=== PATIENT | male | born 1945 | race Two or more races ===

== ENCOUNTER 2017-05-10 13:54 | Outpatient (CLI) | payer MEDICARE, OTHER ==
[~2017-05-10 13:54] MED LIST: ALBUTEROL2.5 MG/3 M INH; AMLODIPINE BESY10 MG ORAL; ARICEPT23 MG ORAL; ASPIR 8181 MG ORAL; ATORVASTATIN CA10 MG ORAL; COGENTIN1 MG ORAL; CYMBALTA60 MG ORAL; DIPHENHYDRAMINE25 M1 ORAL; DOCUSIL100 M1 ORAL; FAMOTIDINE40 MG ORAL; FINASTERIDE5 MG ORAL; HALOPERIDOL1 MG ORAL; HUMALOG100 UNIT/1 SUBQ; JANUVIA50 MG ORAL; LANTUS SOL100 UNIT/1 SUBQ; LEVOTHYROXINE200 MCG IV; LEVOTHYROXINE25 MCG ORAL; LISINOPRIL10 MG ORAL; LISINOPRIL20 MG ORAL; LORAZEPAM1 MG ORAL; METFORMIN HCL500 M1 ORAL; METOPROLOL TART50 M1 ORAL; MIRTAZAPINE15 M3 ORAL; PLAVIX75 MG ORAL; RESTORIL15 MG ORAL; SYNTHROID25 MCG ORAL; SYNTHROID50 MCG ORAL; TAMSULOSIN HCL0.4 MG ORAL; VANCOMYCIN HCL125 MG IV
[2017-05-10 14:28] VITALS: BP 119/55
--- NOTE | 2017-05-10 16:09 | GI Initial Consult Note ---
[facility] Dave N.P[facility] 05/10/17 1609: History of Present Illness General Date patient seen: May 10, 2017 Time patient seen: 16:02 Referring physician: GUI Reason for Consultation: Abdominal Pain Present Illness HPI 71 year old male patient referred by Dr. Cote for c/o of RLQ pain. Stated that his pain has improved, but now back to 7/10. Denies any vomiting. In addition patient has c/o of itching and constipation. Possible jaundice. Patient had recent admission to [facility] in August 2016 for abdominal pain. U/S at the time were negative stated per patient. Last colonoscopy/EGD was performed in 2012 and per patient stated it was normal. Denies any unintentional weight loss or changes in dietary habits. Patient is a fall risk. Home Meds Reported Medications Metoprolol Tartrate* (METOPROLOL TARTRATE*) 50 Mg Tablet, 50 MG ORAL EVERY 12 HOURS, TAB 07/05/15 Lisinopril (LISINOPRIL*) 20 Mg Tablet, 20 MG ORAL DAILY, TAB 07/05/15 Levothyroxine Sodium* (LEVOTHYROXINE SODIUM) 200 Mcg Vial, 75 MCG IV DAILY, VIAL 07/05/15 Finasteride (FINASTERIDE) 5 Mg Tablet, 5 MG ORAL DAILY, #30 TAB 0 Refills 07/05/15 Donepezil Hcl (ARICEPT) 23 Mg Tablet, 10 MG ORAL DAILY, TAB Swallow whole with water; do NOT crush or chew 07/05/15 Aspirin* (ASPIR 81*) 81 Mg Tablet.dr, 81 MG ORAL DAILY, TAB 07/05/15 Amlodipine Besylate* (AMLODIPINE BESYLATE*) 10 Mg Tablet, 10 MG ORAL DAILY, TAB 07/05/15 Albuterol Sulfate* (ALBUTEROL SULFATE HHN*) 2.5 Mg/3 Ml Vial.neb, 3 ML INH Q4H Y for Shortness of Breath, EA 07/05/15 Diphenhydramine Hcl* (DIPHENHYDRAMINE HCL*) 25 Mg Capsule, 25 MG ORAL Q6H Y for Itching, #30 CAP 0 Refills 03/01/15 Docusate Sodium* (DOCUSIL*) 100 Mg Capsule, 100 MG ORAL TWICE A DAY, CAP 03/01/15 Famotidine (FAMOTIDINE) 40 Mg Tablet, 40 MG ORAL hs, #60 TAB 0 Refills 02/24/15 Levothyroxine Sodium (Synthroid) 50 Mcg Tab, 50 MCG ORAL DAILY, TAB Take in the morning on an empty stomach, at least 30 minutes before food. 02/24/15 Levothyroxine Sodium* (SYNTHROID*) 25 Mcg Tablet, 0.5 MG ORAL DAILY, TAB Take in the morning on an empty stomach, at least 30 minutes before food. 02/24/15 Duloxetine Hcl* (CYMBALTA*) 60 Mg Capsule.dr, 30 MG ORAL DAILY, CAP 10/02/14 Metformin Hcl* (METFORMIN HCL*) 500 Mg Tablet, 500 MG ORAL TWICE A DAY, TAB 10/02/14 Sitagliptin (Januvia) 50 Mg Tab, 50 MG ORAL am, TAB 10/02/14 Lisinopril* (LISINOPRIL*) 10 Mg Tablet, 10 MG ORAL DAILY, TAB 10/02/14 Clopidogrel Bisulfate* (PLAVIX*) 75 Mg Tablet, 75 MG ORAL DAILY, TAB 10/02/14 Atorvastatin Calcium* (LIPITOR*) 10 Mg Tablet, 10 MG ORAL BEDTIME, TAB 10/02/14 Mirtazapine* (MIRTAZAPINE*) 15 Mg Tablet, 15 MG ORAL BEDTIME Y for Insomnia, TAB 10/02/14 Temazepam* (RESTORIL*) 15 Mg Capsule, 15 MG ORAL BEDTIME Y for Insomnia, CAP 10/02/14 Lorazepam* (LORAZEPAM*) 1 Mg Tablet, 1 MG ORAL DAILY Y for For Anxiety, TAB 10/02/14 Tamsulosin Hcl (TAMSULOSIN HCL*) 0.4 Mg Cap.er.24h, 0.4 MG ORAL BEDTIME, CAP 10/02/14 Insulin Lispro (HUMALOG) 100 Unit/1 Ml Vial, 0 SUBQ, #1 UNITS 0 Refills 09/27/14 Insulin Glargine (LANTUS) 100 Unit/1 Ml Insuln.pen, 10 SUBQ am, #1 EA 0 Refills 09/27/14 Med list reviewed/reconciled: Yes Allergies: Coded Allergies: No Known Allergies (Unverified , 09/27/14) Patient History History Provided By: Patient, Medical Record [facility] Narrative PAST MEDICAL HISTORY: 1. Psychosis. 2. History of NIDDM. 3. History of diabetes. 4. History decubitus 5. History of GERD. 6. History of hypothyroidism. PAST SURGICAL HISTORY: Denies. Social History: Reports: smoking - quit 6 years Review of Systems All Other Systems: negative except mentioned in HPI Physical Exam Bp 119/55 61 HR 100 RA HT 5'8 WT 150 lbs Sp02 EP Interpretation: reviewed, normal General Appearance: well appearing, no apparent distress, alert Head: normocephalic EENT: PERRL/EOMI, normal ENT inspection Neck: supple Respiratory: normal breath sounds, no respiratory distress Cardiovascular: normal rate Gastrointestinal: normal inspection, non tender, soft, normal bowel sounds, non -distended Rectal: deferred Genitourinary: deferred Musculoskeletal: normal inspection, back normal Neurologic: normal inspection, alert, oriented x3, responsive Psychiatric: normal inspection, judgement/insight normal, memory normal Skin: normal inspection, normal color, no rash, warm/dry, palpation normal, well hydrated Lymphatic: normal inspection, no adenopathy GI: Plan Problems: (1) Abdominal pain (2) Constipation (3) Anemia (4) DM (diabetes mellitus) (5) Psychiatric disorder Plan Linzess 145mcg PO daily dc lactulose and MOM if linzess covered ordered abdominal U/S, send report if performed recently RTC x [address] Bolivar. Thank you for this patient referral. MELCHOR BOLIVAR 05/14/17 1413: History of Present Illness Present Illness Home Meds Reported Medications Metoprolol Tartrate* (METOPROLOL TARTRATE*) 50 Mg Tablet, 50 MG ORAL EVERY 12 HOURS, TAB 07/05/15 Lisinopril (LISINOPRIL*) 20 Mg Tablet, 20 MG ORAL DAILY, TAB 07/05/15 Levothyroxine Sodium* (LEVOTHYROXINE SODIUM) 200 Mcg Vial, 75 MCG IV DAILY, VIAL 07/05/15 Finasteride (FINASTERIDE) 5 Mg Tablet, 5 MG ORAL DAILY, #30 TAB 0 Refills 07/05/15 Donepezil Hcl (ARICEPT) 23 Mg Tablet, 10 MG ORAL DAILY, TAB Swallow whole with water; do NOT crush or chew 07/05/15 Aspirin* (ASPIR 81*) 81 Mg Tablet.dr 81 MG ORAL DAILY, TAB 07/05/15 Amlodipine Besylate* (AMLODIPINE BESYLATE*) 10 Mg Tablet, 10 MG ORAL DAILY, TAB 07/05/15 Albuterol Sulfate* (ALBUTEROL SULFATE HHN*) 2.5 Mg/3 Ml Vial.neb, 3 ML INH Q4H Y for Shortness of Breath, EA 07/05/15 Diphenhydramine Hcl* (DIPHENHYDRAMINE HCL*) 25 Mg Capsule, 25 MG ORAL Q6H Y for Itching, #30 CAP 0 Refills 03/01/15 Docusate Sodium* (DOCUSIL*) 100 Mg Capsule, 100 MG ORAL TWICE A DAY, CAP 03/01/15 Famotidine (FAMOTIDINE) 40 Mg Tablet, 40 MG ORAL hs, #60 TAB 0 Refills 02/24/15 Levothyroxine Sodium (Synthroid) 50 Mcg Tab, 50 MCG ORAL DAILY, TAB Take in the morning on an empty stomach, at least 30 minutes before food. 02/24/15 Levothyroxine Sodium* (SYNTHROID*) 25 Mcg Tablet, 0.5 MG ORAL DAILY, TAB Take in the morning on an empty stomach, at least 30 minutes before food. 02/24/15 Duloxetine Hcl* (CYMBALTA*) 60 Mg Capsule.dr, 30 MG ORAL DAILY, CAP 10/02/14 Metformin Hcl* (METFORMIN HCL*) 500 Mg Tablet, 500 MG ORAL TWICE A DAY, TAB 10/02/14 Sitagliptin (Januvia) 50 Mg Tab, 50 MG ORAL am, TAB 10/02/14 Lisinopril* (LISINOPRIL*) 10 Mg Tablet, 10 MG ORAL DAILY, TAB 10/02/14 Clopidogrel Bisulfate* (PLAVIX*) 75 Mg Tablet, 75 MG ORAL DAILY, TAB 10/02/14 Atorvastatin Calcium* (LIPITOR*) 10 Mg Tablet, 10 MG ORAL BEDTIME, TAB 10/02/14 Mirtazapine* (MIRTAZAPINE*) 15 Mg Tablet, 15 MG ORAL BEDTIME Y for Insomnia, TAB 10/02/14 Temazepam* (RESTORIL*) 15 Mg Capsule, 15 MG ORAL BEDTIME Y for Insomnia, CAP 10/02/14 Lorazepam* (LORAZEPAM*) 1 Mg Tablet, 1 MG ORAL DAILY Y for For Anxiety, TAB 10/02/14 Tamsulosin Hcl (TAMSULOSIN HCL*) 0.4 Mg Cap.er.24h, 0.4 MG ORAL BEDTIME, CAP 10/02/14 Insulin Lispro (HUMALOG) 100 Unit/1 Ml Vial, 0 SUBQ, #1 UNITS 0 Refills 09/27/14 Insulin Glargine (LANTUS) 100 Unit/1 Ml Insuln.pen, 10 SUBQ am, #1 EA 0 Refills 09/27/14 Allergies: Coded Allergies: No Known Allergies (Unverified , 09/27/14) GI: Plan Plan The patient was seen and examined at bedside and all new and available data was reviewed in the patients chart. I agree with the above findings, impression and plan. (Patient seen earlier today. Signature stamp does not reflect patient encounter time.). - MD [facility] Dave Saavedra May 10, 2017 16:09 MELCHOR BOLIVAR May 14, 2017 14:13
[2017-05-10 18:14] LABS: BASOPHILS % (AUTO) 0.3 % (0.0-2.0); EOSINOPHILS % (AUTO) 2.9 % (0.0-3.0); HEMOGLOBIN 10.3 G/DL (14.2-18.0); MEAN CORPUSCULAR VOLUME 90 FL (80-99); MONOCYTES % (AUTO) 5.3 % (1.0-10.0); NEUTROPHILS % (AUTO) 72.5 % (45.0-75.0); PLATELET COUNT 338 K/UL (150-450); RED BLOOD COUNT 3.67 M/UL (4.70-6.10); RED CELL DISTRIBUTION WIDTH 13.4 % (11.6-14.8); WHITE BLOOD COUNT 9.7 K/UL (4.8-10.8)
[2017-05-10 18:55] LABS: ALANINE AMINOTRANSFERASE 70 U/L (12-78); ALBUMIN 3.6 G/DL (3.4-5.0); ALBUMIN/GLOBULIN RATIO 0.9 (1.0-2.7); ALKALINE PHOSPHATASE 463 U/L (46-116); AMYLASE 89 U/L (25-115); ANION GAP 10 mmol/L (5-15); ASPARTATE AMINO TRANSFERASE 24 U/L (15-37); BILIRUBIN,TOTAL 0.4 MG/DL (0.2-1.0); BLOOD UREA NITROGEN 52 mg/dL (7-18); CALCIUM 9.7 MG/DL (8.5-10.1); CARBON DIOXIDE 23 MMOL/L (21-32); CHLORIDE 107 MMOL/L (98-107); CREATININE 2.2 MG/DL (0.55-1.30); POTASSIUM 5.8 MMOL/L (3.5-5.1); SODIUM 139 MMOL/L (136-145)
[2017-05-15] MEDS ORDERED: METOPROLOL SUCC50 MG ORAL (11:31)
[2017-05-15] MEDS ORDERED: VITAMIN B COMP1 EAC5 PO (11:31)
[2017-05-15] MEDS ORDERED: SYNTHROID25 MCG ORAL (11:31)
[2017-05-15] MEDS ORDERED: JANUVIA25 MG ORAL (11:31)
[2017-05-15] MEDS ORDERED: DULCOLAX10 MG RC (11:31)
[2017-05-15] MEDS ORDERED: LIPITOR20 MG ORAL (11:31)
== END 2017-05-10 14:29 | disposition home or self-care (01) ==
LOC: PAN 13:54
DX: K59.00 Constipation, unspecified (principal); R10.9 Unspecified abdominal pain; D64.9 Anemia, unspecified; E11.9 Type 2 diabetes mellitus without complications; F29 Unspecified psychosis not due to a substance or known physiological condition; K21.9 Gastro-esophageal reflux disease without esophagitis; E03.9 Hypothyroidism, unspecified; Z87.891 Personal history of nicotine dependence; Z79.82 Long term (current) use of aspirin
CPT/HCPCS: 36415; 80053; 82150; 83690; 85025; G0463; 99202

== ENCOUNTER 2017-06-05 10:21 | Outpatient (CLI) | payer MEDICARE, OTHER ==
[~2017-06-05 10:21] MED LIST changes: +DULCOLAX10 MG RC; +JANUVIA25 MG ORAL; +LIPITOR20 MG ORAL; +METOPROLOL SUCC50 MG ORAL; +VITAMIN B COMP1 EAC5 PO
[2017-06-05 12:27] LABS: % IRON SATURATION 9 % (15-50); IRON 25 ug/dL (50-175); TOTAL IRON BINDING CAPACITY 282 ug/dL (250-450)
[2017-06-05 12:28] LABS: ALANINE AMINOTRANSFERASE 42 U/L (12-78); ALBUMIN 3.3 G/DL (3.4-5.0); ALKALINE PHOSPHATASE 204 U/L (46-116); ASPARTATE AMINO TRANSFERASE 17 U/L (15-37); BILIRUBIN,DIRECT < 0.1 MG/DL (0.0-0.3); BILIRUBIN,TOTAL 0.3 MG/DL (0.2-1.0)
--- NOTE | 2017-06-11 15:14 | GI Progress Note ---
Assessment/Plan Problems: (1) Abdominal pain ICD Codes: R10.9 - Unspecified abdominal pain SNOMED: 95482648 (2) Anemia ICD Codes: D64.9 - Anemia SNOMED: 727377914 (3) Constipation ICD Codes: K59.00 - Constipation, unspecified SNOMED: 51681957 (4) DM (diabetes mellitus) ICD Codes: E11.9 - DM (diabetes mellitus) SNOMED: 25556034 Status: stable Status Narrative Seen with Dr. Price. Assessment/Plan Last colonoscoyp 2012 per patient cont linzess ordered labs >> AMA, JEFF, SMA, LFT's, Iron panel, CEA MRCP ordered RTC after imaging study patient may need endoscopy bx or ursodiol The patient was seen and examined at bedside and all new and available data was reviewed in the patients chart. I agree with the above findings, impression and plan. (Patient seen earlier today. Signature stamp does not reflect patient encounter time.). - Brendon Price MD Subjective Subjective abdominal pain >> RLQ/RUQ constipation resolved with linzess lower back pain, right should pain, right decreased appetite Mylanta helps pain Objective T 96.7 BP 120/57 P 62 100 RA Denies any unintentional weight loss or changes in dietary habits. WT 150 lbs General Appearance: WD/WN, no apparent distress, alert Cardiovascular: normal rate Respiratory/Chest: normal breath sounds, no respiratory distress Abdominal Exam: normal bowel sounds, non tender, soft Extremities: normal range of motion, non-tender Tamara Farah N.P. Jun 11, 2017 15:14 MELCHOR PRICE Jun 13, 2017 13:19
== END 2017-06-05 10:55 | disposition home or self-care (01) ==
LOC: PAN 10:21
DX: R10.9 Unspecified abdominal pain (principal)
CPT/HCPCS: 36415; 80076; 82378; 83540; 83550; 86039; 86235; 86256; G0463; 99212

== ENCOUNTER 2017-06-14 09:03 | Outpatient (CLI) | payer MEDICARE, OTHER ==
--- NOTE | 2017-06-14 12:28 | Diagnostic Imaging Report ---
Indication: 71-year-old male patient with abdominal pain Technique: Coronal and axial single shot fast spin-echo breath-hold, axial T2 FRFSE, 2-D thick slab MRCP, AXIAL 2-D FIESTA fat saturated, axial 3-D dual echo breath-hold, water weighted axial LAVA FLEX, revealed 3-D MRCP images were obtained of the abdomen. MIP reconstructions were generated of the bile ducts Comparison: None. Reference made to prior CT scan of 03/01/2015 Findings: There is some image degradation due to respiratory motion artifact Gallbladder contains small filling defects consistent with gallstones described on prior CT scan. At least 4 filling defects are seen within the downstream and mid common bile duct measuring up to 12 mm in diameter. The most upstream of these is presumably mobile, as its position varies between various sequences. There is only mild dilatation of the common bile duct, which measures up to 8 mm in diameter. There is mild central intrahepatic biliary ductal dilatation. No intrahepatic ductal filling defects are demonstrated. The gallbladder is not particularly distended, and there is no gallbladder wall thickening or pericholecystic fluid. The liver demonstrates a cyst in segment 7 which measures 14 mm diameter. The pancreas is grossly unremarkable and the pancreatic duct is nondilated. The spleen, adrenals are grossly unremarkable. There are bilateral renal cysts. There is a small right pleural effusion. Impression: Cholelithiasis, also previously reported Choledocholithiasis, with at least 4 stones in the common bile duct. Resultant mild dilatation of the extrahepatic and central intrahepatic bile ducts Small right pleural effusion Other findings as noted, including bilateral renal cysts, right lobe hepatic cyst Findings discussed by phone with Dr. Price at the time of interpretation
== END 2017-06-14 11:03 | disposition home or self-care (01) ==
LOC: MRI 09:03
DX: R10.9 Unspecified abdominal pain (principal); K80.20 Calculus of gallbladder without cholecystitis without obstruction; J90 Pleural effusion, not elsewhere classified; N20.0 Calculus of kidney; K76.89 Other specified diseases of liver; R94.5 Abnormal results of liver function studies
CPT/HCPCS: 74181

== ENCOUNTER 2017-06-25 09:21 | Day surgery (SDC) | payer MEDICARE, OTHER ==
[~2017-06-25] VITALS: Ht 172.7 cm; Wt 68.0 kg
[2017-06-25] VITALS (7 sets, daily range): BP systolic 105–121; BP diastolic 53–64
--- NOTE | 2017-06-25 10:27 | Pre-Procedure Note/Attestation ---
Pre-Procedure Note/Attestation Complete Prior to Procedure Planned Procedure: not applicable Procedure Narrative: ercp Indications for Procedure Pre-Operative Diagnosis: choledocholithiasis Attestation I attest that I discussed the nature of the procedure; its benefits; risks and complications; and alternatives (and the risks and benefits of such alternatives ), prior to the procedure, with the patient (or the patient's legal novelties sales representative). I attest that, if there was a reasonable possibility of needing a blood transfusion, the patient (or the patient's legal novelties sales representative) was given the [facility] standardized written summary, pursuant to the Renato Beatriz Blood Safety Act ([place] Health and Safety Code # 1645, as amended). I attest that I re-evaluated the patient just prior to the surgery and that there has been no change in the patient's H&P, except as documented below: MELCHOR BOLIVAR Jun 25, 2017 10:27
--- NOTE | 2017-06-25 10:29 | Short Stay Surgery H&P ---
History of Present Illness History of Present Illness Chief Complaint see recent office note HPI Ange Marquez is a 71 year old male who was admitted on for Abdominal Pain Patient History Allergies: Coded Allergies: No Known Allergies (Unverified , 09/27/14) PAST MEDICAL HISTORY: Past Surgeries: Social History: Medication History Scheduled Aspirin* (Aspir 81*), 81 MG ORAL DAILY, (Reported) Atorvastatin Calcium* (Lipitor*), 10 MG ORAL BEDTIME, (Reported) Bisacodyl (Dulcolax), 10 MG RC PRN, (Reported) Clopidogrel Bisulfate* (Plavix*), 75 MG ORAL DAILY, (Reported) Docusate Sodium* (Docusil*), 100 MG ORAL TWICE A DAY, (Reported) Finasteride (Finasteride), 5 MG ORAL DAILY, (Reported) Levothyroxine Sodium (Synthroid), 50 MCG ORAL DAILY, (Reported) Lisinopril (Lisinopril*), 20 MG ORAL DAILY, (Reported) Metformin Hcl* (Metformin Hcl*), 500 MG ORAL DAILY, (Reported) Sitagliptin* (Januvia*), 50 MG ORAL DAILY, (Reported) Tamsulosin Hcl (Tamsulosin Hcl*), 0.4 MG ORAL BEDTIME, (Reported) Miscellaneous Medications Vitamin B Complex (Vitamin B Complex), 1 EACH PO, (Reported) Physical Exam Vital Signs Last Vital Signs Date Time Temp Pulse Resp B/P (MAP) Pulse Ox O2 Delivery O2 Flow Rate FiO2 06/25/17 10:12 98.1 61 20 121/64 100 Room Air 98.1 Plan Attestation Are the patient's medical conditions optimized for surgery? MELCHOR BOLIVAR Jun 25, 2017 10:29
[2017-06-25] MEDS ORDERED: fentaNYL 100 mcg/2 mL IV ONE (11:00)
[2017-06-25] MEDS ORDERED: Midazolam 2mg/2ml Inj ONE (11:00)
[2017-06-25] MEDS ORDERED: Propofol 200mg/20ml IV ONE (11:00)
[2017-06-25] MEDS ORDERED: Glucagon 1mg Inj ONE (11:00)
[2017-06-25] MEDS ORDERED: LR 1000ml ONE (11:00)
[2017-06-25] MEDS ORDERED: Iothalamate Meglumine 60% 30ML INJ ONE (11:21)
--- NOTE | 2017-06-25 12:14 | Endoscopy Procedure Note ---
Endoscopy Procedure Note General Indication for Procedure: choledocholithiasis Procedures Performed: ERCP Operative Findings/Diagnosis: same Specimen: none Pt Tolerated Procedure Well: Yes Estimated Blood Loss: none Anesthesia Anesthesiologist: see chart Anesthesia: MAC Inserted Devices Implant(s) used?: No GI Core Measures 50 yrs or older w/o bx or poly: Not Applicable 10yrs. F/U not recommended: Not Applicable MELCHOR BOLIVAR Jun 25, 2017 12:14
--- NOTE | 2017-06-25 15:43 | Diagnostic Imaging Report ---
Indication: Abdominal pain, choledocholithiasis demonstrated on prior MRCP Technique: Intraoperative images during ERCP by Dr. Price Comparison: none Findings: Intraoperative images demonstrate multiple filling defects in the common bile duct, which is mildly dilated. Subsequent images document deployment of stone extraction balloon Impression: Intraoperative imaging, as described
--- NOTE | 2017-06-25 19:00 | Procedure Note ---
DATE OF PROCEDURE: 06/25/2017 SURGEON: Deric Price M.D. PROCEDURE: ERCP with sphincterotomy and balloon-account assistant stone extractions. ANESTHESIOLOGIST: . INSTRUMENT: Olympus endoscopic retrograde cholangiopancreatography scope. INDICATION: Choledocholithiasis. REASON FOR PROCEDURE: The procedure, risks, benefits, and possible consequences, including hemorrhage, aspiration, perforation and infection, and alternative treatments, were explained to the patient/legal guardian by Dr. Deric Price and the patient/legal guardian understood and accepted these risks. PROCEDURE: After informed consent was obtained and the patient was adequately sedated, the endoscopic retrograde cholangiopancreatography was advanced from mouth into the second portion of the duodenum. Ampulla was seen at about 11 o'clock position. It was a little challenging because the ampulla was looking down. Initially, we attempted to cannulate with sphincterotome, which was unsuccessful. Then, we used the 5 feet 5 inches catheter and we were able to cannulate the common bile duct successfully. Initial cholangiogram showed dilated common bile duct to about 8 to 9 mm with multiple stones in the distal common bile duct. Then, we switched to the sphincterotome over a guidewire and performed a sphincterotomy. A 95% sphincterotomy was performed. Then, a balloon was used to sweep the duct multiple times. The balloon was used that was 9 to 12 mm in size. Three large brown stools like about 7 mm and one small black-colored stool roughly about 4 mm was removed from the common bile duct. Post stone removal, balloon occlusion cholangiogram showed no further filling defect in the common bile duct. Cystic duct was not filled. We are not sure if the patient has history of cholecystectomy. The patient tolerated the procedure very well without any complication. The flow of contrast from common bile duct into the duodenum was excellent, so we did not put a stent at this time. SUMMARY OF FINDINGS: Choledocholithiasis. PROCEDURE: Status post endoscopic retrograde cholangiopancreatography sphincterotomy, balloon-account assistant for stone extraction. See above for details. RECOMMENDATIONS: The patient to be followed as an outpatient in one week unless the patient has severe pain. We are going to observe him for an hour to see if he has no sign and symptoms of pancreatitis. We will discharge him and have him follow as an outpatient. I want to thank, Dr. Abe Cote, for this kind referral. Deric Price M.D. DR: MISTI JOB#: [id number] CC: Abe Cote M.D.; Fax#: [phone] [facility]
--- NOTE | 2017-06-27 16:02 | Cardiology Report ---
APPROVED REPORT EKG Measurement Heart [id number] [place] [id number] Normal sinus rhythm Left axis deviation Left bundle branch block Abnormal ECG
== END 2017-06-25 14:00 | disposition home or self-care (01) ==
LOC: GAS 09:21
DX: K80.50 Calculus of bile duct without cholangitis or cholecystitis without obstruction (principal); Z79.82 Long term (current) use of aspirin; Z79.84 Long term (current) use of oral hypoglycemic drugs
CPT/HCPCS: 43262; 43264; 74328; 76000; 82962; 93005; J1610; J2250; J2704; J3010; J7120; Q9961; 94003; 94150

== ENCOUNTER 2017-07-12 12:52 | Outpatient (CLI) | payer MEDICARE, OTHER ==
[2017-07-12 13:09] VITALS: BP 98/49
--- NOTE | 2017-07-12 14:24 | GI Progress Note ---
Assessment/Plan Problems: (1) DM (diabetes mellitus) ICD Codes: E11.9 - DM (diabetes mellitus) SNOMED: 41599643 (2) Abdominal pain ICD Codes: R10.9 - Unspecified abdominal pain SNOMED: 60159727 (3) Anemia ICD Codes: D64.9 - Anemia SNOMED: 648265522 (4) Constipation ICD Codes: K59.00 - Constipation, unspecified SNOMED: 72604519 Status: stable Status Narrative Seen with Dr. Price. Assessment/Plan Rx flexeril RTC x 1 month Subjective Subjective abdominal pain >> RLQ radiates to R flank , 5-6/10 ERCP 06/25/18 hospitalized at [facility] on 07/02/17. Objective Last 24 Hour Vital Signs Date Time Temp Pulse Resp B/P (MAP) Pulse Ox O2 Delivery O2 Flow Rate FiO2 07/12/17 13:09 97.6 68 16 98/49 98 97.6 General Appearance: WD/WN, no apparent distress, alert Cardiovascular: normal rate Respiratory/Chest: normal breath sounds, no respiratory distress Abdominal Exam: normal bowel sounds, non tender, soft Extremities: non-tender Tamara Farah N.P. Jul 12, 2017 14:24
== END 2017-07-12 13:25 | disposition home or self-care (01) ==
LOC: PAN 12:52
DX: E11.9 Type 2 diabetes mellitus without complications (principal); R10.9 Unspecified abdominal pain; D64.9 Anemia, unspecified; K59.00 Constipation, unspecified
CPT/HCPCS: 99211

== ENCOUNTER 2019-04-01 11:25 | Inpatient (IN) | payer MEDICARE, OTHER ==
[~2019-04-01] VITALS: Ht 167.6 cm; Wt 66.4 kg
[2019-04-01 11:25] VITALS: BP 115/68
--- NOTE | 2019-04-01 11:26 | NUR ---
ED Nurse Note: Patient brought in by ambulance [facility] 260 from [facility] for hyperkalemia 5.9. A/O x 4, denies any pain. VSS. Sinus rhythm on physical medicine specialist.
[2019-04-01] MEDS ORDERED: Calcium Gluconate 1gm/10ml vial IVP ONE (11:45)
[2019-04-01] MEDS ORDERED: Sodium Polystyrene Sulfonate 15gm Powder ORAL ONE (11:45)
[2019-04-01] MEDS ORDERED: Sodium Bicarbonate 50ml Carp IV ONE (11:45)
[2019-04-01 11:52] LABS: BASOPHILS % (AUTO) 0.6 % (0.0-2.0); EOSINOPHILS % (AUTO) 2.6 % (0.0-3.0); MEAN CORPUSCULAR VOLUME 90 FL (80-99); MONOCYTES % (AUTO) 7.3 % (1.0-10.0); NEUTROPHILS % (AUTO) 62.5 % (45.0-75.0); PLATELET COUNT 198 K/UL (150-450); RED BLOOD COUNT 3.77 M/UL (4.70-6.10); RED CELL DISTRIBUTION WIDTH 13.7 % (11.6-14.8); WHITE BLOOD COUNT 5.5 K/UL (4.8-10.8)
[2019-04-01 12:20] LABS: ANION GAP 11 mmol/L (5-15); BLOOD UREA NITROGEN 86 mg/dL (7-18); CALCIUM 9.1 MG/DL (8.5-10.1); CARBON DIOXIDE 21 MMOL/L (21-32); CHLORIDE 110 MMOL/L (98-107); POTASSIUM 5.4 MMOL/L (3.5-5.1); SODIUM 142 MMOL/L (136-145)
[2019-04-01 12:25] LABS: ALANINE AMINOTRANSFERASE 22 U/L (12-78); ALBUMIN 3.6 G/DL (3.4-5.0); ALBUMIN/GLOBULIN RATIO 0.9 (1.0-2.7); ALKALINE PHOSPHATASE 103 U/L (46-116); ASPARTATE AMINO TRANSFERASE 16 U/L (15-37); BILIRUBIN,TOTAL 0.5 MG/DL (0.2-1.0)
--- NOTE | 2019-04-01 12:26 | Emergency Room Report ---
History of Present Illness General Chief Complaint: Abnormal Labs Source: Patient, PMD Present Illness HPI 73-year-old male with diabetes, CKD, anemia, comes to the ER for abnormal labs, found to have elevated BUN and creatinine as well as elevated potassium, patient has no complaints at all. Reports that he has had leg swelling in the past but not recently. Denies chest pain, palpitations, any other complaints. Allergies: Coded Allergies: PENICILLINS (Verified Allergy, Unknown, 07/12/17) Patient History Past Medical History: see triage record Reviewed Nursing Documentation: PMH: Agreed; PSxH: Agreed Nursing Documentation-PMH Past Medical History: No History, Except For Hx Hypertension: Yes - ANEMIA, DYSPHAGIA Hx COPD: Yes Hx Diabetes: Yes Hx Cancer: No Hx Gastrointestinal Problems: Yes - CBD STONE Hx Neurological Problems: Yes Hx Cerebrovascular Accident: Yes - cva 02/2013 Hx Transient Ischemic Attacks: Yes Hx Dementia: Yes Review of Systems All Other Systems: negative except mentioned in HPI Physical Exam Vital Signs Date Time Temp Pulse Resp B/P (MAP) Pulse Ox O2 Delivery O2 Flow Rate FiO2 04/01/19 11:26 97.5 64 17 115/68 (84) 98 Room Air Sp02 EP Interpretation: reviewed, normal General Appearance: no apparent distress, alert, non-toxic Head: normocephalic Eyes: bilateral eye normal inspection, bilateral eye PERRL, bilateral eye EOMI ENT: normal ENT inspection, hearing grossly normal, normal pharynx, no angioedema, normal voice, moist mucus membranes Neck: normal inspection, full range of motion, supple, supple/symm/no masses Respiratory: chest non-tender, lungs clear, normal breath sounds, chest symmetrical, palpation of chest normal Cardiovascular #1: normal peripheral pulses, regular rate, rhythm, no edema Cardiovascular #2: 2+ radial (R), 2+ radial (L) Gastrointestinal: normal inspection, non tender, soft, no mass, no guarding, no rebound Rectal: deferred Genitourinary: normal inspection, no CVA tenderness Musculoskeletal: back normal, normal range of motion, no calf tenderness, gait/ station normal, Elsie's Sign negative, non-tender Neurologic: alert, motor strength/tone normal, asp net mvc developer III-XII nml as tested, sensory intact, cerebellar normal, responsive, speech normal, normal gait Psychiatric: judgement/insight normal, memory normal, mood/affect normal Lymphatic: no adenopathy Procedures Critical Care Time Critical Care Time 45 minutes excluding all procedures due to life threatening electrolyte abnormalities placing patient at high risk of cardiac system failure. Medical Decision Making Diagnostic Impression: Primary Impression: Hyperkalemia Additional Impression: JOVANY (acute kidney injury) ER Course Patient well-appearing, but found to have left bundle branch block on EKG, questionable peaked T waves, given hyperkalemia treatment protocol including calcium, Kayexalate, sodium bicarb, insulin, dextrose, patient asymptomatic but with life-threatening abnormalities, likely secondary to worsening acute on chronic kidney injury, BUN in the 80s, but no friction rub heard, creatinine of 4.0, normal sodium, will admit to Dr. Phillip Gandhi. EKG Diagnostic Results EKG Time: 11:44 EP Interpretation: no stemi, LBBB Rate: normal Rhythm: NSR ST Segments: no acute changes Rhythm Strip Diag. Results Rhythm Strip Time: 12:34 EP Interpretation: yes Rate: 60 Rhythm: NSR, no PVC's, no ectopy Chest X-Ray Diagnostic Results Chest X-Ray Diagnostic Results : Chest X-Ray Ordered: Yes # of Views/Limited/Complete: 1 View Indication: Other - hyperkalemia Interpretation: no consolidation, no effusion, no pneumothorax, no acute cardiopulmonary disease, other - R effusion vs. hemidiaphragm elevation Impression: Other - R effusion vs. hemidiaphragm elevation, lungs clear otherwise, no fluid overload Electronically Signed by: Corona Mtz MD Last Vital Signs Date Time Temp Pulse Resp B/P (MAP) Pulse Ox O2 Delivery O2 Flow Rate FiO2 04/01/19 11:26 97.5 64 17 115/68 (84) 98 Room Air Disposition: ADMITTED INPATIENT Condition: Stable CORONA MTZ M.D Apr 01, 2019 12:26
--- NOTE | 2019-04-01 13:21 | Diagnostic Imaging Report ---
Indication: Cough Technique: One view of the chest Comparison: 09/27/2014 Findings: Inspiration is suboptimal currently. There is slight blunting of the right costophrenic sulcus, probably due to basilar atelectasis but small effusion also possible. The lungs and pleural spaces are otherwise clear. The heart size is upper limits normal. Impression: Slight right lateral costophrenic angle blunting, probably on the basis of atelectatic changes but small effusion also possible No acute process otherwise
--- NOTE | 2019-04-01 13:39 | NUR ---
ED Nurse Note: Patient seen and examined by Dr. Gandhi at bedside. VRE/CRE/MRSA swabs sent to lab
[2019-04-01 13:54] LABS: APPEARANCE,URINE CLEAR; BILIRUBIN, URINE NEGATIVE (NEGATIVE); COLOR,URINE PALE YELLOW; GLUCOSE, URINE (UA) NEGATIVE (NEGATIVE); KETONES,URINE NEGATIVE (NEGATIVE); LEUKOCYTE ESTERASE ,URINE NEGATIVE (NEGATIVE); NITRITE,URINE NEGATIVE (NEGATIVE); PH,URINE 5 (4.5-8.0); PROTEIN,URINE NEGATIVE (NEGATIVE); UROBILINOGEN,URINE NORMAL MG/DL (0.0-1.0)
--- NOTE | 2019-04-01 14:19 | NUR ---
ED Nurse Note: Report given to EVETTE Drake
[2019-04-01 14:20] VITALS: BP 126/61
[2019-04-01] MEDS ORDERED: FERROUS SULFAT325 MG ORAL (14:20)
[2019-04-01] MEDS ORDERED: CRANBERRY450 M4 PO (14:20)
[2019-04-01] MEDS ORDERED: BISACODYL10 M1 RC (14:20)
--- NOTE | 2019-04-01 14:20 | NUR ---
NURSE NOTES: Patient's admitted to tele per Dr. Gandhi's order. Patient's stable, ambulates with assist, unsteady. AO x 4, denies pain, no s/s of distress or SOB. Bed low and locked, call light within reach, side rails x 2, bed alarm is armed, playground monitor is on. Patient's belonging list went over with patient and ER nurse Rose Marie at bedside and signed by both nurses. Patient's IV is saline locked, patent and asymptomatic. Vital signs are stable. Orders are acknowledged and carried out. Will continue to monitor.
--- NOTE | 2019-04-01 14:24 | NUR ---
TRANSFER TO FLOOR: Patient transferred to telemetry as ordered, per Dr. Gandhi. Report given to EVETTE Drake. Belongings given to EVETTE Drake.
[2019-04-01] MEDS ORDERED: FUROSEMIDE20 M1 ORAL (14:41)
[2019-04-01] MEDS ORDERED: ACETAMINOPHEN500 M3 ORAL (14:44)
[2019-04-01] MEDS ORDERED: METOPROLOL SUCC50 MG ORAL (14:44)
--- NOTE | 2019-04-01 14:56 | Consultation ---
Consult Note Consult Note asked to eval at the request of Dr Gandhi 73-year-old male with diabetes, CKD, anemia, comes to the ER for abnormal labs, found to have elevated BUN and creatinine as well as elevated potassium, patient has no complaints at all. Reports that he has had leg swelling in the past but not recently. Denies chest pain, palpitations, any other complaints. Allergies: PENICILLINS (Verified Allergy, Unknown, 07/12/17) Past Medical History: No History, Except For Hx Hypertension: Yes - ANEMIA, DYSPHAGIA Hx COPD: Yes Hx Diabetes: Yes Hx Gastrointestinal Problems: Yes - CBD STONE Hx Neurological Problems: Yes Hx Cerebrovascular Accident: Yes - cva 02/2013 Hx Transient Ischemic Attacks: Yes Hx Dementia: Yes Assessment/Plan JOVANY HyperKalemia Diabetes, CKD, Anemia, HypoThyroid CAD Adjust BP meds Kidney GILLES 2D echo Urine studies Ti Jones MD Apr 01, 2019 14:56
[2019-04-01] MEDS ORDERED: Acetaminophen 500mg (ES) tab ORAL PRN (15:28)
[2019-04-01] MEDS: D5 1/2NS 1,000 ML IV SCH (16:05)
[2019-04-01] MEDS ORDERED: HydrALAZINE 25mg tab ORAL PRN (16:15)
[2019-04-01] MEDS: Docusate 100mg cap ORAL SCH (17:21)
[2019-04-01] MEDS: NovoLOG Insulin Flexpen SUBQ SCH ×2 (17:24→20:48)
--- NOTE | 2019-04-01 19:30 | NUR ---
NURSE NOTES: Received pt and report from EVETTE Good. Observed pt resting in bed and watching television with friend at bedside. Pt is A/Ox4. teletypesetter monitor is in placed, IV site intact, asymptomatic, and patent; currently running D5 1/2 NS @ 70cc/hr. Bed is in the lowest position, locked, and alarmed. Call light and bedside table is within reach. No signs/symptoms of acute distress noted at this time. Will continue plan of care.
[2019-04-01 20:00] VITALS: BP 105/50
[2019-04-01] MEDS: Atorvastatin 20mg tab ORAL SCH (20:46)
[2019-04-01] MEDS ORDERED: Tamsulosin 0.4mg cap ORAL SCH ×2 (21:00)
[2019-04-01] MEDS ORDERED: Metoprolol Succinate XL 50mg tab ORAL SCH (21:00)
--- NOTE | 2019-04-01 21:45 | History and Physical Report ---
DATE OF ADMISSION: 04/01/2019 TIME SEEN: 1 p.m. CONSULTANTS: 1. Ti Jones M.D. 2. Javi Rico M.D. CHIEF COMPLAINT: Hyperkalemia, dehydration, left hand numbness. BRIEF HISTORY: This is a 73-year-old male from [facility] presented with above-mentioned diagnosis, sent to [facility], diagnosed with above, currently in the ER, awaiting admission. Currently, calm in bed, no complaint. No chest pain. No shortness of breath. No nausea, vomiting, or diarrhea. PAST MEDICAL HISTORY: Includes diabetes type 2, hypertension, renal insufficiency, weakness. PAST SURGICAL HISTORY: Angioplasty. MEDICATIONS: Include Sulfa, IV fluids, calcium carbonate. ALLERGIES: Denies. SOCIAL HISTORY: No smoking. No alcohol. No intravenous drug abuse. FAMILY HISTORY: Noncontributory. PHYSICAL EXAMINATION: GENERAL: Calm in bed, oriented x3, no acute distress. VITAL SIGNS: Temperature 97 degrees, pulse 64, respiratory rate 17, blood pressure 115/68. CARDIOVASCULAR: No murmurs. LUNGS: Distant and clear. ABDOMEN: Bowel sounds positive. Nontender. Nondistended. EXTREMITIES: No cyanosis, clubbing, or edema. NEUROLOGIC: The patient moves all extremities, slightly weak. LABORATORY AND DIAGNOSTIC DATA: Labs at this time show hemoglobin and hematocrit of 11 and 34, otherwise CBC is normal. BMP shows potassium 5.4, chloride 111, BUN and creatinine 86 and 4.0. Glucose 157. Troponin 0.00. Urinalysis is pending. ASSESSMENT: 1. Hyperkalemia. 2. Anemia. 3. Renal failure. 4. Dehydration. 5. Left hand numbness. 6. Diabetes. 7. Hypertension. 8. Renal insufficiency. 9. Weakness. PLAN: 1. PT and dietary evaluation. 2. IV fluids. 3. Blood pressure and blood sugar control. 4. Resume home medications. 5. CBC and BMP in the morning. 6. We will continue to follow the patient. Phillip Gandhi D.O. DR: Rodolfo JOB#: [id number] CC:
[2019-04-02] VITALS: BP 107/56
[2019-04-02 04:00] VITALS: BP 114/51
[2019-04-02 04:55] LABS: BASOPHILS % (AUTO) 0.3 % (0.0-2.0); EOSINOPHILS % (AUTO) 3.2 % (0.0-3.0); HEMATOCRIT 29.2 % (42.0-52.0); HEMOGLOBIN 9.6 G/DL (14.2-18.0); MEAN CORPUSCULAR VOLUME 88 FL (80-99); MONOCYTES % (AUTO) 7.9 % (1.0-10.0); NEUTROPHILS % (AUTO) 63.6 % (45.0-75.0); PLATELET COUNT 171 K/UL (150-450); RED BLOOD COUNT 3.32 M/UL (4.70-6.10); RED CELL DISTRIBUTION WIDTH 13.6 % (11.6-14.8); WHITE BLOOD COUNT 5.6 K/UL (4.8-10.8)
[2019-04-02 05:50] LABS: % IRON SATURATION 53 % (15-50); IRON 110 ug/dL (50-175); TOTAL IRON BINDING CAPACITY 206 ug/dL (250-450)
[2019-04-02 05:55] LABS: ALANINE AMINOTRANSFERASE 19 U/L (12-78); ALBUMIN 3.1 G/DL (3.4-5.0); ALBUMIN/GLOBULIN RATIO 0.9 (1.0-2.7); ALKALINE PHOSPHATASE 81 U/L (46-116); ANION GAP 9 mmol/L (5-15); ASPARTATE AMINO TRANSFERASE 14 U/L (15-37); BILIRUBIN,TOTAL 0.6 MG/DL (0.2-1.0); BLOOD UREA NITROGEN 84 mg/dL (7-18); CALCIUM 8.7 MG/DL (8.5-10.1); CARBON DIOXIDE 24 MMOL/L (21-32); CHLORIDE 112 MMOL/L (98-107); CHOLESTEROL 133 MG/DL (< 200); CREATININE 3.5 MG/DL (0.55-1.30); GAMMA GLUTAMYL TRANSPEPTIDASE 11 U/L (5-85); HDL CHOLESTEROL 42 MG/DL (40-60); PHOSPHORUS 4.2 MG/DL (2.5-4.9); POTASSIUM 4.9 MMOL/L (3.5-5.1); SODIUM 145 MMOL/L (136-145); TRIGLYCERIDES 59 MG/DL (30-150)
[2019-04-02] MEDS: D5 1/2NS 1,000 ML IV SCH ×2 (05:58→15:37)
[2019-04-02] MEDS: NovoLOG Insulin Flexpen SUBQ SCH ×4 (05:59→21:00)
[2019-04-02 06:40] LABS: FERRITIN 251 NG/ML (8-388)
--- NOTE | 2019-04-02 07:12 | NUR ---
NURSE NOTES: Received patient from Finesse Abel. Patient is awake in bed. Denies pain or discomfort at this time. Fall precautions in place. Call bach within patients reach. Will follow.
--- NOTE | 2019-04-02 07:32 | NUR ---
HAND-OFF: Report given to EVETTE Moy. Plan of care endorsed.
[2019-04-02 08:00] VITALS: BP 120/56
[2019-04-02] MEDS ORDERED: Docusate 250mg cap ORAL SCH (09:00)
[2019-04-02] MEDS ORDERED: Lisinopril 20mg tab ORAL SCH (09:00)
[2019-04-02] MEDS ORDERED: metFORMIN 500mg tab ORAL SCH (09:00)
[2019-04-02] MEDS: Aspirin EC 81mg tab ORAL SCH (09:05)
[2019-04-02] MEDS: Tamsulosin 0.4mg cap ORAL SCH ×2 (09:05→17:31)
[2019-04-02] MEDS: Docusate 100mg cap ORAL SCH ×3 (09:06→17:32)
[2019-04-02] MEDS: sitaGLIPtin 25mg tab ORAL SCH (09:06)
[2019-04-02] MEDS: Metoprolol Succinate XL 50mg tab ORAL SCH (09:06)
--- NOTE | 2019-04-02 10:30 | NUR ---
CARDIOLOGY; 2-D ECHO REPORT Global left ventricular hypokinesis . Mild left ventricular enlargement . Left ventricular ejection fraction estimated to be 35-40%. No left ventricular hypertrophy. No pericardial effusion. Mild left atrial enlargement . Right cardiac chamber sizes are within normal limits. Focal aortic valve sclerosis with adequate cusp excursion. Thickened mitral valve leaflets with normal excursion. Mitral annulus and aortic root calcification. Pulmonic valve not well visualized. Normal tricuspid valve structure. IVC at normal size without physiologic collapse. A color flow and spectral Doppler study was performed and revealed: Mild aortic insufficiency. Mild mitral regurgitation. Mitral diastolic velocities suggest reduced left ventricular relaxation c/w mild LV diastolic dysfunction (Grade I ). Trace tricuspid regurgitation. Tricuspid systolic velocities suggests peak right ventricular systolic pressure of 18mmHg.
--- NOTE | 2019-04-02 10:48 | NUR ---
P.T Note: P.T EVALUATION COMPLETED. PATIENT IS ALERT , O X 4, PLEASANT AND COOPERATIVE. PATIENT DENIED C/O PAIN DURING ENTIRE P.T EVALUATION. PATIENT IS INDEPENDENT IN ALL AREAS OF ADL/FUNCTIONAL MOBILITIES AND GAIT/LOCOMOTION. CURRENT FUNCTIONAL STATUS DOES NOT WARRANT SKILLED P.T SERVICE AT THIS TIME. ENCOURAGED PATIENT OOB ACTIVITIES VS BEDREST DURING STAY UNLESS OTHERWISE INDICATED. DC P.T SERVICES. THANK YOU FOR THIS REFERRAL.
[2019-04-02 12:00] VITALS: BP 108/54
--- NOTE | 2019-04-02 15:08 | General Progress Note ---
Assessment/Plan Problem List: (1) Renal insufficiency ICD Codes: N28.9 - Disorder of kidney and ureter, unspecified SNOMED: 675821026 (2) HTN (hypertension) ICD Codes: I10 - Essential (primary) hypertension SNOMED: 11926798 (3) Weakness ICD Codes: R53.1 - Weakness SNOMED: 55478310 (4) Acute renal failure (ARF) ICD Codes: N17.9 - Acute renal failure (ARF) SNOMED: 18977906 (5) Hyperkalemia ICD Codes: E87.5 - Hyperkalemia SNOMED: 95071256, 1211126 (6) Anemia ICD Codes: D64.9 - Anemia SNOMED: 252945825 (7) DM (diabetes mellitus) ICD Codes: E11.9 - DM (diabetes mellitus) SNOMED: 08625285 Status: unchanged Assessment/Plan: pt diet eval bp bs control neoh neuro eval cbc bmp am Subjective Constitutional: Reports: weakness Allergies: Coded Allergies: PENICILLINS (Verified Allergy, Unknown, 07/12/17) All Systems: reviewed and negative except above Subjective sleepy in bed calm Objective Last 24 Hour Vital Signs Date Time Temp Pulse Resp B/P (MAP) Pulse Ox O2 Delivery O2 Flow Rate FiO2 04/02/19 12:00 97.5 66 15 108/54 (72) 100 04/02/19 09:06 82 120/56 04/02/19 09:00 Room Air 04/02/19 08:00 77 04/02/19 08:00 96.7 82 14 120/56 (77) 100 04/02/19 04:00 98.0 64 17 114/51 (72) 98 04/02/19 04:00 62 04/02/19 00:00 97.9 60 18 107/56 (73) 99 04/02/19 00:00 57 04/01/19 21:00 Room Air 04/01/19 20:00 64 04/01/19 20:00 97.7 63 17 105/50 (68) 99 04/01/19 16:00 65 04/01/19 15:48 Room Air Intake and Output 04/01/19 04/02/19 19:00 07:00 Intake Total 240 ml 240 ml Balance 240 ml 240 ml Intake Oral 240 ml 240 ml # Voids 2 3 Laboratory Tests 04/02/19 04:46: White Blood Count 5.6, Red Blood Count 3.32L, Hemoglobin 9.6L, Hematocrit 29.2L , Mean Corpuscular Volume 88, Mean Corpuscular Hemoglobin 29.1, Mean Corpuscular Hemoglobin Concent 33.1, Red Cell Distribution Width 13.6, Platelet Count 171, Mean Platelet Volume 5.0L, Neutrophils (%) (Auto) 63.6, Lymphocytes ( %) (Auto) 25.0, Monocytes (%) (Auto) 7.9, Eosinophils (%) (Auto) 3.2H, Basophils (%) (Auto) 0.3, Sodium Level 145, Potassium Level 4.9, Chloride Level 112H, Carbon Dioxide Level 24, Anion Gap 9, Blood Urea Nitrogen 84H, Creatinine 3.5H, Estimat Glomerular Filtration Rate , Glucose Level 92, Uric Acid 8.8H, Calcium Level 8.7, Phosphorus Level 4.2, Magnesium Level 1.6L, Iron Level 110, Total Iron Binding Capacity 206L, Percent Iron Saturation 53H, Unsaturated Iron Binding 96L, Ferritin 251, Total Bilirubin 0.6, Gamma Glutamyl Transpeptidase 11 , Aspartate Amino Transf (AST/SGOT) 14L, Alanine Aminotransferase (ALT/SGPT) 19 , Alkaline Phosphatase 81, C-Reactive Protein, Quantitative < 0.4, Pro-B-Type Natriuretic Peptide 6111H, Total Protein 6.4, Albumin 3.1L, Globulin 3.3, Albumin/Globulin Ratio 0.9L, Triglycerides Level 59, Cholesterol Level 133, LDL Cholesterol 79, HDL Cholesterol 42, Cholesterol/HDL Ratio 3.2L, Vitamin B12 Level 661, Folate 9.1, Thyroid Stimulating Hormone (TSH) 1.404, Free Thyroxine 0.93, Free Triiodothyronine 1.5L 04/02/19 07:57: Urine Eosinophils None seen, Urine Random Sodium 109 Height (Feet): 5 Height (Inches): 6.00 Weight (Pounds): 146 General Appearance: lethargic EENT: normal ENT inspection Neck: normal alignment Cardiovascular: normal peripheral pulses, normal rate, regular rhythm Respiratory/Chest: chest wall non-tender, lungs clear, normal breath sounds Abdomen: normal bowel sounds, non tender, soft Extremities: normal inspection Edema: no edema noted Arm (L), no edema noted Arm (R), no edema noted Leg (L), no edema noted Leg (R), no edema noted Pedal (L), no edema noted Pedal (R), no edema noted Generalized Neurologic: motor weakness Skin: normal pigmentation, warm/dry Phillip Gandhi DO Apr 02, 2019 15:08
--- NOTE | 2019-04-02 15:17 | Nephrology Progress Note ---
Assessment/Plan Problem List: (1) Acute renal failure (ARF) (2) Hyperkalemia (3) DM (diabetes mellitus) (4) Anemia (5) Hypothyroid Assessment JOVANY HyperKalemia Diabetes, CKD, Anemia, HypoThyroid CAD Plan Adjust BP meds Kidney GILLES pending 2D echo Pending Urine studies per orders Objective Objective Last 24 Hour Vital Signs Date Time Temp Pulse Resp B/P (MAP) Pulse Ox O2 Delivery O2 Flow Rate FiO2 04/02/19 12:00 97.5 66 15 108/54 (72) 100 04/02/19 09:06 82 120/56 04/02/19 09:00 Room Air 04/02/19 08:00 77 04/02/19 08:00 96.7 82 14 120/56 (77) 100 04/02/19 04:00 98.0 64 17 114/51 (72) 98 04/02/19 04:00 62 04/02/19 00:00 97.9 60 18 107/56 (73) 99 04/02/19 00:00 57 04/01/19 21:00 Room Air 04/01/19 20:00 64 04/01/19 20:00 97.7 63 17 105/50 (68) 99 04/01/19 16:00 65 04/01/19 15:48 Room Air Intake and Output 04/01/19 04/02/19 19:00 07:00 Intake Total 240 ml 240 ml Balance 240 ml 240 ml Intake Oral 240 ml 240 ml # Voids 2 3 Laboratory Tests 04/02/19 04:46: White Blood Count 5.6, Red Blood Count 3.32L, Hemoglobin 9.6L, Hematocrit 29.2L , Mean Corpuscular Volume 88, Mean Corpuscular Hemoglobin 29.1, Mean Corpuscular Hemoglobin Concent 33.1, Red Cell Distribution Width 13.6, Platelet Count 171, Mean Platelet Volume 5.0L, Neutrophils (%) (Auto) 63.6, Lymphocytes ( %) (Auto) 25.0, Monocytes (%) (Auto) 7.9, Eosinophils (%) (Auto) 3.2H, Basophils (%) (Auto) 0.3, Sodium Level 145, Potassium Level 4.9, Chloride Level 112H, Carbon Dioxide Level 24, Anion Gap 9, Blood Urea Nitrogen 84H, Creatinine 3.5H, Estimat Glomerular Filtration Rate , Glucose Level 92, Uric Acid 8.8H, Calcium Level 8.7, Phosphorus Level 4.2, Magnesium Level 1.6L, Iron Level 110, Total Iron Binding Capacity 206L, Percent Iron Saturation 53H, Unsaturated Iron Binding 96L, Ferritin 251, Total Bilirubin 0.6, Gamma Glutamyl Transpeptidase 11 , Aspartate Amino Transf (AST/SGOT) 14L, Alanine Aminotransferase (ALT/SGPT) 19 , Alkaline Phosphatase 81, C-Reactive Protein, Quantitative < 0.4, Pro-B-Type Natriuretic Peptide 6111H, Total Protein 6.4, Albumin 3.1L, Globulin 3.3, Albumin/Globulin Ratio 0.9L, Triglycerides Level 59, Cholesterol Level 133, LDL Cholesterol 79, HDL Cholesterol 42, Cholesterol/HDL Ratio 3.2L, Vitamin B12 Level 661, Folate 9.1, Thyroid Stimulating Hormone (TSH) 1.404, Free Thyroxine 0.93, Free Triiodothyronine 1.5L 04/02/19 07:57: Urine Eosinophils None seen, Urine Random Sodium 109 Height (Feet): 5 Height (Inches): 6.00 Weight (Pounds): 146 Ti Jones MD Apr 02, 2019 15:17
[2019-04-02 16:00] VITALS: BP 103/50
[2019-04-02] MEDS ORDERED: JANUVIA50 MG ORAL (19:34)
[2019-04-02] MEDS ORDERED: ACETAMINOPHEN325 M1 ORAL (19:34)
[2019-04-02] MEDS ORDERED: FLEET ENEMA133 ML RECTAL (19:34)
[2019-04-02] MEDS ORDERED: MILK OF MA400 MG/51 ORAL (19:34)
[2019-04-02] MEDS ORDERED: DOCUSATE SODIU250 MG ORAL (19:34)
[2019-04-02] MEDS ORDERED: ATORVASTATIN CA20 MG ORAL (19:34)
--- NOTE | 2019-04-02 19:54 | NUR ---
HAND-OFF: Report given to Finesse Vila.
--- NOTE | 2019-04-02 19:55 | NUR ---
NURSE NOTES: Received report from Farzaneh Hernandez RN. Pt is ao x3 calm and comfortable. Bed alarm is on. Rails are up x3. monitoring manager is on. Call light is within reach.
[2019-04-02 20:00] VITALS: BP 120/58
--- NOTE | 2019-04-02 20:14 | Diagnostic Imaging Report ---
Indication: Abnormal renal function Technique: US Renal Comp Comparison: None Findings: Right kidney measures 9.8 cm in length. Left kidney measures 9.7 cm in length. Both kidneys demonstrate normal echogenicity. There is no hydronephrosis or sonographically appreciable renal stone. A 1 cm simple cyst is noted in the right kidney. There is bladder wall thickening with some equivocal asymmetric thickening in the anterior aspect of the bladder. Impression: * No hydronephrosis or sonographically appreciable renal stone. * Renal echogenicity within normal limits. * Simple appearing small right renal cyst. * Bladder wall thickening may be related to underdistention. Correlation with urinalysis recommended. Equivocal slight asymmetric thickening of the anterior wall the bladder. This may also be artifactual related to bladder wall thickening however the possibility of subtle findings related to neoplastic bladder wall thickening/bladder mass not excluded. Consider correlation with cytology and/or direct visualization.
[2019-04-02] MEDS: Atorvastatin 20mg tab ORAL SCH (21:39)
[2019-04-03] VITALS: BP 115/56
[2019-04-03] MEDS: D5 1/2NS 1,000 ML IV SCH ×2 (00:34→14:31)
[2019-04-03 04:00] VITALS: BP 107/56
[2019-04-03] MEDS: NovoLOG Insulin Flexpen SUBQ SCH ×4 (06:07→21:00)
[2019-04-03 07:29] LABS: BASOPHILS % (AUTO) 0.2 % (0.0-2.0); EOSINOPHILS % (AUTO) 3.1 % (0.0-3.0); HEMATOCRIT 28.5 % (42.0-52.0); HEMOGLOBIN 9.4 G/DL (14.2-18.0); LYMPHOCYTES % (AUTO) 30.2 % (20.0-45.0); MEAN CORPUSCULAR VOLUME 89 FL (80-99); MONOCYTES % (AUTO) 7.4 % (1.0-10.0); NEUTROPHILS % (AUTO) 59.2 % (45.0-75.0); PLATELET COUNT 176 K/UL (150-450); RED BLOOD COUNT 3.21 M/UL (4.70-6.10); RED CELL DISTRIBUTION WIDTH 13.6 % (11.6-14.8); WHITE BLOOD COUNT 5.7 K/UL (4.8-10.8)
--- NOTE | 2019-04-03 07:29 | NUR ---
HAND-OFF: Report given to Bridger Miranda RN.
[2019-04-03 07:48] LABS: ANION GAP 10 mmol/L (5-15); BLOOD UREA NITROGEN 76 mg/dL (7-18); CALCIUM 8.7 MG/DL (8.5-10.1); CARBON DIOXIDE 24 MMOL/L (21-32); CHLORIDE 110 MMOL/L (98-107); CREATININE 3.4 MG/DL (0.55-1.30); POTASSIUM 4.9 MMOL/L (3.5-5.1); SODIUM 144 MMOL/L (136-145)
[2019-04-03 08:00] VITALS: BP 113/54
[2019-04-03] MEDS: Docusate 100mg cap ORAL SCH ×3 (09:28→17:12)
[2019-04-03] MEDS: Tamsulosin 0.4mg cap ORAL SCH ×2 (09:28→17:31)
[2019-04-03] MEDS: sitaGLIPtin 25mg tab ORAL SCH (09:28)
[2019-04-03] MEDS: Aspirin EC 81mg tab ORAL SCH (09:28)
[2019-04-03] MEDS: Metoprolol Succinate XL 50mg tab ORAL SCH (09:30)
--- NOTE | 2019-04-03 11:47 | Nephrology Progress Note ---
Assessment/Plan Problem List: (1) Acute renal failure (ARF) (2) Hyperkalemia (3) DM (diabetes mellitus) (4) Anemia (5) Hypothyroid Assessment JOVANY HyperKalemia Diabetes, CKD, Anemia, HypoThyroid CAD Plan decrease lopressor dose Adjust BP meds Kidney GILLES noted 2D echo Pending Urine studies per orders GILLES Impression: * No hydronephrosis or sonographically appreciable renal stone. * Renal echogenicity within normal limits. * Simple appearing small right renal cyst. * Bladder wall thickening may be related to underdistention. Correlation with urinalysis recommended. Equivocal slight asymmetric thickening of the anterior wall the bladder. This may also be artifactual related to bladder wall thickening however the possibility of subtle findings related to neoplastic bladder wall thickening/bladder mass not excluded. Consider correlation with cytology and/or direct visualization. Subjective ROS Limited/Unobtainable: No Constitutional: Reports: malaise Objective Objective Last 24 Hour Vital Signs Date Time Temp Pulse Resp B/P (MAP) Pulse Ox O2 Delivery O2 Flow Rate FiO2 04/03/19 09:30 67 107/56 04/03/19 08:25 Room Air 04/03/19 04:00 98.1 60 20 107/56 (73) 95 04/03/19 04:00 60 04/03/19 00:00 59 04/03/19 00:00 97.6 61 20 115/56 (75) 98 04/02/19 21:00 Room Air 04/02/19 20:00 60 04/02/19 20:00 97.3 63 20 120/58 (78) 99 04/02/19 16:00 58 04/02/19 16:00 97.8 64 15 103/50 (67) 100 04/02/19 12:00 64 04/02/19 12:00 97.5 66 15 108/54 (72) 100 Intake and Output 04/02/19 04/03/19 19:00 07:00 Intake Total 480 ml Balance 480 ml Intake Oral 480 ml # Voids 1 # Bowel Movements 1 Laboratory Tests 04/03/19 06:07: White Blood Count 5.7, Red Blood Count 3.21L, Hemoglobin 9.4L, Hematocrit 28.5L , Mean Corpuscular Volume 89, Mean Corpuscular Hemoglobin 29.3, Mean Corpuscular Hemoglobin Concent 33.0, Red Cell Distribution Width 13.6, Platelet Count 176, Mean Platelet Volume 5.7L, Neutrophils (%) (Auto) 59.2, Lymphocytes ( %) (Auto) 30.2, Monocytes (%) (Auto) 7.4, Eosinophils (%) (Auto) 3.1H, Basophils (%) (Auto) 0.2, Sodium Level 144, Potassium Level 4.9, Chloride Level 110H, Carbon Dioxide Level 24, Anion Gap 10, Blood Urea Nitrogen 76H, Creatinine 3.4H, Estimat Glomerular Filtration Rate , Glucose Level 118H, Calcium Level 8.7 Height (Feet): 5 Height (Inches): 6.00 Weight (Pounds): 146 General Appearance: no apparent distress Cardiovascular: bradycardia Respiratory/Chest: decreased breath sounds Abdomen: soft Objective no change Ti Jones MD Apr 03, 2019 11:47
[2019-04-03 12:00] VITALS: BP 125/61
[2019-04-03 14:26] LABS: APPEARANCE,URINE CLEAR; BILIRUBIN, URINE NEGATIVE (NEGATIVE); COLOR,URINE PALE YELLOW; GLUCOSE, URINE (UA) NEGATIVE (NEGATIVE); KETONES,URINE NEGATIVE (NEGATIVE); LEUKOCYTE ESTERASE ,URINE NEGATIVE (NEGATIVE); NITRITE,URINE NEGATIVE (NEGATIVE); PH,URINE 5 (4.5-8.0); PROTEIN,URINE NEGATIVE (NEGATIVE); UROBILINOGEN,URINE NORMAL MG/DL (0.0-1.0)
--- NOTE | 2019-04-03 15:01 | General Progress Note ---
Assessment/Plan Problem List: (1) Renal insufficiency ICD Codes: N28.9 - Disorder of kidney and ureter, unspecified SNOMED: 873627680 (2) HTN (hypertension) ICD Codes: I10 - Essential (primary) hypertension SNOMED: 87280284 (3) Weakness ICD Codes: R53.1 - Weakness SNOMED: 75229885 (4) Acute renal failure (ARF) ICD Codes: N17.9 - Acute renal failure (ARF) SNOMED: 55071867 (5) Hyperkalemia ICD Codes: E87.5 - Hyperkalemia SNOMED: 73495076, 4618521 (6) Anemia ICD Codes: D64.9 - Anemia SNOMED: 423303518 (7) DM (diabetes mellitus) ICD Codes: E11.9 - DM (diabetes mellitus) SNOMED: 59558101 Status: stable, progressing Assessment/Plan: pt diet eval bp bs control neph neuro eval cbc bmp am dc plan Subjective Constitutional: Reports: weakness Allergies: Coded Allergies: PENICILLINS (Verified Allergy, Unknown, 07/12/17) All Systems: reviewed and negative except above Subjective sleepy in bed calm Objective Last 24 Hour Vital Signs Date Time Temp Pulse Resp B/P (MAP) Pulse Ox O2 Delivery O2 Flow Rate FiO2 04/03/19 12:00 98.8 75 18 125/61 (82) 97 04/03/19 12:00 60 04/03/19 09:30 67 107/56 04/03/19 08:25 Room Air 04/03/19 08:00 72 04/03/19 08:00 96.6 75 19 113/54 (73) 99 04/03/19 04:00 98.1 60 20 107/56 (73) 95 04/03/19 04:00 60 04/03/19 00:00 59 04/03/19 00:00 97.6 61 20 115/56 (75) 98 04/02/19 21:00 Room Air 04/02/19 20:00 60 04/02/19 20:00 97.3 63 20 120/58 (78) 99 04/02/19 16:00 58 04/02/19 16:00 97.8 64 15 103/50 (67) 100 Intake and Output 04/02/19 04/03/19 19:00 07:00 Intake Total 480 ml Balance 480 ml Intake Oral 480 ml # Voids 1 # Bowel Movements 1 Laboratory Tests 04/03/19 06:07: White Blood Count 5.7, Red Blood Count 3.21L, Hemoglobin 9.4L, Hematocrit 28.5L , Mean Corpuscular Volume 89, Mean Corpuscular Hemoglobin 29.3, Mean Corpuscular Hemoglobin Concent 33.0, Red Cell Distribution Width 13.6, Platelet Count 176, Mean Platelet Volume 5.7L, Neutrophils (%) (Auto) 59.2, Lymphocytes ( %) (Auto) 30.2, Monocytes (%) (Auto) 7.4, Eosinophils (%) (Auto) 3.1H, Basophils (%) (Auto) 0.2, Sodium Level 144, Potassium Level 4.9, Chloride Level 110H, Carbon Dioxide Level 24, Anion Gap 10, Blood Urea Nitrogen 76H, Creatinine 3.4H, Estimat Glomerular Filtration Rate , Glucose Level 118H, Calcium Level 8.7 04/03/19 13:00: Urine Color Pale yellow, Urine Appearance Clear, Urine pH 5, Urine Specific Rush 1.010, Urine Protein Negative, Urine Glucose (UA) Negative, Urine Ketones Negative, Urine Blood Negative, Urine Nitrite Negative, Urine Bilirubin Negative, Urine Urobilinogen Normal, Urine Leukocyte Esterase Negative, Urine RBC 0, Urine WBC 0, Urine Squamous Epithelial Cells Occasional, Urine Bacteria Occasional, Urine Eosinophils None seen Height (Feet): 5 Height (Inches): 6.00 Weight (Pounds): 146 General Appearance: lethargic EENT: normal ENT inspection Neck: normal alignment Cardiovascular: normal peripheral pulses, normal rate, regular rhythm Respiratory/Chest: chest wall non-tender, lungs clear, normal breath sounds Abdomen: normal bowel sounds, non tender, soft Extremities: normal inspection Edema: no edema noted Arm (L), no edema noted Arm (R), no edema noted Leg (L), no edema noted Leg (R), no edema noted Pedal (L), no edema noted Pedal (R), no edema noted Generalized Neurologic: motor weakness Skin: normal pigmentation, warm/dry Phillip Gandhi DO Apr 03, 2019 15:01
[2019-04-03 16:00] VITALS: BP 120/62
--- NOTE | 2019-04-03 19:40 | NUR ---
NURSE NOTES: Received report from Neli Galvan RN. Patient in bed AAO X4 with no complaints of acute pain or discomfort at this time. Kept clean, dry, and comfortable in bed. Ambulates to the bathroom with minimal assistance. Placed on continuous cardiac monitoring per protocol. IV line intact and patent SL. Safety precaution in place; siderails X2 up, call light within reach, bed in lowest position, brakes and alarm on at all times. Needs and wants anticipated and attended. Will continue plan of care and monitor for any changes noted.
[2019-04-03 20:00] VITALS: BP 113/67
[2019-04-03] MEDS: Atorvastatin 20mg tab ORAL SCH (22:25)
--- NOTE | 2019-04-03 23:45 | Consultation ---
DATE OF CONSULTATION: 04/03/2019 UROLOGY CONSULTATION CONSULTING PHYSICIAN: Hayes Khan M.D. ATTENDING/REFERRING PHYSICIAN: Phillip Gandhi D.O. CHIEF COMPLAINT/HISTORY OF PRESENT ILLNESS: I was asked by Dr. Gandhi to evaluate this 73-year-old gentleman regarding a history of some unusual ultrasound findings of the bladder in the setting of chronic renal insufficiency. Briefly, the patient presented to the hospital with hyperkalemia, dehydration, and numbness of the left hand. He was noted to have an elevated creatinine of approximately 3.5. A renal bladder ultrasound to evaluate the same revealed some thickening of the bladder wall with some equivocal asymmetry to the same. Given the above, I was asked to evaluate the patient. PAST MEDICAL HISTORY: 1. Diabetes mellitus. 2. Hypertension. 3. Chronic kidney disease/renal insufficiency. 4. BPH with urinary retention. 5. Perineal abscess/scrotal cellulitis. PAST SURGICAL HISTORY: 1. Angioplasty. 2. ERCP. MEDICATIONS: Please see the chart for current medications administration details. ALLERGIES: No known drug allergies. SOCIAL HISTORY: Unremarkable for tobacco, alcohol, or drug use. FAMILY HISTORY: Noncontributory. REVIEW OF SYSTEMS: A 14-system review of systems was unremarkable outside of what is described above. PHYSICAL EXAMINATION: GENERAL: The patient is an older gentleman, resting comfortably, in no obvious distress. HEENT: NC/AT. EOMI. NECK: Supple. Oropharynx clear. CHEST: Within normal limits. ABDOMEN: Soft, flat, nontender, nondistended. EXTREMITIES: Warm, well perfused. No cyanosis, clubbing, or edema. BACK: No apparent CVA tenderness to percussion. NEUROLOGIC: Nonfocal. LABORATORY DATA: White blood cell count 5.7, hematocrit 28.5, platelets 176. Sodium 144, potassium 4.9, chloride 110, bicarb 24, BUN 76, creatinine 3.4 down from 4 on admission, glucose 118. Uric acid 8.8. LFTs within normal limits. Urinalysis, specific gravity 1.010, pH 5.0. Dip test negative for all findings. Rectal culture notable for VRE. DIAGNOSTIC IMAGING: Renal bladder ultrasound without any evidence of hydronephrosis or appreciable renal stone. Renal echogenicity is within normal limits. There is a small appearing simple cyst on the right-hand side measuring 1 cm in size. There is bladder wall thickening likely secondary to underdistention. There is equivocal slight asymmetric thickening of the anterior wall, which maybe artifactual; however, other process such as neoplasm cannot be excluded. ASSESSMENT AND PLAN: In summary, the patient is a 73-year-old gentleman with a history of renal insufficiency presents to the hospital with hyperkalemia and dehydration among other issues. During the course of his evaluation here, a renal bladder ultrasound revealed no evidence of hydronephrosis or stones, but did reveal some thickening of the bladder wall . There was some questionable asymmetry to this worrisome for possible other process such as malignancy, but the patient has no clinical signs of the same. He also has a normal urinalysis without evidence of microhematuria etc. I feel that it is very unlikely that the patient has any malignancy based on what is described on the ultrasound. The bladder wall could be thickened depending on the amount of distention and urine present in the bladder. There is again no evidence on urinalysis or physical exam to suggest the patient has any serious worry for bladder cancer, but once he is improved from here and discharged, he can follow up for cystoscopy as warranted to rule out the same. Thank you for allowing me to participate in the care of this unfortunate gentleman. Please do not hesitate to contact me for any questions that you may further have regarding his care. I will see him with you as needed. Hayes Khan M.D. DR: MAYE JOB#: [id number] CC:
[2019-04-04] VITALS: BP 114/60
[2019-04-04] MEDS: D5 1/2NS 1,000 ML IV SCH ×2 (02:33→11:46)
[2019-04-04 04:00] VITALS: BP 131/84
[2019-04-04] MEDS: NovoLOG Insulin Flexpen SUBQ SCH ×3 (06:04→16:30)
--- NOTE | 2019-04-04 07:16 | NUR ---
HAND-OFF: Report given to Ruben Vila RN. Patient in bed in stable condition, endorsed plan of care.
--- NOTE | 2019-04-04 07:47 | NUR ---
NURSE NOTES: Patient received from Estrellita Albarado. Patient stable AOx4 with no complaints and no s/sx of distress. RR even and unlabored on RA. Side rails up x2, call light within reach, bed low and locked. Will continue to monitor. Addendum: 04/04/19 at 0750 by MATT PARSONS RN Pt received from
[2019-04-04 07:59] LABS: BASOPHILS % (AUTO) 0.5 % (0.0-2.0); EOSINOPHILS % (AUTO) 3.7 % (0.0-3.0); HEMATOCRIT 27.2 % (42.0-52.0); HEMOGLOBIN 8.9 G/DL (14.2-18.0); LYMPHOCYTES % (AUTO) 25.8 % (20.0-45.0); MEAN CORPUSCULAR VOLUME 90 FL (80-99); MONOCYTES % (AUTO) 8.6 % (1.0-10.0); NEUTROPHILS % (AUTO) 61.5 % (45.0-75.0); PLATELET COUNT 153 K/UL (150-450); RED BLOOD COUNT 3.03 M/UL (4.70-6.10); RED CELL DISTRIBUTION WIDTH 13.2 % (11.6-14.8)
[2019-04-04 08:14] LABS: ANION GAP 7 mmol/L (5-15); BLOOD UREA NITROGEN 66 mg/dL (7-18); CALCIUM 8.2 MG/DL (8.5-10.1); CARBON DIOXIDE 25 MMOL/L (21-32); CHLORIDE 109 MMOL/L (98-107); CREATININE 3.2 MG/DL (0.55-1.30); POTASSIUM 4.3 MMOL/L (3.5-5.1); SODIUM 141 MMOL/L (136-145)
[2019-04-04 08:36] VITALS: BP 122/66
[2019-04-04] MEDS: Aspirin EC 81mg tab ORAL SCH (08:37)
[2019-04-04] MEDS: Tamsulosin 0.4mg cap ORAL SCH ×2 (08:37→18:22)
[2019-04-04] MEDS: sitaGLIPtin 25mg tab ORAL SCH (08:37)
[2019-04-04] MEDS: Docusate 100mg cap ORAL SCH ×3 (08:37→18:00)
[2019-04-04] MEDS ORDERED: Metoprolol Succinate XL 25mg tab ORAL SCH (09:00)
--- NOTE | 2019-04-04 14:27 | General Progress Note ---
Assessment/Plan Problem List: (1) Renal insufficiency ICD Codes: N28.9 - Disorder of kidney and ureter, unspecified SNOMED: 083141677 (2) HTN (hypertension) ICD Codes: I10 - Essential (primary) hypertension SNOMED: 59975865 (3) Weakness ICD Codes: R53.1 - Weakness SNOMED: 00515549 (4) Acute renal failure (ARF) ICD Codes: N17.9 - Acute renal failure (ARF) SNOMED: 08448500 (5) Hyperkalemia ICD Codes: E87.5 - Hyperkalemia SNOMED: 03034132, 2872277 (6) Anemia ICD Codes: D64.9 - Anemia SNOMED: 226081992 (7) DM (diabetes mellitus) ICD Codes: E11.9 - DM (diabetes mellitus) SNOMED: 85691541 Status: stable, progressing Assessment/Plan: pt diet eval bp bs control neph neuro eval cbc bmp am dc if clear Subjective Constitutional: Reports: weakness Allergies: Coded Allergies: PENICILLINS (Verified Allergy, Unknown, 07/12/17) All Systems: reviewed and negative except above Subjective sleepy in bed calm Objective Last 24 Hour Vital Signs Date Time Temp Pulse Resp B/P (MAP) Pulse Ox O2 Delivery O2 Flow Rate FiO2 04/04/19 09:00 Room Air 04/04/19 08:38 87 122/66 04/04/19 08:36 97.9 87 18 122/66 (84) 100 04/04/19 08:00 68 04/04/19 04:00 62 04/04/19 04:00 98.5 78 16 131/84 (100) 100 04/04/19 00:00 98.5 66 16 114/60 (78) 98 04/04/19 00:00 65 04/03/19 21:00 Room Air 04/03/19 20:00 98.7 67 16 113/67 (82) 99 04/03/19 20:00 63 04/03/19 16:00 66 04/03/19 16:00 97.3 66 19 120/62 (81) 99 Intake and Output 04/03/19 04/04/19 19:00 07:00 Intake Total 280 ml 120 ml Output Total 900 ml 500 ml Balance -620 ml -380 ml Intake Oral 280 ml 120 ml Output Urine Total 900 ml 500 ml # Voids 3 2 Laboratory Tests 12/20/19 06:34: White Blood Count 5.0, Red Blood Count 3.03L, Hemoglobin 8.9L, Hematocrit 27.2L , Mean Corpuscular Volume 90, Mean Corpuscular Hemoglobin 29.4, Mean Corpuscular Hemoglobin Concent 32.8, Red Cell Distribution Width 13.2, Platelet Count 153, Mean Platelet Volume 5.7L, Neutrophils (%) (Auto) 61.5, Lymphocytes ( %) (Auto) 25.8, Monocytes (%) (Auto) 8.6, Eosinophils (%) (Auto) 3.7H, Basophils (%) (Auto) 0.5, Sodium Level 141, Potassium Level 4.3, Chloride Level 109H, Carbon Dioxide Level 25, Anion Gap 7, Blood Urea Nitrogen 66H, Creatinine 3.2H, Estimat Glomerular Filtration Rate , Glucose Level 100, Calcium Level 8.2L Height (Feet): 5 Height (Inches): 6.00 Weight (Pounds): 146 General Appearance: alert EENT: normal ENT inspection Neck: normal alignment Cardiovascular: normal peripheral pulses, normal rate, regular rhythm Respiratory/Chest: chest wall non-tender, lungs clear, normal breath sounds Abdomen: normal bowel sounds, non tender, soft Extremities: normal inspection Edema: no edema noted Arm (L), no edema noted Arm (R), no edema noted Leg (L), no edema noted Leg (R), no edema noted Pedal (L), no edema noted Pedal (R), no edema noted Generalized Neurologic: responsive, motor weakness Skin: normal pigmentation, warm/dry Phillip Gandhi DO Apr 04, 2019 14:27
[2019-04-04 16:00] VITALS: BP 106/56
--- NOTE | 2019-04-04 16:38 | Nephrology Progress Note ---
Assessment/Plan Problem List: (1) Acute renal failure (ARF) (2) Hyperkalemia (3) DM (diabetes mellitus) (4) Anemia (5) Hypothyroid Assessment JOVANY HyperKalemia Diabetes, CKD, Anemia, HypoThyroid CAD Plan decrease lopressor dose Adjust BP meds Kidney GILLES noted 2D echo Pending Urine studies per orders GILLES Impression: * No hydronephrosis or sonographically appreciable renal stone. * Renal echogenicity within normal limits. * Simple appearing small right renal cyst. * Bladder wall thickening may be related to underdistention. Correlation with urinalysis recommended. Equivocal slight asymmetric thickening of the anterior wall the bladder. This may also be artifactual related to bladder wall thickening however the possibility of subtle findings related to neoplastic bladder wall thickening/bladder mass not excluded. Consider correlation with cytology and/or direct visualization. Subjective ROS Limited/Unobtainable: No Constitutional: Reports: malaise Objective Objective Last 24 Hour Vital Signs Date Time Temp Pulse Resp B/P (MAP) Pulse Ox O2 Delivery O2 Flow Rate FiO2 04/04/19 12:00 68 04/04/19 09:00 Room Air 04/04/19 08:38 87 122/66 04/04/19 08:36 97.9 87 18 122/66 (84) 100 04/04/19 08:00 68 04/04/19 04:00 62 04/04/19 04:00 98.5 78 16 131/84 (100) 100 04/04/19 00:00 98.5 66 16 114/60 (78) 98 04/04/19 00:00 65 04/03/19 21:00 Room Air 04/03/19 20:00 98.7 67 16 113/67 (82) 99 04/03/19 20:00 63 Intake and Output 04/03/19 04/04/19 19:00 07:00 Intake Total 280 ml 120 ml Output Total 900 ml 500 ml Balance -620 ml -380 ml Intake Oral 280 ml 120 ml Output Urine Total 900 ml 500 ml # Voids 3 2 Laboratory Tests 04/04/19 06:34: White Blood Count 5.0, Red Blood Count 3.03L, Hemoglobin 8.9L, Hematocrit 27.2L , Mean Corpuscular Volume 90, Mean Corpuscular Hemoglobin 29.4, Mean Corpuscular Hemoglobin Concent 32.8, Red Cell Distribution Width 13.2, Platelet Count 153, Mean Platelet Volume 5.7L, Neutrophils (%) (Auto) 61.5, Lymphocytes ( %) (Auto) 25.8, Monocytes (%) (Auto) 8.6, Eosinophils (%) (Auto) 3.7H, Basophils (%) (Auto) 0.5, Sodium Level 141, Potassium Level 4.3, Chloride Level 109H, Carbon Dioxide Level 25, Anion Gap 7, Blood Urea Nitrogen 66H, Creatinine 3.2H, Estimat Glomerular Filtration Rate , Glucose Level 100, Calcium Level 8.2L Height (Feet): 5 Height (Inches): 6.00 Weight (Pounds): 146 General Appearance: no apparent distress Objective no change Ti Jones MD Apr 04, 2019 16:38
--- NOTE | 2019-04-04 17:00 | NUR ---
CASE MANAGEMENT: INITIAL REVIEW 73YR OLD MALE BIBA FROM [facility] CON CC: ABNORMAL LAB SI: ACUTE KIDNEY INJURY / HYPERKALEMIA 97.6 64 17 115/68 98% ON RA H/H 11.0/34 K+ 5.4 CL-110 BUN 86 CRAT 4.0 BG 157 IS: IV CALCIUM GLUCONATE X1 IV NA BICARB X1 PO KAYEXALATE X1 CXRAY : 2E TELE DCP: RETURN TO [facility] PLAN: US RENAL CASE MANAGEMENT: REVIEW 04/04/19 SI: ACUTE KIDNEY INJURY / HYPERKALEMIA 97.9 87 18 122/66 100% ON RA CL-109 BUN 66 CREAT 3.2 CA+ 8.2 H/H 8.9/27.2 IS: IV D5 @85ML/HR PROSCAR PO QD PROTONIX PO BID TOPROL XL PO QD ASPIRIN P QD PLAVIX PO QD JANUVIA PO QD FLOMAX PO BID LIPITOR PO QHS : 2E TELE DCP: RETURN TO [facility]
--- NOTE | 2019-04-04 17:11 | NUR ---
DISCHARGE PLANNED: PATIENT RETURNING TO [facility] T: [phone] ROOM# 30[facility] WITHIN THE HOUR
--- NOTE | 2019-04-04 19:49 | NUR ---
HAND-OFF: Report given to Phillip URENA. Patient stable ready for discharge. Awaiting ambulance.
[2019-04-04 20:00] VITALS: BP 122/66
--- NOTE | 2019-04-05 17:32 | Discharge Summary ---
Discharge Summary Discharge Summary _ DATE OF ADMISSION: 04/01/2019 DATE OF DISCHARGE: 04/04/2019 DISCHARGED BY: Dr. Phillip Gandhi CONSULTANTS: Dr. Ti Khan BRIEF HOSPITAL COURSE: Patient is a 73-year-old male, from [facility], presented to ED due to abnormal labs. The patient was reported to have elevated BUN and creatinine as well as potassium. He has medical history of anemia, dysphagia, COPD, diabetes, CVA and dementia. Upon evaluation at ED, vital signs were stable. Blood work showed BUN 86 and creatinine 4.0. Potassium was 5.4. He was given calcium gluconate, sodium bicarbonate and Kayexalate. He was then admitted for evaluation of hyperkalemia and renal failure. Electrolytes were monitored. Fluid status monitored. retirement medications were resumed. Kidney ultrasound did not show any hydronephrosis. Renal echogenicity was within normal limits. There was an asymmetric thickening of the anterior wall of the bladder. Urologist was consulted. Upon evaluation, urinalysis was normal without any evidence of microhematuria. Unlikely patient has malignancy based on ultrasound. Bladder wall could be thickened depending on the amount of gestation and urine present in the bladder. He was recommended to have outpatient cystoscopy. Creatinine improved. Potassium normalized. He was eventually discharged back to [facility]. FINAL DIAGNOSES: Acute kidney injury Hyperkalemia Diabetes mellitus Anemia Hypothyroidism Chronic kidney disease Coronary artery disease DISPOSITION: [place] to [facility] I have been assigned to complete a discharge summary on this account, I was not involved with the patient's management.--TERESE Qureshi Jacqueline Robles NP Apr 05, 2019 17:32
== END 2019-04-04 21:00 | DRG 641 ==
LOC: EDBD 11:25 → EMR 13:09 → 2E 13:20 → EDBEDREQ 13:26
DX: E87.5 Hyperkalemia (principal); N17.9 Acute kidney failure, unspecified; E86.0 Dehydration; D64.9 Anemia, unspecified; I12.9 Hypertensive chronic kidney disease with stage 1 through stage 4 chronic kidney disease, or unspecified chronic kidney disease; N18.9 Chronic kidney disease, unspecified; Z88.0 Allergy status to penicillin; Z86.73 Personal history of transient ischemic attack (TIA), and cerebral infarction without residual deficits; E03.9 Hypothyroidism, unspecified; I25.10 Atherosclerotic heart disease of native coronary artery without angina pectoris; E11.22 Type 2 diabetes mellitus with diabetic chronic kidney disease; N40.1 Benign prostatic hyperplasia with lower urinary tract symptoms; R33.8 Other retention of urine; F03.90 Unspecified dementia, unspecified severity, without behavioral disturbance, psychotic disturbance, mood disturbance, and anxiety
CPT/HCPCS: 36415; 71045; 76770; 80048; 80053; 80061; 81001; 81003; 82607; 82728; 82746; 82962; 82977; 83036; 83540; 83550; 83735; 83880; 84100; 84300; 84439; 84443; 84481; 84484; 84550; 85025; 86140; 87081; 89050; 93005; 93306; 96374; 96375; 99291; J1815

== ENCOUNTER 2019-06-05 19:16 | Inpatient (IN) | payer MEDICARE, OTHER ==
[~2019-06-05] VITALS: Ht 172.7 cm; Wt 66.7 kg
[~2019-06-05 19:16] MED LIST changes: +ACETAMINOPHEN325 M1 ORAL; +ACETAMINOPHEN500 M3 ORAL; +ATORVASTATIN CA20 MG ORAL; +BISACODYL10 M1 RC; +CRANBERRY450 M4 PO; +DOCUSATE SODIU250 MG ORAL; +FERROUS SULFAT325 MG ORAL; +FLEET ENEMA133 ML RECTAL; +FUROSEMIDE20 M1 ORAL; +MILK OF MA400 MG/51 ORAL
--- NOTE | 2019-06-05 19:48 | Emergency Room Report ---
History of Present Illness General Chief Complaint: General Complaint Source: Patient, Medical Record, EMS Present Illness HPI Disclaimer: Please note that this report is being documented using DRAGON technology. This can lead to erroneous entry secondary to incorrect interpretation by the dictating instrument. HPI: 73-year-old male with history of renal disease, anemia requiring intermittent transfusion, intermittent hyperkalemia presents for evaluation of abnormal lab values. On routine labs the patient was found to have hemoglobin of 7.8. He denies any lightheadedness, syncope, palpitations or other distress. His creatinine was elevated at 5.02 with an elevated BUN of 94. He states he has had no difficulty making urine and denies dysuria or hematuria. His potassium was elevated at 5.7. Again he denies any chest pain, palpitations or other discomfort at this time. He is otherwise in his usual state of health and denies any recent fevers, chills, URI symptoms, abdominal pain or cramping, vomiting, diarrhea or rash. He has required transfusion in the past, the last of which was summer 2018. He has never had dialysis. He has been treated for hyperkalemia in the past. PMH: COPD, ischemic heart disease, hypertension, hyperlipidemia, TIAs, CKD PSH: Reviewed Allergies: Penicillin Social Hx: Denies Allergies: Coded Allergies: PENICILLINS (Verified Allergy, Unknown, 07/12/17) Nursing Documentation-PMH Hx Cardiac Problems: Yes - atherosclerotic heart disease, DC Hx Hypertension: Yes - ANEMIA, DYSPHAGIA Hx COPD: Yes Hx Diabetes: Yes Hx Cancer: No Hx Gastrointestinal Problems: Yes Hx Neurological Problems: Yes Hx Cerebrovascular Accident: Yes Hx Transient Ischemic Attacks: Yes Hx Dementia: Yes Review of Systems All Other Systems: negative except mentioned in HPI Physical Exam Vital Signs Date Time Temp Pulse Resp B/P (MAP) Pulse Ox O2 Delivery O2 Flow Rate FiO2 06/05/19 19:19 97.9 74 16 109/68 (82) 97 Room Air General: Awake and alert, no acute distress HEENT: NC/AT. EOMI. Neck: Supple, trachea midline Chest Wall: No tenderness, no deformity Cardiovascular: RRR. S1 and S2 normal. No murmur appreciated Resp: Normal work of breathing. No cough, wheezing or crackles appreciated Abdomen: Abdomen is soft, nondistended. Nontender Skin: Intact. No abrasions, laceration or rash over the exposed skin MSK: Normal tone and bulk. Moving all extremities. No obvious deformity. Neuro: Awake and alert. Mentating appropriately. Procedures Critical Care Time Critical Care Time Total critical care time: Approximately 31 minutes Due to a high probability of clinically significant, life threatening deterioration, the patient required the highest level of preparedness to intervene emergently and I personally spent this critical care time directly and personally managing the patient. This critical care time included obtaining a history, examining the patient, pulse oximetry, ordering and reviewing studies , ordering treatments, evaluating response to treatment and updating management plan as needed, frequent reassessment and discussion with other providers as well as arranging for ultimate disposition. This critical to care time was performed to assess and manage the high probability of life-threatening deterioration that could result in multiorgan failure. This critical care time is separate from the separately billable procedures and treating other patients. Medical Decision Making Diagnostic Impression: Primary Impression: Acute renal failure (ARF) Additional Impressions: Elevated troponin Anemia Hyperkalemia ER Course Well-appearing 73-year-old male presents for evaluation of abnormal hemoglobin level, creatinine, potassium levels. He is in no acute distress and arrives with stable vital signs. EKG on arrival shows interventricular conduction delay consisting of a wide QRS but no obvious hyperacute T waves are appreciated. Will repeat labs to confirm these values, start IV fluids, give calcium and insulin with glucose as needed. Patient will require admission. Type and screen sent as well though at this time he is asymptomatic from the anemia reported on outpatient labs. Laboratory Tests Test 06/05/19 19:45 White Blood Count 6.1 K/UL (4.8-10.8) Red Blood Count 3.02 M/UL (4.70-6.10) L Hemoglobin 9.4 G/DL (14.2-18.0) L Hematocrit 28.0 % (42.0-52.0) L Mean Corpuscular Volume 93 FL (80-99) Mean Corpuscular Hemoglobin 31.0 PG (27.0-31.0) Mean Corpuscular Hemoglobin Concent 33.4 G/DL (32.0-36.0) Red Cell Distribution Width 13.1 % (11.6-14.8) Platelet Count 190 K/UL (150-450) Mean Platelet Volume 5.8 FL (6.5-10.1) L Neutrophils (%) (Auto) 64.1 % (45.0-75.0) Lymphocytes (%) (Auto) 23.0 % (20.0-45.0) Monocytes (%) (Auto) 7.7 % (1.0-10.0) Eosinophils (%) (Auto) 4.5 % (0.0-3.0) H Basophils (%) (Auto) 0.7 % (0.0-2.0) Sodium Level 143 MMOL/L (136-145) Potassium Level 6.1 MMOL/L (3.5-5.1) *H Chloride Level 110 MMOL/L (98-107) H Carbon Dioxide Level 19 MMOL/L (21-32) L Anion Gap 16 mmol/L (5-15) H Blood Urea Nitrogen 93 mg/dL (7-18) H Creatinine 5.3 MG/DL (0.55-1.30) H Estimate Glomerular Filtration Rate 13.1 mL/min (>60) Glucose Level 172 MG/DL (74-106) H Calcium Level 9.0 MG/DL (8.5-10.1) Total Bilirubin 0.2 MG/DL (0.2-1.0) Aspartate Amino Transferase (AST) 12 U/L (15-37) L Alanine Aminotransferase (ALT) 23 U/L (12-78) Alkaline Phosphatase 92 U/L (46-116) Troponin I 0.078 ng/mL (0.000-0.056) Total Protein 7.1 G/DL (6.4-8.2) Albumin 3.5 G/DL (3.4-5.0) Globulin 3.6 g/dL Albumin/Globulin Ratio 1.0 (1.0-2.7) EKG Diagnostic Results EKG Time: 19:40 Rate: normal Other Impression Sinus rhythm, normal axis, prolonged QRS duration consistent with interventricular conduction delay. There are T wave inversions in the inferior leads, T wave inversions in the lateral leads. Rhythm Strip Diag. Results Rhythm Strip Time: 19:40 EP Interpretation: yes Rate: 69 Rhythm: NSR, no PVC's, no ectopy Reevaluation Time: 20:59 Last Vital Signs Date Time Temp Pulse Resp B/P (MAP) Pulse Ox O2 Delivery O2 Flow Rate FiO2 06/05/19 19:19 97.9 74 16 109/68 (82) 97 Room Air Reevaluation Impression Patient's labs confirm a critically high potassium of 6.1. Patient will be treated with, insulin dextrose, bicarb. Also confirm the acute renal failure with a creatinine of 5.3, BUN of 93. Troponin also elevated slightly elevated 0.078. The patient remains complaint free; denies chest pain. Patient is anemic with a hemoglobin of 9.4 but does not require an acute transfusion at this time. A type and screen was sent. He will be admitted to his primary doctor, Dr. Gandhi, for further care Disposition: ADMITTED INPATIENT Condition: Serious Spencer Silva MD Jun 05, 2019 19:48
[2019-06-05 20:01] LABS: BASOPHILS % (AUTO) 0.7 % (0.0-2.0); EOSINOPHILS % (AUTO) 4.5 % (0.0-3.0); HEMOGLOBIN 9.4 G/DL (14.2-18.0); MEAN CORPUSCULAR VOLUME 93 FL (80-99); MONOCYTES % (AUTO) 7.7 % (1.0-10.0); NEUTROPHILS % (AUTO) 64.1 % (45.0-75.0); PLATELET COUNT 190 K/UL (150-450); RED BLOOD COUNT 3.02 M/UL (4.70-6.10); RED CELL DISTRIBUTION WIDTH 13.1 % (11.6-14.8); WHITE BLOOD COUNT 6.1 K/UL (4.8-10.8)
--- NOTE | 2019-06-05 20:12 | NUR ---
ED Nurse Note: pt presents to ED from [facility] via EMS arrival [facility] unit [facility] for abnormal lab values. Per EMS, and medical record from facility, pt's potassium was 5.7 and RBC was 2.5 from a lab draw earlier today. pt is AOx4, denies any pain, SOB or dizziness at this time. pt placed in hospital gown and onto applications analyst. VSS, 22 gauge IV line established in L AC
[2019-06-05] MEDS ORDERED: APRESOLINE50 MG ORAL (20:17)
[2019-06-05] MEDS ORDERED: ASPIR 8181 MG ORAL (20:17)
[2019-06-05] MEDS ORDERED: PROTONIX20 MG ORAL (20:17)
[2019-06-05] MEDS ORDERED: NOVOLOG100 UNIT/4 SQ (20:17)
[2019-06-05] MEDS ORDERED: COLACE100 MG ORAL (20:17)
[2019-06-05 20:19] LABS: ALANINE AMINOTRANSFERASE 23 U/L (12-78); ALBUMIN 3.5 G/DL (3.4-5.0); ALKALINE PHOSPHATASE 92 U/L (46-116); ANION GAP 16 mmol/L (5-15); ASPARTATE AMINO TRANSFERASE 12 U/L (15-37); BILIRUBIN,TOTAL 0.2 MG/DL (0.2-1.0); BLOOD UREA NITROGEN 93 mg/dL (7-18); CARBON DIOXIDE 19 MMOL/L (21-32); CHLORIDE 110 MMOL/L (98-107); CREATININE 5.3 MG/DL (0.55-1.30); SODIUM 143 MMOL/L (136-145)
[2019-06-05 20:21] VITALS: BP_SYST 100; BP_SYST 109; BP_DIAS 54; BP_DIAS 68
[2019-06-05 20:24] LABS: POTASSIUM 6.1 MMOL/L (3.5-5.1)
[2019-06-05] MEDS ORDERED: Sodium Bicarbonate 50ml Carp IV ONE (20:30)
[2019-06-05] MEDS ORDERED: Insulin Human Regular 100units/ml 3ml IV ONE (20:30)
[2019-06-05] MEDS ORDERED: Calcium Gluconate 1gm/10ml vial IVP ONE (20:30)
--- NOTE | 2019-06-05 21:18 | NUR ---
ED Nurse Note: 2nd IV line established in R AC, 20 g
[2019-06-05] MEDS ORDERED: Sodium Polystyrene Sulfonate 15gm Powder ORAL ONE (21:45)
--- NOTE | 2019-06-05 22:11 | NUR ---
ED Nurse Note: call made to Dr. Phillip Gandhi for inpatient orders, no answer. will try again
[2019-06-05 22:21] VITALS: BP 101/62
--- NOTE | 2019-06-05 22:35 | NUR ---
ED Nurse Note: Dr. Decker at pt bedside, stated that he would put inpatient orders in for pt. will continue to monitor pt and wait for admit orders
--- NOTE | 2019-06-05 22:50 | Consultation ---
Consult Note Consult Note I was asked to evaluate the patient at the request of Dr Gandhi for worsening renal failure and HyperKalemia Patient is known to me from his previous admission. Patient was sent to emergency room here at the [facility] for hyperkalemia. Past history is significant for COPD ischemic heart disease hypertension hyperlipemia TIAs and chronic kidney disease. In his last admission the patient was discharged with creatinine of 3.2. Allergies are to penicillin. Patient was seen interviewed and examined in room 9 at the emergency room here at [facility]. . Assessment/Plan Acute on chronic renal failure. Anemia of chronic kidney disease. Hyperkalemia. Elevated troponin. History of diabetes mellitus. History of hypothyroidism. Hydrate. Anemia work-up. Kayexalate as needed. Monitor renal parameters. Keep the blood pressure and blood sugar in check. Kidney ultrasound. 2D echocardiogram. Urine studies. Hold Metformin and Lasix. Per orders. Ti Jones MD Jun 05, 2019 22:50
[2019-06-05] MEDS: D5 1/2NS 1,000 ML IV SCH (23:00)
--- NOTE | 2019-06-05 23:55 | NUR ---
ED Nurse Note: pt states he is unable to provide a urine sample
[2019-06-06] VITALS (9 sets, daily range): BP systolic 92–111; BP diastolic 43–70
--- NOTE | 2019-06-06 | NUR ---
ED Nurse Note: pt refused sodium citrate at this time, states that he has been having many BM from keyaxalate
--- NOTE | 2019-06-06 00:15 | NUR ---
ED Nurse Note: made call to pipeline about unverified medication orders. pt is asleep in bed, VSS, safety precautions are in place. he does not appear to be in any distress at this time. will continue to monitor
[2019-06-06] MEDS: Tamsulosin 0.4mg cap ORAL SCH ×2 (00:30→21:19)
--- NOTE | 2019-06-06 03:49 | NUR ---
Melanie berry in EDM - 06/06/19 at 0400 by TILAE ED Nurse Note: called lab and ultra sound technician stated they would come draw morning labs at 0430
--- NOTE | 2019-06-06 04:00 | NUR ---
ED Nurse Note: pt is resting in bed with his eyes closed. VSS. bedside cammode placed next to bed for comfort and safety, all other safety precautions are in place. there is no acute distress noted at this time. per request of lab, will draw morning labs at 0500
[2019-06-06 05:22] LABS: BASOPHILS % (AUTO) 0.8 % (0.0-2.0); EOSINOPHILS % (AUTO) 4.7 % (0.0-3.0); HEMATOCRIT 24.6 % (42.0-52.0); HEMOGLOBIN 8.2 G/DL (14.2-18.0); LYMPHOCYTES % (AUTO) 23.9 % (20.0-45.0); MEAN CORPUSCULAR VOLUME 93 FL (80-99); MONOCYTES % (AUTO) 8.6 % (1.0-10.0); NEUTROPHILS % (AUTO) 61.9 % (45.0-75.0); PLATELET COUNT 142 K/UL (150-450); RED BLOOD COUNT 2.65 M/UL (4.70-6.10); RED CELL DISTRIBUTION WIDTH 12.9 % (11.6-14.8)
[2019-06-06 06:09] LABS: ALANINE AMINOTRANSFERASE 20 U/L (12-78); ALBUMIN 2.7 G/DL (3.4-5.0); ALBUMIN/GLOBULIN RATIO 0.8 (1.0-2.7); ALKALINE PHOSPHATASE 71 U/L (46-116); ANION GAP 14 mmol/L (5-15); ASPARTATE AMINO TRANSFERASE 13 U/L (15-37); BILIRUBIN,TOTAL 0.2 MG/DL (0.2-1.0); BLOOD UREA NITROGEN 81 mg/dL (7-18); CALCIUM 8.3 MG/DL (8.5-10.1); CARBON DIOXIDE 18 MMOL/L (21-32); CHLORIDE 112 MMOL/L (98-107); CHOLESTEROL 115 MG/DL (< 200); CREATINE KINASE 87 U/L (26-308); CREATININE 4.4 MG/DL (0.55-1.30); FERRITIN 189 NG/ML (8-388); GAMMA GLUTAMYL TRANSPEPTIDASE 23 U/L (5-85); HDL CHOLESTEROL 38 MG/DL (40-60); PHOSPHORUS 3.9 MG/DL (2.5-4.9); POTASSIUM 5.1 MMOL/L (3.5-5.1); SODIUM 144 MMOL/L (136-145); TRIGLYCERIDES 29 MG/DL (30-150)
--- NOTE | 2019-06-06 06:10 | NUR ---
ED Nurse Note: pt meds due at 0600 not stocked in ED pyxis, called pharmacy- no answer. will call again
[2019-06-06 06:25] LABS: % IRON SATURATION 30 % (15-50); IRON 54 ug/dL (50-175); TOTAL IRON BINDING CAPACITY 181 ug/dL (250-450)
--- NOTE | 2019-06-06 07:00 | NUR ---
ED Nurse Note: received pt. onthe bed. Pt. is AAOx4. no s/s of acute distress noted. Pt. stated that he feels ok. Turned off the lights to promote relaxing environment. No s/s of acute distress noted at this time
[2019-06-06] MEDS: Sodium Citrate 30ml ORAL SCH ×4 (07:10→18:35)
[2019-06-06] MEDS: Docusate 100mg cap ORAL SCH ×3 (08:29→18:00)
--- NOTE | 2019-06-06 09:00 | NUR ---
ED Nurse Note: pt. was given breakfast tray and ate 100% of the meal
--- NOTE | 2019-06-06 09:15 | NUR ---
ED Nurse Note: Dr. Gandhi at the bedside
--- NOTE | 2019-06-06 09:17 | NUR ---
ED Nurse Note: breakfast tray given
--- NOTE | 2019-06-06 09:23 | NUR ---
ED Nurse Note: unable to scan pt.'s armband and some meds. contacted IT
--- NOTE | 2019-06-06 09:57 | NUR ---
ED Nurse Note: spoke with Renato from Cardiology department and followed up with 2Decho order stat.
--- NOTE | 2019-06-06 10:07 | NUR ---
ED Nurse Note: cardiology techs at the bedside for 2decho
--- NOTE | 2019-06-06 11:30 | NUR ---
ED Nurse Note: Dr. Murphy at the bedside
--- NOTE | 2019-06-06 11:35 | NUR ---
ED Nurse Note: Pt. AAOx4. awake. pt. denies CP nor SOB at this time
--- NOTE | 2019-06-06 11:36 | Cardiac Electrophysiology PN ---
Subjective Subjective Patient seen in ER [id number] Objective Last 24 Hour Vital Signs Date Time Temp Pulse Resp B/P (MAP) Pulse Ox O2 Delivery O2 Flow Rate FiO2 06/06/19 10:55 98.2 76 20 100/62 100 Room Air 06/06/19 07:59 98.0 80 17 96/43 99 Room Air 06/06/19 05:00 78 22 99/67 96 Room Air 06/06/19 02:25 82 18 105/68 100 Room Air 06/06/19 00:24 80 17 103/70 99 Room Air 06/05/19 22:21 72 18 101/62 97 Room Air 06/05/19 20:21 97.9 72 16 100/54 100 Room Air 06/05/19 20:21 74 16 Room Air 06/05/19 19:19 97.9 74 16 109/68 (82) 97 Room Air Intake and Output 06/05/19 06/06/19 19:00 07:00 Intake Total 300 ml Output Total 200 ml Balance 100 ml Intake Oral 300 ml Output Urine Total 200 ml Laboratory Tests Test 06/05/19 19:45 06/06/19 01:10 06/06/19 05:00 06/06/19 11:27 White Blood Count 6.1 K/UL (4.8-10.8) 5.0 K/UL (4.8-10.8) Red Blood Count 3.02 M/UL (4.70-6.10) L 2.65 M/UL (4.70-6.10) L Hemoglobin 9.4 G/DL (14.2-18.0) L 8.2 G/DL (14.2-18.0) L Hematocrit 28.0 % (42.0-52.0) L 24.6 % (42.0-52.0) L Mean Corpuscular Volume 93 FL (80-99) 93 FL (80-99) Mean Corpuscular Hemoglobin 31.0 PG (27.0-31.0) 30.8 PG (27.0-31.0) Mean Corpuscular Hemoglobin Concent 33.4 G/DL (32.0-36.0) 33.3 G/DL (32.0-36.0) Red Cell Distribution Width 13.1 % (11.6-14.8) 12.9 % (11.6-14.8) Platelet Count 190 K/UL (150-450) 142 K/UL (150-450) L Mean Platelet Volume 5.8 FL (6.5-10.1) L 6.0 FL (6.5-10.1) L Neutrophils (%) (Auto) 64.1 % (45.0-75.0) 61.9 % (45.0-75.0) Lymphocytes (%) (Auto) 23.0 % (20.0-45.0) 23.9 % (20.0-45.0) Monocytes (%) (Auto) 7.7 % (1.0-10.0) 8.6 % (1.0-10.0) Eosinophils (%) (Auto) 4.5 % (0.0-3.0) H 4.7 % (0.0-3.0) H Basophils (%) (Auto) 0.7 % (0.0-2.0) 0.8 % (0.0-2.0) Sodium Level 143 MMOL/L (136-145) 144 MMOL/L (136-145) Potassium Level 6.1 MMOL/L (3.5-5.1) *H 5.1 MMOL/L (3.5-5.1) Chloride Level 110 MMOL/L (98-107) H 112 MMOL/L (98-107) H Carbon Dioxide Level 19 MMOL/L (21-32) L 18 MMOL/L (21-32) L Anion Gap 16 mmol/L (5-15) H 14 mmol/L (5-15) Blood Urea Nitrogen 93 mg/dL (7-18) H 81 mg/dL (7-18) H Creatinine 5.3 MG/DL (0.55-1.30) H 4.4 MG/DL (0.55-1.30) H Estimat Glomerular Filtration Rate 13.1 mL/min (>60) 16.1 mL/min (>60) Glucose Level 172 MG/DL (74-106) H 206 MG/DL (74-106) H Calcium Level 9.0 MG/DL (8.5-10.1) 8.3 MG/DL (8.5-10.1) L Total Bilirubin 0.2 MG/DL (0.2-1.0) 0.2 MG/DL (0.2-1.0) Aspartate Amino Transf (AST/SGOT) 12 U/L (15-37) L 13 U/L (15-37) L Alanine Aminotransferase (ALT/SGPT) 23 U/L (12-78) 20 U/L (12-78) Alkaline Phosphatase 92 U/L (46-116) 71 U/L (46-116) Troponin I 0.078 ng/mL (0.000-0.056) 0.063 ng/mL (0.000-0.056) Pending Total Protein 7.1 G/DL (6.4-8.2) 6.1 G/DL (6.4-8.2) L Albumin 3.5 G/DL (3.4-5.0) 2.7 G/DL (3.4-5.0) L Globulin 3.6 g/dL 3.4 g/dL Albumin/Globulin Ratio 1.0 (1.0-2.7) 0.8 (1.0-2.7) L Urine Eosinophils None seen (NONE SEEN) Urine Random Sodium 109 mmol/L (20-110) Hemoglobin A1c 6.0 % (4.3-6.0) Uric Acid 8.5 MG/DL (2.6-7.2) H Phosphorus Level 3.9 MG/DL (2.5-4.9) Magnesium Level 1.4 MG/DL (1.8-2.4) L Iron Level 54 ug/dL (50-175) Total Iron Binding Capacity 181 ug/dL (250-450) L Percent Iron Saturation 30 % (15-50) Unsaturated Iron Binding 127 ug/dL (112-346) Ferritin 189 NG/ML (8-388) Gamma Glutamyl Transpeptidase 23 U/L (5-85) Total Creatine Kinase 87 U/L (26-308) C-Reactive Protein, Quantitative < 0.4 mg/dL (0.00-0.90) Pro-B-Type Natriuretic Peptide 6192 pg/mL (0-125) H Triglycerides Level 29 MG/DL (30-150) L Cholesterol Level 115 MG/DL (< 200) LDL Cholesterol 71 mg/dL (<100) HDL Cholesterol 38 MG/DL (40-60) L Cholesterol/HDL Ratio 3.0 (3.3-4.4) L Vitamin B12 Level 882 PG/ML (193-986) Folate 16.1 NG/ML (8.6-58.9) Thyroid Stimulating Hormone (TSH) 0.853 uiU/mL (0.358-3.740) Cortisol AM Sample Pending Microbiology Date/Time Source Procedure Growth Status 06/05/19 22:00 Rectum Received Alex Murphy MD Jun 06, 2019 11:36
--- NOTE | 2019-06-06 11:47 | NUR ---
ED Nurse Note: continuous cardiac monitoring maintained. vss
--- NOTE | 2019-06-06 12:00 | NUR ---
ED Nurse Note: pt. was given lunch tray and ate 50% of the meal
[2019-06-06] MEDS: D5 1/2NS 1,000 ML IV SCH ×2 (12:33→21:22)
--- NOTE | 2019-06-06 13:05 | NUR ---
ED Nurse Note: Pt refused Colace 100mg 1 capsule, discussed importance of taking medication and disadvantages of non-taking specific med but pt still refused. Returned med to [facility].
--- NOTE | 2019-06-06 14:15 | History and Physical Report ---
DATE OF ADMISSION: 06/05/2019 DATE AND TIME SEEN: 06/06/2019 at 9 a.m. CONSULTANTS: 1. Ti Jones M.D. 2. Alex Murphy M.D. CHIEF COMPLAINT: Abnormal laboratories, anemia, acute renal failure, elevated troponin. BRIEF HISTORY: This is a 73-year-old male from [facility], presented with above-mentioned diagnosis. Initially, found to have hemoglobin 7.6, but repeat was improved, but in [place] diagnosed of acute renal failure, worsening renal function and also anemia and elevated troponin. So, the patient is in the ER, awaiting admitting to [facility]. Currently, calm in bed. No complaint. No chest pain. No shortness of breath. No nausea, vomiting, or diarrhea. PAST MEDICAL HISTORY: Includes renal insufficiency, hypertension, diabetes. PAST SURGICAL HISTORY: Angioplasty. MEDICATIONS: Include atorvastatin, docusate sodium, pantoprazole, clopidogrel, finasteride, levothyroxine, , aspirin, and insulin. ALLERGY: Penicillin. SOCIAL HISTORY: No smoking. No alcohol. No intravenous drug abuse. FAMILY HISTORY: Noncontributory. PHYSICAL EXAMINATION: GENERAL: Calm in bed, oriented x2, in no acute distress. VITAL SIGNS: Temperature 98 degrees, pulse 80, respirations 17, blood pressure 96/43 CARDIOVASCULAR: No murmurs. LUNGS: Poor air exchange. ABDOMEN: Bowel sounds distant. EXTREMITIES: No cyanosis, clubbing, or edema. NEUROLOGIC: The patient moves all extremities, slightly weak. LABORATORY AND DIAGNOSTIC DATA: Labs at this time show hemoglobin and hematocrit 8.2/24, platelets 142. Initial potassium 6.1 and now . This morning chloride 112, CO2 18, BUN and creatinine 81/4.4, glucose 206. Troponin 0.063. Albumin 2.7. Urine is pending. ASSESSMENT: 1. Acute renal failure. 2. Hyperkalemia. 3. Elevated troponin. 4. Anaemia. 5. Malnutrition. 6. Diabetes. 7. Hypertension. PLAN: 1. Nephrology followup. 2. IV fluid. 3. Blood pressure and blood sugar control. 4. Troponin q.8 h. x3. 5. EKG in the morning. 6. Dietary evaluation. 7. Resume home medications. 8. PT, dietary evaluation. 9. CBC and BMP in the morning. 10. We will continue to follow the patient medically. Phillip Gandhi D.O. DR: NAFISA JOB#: [id number] CC:
--- NOTE | 2019-06-06 14:51 | Nephrology Progress Note ---
Assessment/Plan Problem List: (1) Renal failure (ARF), acute on chronic (2) Hyperkalemia (3) DM (diabetes mellitus) (4) Hypothyroid (5) Cardiomyopathy Assessment Acute on chronic renal failure. Anemia of chronic kidney disease. Hyperkalemia. Elevated troponin. History of diabetes mellitus. History of hypothyroidism. Plan Hydrate. Anemia work-up. Kayexalate as needed. Monitor renal parameters. Keep the blood pressure and blood sugar in check. Kidney ultrasound. 2D echocardiogram. EjFx 15% Urine studies. Hold Metformin and Lasix. Per orders. Subjective ROS Limited/Unobtainable: No Constitutional: Reports: malaise Objective Objective Last 24 Hour Vital Signs Date Time Temp Pulse Resp B/P (MAP) Pulse Ox O2 Delivery O2 Flow Rate FiO2 06/06/19 12:59 98.2 89 20 111/57 99 Room Air 06/06/19 10:55 98.2 76 20 100/62 100 Room Air 06/06/19 07:59 98.0 80 17 96/43 99 Room Air 06/06/19 05:00 78 22 99/67 96 Room Air 06/06/19 02:25 82 18 105/68 100 Room Air 06/06/19 00:24 80 17 103/70 99 Room Air 06/05/19 22:21 72 18 101/62 97 Room Air 06/05/19 20:21 97.9 72 16 100/54 100 Room Air 06/05/19 20:21 74 16 Room Air 06/05/19 19:19 97.9 74 16 109/68 (82) 97 Room Air Intake and Output 06/05/19 06/06/19 19:00 07:00 Intake Total 300 ml Output Total 200 ml Balance 100 ml Intake Oral 300 ml Output Urine Total 200 ml Current Medications Medications (Trade) Dose Ordered Sig/Stella Route PRN Reason Start Time Stop Time Status Last Admin Dose Admin Atorvastatin Calcium (Lipitor) 20 mg BEDTIME ORAL 06/06/19 21:00 07/06/19 20:59 Clopidogrel Bisulfate (Plavix) 75 mg DAILY ORAL 06/06/19 09:00 07/06/19 08:59 06/06/19 08:27 Dextrose/Sodium Chloride 1,000 ml @ 75 mls/hr [id number] IV 06/05/19 23:00 07/05/19 22:59 06/06/19 12:33 Docusate Sodium (Colace) 100 mg TID ORAL 06/06/19 09:00 07/06/19 08:59 Finasteride (Proscar) 5 mg DAILY ORAL 06/06/19 09:00 07/06/19 08:59 06/06/19 09:06 Levothyroxine Sodium (Synthroid) 50 mcg DAILY@0630 ORAL 06/06/19 06:30 07/06/19 06:29 06/06/19 07:10 Metoprolol Tartrate (Lopressor) 12.5 mg Q12HR ORAL 06/06/19 21:00 07/06/19 20:59 Pantoprazole (Protonix) 40 mg Q12HR ORAL 06/06/19 09:00 07/06/19 08:59 06/06/19 08:29 Sodium Citrate (Bicitra) 30 ml EVERY 6 HOURS ORAL 06/06/19 00:00 07/06/19 00:00 06/06/19 12:33 Tamsulosin HCl (Flomax) 0.4 mg BEDTIME ORAL 06/06/19 00:30 07/06/19 00:29 Laboratory Tests 06/05/19 19:45: White Blood Count 6.1, Red Blood Count 3.02L, Hemoglobin 9.4L, Hematocrit 28.0L , Mean Corpuscular Volume 93, Mean Corpuscular Hemoglobin 31.0, Mean Corpuscular Hemoglobin Concent 33.4, Red Cell Distribution Width 13.1, Platelet Count 190, Mean Platelet Volume 5.8L, Neutrophils (%) (Auto) 64.1, Lymphocytes ( %) (Auto) 23.0, Monocytes (%) (Auto) 7.7, Eosinophils (%) (Auto) 4.5H, Basophils (%) (Auto) 0.7, Sodium Level 143, Potassium Level 6.1*H, Chloride Level 110H, Carbon Dioxide Level 19L, Anion Gap 16H, Blood Urea Nitrogen 93H, Creatinine 5.3H, Estimat Glomerular Filtration Rate 13.1, Glucose Level 172H, Calcium Level 9.0, Total Bilirubin 0.2, Aspartate Amino Transf (AST/SGOT) 12L, Alanine Aminotransferase (ALT/SGPT) 23, Alkaline Phosphatase 92, Troponin I 0.078H, Total Protein 7.1, Albumin 3.5, Globulin 3.6, Albumin/Globulin Ratio 1.0 06/06/19 01:10: Urine Eosinophils None seen, Urine Random Sodium 109 06/06/19 05:00: White Blood Count 5.0, Red Blood Count 2.65L, Hemoglobin 8.2L, Hematocrit 24.6L , Mean Corpuscular Volume 93, Mean Corpuscular Hemoglobin 30.8, Mean Corpuscular Hemoglobin Concent 33.3, Red Cell Distribution Width 12.9, Platelet Count 142L, Mean Platelet Volume 6.0L, Neutrophils (%) (Auto) 61.9, Lymphocytes (%) (Auto) 23.9, Monocytes (%) (Auto) 8.6, Eosinophils (%) (Auto) 4.7H, Basophils (%) (Auto) 0.8, Sodium Level 144, Potassium Level 5.1, Chloride Level 112H, Carbon Dioxide Level 18L, Anion Gap 14, Blood Urea Nitrogen 81H, Creatinine 4.4H, Estimat Glomerular Filtration Rate 16.1, Glucose Level 206H, Calcium Level 8.3L, Total Bilirubin 0.2, Aspartate Amino Transf (AST/SGOT) 13L, Alanine Aminotransferase (ALT/SGPT) 20, Alkaline Phosphatase 71, Troponin I 0.063H, Total Protein 6.1L, Albumin 2.7L, Globulin 3.4, Albumin/Globulin Ratio 0.8L, Hemoglobin A1c 6.0, Uric Acid 8.5H, Phosphorus Level 3.9, Magnesium Level 1.4L, Iron Level 54, Total Iron Binding Capacity 181L, Percent Iron Saturation 30, Unsaturated Iron Binding 127, Ferritin 189, Gamma Glutamyl Transpeptidase 23 , Total Creatine Kinase 87, C-Reactive Protein, Quantitative < 0.4, Pro-B-Type Natriuretic Peptide 6192H, Triglycerides Level 29L, Cholesterol Level 115, LDL Cholesterol 71, HDL Cholesterol 38L, Cholesterol/HDL Ratio 3.0L, Vitamin B12 Level 882, Folate 16.1, Thyroid Stimulating Hormone (TSH) 0.853, Cortisol AM Sample [Pending] 06/06/19 11:27: Troponin I 0.050 Height (Feet): 5 Height (Inches): 8.00 Weight (Pounds): 147 General Appearance: no apparent distress Neck: limited range of motion Cardiovascular: normal rate, tachycardia Respiratory/Chest: decreased breath sounds Abdomen: distended Fouladian,Ti MD Jun 06, 2019 14:51
--- NOTE | 2019-06-06 15:28 | NUR ---
ED Nurse Note: pt. is sleeping in a comfortable position with no s/s of acute distress noted
--- NOTE | 2019-06-06 16:00 | Consultation ---
DATE OF CONSULTATION: 06/06/2019 CARDIOLOGY CONSULTATION CONSULTING PHYSICIAN: Alex Murphy M.D. REFERRING PHYSICIAN: Phillip Gandhi D.O. REASON FOR CONSULTATION: Elevated troponin and hyperkalemia. HISTORY OF PRESENT ILLNESS: The patient is a 73-year-old gentleman with history of anemia of chronic kidney disease who requires intermittent transfusion as well as intermittent hyperkalemia was brought in for abnormal labs from [facility]. On routine laboratories, the patient was found to have hemoglobin of 7.8. The patient denies any syncope, presyncope, or palpitation. Creatinine was elevated at 5 with BUN of 94. Potassium was also 5.7 and troponin was mildly elevated even though he does not have any chest pain, shortness of breath, or discomfort. The patient was brought to the emergency room and a Cardiology consultation was obtained for further evaluation and management. REVIEW OF SYSTEMS: Review of systems was negative other than what was mentioned in the history of present illness. PAST MEDICAL HISTORY: As mentioned above. FAMILY HISTORY: Noncontributory. SOCIAL HISTORY: [facility]. Does not smoke or drink alcohol. PHYSICAL EXAMINATION: VITAL SIGNS: Blood pressure 109/68, pulse 74, respirations 16, temperature 97.9. HEAD AND NECK: Showed no JVD. LUNGS: Clear. CARDIOVASCULAR: Regular S1 and S2 with no gallop or murmur. ABDOMEN: Soft. EXTREMITIES: No pitting edema. LABORATORY AND DIAGNOSTIC DATA: Labs show white count of 6.1, hemoglobin 9.4, hematocrit 28, and platelet count was 190. Sodium is 142, potassium 6.1, BUN of 93, creatinine of 5.3. Troponin 0.078. His EKG shows sinus rhythm with intraventricular conduction delay, inferior T-wave inversion. ASSESSMENT AND PLAN: 1. Troponin elevation likely due to renal failure with creatinine of 5.3. Currently, the patient does not have any chest pain or shortness of breath. The patient states he has history of prior myocardial infarction, but denies any prior stent placement. Continue Lipitor and Plavix daily and add low-dose beta-ly to his medical regimen. 2. Hyperkalemia due to renal failure. Further evaluation by Dr. Jones. 3. Hyperlipidemia on Lipitor. 4. Hypothyroidism on Synthroid. 5. Benign prostatic hypertrophy on Flomax and Proscar. Thank you very much for allowing me to participate in the care of this patient. Please do not hesitate to contact me for any questions regarding my evaluation. Sincerely, Alex Murphy M.D. DR: Qian JOB#: [id number] CC:
--- NOTE | 2019-06-06 17:32 | NUR ---
ED Nurse Note: pt. is sleeping calmly with no s/s of acute distress noted at this time
--- NOTE | 2019-06-06 18:45 | NUR ---
NURSE NOTES: Received report from SONNY Byrne RN. PT A/Ox4, breathing even and unlabored in RA. Vitals checked upon arrival on the unit: temp 97.7, HR 77, BP 102/54, O2 sat 98%. Pt denies any pain. No s/sx of acute distress. Will give report to NOC nurse for admission order.
--- NOTE | 2019-06-06 18:50 | NUR ---
HAND-OFF: Report given to jessica Person.
--- NOTE | 2019-06-06 19:42 | NUR ---
HAND-OFF: Report given to EVETTE King. Endorsed plan of care.
--- NOTE | 2019-06-06 19:45 | NUR ---
Nurse Note: Pt. is AAOx4, no s/s of acute distress noted. Bed is in lowest position, locked, side rails x2. No s/s of acute distress noted at this time. will continue with admission.
[2019-06-06] MEDS: Metoprolol Tartrate 12.5mg TAB ORAL SCH (20:52)
[2019-06-06] MEDS ORDERED: Atorvastatin 20mg tab ORAL SCH (21:00)
[2019-06-07] VITALS (7 sets, daily range): BP systolic 99–115; BP diastolic 51–74
[2019-06-07] MEDS: Sodium Citrate 30ml ORAL SCH ×3 (00:11→18:00)
--- NOTE | 2019-06-07 02:48 | NUR ---
HAND-OFF: Report given to EVETTE Laurent.
--- NOTE | 2019-06-07 02:49 | NUR ---
NURSE NOTES: Got report from La ALAS. Pt in stable condition. Continue to monitor.
[2019-06-07 03:57] LABS: HEMATOCRIT 22.4 % (42.0-52.0); HEMOGLOBIN 7.7 G/DL (14.2-18.0); MEAN CORPUSCULAR VOLUME 91 FL (80-99); PLATELET COUNT 171 K/UL (150-450); RED BLOOD COUNT 2.46 M/UL (4.70-6.10); RED CELL DISTRIBUTION WIDTH 12.6 % (11.6-14.8); WHITE BLOOD COUNT 7.4 K/UL (4.8-10.8)
[2019-06-07 04:41] LABS: ALANINE AMINOTRANSFERASE 21 U/L (12-78); ALBUMIN 2.7 G/DL (3.4-5.0); ALBUMIN/GLOBULIN RATIO 0.9 (1.0-2.7); ALKALINE PHOSPHATASE 72 U/L (46-116); ANION GAP 12 mmol/L (5-15); ASPARTATE AMINO TRANSFERASE 13 U/L (15-37); BILIRUBIN,TOTAL 0.2 MG/DL (0.2-1.0); BLOOD UREA NITROGEN 75 mg/dL (7-18); CALCIUM 8.6 MG/DL (8.5-10.1); CARBON DIOXIDE 22 MMOL/L (21-32); CHLORIDE 111 MMOL/L (98-107); CREATININE 3.8 MG/DL (0.55-1.30); PHOSPHORUS 3.8 MG/DL (2.5-4.9); POTASSIUM 5.1 MMOL/L (3.5-5.1); SODIUM 145 MMOL/L (136-145)
--- NOTE | 2019-06-07 04:50 | NUR ---
NURSE NOTES: Lab called Troponin: 0.066. Pt in stable condition. /Hiram notified.
[2019-06-07] MEDS ORDERED: NovoLOG Insulin Flexpen SUBQ SCH (06:30)
[2019-06-07] MEDS: NovoLOG Insulin Flexpen SUBQ SCH ×4 (06:30→21:00)
--- NOTE | 2019-06-07 07:23 | NUR ---
HAND-OFF: Report given to Nova ALAS.
--- NOTE | 2019-06-07 07:24 | NUR ---
NURSE NOTES: Received report from EVETTE Laurent. Pt awake, A/Ox4. Pt denies any pain. No s/sx of acute distress. IV sites on R AC 20g and L AC 22g patent and asymptomatic. D5 1/2 NS running at 75ml/hr at L AC. Bed on lowest position, call light within reach. Will continue plan of care.
--- NOTE | 2019-06-07 08:05 | NUR ---
NURSE NOTES: Reported hgb 7.7, hct 22.4, troponin 0.066, mg [address] Gandhi. Addendum: 06/07/19 at 1955 by Nova Nunez RN [id number]: Doctor ordered OBS x3 Informed Dr Jones and Dr Murphy, per Dr Gandhi. Dr Murphy ordered repeat troponin for AM.
[2019-06-07] MEDS: Metoprolol Tartrate 12.5mg TAB ORAL SCH ×2 (09:00→21:00)
[2019-06-07] MEDS: Docusate 100mg cap ORAL SCH ×3 (09:00→18:00)
--- NOTE | 2019-06-07 10:06 | General Progress Note ---
Assessment/Plan Problem List: (1) Troponin level elevated ICD Codes: R79.89 - Other specified abnormal findings of blood chemistry SNOMED: 530991934, 941016709 (2) Weakness ICD Codes: R53.1 - Weakness SNOMED: 37957076 (3) HTN (hypertension) ICD Codes: I10 - Essential (primary) hypertension SNOMED: 61115681 (4) DM (diabetes mellitus) ICD Codes: E11.9 - DM (diabetes mellitus) SNOMED: 61635158 (5) Acute renal failure (ARF) ICD Codes: N17.9 - Acute renal failure (ARF) SNOMED: 26879519 (6) Anemia ICD Codes: D64.9 - Anemia SNOMED: 677619052 Status: stable, progressing Assessment/Plan: pt dit neph f/u cbc bmp am heme gi eval Subjective Constitutional: Reports: weakness Allergies: Coded Allergies: CASTANON (Unverified Allergy, Mild, 06/07/19) APPLE (Unverified Allergy, Unknown, 06/07/19) BANANA (Unverified Allergy, Unknown, 06/07/19) CHOCOLATE FLAVOR (Unverified Allergy, Unknown, 06/07/19) PENICILLINS (Verified Allergy, Unknown, 07/12/17) POTATO (Unverified Allergy, Unknown, 06/07/19) All Systems: reviewed and negative except above Subjective sleepy calm Objective Last 24 Hour Vital Signs Date Time Temp Pulse Resp B/P (MAP) Pulse Ox O2 Delivery O2 Flow Rate FiO2 06/07/19 09:00 88 103/54 06/07/19 08:00 97.7 88 20 103/54 (70) 96 06/07/19 04:00 70 06/07/19 04:00 98.6 72 18 103/51 (68) 97 06/07/19 00:00 98.2 72 18 106/55 (72) 98 06/07/19 00:00 66 06/06/19 21:33 Room Air 06/06/19 20:52 70 97/56 06/06/19 20:00 72 06/06/19 20:00 98.0 76 18 97/56 (70) 97 06/06/19 18:50 98.0 70 22 98/52 99 Room Air 06/06/19 17:32 98.0 66 21 95/53 100 Room Air 06/06/19 15:27 97.5 75 22 92/48 100 Room Air 06/06/19 12:59 98.2 89 20 111/57 99 Room Air 06/06/19 10:55 98.2 76 20 100/62 100 Room Air Intake and Output 06/06/19 06/07/19 19:00 07:00 # Voids 2 Laboratory Tests 06/06/19 11:27: Troponin I 0.050 06/06/19 18:27: Troponin I 0.063H 06/07/19 03:07: Troponin I 0.066H, White Blood Count 7.4, Red Blood Count 2.46L, Hemoglobin 7.7L , Hematocrit 22.4L, Mean Corpuscular Volume 91, Mean Corpuscular Hemoglobin 31.3H, Mean Corpuscular Hemoglobin Concent 34.3, Red Cell Distribution Width 12.6, Platelet Count 171, Mean Platelet Volume 6.0L, Neutrophils (%) (Auto) , Lymphocytes (%) (Auto) , Monocytes (%) (Auto) , Eosinophils (%) (Auto) , Basophils (%) (Auto) , Differential Total Cells Counted 100, Neutrophils % ( Manual) 75, Lymphocytes % (Manual) 18L, Monocytes % (Manual) 4, Eosinophils % ( Manual) 3, Basophils % (Manual) 0, Band Neutrophils 0, Platelet Estimate Adequate, Platelet Morphology Normal, Hypochromasia 3+, Anisocytosis 1+, Spherocytes 2+, Sodium Level 145, Potassium Level 5.1, Chloride Level 111H, Carbon Dioxide Level 22, Anion Gap 12, Blood Urea Nitrogen 75H, Creatinine 3.8H , Estimat Glomerular Filtration Rate 19.1, Glucose Level 98#, Uric Acid 8.7H, Calcium Level 8.6, Phosphorus Level 3.8, Magnesium Level 1.6L, Total Bilirubin 0.2, Aspartate Amino Transf (AST/SGOT) 13L, Alanine Aminotransferase (ALT/SGPT) 21, Alkaline Phosphatase 72, C-Reactive Protein, Quantitative < 0.4, Pro-B-Type Natriuretic Peptide 9457H, Total Protein 5.6L, Albumin 2.7L, Globulin 2.9, Albumin/Globulin Ratio 0.9L Height (Feet): 5 Height (Inches): 8.00 Weight (Pounds): 147 General Appearance: lethargic EENT: normal ENT inspection Neck: normal alignment Cardiovascular: normal peripheral pulses, normal rate, regular rhythm Respiratory/Chest: chest wall non-tender, lungs clear, normal breath sounds Abdomen: normal bowel sounds, non tender, soft Extremities: normal inspection Edema: no edema noted Arm (L), no edema noted Arm (R), no edema noted Leg (L), no edema noted Leg (R), no edema noted Pedal (L), no edema noted Pedal (R), no edema noted Generalized Neurologic: motor weakness Skin: normal pigmentation, warm/dry Phillip Gandhi DO Jun 07, 2019 10:06
[2019-06-07] MEDS ORDERED: metFORMIN 500mg tab ORAL SCH (11:00)
--- NOTE | 2019-06-07 11:22 | Nephrology Progress Note ---
Assessment/Plan Problem List: (1) Renal failure (ARF), acute on chronic (2) Hyperkalemia (3) DM (diabetes mellitus) (4) Hypothyroid (5) Cardiomyopathy Assessment: EjFx 15% Assessment Acute on chronic renal failure. Anemia of chronic kidney disease. Hyperkalemia. Elevated troponin. History of diabetes mellitus. History of hypothyroidism. Plan stop Hydrate. Anemia work-up. Kayexalate as needed. Monitor renal parameters. Keep the blood pressure and blood sugar in check. Kidney ultrasound. 2D echocardiogram. EjFx 15% Urine studies. Hold Metformin and Lasix. Per orders. Subjective ROS Limited/Unobtainable: No Constitutional: Reports: malaise Objective Objective Last 24 Hour Vital Signs Date Time Temp Pulse Resp B/P (MAP) Pulse Ox O2 Delivery O2 Flow Rate FiO2 06/07/19 09:00 88 103/54 06/07/19 08:00 97.7 88 20 103/54 (70) 96 06/07/19 07:45 86 06/07/19 04:00 70 06/07/19 04:00 98.6 72 18 103/51 (68) 97 06/07/19 00:00 98.2 72 18 106/55 (72) 98 06/07/19 00:00 66 06/06/19 21:33 Room Air 06/06/19 20:52 70 97/56 06/06/19 20:00 72 06/06/19 20:00 98.0 76 18 97/56 (70) 97 06/06/19 18:50 98.0 70 22 98/52 99 Room Air 06/06/19 17:32 98.0 66 21 95/53 100 Room Air 06/06/19 15:27 97.5 75 22 92/48 100 Room Air 06/06/19 12:59 98.2 89 20 111/57 99 Room Air Intake and Output 06/06/19 06/07/19 19:00 07:00 # Voids 2 Laboratory Tests 06/06/19 11:27: Troponin I 0.050 06/06/19 18:27: Troponin I 0.063H 06/07/19 03:07: Troponin I 0.066H, White Blood Count 7.4, Red Blood Count 2.46L, Hemoglobin 7.7L , Hematocrit 22.4L, Mean Corpuscular Volume 91, Mean Corpuscular Hemoglobin 31.3H, Mean Corpuscular Hemoglobin Concent 34.3, Red Cell Distribution Width 12.6, Platelet Count 171, Mean Platelet Volume 6.0L, Neutrophils (%) (Auto) , Lymphocytes (%) (Auto) , Monocytes (%) (Auto) , Eosinophils (%) (Auto) , Basophils (%) (Auto) , Differential Total Cells Counted 100, Neutrophils % ( Manual) 75, Lymphocytes % (Manual) 18L, Monocytes % (Manual) 4, Eosinophils % ( Manual) 3, Basophils % (Manual) 0, Band Neutrophils 0, Platelet Estimate Adequate, Platelet Morphology Normal, Hypochromasia 3+, Anisocytosis 1+, Spherocytes 2+, Sodium Level 145, Potassium Level 5.1, Chloride Level 111H, Carbon Dioxide Level 22, Anion Gap 12, Blood Urea Nitrogen 75H, Creatinine 3.8H , Estimat Glomerular Filtration Rate 19.1, Glucose Level 98#, Uric Acid 8.7H, Calcium Level 8.6, Phosphorus Level 3.8, Magnesium Level 1.6L, Total Bilirubin 0.2, Aspartate Amino Transf (AST/SGOT) 13L, Alanine Aminotransferase (ALT/SGPT) 21, Alkaline Phosphatase 72, C-Reactive Protein, Quantitative < 0.4, Pro-B-Type Natriuretic Peptide 9457H, Total Protein 5.6L, Albumin 2.7L, Globulin 2.9, Albumin/Globulin Ratio 0.9L Height (Feet): 5 Height (Inches): 8.00 Weight (Pounds): 147 General Appearance: no apparent distress Cardiovascular: normal rate Respiratory/Chest: decreased breath sounds Abdomen: distended Ti Jones MD Jun 07, 2019 11:22
[2019-06-07] MEDS: HydrALAZINE 10mg Tab ORAL SCH ×2 (12:41→18:00)
--- NOTE | 2019-06-07 12:57 | Cardiac Electrophysiology PN ---
Assessment/Plan Assessment/Plan 1. Troponin elevation likely due to renal failure with creatinine of 5.3 as low level and flat. Denies any chest pain or shortness of breath. The patient states he has history of prior myocardial infarction, but denies any prior stent placement. Continue Lipitor and Plavix daily and Lopressor 12.5 bid 2. HTN On Lopressor and Hydralazine 10 q 6 3. Hyperkalemia due to renal failure. Fu by Dr. Jones. 4. Hyperlipidemia on Lipitor. 5. Hypothyroidism on Synthroid. 6. Benign prostatic hypertrophy on Flomax and Proscar. Subjective Subjective Feeling better having lunch Objective Last 24 Hour Vital Signs Date Time Temp Pulse Resp B/P (MAP) Pulse Ox O2 Delivery O2 Flow Rate FiO2 06/07/19 12:41 115/74 06/07/19 09:00 88 103/54 06/07/19 08:00 97.7 88 20 103/54 (70) 96 06/07/19 07:45 86 06/07/19 04:00 70 06/07/19 04:00 98.6 72 18 103/51 (68) 97 06/07/19 00:00 98.2 72 18 106/55 (72) 98 06/07/19 00:00 66 06/06/19 21:33 Room Air 06/06/19 20:52 70 97/56 06/06/19 20:00 72 06/06/19 20:00 98.0 76 18 97/56 (70) 97 06/06/19 18:50 98.0 70 22 98/52 99 Room Air 06/06/19 17:32 98.0 66 21 95/53 100 Room Air 06/06/19 15:27 97.5 75 22 92/48 100 Room Air 06/06/19 12:59 98.2 89 20 111/57 99 Room Air Intake and Output 06/06/19 06/07/19 19:00 07:00 # Voids 2 Laboratory Tests Test 06/06/19 18:27 06/07/19 03:07 Troponin I 0.063 ng/mL (0.000-0.056) 0.066 ng/mL (0.000-0.056) White Blood Count 7.4 K/UL (4.8-10.8) Red Blood Count 2.46 M/UL (4.70-6.10) L Hemoglobin 7.7 G/DL (14.2-18.0) L Hematocrit 22.4 % (42.0-52.0) L Mean Corpuscular Volume 91 FL (80-99) Mean Corpuscular Hemoglobin 31.3 PG (27.0-31.0) H Mean Corpuscular Hemoglobin Concent 34.3 G/DL (32.0-36.0) Red Cell Distribution Width 12.6 % (11.6-14.8) Platelet Count 171 K/UL (150-450) Mean Platelet Volume 6.0 FL (6.5-10.1) L Neutrophils (%) (Auto) % (45.0-75.0) Lymphocytes (%) (Auto) % (20.0-45.0) Monocytes (%) (Auto) % (1.0-10.0) Eosinophils (%) (Auto) % (0.0-3.0) Basophils (%) (Auto) % (0.0-2.0) Differential Total Cells Counted 100 Neutrophils % (Manual) 75 % (45-75) Lymphocytes % (Manual) 18 % (20-45) L Monocytes % (Manual) 4 % (1-10) Eosinophils % (Manual) 3 % (0-3) Basophils % (Manual) 0 % (0-2) Band Neutrophils 0 % (0-8) Platelet Estimate Adequate Platelet Morphology Normal Hypochromasia 3+ Anisocytosis 1+ Spherocytes 2+ Sodium Level 145 MMOL/L (136-145) Potassium Level 5.1 MMOL/L (3.5-5.1) Chloride Level 111 MMOL/L (98-107) H Carbon Dioxide Level 22 MMOL/L (21-32) Anion Gap 12 mmol/L (5-15) Blood Urea Nitrogen 75 mg/dL (7-18) H Creatinine 3.8 MG/DL (0.55-1.30) H Estimat Glomerular Filtration Rate 19.1 mL/min (>60) Glucose Level 98 MG/DL (74-106) # Uric Acid 8.7 MG/DL (2.6-7.2) H Calcium Level 8.6 MG/DL (8.5-10.1) Phosphorus Level 3.8 MG/DL (2.5-4.9) Magnesium Level 1.6 MG/DL (1.8-2.4) L Total Bilirubin 0.2 MG/DL (0.2-1.0) Aspartate Amino Transf (AST/SGOT) 13 U/L (15-37) L Alanine Aminotransferase (ALT/SGPT) 21 U/L (12-78) Alkaline Phosphatase 72 U/L (46-116) C-Reactive Protein, Quantitative < 0.4 mg/dL (0.00-0.90) Pro-B-Type Natriuretic Peptide 9457 pg/mL (0-125) H Total Protein 5.6 G/DL (6.4-8.2) L Albumin 2.7 G/DL (3.4-5.0) L Globulin 2.9 g/dL Albumin/Globulin Ratio 0.9 (1.0-2.7) L Microbiology Date/Time Source Procedure Growth Status 06/05/19 22:00 Rectum Received Objective HEAD AND NECK: No JVD. LUNGS: Clear. CARDIOVASCULAR: Regular S1 and S2 with no gallop or murmur. ABDOMEN: Soft. EXTREMITIES: No pitting edema. Alex Murphy MD Jun 07, 2019 12:57
[2019-06-07] MEDS ORDERED: Iron Sucrose 200 MG in NS 110 ML IV ONE (13:00)
--- NOTE | 2019-06-07 16:04 | NUR ---
PT Note PT [place] completed, treatment initiated. Patient has muscle weakness and decreased balance, requiring assist in mobility and gait. Patient can benefit from PT services to increase his muscle strength and balance to improve his safety in mobility and gait. Addendum: 06/07/19 at 1604 by JUAN ABEL PT Amended: Links added.
[2019-06-07 16:34] LABS: APPEARANCE,URINE CLEAR; BILIRUBIN, URINE NEGATIVE (NEGATIVE); COLOR,URINE PALE YELLOW; GLUCOSE, URINE (UA) NEGATIVE (NEGATIVE); KETONES,URINE NEGATIVE (NEGATIVE); LEUKOCYTE ESTERASE ,URINE 1+ (NEGATIVE); NITRITE,URINE NEGATIVE (NEGATIVE); PH,URINE 5 (4.5-8.0); PROTEIN,URINE NEGATIVE (NEGATIVE); UROBILINOGEN,URINE NORMAL MG/DL (0.0-1.0)
--- NOTE | 2019-06-07 16:53 | NUR ---
NURSE NOTES: REported to Dr Gandhi s/p EDUCATIONAL PSYCHOLOGY PROFESSOR. Pt complained of severe stomach pain, pt was cold and clammy, flat affect and looked weak. EDUCATIONAL PSYCHOLOGY PROFESSOR called, VS and BSS are WNL. Dr Gandhi ordered Zofran, Maalox, and Morphine PRN (see order hx).
[2019-06-07 17:47] LABS: BASOPHILS % (AUTO) 0.3 % (0.0-2.0); EOSINOPHILS % (AUTO) 3.5 % (0.0-3.0); HEMATOCRIT 23.6 % (42.0-52.0); LYMPHOCYTES % (AUTO) 30.1 % (20.0-45.0); MEAN CORPUSCULAR VOLUME 92 FL (80-99); MONOCYTES % (AUTO) 5.5 % (1.0-10.0); NEUTROPHILS % (AUTO) 60.5 % (45.0-75.0); PLATELET COUNT 169 K/UL (150-450); RED BLOOD COUNT 2.58 M/UL (4.70-6.10); RED CELL DISTRIBUTION WIDTH 13.2 % (11.6-14.8); WHITE BLOOD COUNT 10.3 K/UL (4.8-10.8)
[2019-06-07 18:27] LABS: ANION GAP 16 mmol/L (5-15); BLOOD UREA NITROGEN 70 mg/dL (7-18); CALCIUM 8.6 MG/DL (8.5-10.1); CARBON DIOXIDE 20 MMOL/L (21-32); CHLORIDE 109 MMOL/L (98-107); CREATININE 3.8 MG/DL (0.55-1.30); POTASSIUM 4.5 MMOL/L (3.5-5.1); SODIUM 145 MMOL/L (136-145)
[2019-06-07] MEDS ORDERED: Morphine Sulfate 2mg/ml Inj(IV/IM USE ONLY) IVP PRN (18:30)
[2019-06-07] MEDS ORDERED: Mylanta II UD 30ml ORAL PRN (18:30)
--- NOTE | 2019-06-07 19:00 | Consultation ---
DATE OF CONSULTATION: 06/07/2019 CONSULTING PHYSICIAN: Deric Price M.D. REFERRING PHYSICIAN: Phillip Gandhi D.O. CHIEF COMPLAINT: Anemia. HISTORY OF PRESENT ILLNESS: The patient is a 73-year-old shelter patient with history of chronic kidney disease, chronic anemia, and had multiple blood transfusions. The patient was found to have hemoglobin of 7.8, so GI consult was requested for further evaluation. The patient is known to me from last admission in June 2017. The last time I saw him, he had an ERCP with sphincterotomy and stone removal at that time, but he has not had followup with us since then. The patient denies any significant abdominal pain. Denies any dysphagia or odynophagia. PAST MEDICAL HISTORY: 1. Coronary artery disease and RI. 2. Chronic anemia. 3. Renal failure. 4. Hypothyroidism. 5. History of common bile duct stone, status post ERCP. ALLERGIES: Multiple food allergies including apple, banana, machado, chocolate, and also allergy to penicillin. MEDICATIONS: Please see medication reconciliation list. SOCIAL HISTORY: Currently, he lives in a shelter. No recent history of tobacco, alcohol, or IV drug abuse. FAMILY HISTORY: Noncontributory. REVIEW OF SYSTEMS: A 10-point review of systems was performed and pertinent positives in HPI. PHYSICAL EXAMINATION: VITAL SIGNS: Temperature 97.7, pulse is 88, respirations 20, and blood pressure 103/54. HEENT: Normocephalic and atraumatic. Sclerae pale. NECK: Supple. No evidence of obvious lymphadenopathy. CARDIOVASCULAR: Regular rate and rhythm. Plus S1, S2. LUNGS: Decreased breath sounds bilaterally based on supine exam. ABDOMEN: Soft, nontender. No rebound. No guarding. No peritoneal sign. EXTREMITIES: No cyanosis. No clubbing. No edema. LABORATORY DATA: White count is 7.4, hemoglobin 7.7, platelet count is 171,000. Chem-7, sodium is 145, potassium 5.1, BUN is 75, and creatinine is 3.8. Troponin elevated at 0.066. ASSESSMENT AND PLAN: This is a 73-year-old male with history of renal disease, now with significant anemia. No evidence of any active GI bleeding. Anemia can be secondary to chronic disease. Plan to send the stool for OB. Iron panel has been checked. The patient does not have any significant iron deficiency. The patient was already seen by shank cementer hand, Dr. Murphy. No plan for any intervention at this time. Our plan will be to monitor his laboratories and transfuse as needed to keep hemoglobin above 7. Follow on the stool OB. Consider doing GI procedures if the stool OB come back positive and he was cleared by Dr. Murphy. I want to thank, Dr. Phillip Gandhi, for this kind referral. Deric Price M.D. DR: Sourav JOB#: [id number] CC: Phillip Gandhi D.O.
--- NOTE | 2019-06-07 19:35 | NUR ---
NURSE NOTES: Received report from EVETTE Bhatt. Patient is in bed, awake, alert, and responsive. Breathing regular and unlabored with no S/S of SOB noted at this time. Patient's skin is warm to touch and oral temperature of 98.0 F. Patient verbalized "My pain has gone down, a little better now." IV access on the R AC, 20G, patent, intact, and currently running fluids at prescribed rate. Patient is aware to call for assistance if in need, patient able to make needs known. Bed remains in the lowest position, breaks engaged, bed-alarm on, and call light is within reach at all times. All other needs attended to, patient remains stable, will continue to monitor.
--- NOTE | 2019-06-07 20:04 | NUR ---
HAND-OFF: Report given to EVETTE Byrne. Endorsed plan of care.
[2019-06-07] MEDS: Tamsulosin 0.4mg cap ORAL SCH (21:00)
--- NOTE | 2019-06-07 21:45 | NUR ---
NURSE NOTES: Upon an attempt to administer the scheduled night time medications, patient refused and said "I don't want to take it, it might cause me to have another stomachache." Explained to the patient about the risks ant benefits of the scheduled medications, but patient still refused. Patient remains stable, will continue to monitor.
[2019-06-07] MEDS ORDERED: D5 1/2NS 1,000 ML IV SCH (23:00)
[2019-06-08] VITALS: BP 118/62
[2019-06-08 04:00] VITALS: BP 122/69
[2019-06-08] MEDS: HydrALAZINE 10mg Tab ORAL SCH ×4 (06:00→17:20)
[2019-06-08] MEDS: NovoLOG Insulin Flexpen SUBQ SCH ×4 (06:09→21:00)
--- NOTE | 2019-06-08 06:28 | NUR ---
NURSE NOTES: Patient refused to take his scheduled morning Insulin and Blood pressure medication. Patient stated "I do not take insulin, I take my sugar pill at home, I don't need anything here." Patient also stated "If my blood pressure is low I will not take the blood pressure medication." Assessed patient's blood pressure with the reading of 94/53. Per patient request and per MD orders, medication held. Patient remains stable, no longer c/o of stomach pains as bad as previous day. All other needs attended to, will continue to monitor.
--- NOTE | 2019-06-08 07:17 | NUR ---
HAND-OFF: Report given to EVETTE Kang. Patient in stable condition.
--- NOTE | 2019-06-08 07:25 | NUR ---
NURSE NOTES: Received bedside report from Abbie ALAS. Pt. in bed, sleeping but arousable. No sign of distress. No grimacing noted. IV at right hand #22g. in placed patent/intact SL. Bed in low position, locked. Call light within reach. Will cont. to monitor.
--- NOTE | 2019-06-08 07:39 | General Progress Note ---
Assessment/Plan Problem List: (1) Cholelithiasis ICD Codes: K80.20 - Calculus of gallbladder without cholecystitis without obstruction SNOMED: 616636984 (2) Troponin level elevated ICD Codes: R79.89 - Other specified abnormal findings of blood chemistry SNOMED: 023204331, 918193765 (3) HTN (hypertension) ICD Codes: I10 - Essential (primary) hypertension SNOMED: 47705335 (4) Weakness ICD Codes: R53.1 - Weakness SNOMED: 79406356 (5) Anemia ICD Codes: D64.9 - Anemia SNOMED: 628508754 (6) Creatinine elevation ICD Codes: R79.89 - Other specified abnormal findings of blood chemistry SNOMED: 860917191, 778755336 (7) Cardiomyopathy ICD Codes: I42.9 - Cardiomyopathy, unspecified SNOMED: 76356460 (8) DM (diabetes mellitus) ICD Codes: E11.9 - DM (diabetes mellitus) SNOMED: 97135950 (9) Hypothyroid ICD Codes: E03.9 - Hypothyroidism, unspecified SNOMED: 78915097 (10) Abdominal pain ICD Codes: R10.9 - Unspecified abdominal pain SNOMED: 31323902 (11) Constipation ICD Codes: K59.00 - Constipation, unspecified SNOMED: 78417521 Status: stable, progressing Assessment/Plan: ct of abd pelvis without contrast repat labs bowel regimen GI procedures on hold Subjective ROS Limited/Unobtainable: Yes Allergies: Coded Allergies: CASTANON (Unverified Allergy, Mild, 06/07/19) APPLE (Unverified Allergy, Unknown, 06/07/19) BANANA (Unverified Allergy, Unknown, 06/07/19) CHOCOLATE FLAVOR (Unverified Allergy, Unknown, 06/07/19) PENICILLINS (Verified Allergy, Unknown, 07/12/17) POTATO (Unverified Allergy, Unknown, 06/07/19) Objective Last 24 Hour Vital Signs Date Time Temp Pulse Resp B/P (MAP) Pulse Ox O2 Delivery O2 Flow Rate FiO2 06/08/19 06:00 94/53 06/08/19 04:00 98.0 83 19 122/69 (86) 97 06/08/19 04:00 92 06/08/19 00:00 68 06/08/19 00:00 97.9 95 19 118/62 (80) 96 2/22/20 21:00 Room Air 06/07/19 20:00 74 06/07/19 20:00 98.0 79 20 99/53 (68) 96 06/07/19 16:35 72 06/07/19 16:20 68 20 98 06/07/19 16:00 97.9 84 20 99/62 (74) 99 06/07/19 12:41 115/74 06/07/19 12:00 97.7 100 18 115/74 (88) 97 06/07/19 11:41 77 06/07/19 09:00 88 103/54 06/07/19 09:00 Room Air 06/07/19 08:00 97.7 88 20 103/54 (70) 96 06/07/19 07:45 86 Intake and Output 06/07/19 06/08/19 19:00 07:00 Intake Total 300 ml Output Total 1000 ml Balance -700 ml Intake Oral 300 ml Output Urine Total 1000 ml # Voids 2 Laboratory Tests 06/07/19 16:00: Urine Color Pale yellow, Urine Appearance Clear, Urine pH 5, Urine Specific [place] 1.010, Urine Protein Negative, Urine Glucose (UA) Negative, Urine Ketones Negative, Urine Blood Negative, Urine Nitrite Negative, Urine Bilirubin Negative, Urine Urobilinogen Normal, Urine Leukocyte Esterase 1+H, Urine RBC 0, Urine WBC 2-4, Urine Squamous Epithelial Cells Occasional, Urine Bacteria Few, Urine Eosinophils None seen, Stool Occult Blood [Pending] 06/07/19 17:25: White Blood Count 10.3, Red Blood Count 2.58L, Hemoglobin 8.0L, Hematocrit 23.6L , Mean Corpuscular Volume 92, Mean Corpuscular Hemoglobin 30.9, Mean Corpuscular Hemoglobin Concent 33.7, Red Cell Distribution Width 13.2, Platelet Count 169, Mean Platelet Volume 6.2L, Neutrophils (%) (Auto) 60.5, Lymphocytes ( %) (Auto) 30.1, Monocytes (%) (Auto) 5.5, Eosinophils (%) (Auto) 3.5H, Basophils (%) (Auto) 0.3, Sodium Level 145, Potassium Level 4.5, Chloride Level 109H, Carbon Dioxide Level 20L, Anion Gap 16H, Blood Urea Nitrogen 70H, Creatinine 3.8H, Estimat Glomerular Filtration Rate 19.1, Glucose Level 158H, Calcium Level 8.6, Troponin I 0.061H Height (Feet): 5 Height (Inches): 8.00 Weight (Pounds): 147 General Appearance: alert EENT: normal ENT inspection Neck: supple Cardiovascular: tachycardia Respiratory/Chest: decreased breath sounds Abdomen: hypoactive bowel sounds, tender Extremities: non-tender Deric Price MD Jun 08, 2019 07:39
[2019-06-08 08:00] VITALS: BP 93/52
--- NOTE | 2019-06-08 08:08 | Consultation ---
History of Present Illness General Chief Complaint: General Complaint Present Illness Allergies: Coded Allergies: CASTANON (Unverified Allergy, Mild, 06/07/19) APPLE (Unverified Allergy, Unknown, 06/07/19) BANANA (Unverified Allergy, Unknown, 06/07/19) CHOCOLATE FLAVOR (Unverified Allergy, Unknown, 06/07/19) PENICILLINS (Verified Allergy, Unknown, 07/12/17) POTATO (Unverified Allergy, Unknown, 06/07/19) Medication History Scheduled Aspirin* (Aspir 81*), 81 MG ORAL DAILY, (Reported) Atorvastatin Calcium* (Atorvastatin Calcium*), 20 MG ORAL BEDTIME, (Reported) Clopidogrel Bisulfate* (Plavix*), 75 MG ORAL DAILY, (Reported) Cranberry Fruit Concentrate (Cranberry), 900 MG PO BID, (Reported) Docusate Sodium* (Docusate Sodium*), 250 MG ORAL DAILY, (Reported) Docusate Sodium* (Colace*), 250 MG ORAL TWICE A DAY, (Reported) Ferrous Sulfate* (Ferrous Sulfate*), 325 MG ORAL DAILY, (Reported) Finasteride (Finasteride), 5 MG ORAL DAILY, (Reported) Furosemide* (Lasix*), 20 MG ORAL DAILY, (Reported) Hydralazine HCl (Hydralazine HCl), 50 MG ORAL EVERY 8 HOURS, (Reported) Levothyroxine Sodium (Synthroid), 50 MCG ORAL DAILY, (Reported) Metformin Hcl* (Metformin Hcl*), 500 MG ORAL DAILY, (Reported) Metoprolol Succinate* (Metoprolol Succinate*), 50 MG ORAL BID, (Reported) Pantoprazole Sodium (Protonix), 20 MG ORAL DAILY, (Reported) Sitagliptin (Januvia), 50 MG ORAL DAILY, (Reported) Tamsulosin Hcl (Tamsulosin Hcl*), 0.4 MG ORAL BEDTIME, (Reported) Vitamin B Complex (Vitamin B Complex), 1 EACH PO DAILY, (Reported) Scheduled PRN Acetaminophen* (Acetaminophen Extra Strength*), 1,000 MG ORAL Q4HR PRN for For Pain, (Reported) Acetaminophen* (Acetaminophen 325MG Tablet*), 650 MG ORAL Q4H PRN for PAIN/TEMP, (Reported) Bisacodyl (Bisacodyl), 10 MG RC DAILY PRN for Constipation, (Reported) Magnesium Hydroxide* (Milk Of Magnesia*), 30 ML ORAL BEDTIME PRN for Constipation, (Reported) Na Phos,M-B/Na Phos,Di-Ba* (Fleet Enema*), 133 ML RECTAL EVERY 2 DAYS PRN for Constipation, (Reported) Miscellaneous Medications Insulin Aspart (Novolog), 100 UNIT SQ, (Reported) Discontinued Medications Lisinopril (Lisinopril*), 20 MG ORAL DAILY, (Reported) Discontinued Reason: Pt had allergic rxn Patient History Healthcare decision maker Resuscitation status Full Code Advanced Directive on File Physical Exam Last 24 Hour Vital Signs Date Time Temp Pulse Resp B/P (MAP) Pulse Ox O2 Delivery O2 Flow Rate FiO2 06/08/19 06:00 94/53 06/08/19 04:00 98.0 83 19 122/69 (86) 97 06/08/19 04:00 92 06/08/19 00:00 68 06/08/19 00:00 97.9 95 19 118/62 (80) 96 06/07/19 21:00 Room Air 06/07/19 20:00 74 06/07/19 20:00 98.0 79 20 99/53 (68) 96 06/07/19 16:35 72 06/07/19 16:20 68 20 98 06/07/19 16:00 97.9 84 20 99/62 (74) 99 06/07/19 12:41 115/74 06/07/19 12:00 97.7 100 18 115/74 (88) 97 06/07/19 11:41 77 06/07/19 09:00 88 103/54 06/07/19 09:00 Room Air Intake and Output 06/07/19 06/08/19 19:00 07:00 Intake Total 300 ml Output Total 1000 ml Balance -700 ml Intake Oral 300 ml Output Urine Total 1000 ml # Voids 2 Laboratory Tests Test 06/07/19 16:00 06/07/19 17:25 Urine Color Pale yellow Urine Appearance Clear Urine pH 5 (4.5-8.0) Urine Specific [place] 1.010 (1.005-1.035) Urine Protein Negative (NEGATIVE) Urine Glucose (UA) Negative (NEGATIVE) Urine Ketones Negative (NEGATIVE) Urine Blood Negative (NEGATIVE) Urine Nitrite Negative (NEGATIVE) Urine Bilirubin Negative (NEGATIVE) Urine Urobilinogen Normal MG/DL (0.0-1.0) Urine Leukocyte Esterase 1+ (NEGATIVE) H Urine RBC 0 /HPF (0 - 0) Urine WBC 2-4 /HPF (0 - 0) Urine Squamous Epithelial Cells Occasional /LPF Urine Bacteria Few /HPF (NONE) Urine Eosinophils None seen (NONE SEEN) Stool Occult Blood Pending White Blood Count 10.3 K/UL (4.8-10.8) Red Blood Count 2.58 M/UL (4.70-6.10) L Hemoglobin 8.0 G/DL (14.2-18.0) L Hematocrit 23.6 % (42.0-52.0) L Mean Corpuscular Volume 92 FL (80-99) Mean Corpuscular Hemoglobin 30.9 PG (27.0-31.0) Mean Corpuscular Hemoglobin Concent 33.7 G/DL (32.0-36.0) Red Cell Distribution Width 13.2 % (11.6-14.8) Platelet Count 169 K/UL (150-450) Mean Platelet Volume 6.2 FL (6.5-10.1) L Neutrophils (%) (Auto) 60.5 % (45.0-75.0) Lymphocytes (%) (Auto) 30.1 % (20.0-45.0) Monocytes (%) (Auto) 5.5 % (1.0-10.0) Eosinophils (%) (Auto) 3.5 % (0.0-3.0) H Basophils (%) (Auto) 0.3 % (0.0-2.0) Sodium Level 145 MMOL/L (136-145) Potassium Level 4.5 MMOL/L (3.5-5.1) Chloride Level 109 MMOL/L (98-107) H Carbon Dioxide Level 20 MMOL/L (21-32) L Anion Gap 16 mmol/L (5-15) H Blood Urea Nitrogen 70 mg/dL (7-18) H Creatinine 3.8 MG/DL (0.55-1.30) H Estimat Glomerular Filtration Rate 19.1 mL/min (>60) Glucose Level 158 MG/DL (74-106) H Calcium Level 8.6 MG/DL (8.5-10.1) Troponin I 0.061 ng/mL (0.000-0.056) Height (Feet): 5 Height (Inches): 8.00 Weight (Pounds): 147 Medications Current Medications Medications (Trade) Dose Ordered Sig/Stella Route PRN Reason Start Time Stop Time Status Last Admin Dose Admin Al Hydroxide/Mg Hydroxide (Mylanta II) 30 ml Q6H PRN ORAL hyperacidity 06/07/19 18:30 07/07/19 18:29 Atorvastatin Calcium (Lipitor) 10 mg BEDTIME ORAL 06/07/19 21:00 07/06/19 20:59 Barium Sulfate (Readi-Cat 2) 450 ml NOW PRN ORAL Radiology Procedure 06/08/19 07:45 06/10/19 07:37 Clopidogrel Bisulfate (Plavix) 75 mg DAILY ORAL 06/06/19 09:00 07/06/19 08:59 06/07/19 09:10 Dextrose (Dextrose 50%) 25 ml Q30M PRN IV Hypoglycemia 06/06/19 22:00 07/06/19 21:59 Dextrose (Dextrose 50%) 50 ml Q30M PRN IV Hypoglycemia 06/06/19 22:00 07/06/19 21:59 Docusate Sodium (Colace) 100 mg TID ORAL 06/06/19 09:00 07/06/19 08:59 Epoetin Yaron (Epoetin Yaron(ESRD on dialysis)) 10,000 unit SUN-SUN-SUN SUBQ 06/09/19 21:00 07/09/19 20:59 Finasteride (Proscar) 5 mg DAILY ORAL 06/06/19 09:00 07/06/19 08:59 06/07/19 09:10 Hydralazine HCl (Apresoline) 10 mg Q6HR ORAL 06/07/19 12:00 07/07/19 11:59 06/07/19 12:41 Insulin Aspart (NovoLOG) BEFORE MEALS AND HS SUBQ 06/07/19 06:30 07/07/19 06:29 06/07/19 12:40 Levothyroxine Sodium (Synthroid) 50 mcg DAILY@0630 ORAL 06/06/19 06:30 07/06/19 06:29 06/08/19 06:09 Metoprolol Tartrate (Lopressor) 12.5 mg Q12HR ORAL 06/06/19 21:00 07/06/19 20:59 Morphine Sulfate (Morphine Sulfate) 2 mg Q4H PRN IVP For Pain 06/07/19 18:30 06/14/19 18:29 06/07/19 18:36 Ondansetron HCl (Zofran) 4 mg Q4H PRN IVP Nausea & Vomiting 06/07/19 17:30 07/07/19 17:29 06/07/19 17:27 Pantoprazole (Protonix) 40 mg Q12HR ORAL 06/06/19 09:00 07/06/19 08:59 06/07/19 09:10 Polyethylene Glycol (Miralax) 17 gm BEDTIME ORAL 06/08/19 21:00 07/08/19 20:59 Sodium Citrate (Bicitra) 30 ml BID ORAL 06/07/19 18:00 07/06/19 00:00 Tamsulosin HCl (Flomax) 0.4 mg BEDTIME ORAL 06/06/19 00:30 07/06/19 00:29 06/06/19 21:19 Assessment/Plan Assessment/Plan: Hematology Consultation REQ MD: Huy Gandhi Chief Complaint: General Complaint DOS: 06/08/2019 HPI 73-year-old male with history of renal disease, anemia requiring intermittent transfusion, intermittent hyperkalemia presents for evaluation of abnormal lab values, hgb low. On routine labs the patient was found to have hemoglobin of 7.8. He denies any lightheadedness, syncope, palpitations or other distress. His creatinine was elevated at 5.02 with an elevated BUN of 94. He states he has had no difficulty making urine and denies dysuria or hematuria. His potassium was elevated at 5.7. Again he denies any chest pain, palpitations or other discomfort at this time. He is otherwise in his usual state of health and denies any recent fevers, chills, URI symptoms, abdominal pain or cramping, vomiting, diarrhea or rash. He has required transfusion in the past, the last of which was summer 2018. He has never had dialysis. He has been treated for hyperkalemia in the past. Hgb is low, pending ct a/p, dw [place], no bleeding noted, no hemolysis, anemia panel reviewed. PMH: COPD, ischemic heart disease, hypertension, hyperlipidemia, TIAs, CKD PSH: Reviewed Allergies: Penicillin Social Hx: Denies Allergies: Coded Allergies: PENICILLINS (Verified Allergy, Unknown, 07/12/17) Nursing Documentation-PMH Hx Cardiac Problems: Yes - atherosclerotic heart disease, [place] Hx Hypertension: Yes - ANEMIA, DYSPHAGIA Hx COPD: Yes Hx Diabetes: Yes Hx Cancer: No Hx Gastrointestinal Problems: Yes Hx Neurological Problems: Yes Hx Cerebrovascular Accident: Yes Hx Transient Ischemic Attacks: Yes Hx Dementia: Yes Review of Systems All Other Systems: negative except mentioned in HPI Physical Exam General: Awake and alert HEENT: NC/AT. EOMI. Neck: Supple Cardiov: RRR. S1 and S2 normal. No murmur appreciated Resp: No cough, wheezing or crackles appreciated Abd: Abdomen is soft, nondistended. Skin: Intact. No abrasions, laceration or rash MSK: Normal tone and bulk. Moving all extremities. Neuro: Awake and alert. Mentating appropriately. Labs: reviewed Imaging: reviewed Assessment and Recs: # Anemia of chronic disease, labs have been reviewed --> anemia panel is noted, reviewed prior labs as well --> occult blood pending --> ct a/p --> as per gi Dr. Price # Thrombocytopenia likely reactive process --> meds have been reviewed --> smear noted --> now improved # Troponin elevation likely due to renal failure with creatinine of 5.3 as low level and flat. --> as per cards, renal --> Lipitor and Plavix daily and Lopressor 12.5 bid # HTN On Lopressor and Hydralazine 10 q 6 --> cards recs noted # Hyperkalemia due to renal failure. --> Fu by Dr. Jones. # Hyperlipidemia on Lipitor. # Hypothyroidism on Synthroid. # Benign prostatic hypertrophy on Flomax and Proscar. Apprecaite consultation and dw Roverto Tripp MD Jun 08, 2019 08:08
[2019-06-08 08:48] LABS: HEMATOCRIT 26.4 % (42.0-52.0); MEAN CORPUSCULAR VOLUME 92 FL (80-99); PLATELET COUNT 193 K/UL (150-450); RED BLOOD COUNT 2.87 M/UL (4.70-6.10); RED CELL DISTRIBUTION WIDTH 13.2 % (11.6-14.8); WHITE BLOOD COUNT 11.9 K/UL (4.8-10.8)
[2019-06-08 08:58] LABS: ALANINE AMINOTRANSFERASE 17 U/L (12-78); ALBUMIN 2.8 G/DL (3.4-5.0); ALBUMIN/GLOBULIN RATIO 0.9 (1.0-2.7); ALKALINE PHOSPHATASE 66 U/L (46-116); ANION GAP 13 mmol/L (5-15); ASPARTATE AMINO TRANSFERASE 18 U/L (15-37); BILIRUBIN,TOTAL 0.3 MG/DL (0.2-1.0); BLOOD UREA NITROGEN 83 mg/dL (7-18); CALCIUM 8.5 MG/DL (8.5-10.1); CARBON DIOXIDE 23 MMOL/L (21-32); CHLORIDE 109 MMOL/L (98-107); CREATININE 3.7 MG/DL (0.55-1.30); PHOSPHORUS 4.1 MG/DL (2.5-4.9); POTASSIUM 4.7 MMOL/L (3.5-5.1); SODIUM 145 MMOL/L (136-145)
[2019-06-08] MEDS: Metoprolol Tartrate 12.5mg TAB ORAL SCH (09:00)
--- NOTE | 2019-06-08 09:13 | General Progress Note ---
Assessment/Plan Problem List: (1) Troponin level elevated ICD Codes: R79.89 - Other specified abnormal findings of blood chemistry SNOMED: 368976825, 795925855 (2) Weakness ICD Codes: R53.1 - Weakness SNOMED: 44850490 (3) HTN (hypertension) ICD Codes: I10 - Essential (primary) hypertension SNOMED: 42088461 (4) DM (diabetes mellitus) ICD Codes: E11.9 - DM (diabetes mellitus) SNOMED: 10690041 (5) Acute renal failure (ARF) ICD Codes: N17.9 - Acute renal failure (ARF) SNOMED: 94996350 (6) Anemia ICD Codes: D64.9 - Anemia SNOMED: 272079453 Status: stable, progressing Assessment/Plan: pt dit neph f/u cbc bmp am heme gi eval aru eval Subjective Constitutional: Reports: weakness Allergies: Coded Allergies: CASTANON (Unverified Allergy, Mild, 06/07/19) APPLE (Unverified Allergy, Unknown, 06/07/19) BANANA (Unverified Allergy, Unknown, 06/07/19) CHOCOLATE FLAVOR (Unverified Allergy, Unknown, 06/07/19) PENICILLINS (Verified Allergy, Unknown, 07/12/17) POTATO (Unverified Allergy, Unknown, 06/07/19) All Systems: reviewed and negative except above Subjective sleepy calm Objective Last 24 Hour Vital Signs Date Time Temp Pulse Resp B/P (MAP) Pulse Ox O2 Delivery O2 Flow Rate FiO2 06/08/19 06:00 94/53 06/08/19 04:00 98.0 83 19 122/69 (86) 97 06/08/19 04:00 92 06/08/19 00:00 68 06/08/19 00:00 97.9 95 19 118/62 (80) 96 06/07/19 21:00 Room Air 06/07/19 20:00 74 06/07/19 20:00 98.0 79 20 99/53 (68) 96 06/07/19 16:35 72 06/07/19 16:20 68 20 98 06/07/19 16:00 97.9 84 20 99/62 (74) 99 06/07/19 12:41 115/74 06/07/19 12:00 97.7 100 18 115/74 (88) 97 06/07/19 11:41 77 Intake and Output 06/07/19 06/08/19 19:00 07:00 Intake Total 300 ml Output Total 1000 ml Balance -700 ml Intake Oral 300 ml Output Urine Total 1000 ml # Voids 2 Laboratory Tests 06/07/19 16:00: Urine Color Pale yellow, Urine Appearance Clear, Urine pH 5, Urine Specific [place] 1.010, Urine Protein Negative, Urine Glucose (UA) Negative, Urine Ketones Negative, Urine Blood Negative, Urine Nitrite Negative, Urine Bilirubin Negative, Urine Urobilinogen Normal, Urine Leukocyte Esterase 1+H, Urine RBC 0, Urine WBC 2-4, Urine Squamous Epithelial Cells Occasional, Urine Bacteria Few, Urine Eosinophils None seen, Stool Occult Blood [Pending] 06/07/19 17:25: White Blood Count 10.3, Red Blood Count 2.58L, Hemoglobin 8.0L, Hematocrit 23.6L , Mean Corpuscular Volume 92, Mean Corpuscular Hemoglobin 30.9, Mean Corpuscular Hemoglobin Concent 33.7, Red Cell Distribution Width 13.2, Platelet Count 169, Mean Platelet Volume 6.2L, Neutrophils (%) (Auto) 60.5, Lymphocytes ( %) (Auto) 30.1, Monocytes (%) (Auto) 5.5, Eosinophils (%) (Auto) 3.5H, Basophils (%) (Auto) 0.3, Sodium Level 145, Potassium Level 4.5, Chloride Level 109H, Carbon Dioxide Level 20L, Anion Gap 16H, Blood Urea Nitrogen 70H, Creatinine 3.8H, Estimat Glomerular Filtration Rate 19.1, Glucose Level 158H, Calcium Level 8.6, Troponin I 0.061H 06/08/19 05:40: White Blood Count 11.9H, Red Blood Count 2.87L, Hemoglobin 9.0L, Hematocrit 26.4L, Mean Corpuscular Volume 92, Mean Corpuscular Hemoglobin 31.4H, Mean Corpuscular Hemoglobin Concent 34.1, Red Cell Distribution Width 13.2, Platelet Count 193, Mean Platelet Volume 6.2L, Neutrophils (%) (Auto) , Lymphocytes (%) ( Auto) , Monocytes (%) (Auto) , Eosinophils (%) (Auto) , Basophils (%) (Auto) , Sodium Level 145, Potassium Level 4.7, Chloride Level 109H, Carbon Dioxide Level 23, Anion Gap 13, Blood Urea Nitrogen 83H, Creatinine 3.7H, Estimat Glomerular Filtration Rate 19.8, Glucose Level 159H, Calcium Level 8.5, Troponin I [Pending], Neutrophils % (Manual) [Pending], Lymphocytes % (Manual) [ Pending], Platelet Estimate [Pending], Platelet Morphology [Pending], Uric Acid 8.0H, Phosphorus Level 4.1, Magnesium Level 2.0, Total Bilirubin 0.3, Aspartate Amino Transf (AST/SGOT) 18, Alanine Aminotransferase (ALT/SGPT) 17, Alkaline Phosphatase 66, Total Protein 6.0L, Albumin 2.8L, Globulin 3.2, Albumin/ Globulin Ratio 0.9L, Carcinoembryonic Antigen [Pending] Height (Feet): 5 Height (Inches): 8.00 Weight (Pounds): 147 General Appearance: lethargic EENT: normal ENT inspection Neck: normal alignment Cardiovascular: normal peripheral pulses, normal rate, regular rhythm Respiratory/Chest: chest wall non-tender, lungs clear, normal breath sounds Abdomen: normal bowel sounds, non tender, soft Extremities: normal inspection Edema: no edema noted Arm (L), no edema noted Arm (R), no edema noted Leg (L), no edema noted Leg (R), no edema noted Pedal (L), no edema noted Pedal (R), no edema noted Generalized Neurologic: motor weakness Skin: normal pigmentation, warm/dry Phillip Gandhi DO Jun 08, 2019 09:13
[2019-06-08] MEDS: Docusate 100mg cap ORAL SCH ×3 (09:29→17:20)
[2019-06-08] MEDS: Sodium Citrate 30ml ORAL SCH ×2 (09:29→18:00)
--- NOTE | 2019-06-08 09:59 | NUR ---
NURSE NOTES: Called and left message to Dr. Murphy regarding Troponin level today 0.206 compared to 0.061 yesterday. Asymptomatic. No c/o chest pain. Awaiting for response.
--- NOTE | 2019-06-08 10:05 | NUR ---
NURSE NOTES: Called and left message to Dr. Price regarding pt. refused CT abd/pelvis procedure, to sign consent and oral contrast. Pt. verbalized he is ok today. Awaiting for response.
--- NOTE | 2019-06-08 10:20 | NUR ---
NURSE NOTES: Dr. Price called back and made aware pt. refusal to CT abdomen no new order.
--- NOTE | 2019-06-08 11:49 | Nephrology Progress Note ---
Assessment/Plan Problem List: (1) Renal failure (ARF), acute on chronic (2) Hyperkalemia (3) DM (diabetes mellitus) (4) Hypothyroid (5) Cardiomyopathy Assessment: EjFx 15% Assessment Acute on chronic renal failure. Anemia of chronic kidney disease. Hyperkalemia. Elevated troponin. History of diabetes mellitus. History of hypothyroidism. Plan add digoxin stop Hydrate. Anemia work-up. Kayexalate as needed. Monitor renal parameters. Keep the blood pressure and blood sugar in check. Kidney ultrasound. 2D echocardiogram. EjFx 15% Urine studies. Hold Metformin and Lasix. Per orders. Subjective ROS Limited/Unobtainable: No Constitutional: Reports: malaise Objective Objective Last 24 Hour Vital Signs Date Time Temp Pulse Resp B/P (MAP) Pulse Ox O2 Delivery O2 Flow Rate FiO2 06/08/19 09:00 98 93/52 06/08/19 09:00 Room Air 06/08/19 08:00 98.5 98 20 93/52 (66) 95 06/08/19 07:40 102 06/08/19 06:00 94/53 06/08/19 04:00 98.0 83 19 122/69 (86) 97 06/08/19 04:00 92 06/08/19 00:00 68 06/08/19 00:00 97.9 95 19 118/62 (80) 96 06/07/19 21:00 Room Air 06/07/19 20:00 74 06/07/19 20:00 98.0 79 20 99/53 (68) 96 06/07/19 16:35 72 06/07/19 16:20 68 20 98 06/07/19 16:00 97.9 84 20 99/62 (74) 99 06/07/19 12:41 115/74 06/07/19 12:00 97.7 100 18 115/74 (88) 97 Intake and Output 06/07/19 06/08/19 19:00 07:00 Intake Total 300 ml Output Total 1000 ml Balance -700 ml Intake Oral 300 ml Output Urine Total 1000 ml # Voids 2 Laboratory Tests 06/07/19 16:00: Urine Color Pale yellow, Urine Appearance Clear, Urine pH 5, Urine Specific [place] 1.010, Urine Protein Negative, Urine Glucose (UA) Negative, Urine Ketones Negative, Urine Blood Negative, Urine Nitrite Negative, Urine Bilirubin Negative, Urine Urobilinogen Normal, Urine Leukocyte Esterase 1+H, Urine RBC 0, Urine WBC 2-4, Urine Squamous Epithelial Cells Occasional, Urine Bacteria Few, Urine Eosinophils None seen, Stool Occult Blood Positive 06/07/19 17:25: White Blood Count 10.3, Red Blood Count 2.58L, Hemoglobin 8.0L, Hematocrit 23.6L , Mean Corpuscular Volume 92, Mean Corpuscular Hemoglobin 30.9, Mean Corpuscular Hemoglobin Concent 33.7, Red Cell Distribution Width 13.2, Platelet Count 169, Mean Platelet Volume 6.2L, Neutrophils (%) (Auto) 60.5, Lymphocytes ( %) (Auto) 30.1, Monocytes (%) (Auto) 5.5, Eosinophils (%) (Auto) 3.5H, Basophils (%) (Auto) 0.3, Sodium Level 145, Potassium Level 4.5, Chloride Level 109H, Carbon Dioxide Level 20L, Anion Gap 16H, Blood Urea Nitrogen 70H, Creatinine 3.8H, Estimat Glomerular Filtration Rate 19.1, Glucose Level 158H, Calcium Level 8.6, Troponin I 0.061H 06/08/19 05:40: White Blood Count 11.9H, Red Blood Count 2.87L, Hemoglobin 9.0L, Hematocrit 26.4L, Mean Corpuscular Volume 92, Mean Corpuscular Hemoglobin 31.4H, Mean Corpuscular Hemoglobin Concent 34.1, Red Cell Distribution Width 13.2, Platelet Count 193, Mean Platelet Volume 6.2L, Neutrophils (%) (Auto) , Lymphocytes (%) ( Auto) , Monocytes (%) (Auto) , Eosinophils (%) (Auto) , Basophils (%) (Auto) , Sodium Level 145, Potassium Level 4.7, Chloride Level 109H, Carbon Dioxide Level 23, Anion Gap 13, Blood Urea Nitrogen 83H, Creatinine 3.7H, Estimat Glomerular Filtration Rate 19.8, Glucose Level 159H, Calcium Level 8.5, Troponin I 0.206H, Differential Total Cells Counted 100, Neutrophils % (Manual) 91H, Lymphocytes % (Manual) 8L, Monocytes % (Manual) 1, Eosinophils % (Manual) 0 , Basophils % (Manual) 0, Band Neutrophils 0, Platelet Estimate Adequate, Platelet Morphology Normal, Hypochromasia 1+, Uric Acid 8.0H, Phosphorus Level 4.1, Magnesium Level 2.0, Total Bilirubin 0.3, Aspartate Amino Transf (AST/SGOT ) 18, Alanine Aminotransferase (ALT/SGPT) 17, Alkaline Phosphatase 66, Total Protein 6.0L, Albumin 2.8L, Globulin 3.2, Albumin/Globulin Ratio 0.9L, Carcinoembryonic Antigen [Pending] Height (Feet): 5 Height (Inches): 8.00 Weight (Pounds): 147 General Appearance: no apparent distress Cardiovascular: tachycardia Respiratory/Chest: decreased breath sounds Abdomen: soft Ti Jones MD Jun 08, 2019 11:49
[2019-06-08 12:00] VITALS: BP 88/52
--- NOTE | 2019-06-08 14:38 | NUR ---
PT Note Attempted to see patient for treatment but patient refused; c/o not feeling well this AM.
[2019-06-08 16:00] VITALS: BP 88/53
[2019-06-08] MEDS ORDERED: D5 1/2NS 1000ml IV ONE (16:33)
--- NOTE | 2019-06-08 17:04 | NUR ---
NURSE NOTES: Pt. remain stable. No sign of distress. No c/o pain at present.
--- NOTE | 2019-06-08 19:05 | NUR ---
HAND-OFF: Report given to Abbie ALAS. Pt. remain stable.
--- NOTE | 2019-06-08 19:30 | NUR ---
NURSE NOTES: Received report from EVETTE Kang. Patient is in bed, awake, alert, and responsive. Breathing regular and unlabored with no S/S of SOB noted. Patient denies any pain or discomfort at this time. Patient's daughter is at bedside. IV access on the R hand is patent, intact, and saline locked. Bed remains in the lowest position, breaks engaged, and call light is within reach. Patient is able to make needs known. All other needs attended to, patient remains stable, will continue to monitor.
[2019-06-08 20:00] VITALS: BP 86/51
--- NOTE | 2019-06-08 20:30 | NUR ---
NURSE NOTES: Per morning RN, Dr. Murphy was notified of the patient's new Troponin results. Patient denies any chest pain and remains asymptomatic. No response was received from the doctor. Will continue to monitor.
[2019-06-08] MEDS: Tamsulosin 0.4mg cap ORAL SCH (21:00)
[2019-06-08] MEDS: Miralax 17gm pkt ORAL SCH (21:00)
--- NOTE | 2019-06-08 21:00 | NUR ---
NURSE NOTES: Patient refused to take all of his scheduled night time medications. Patient's blood pressure being on the lower side, the blood pressure medication was held. All other medications refused by the patient. Explained risks and benefits of each medication, patient still refused. Daughter is also aware that patient has been refusing most of the night time medications. Patient remains stable, will continue to monitor.
--- NOTE | 2019-06-08 21:15 | NUR ---
NURSE NOTES: Upon assessment of patient's blood pressure, noted that patient's blood pressure was 86/53 being the highest reading. Re-checked BP in both arms multiple times and still noted with the same range. Patient denies any feeling of dizziness or discomfort. Patient stated "At the [facility] that Im in, my blood pressure is always like this." Informed Dr. Gandhi and left a message in regards to the patient's vitals. No response was received from the doctor. Patient other peña remains stable, will continue to monitor.
[2019-06-09] VITALS: BP 90/52
[2019-06-09 04:00] VITALS: BP 92/50
[2019-06-09] MEDS: HydrALAZINE 10mg Tab ORAL SCH ×4 (05:54→17:19)
[2019-06-09] MEDS: NovoLOG Insulin Flexpen SUBQ SCH ×4 (06:04→21:00)
--- NOTE | 2019-06-09 07:31 | NUR ---
HAND-OFF: Report given to EVETTE Elizalde. Plan of care endorsed.
[2019-06-09 07:43] LABS: BASOPHILS % (AUTO) 1.2 % (0.0-2.0); EOSINOPHILS % (AUTO) 1.5 % (0.0-3.0); HEMATOCRIT 25.3 % (42.0-52.0); HEMOGLOBIN 8.7 G/DL (14.2-18.0); LYMPHOCYTES % (AUTO) 15.6 % (20.0-45.0); MEAN CORPUSCULAR VOLUME 90 FL (80-99); MONOCYTES % (AUTO) 14.6 % (1.0-10.0); NEUTROPHILS % (AUTO) 67.1 % (45.0-75.0); PLATELET COUNT 164 K/UL (150-450); RED BLOOD COUNT 2.82 M/UL (4.70-6.10)
--- NOTE | 2019-06-09 07:46 | NUR ---
NURSE NOTES: pt awake alert, no distress. no sob. cast in sling right arm. no c/o pain. call light within reach. bed in lowest position, locked.
[2019-06-09 08:00] VITALS: BP 85/50
[2019-06-09 08:11] LABS: ALANINE AMINOTRANSFERASE 15 U/L (12-78); ALBUMIN 2.4 G/DL (3.4-5.0); ALBUMIN/GLOBULIN RATIO 0.8 (1.0-2.7); ALKALINE PHOSPHATASE 58 U/L (46-116); ANION GAP 11 mmol/L (5-15); ASPARTATE AMINO TRANSFERASE 14 U/L (15-37); BILIRUBIN,TOTAL 0.4 MG/DL (0.2-1.0); BLOOD UREA NITROGEN 95 mg/dL (7-18); CALCIUM 8.6 MG/DL (8.5-10.1); CARBON DIOXIDE 23 MMOL/L (21-32); CHLORIDE 109 MMOL/L (98-107); CREATININE 4.2 MG/DL (0.55-1.30); POTASSIUM 4.8 MMOL/L (3.5-5.1); SODIUM 143 MMOL/L (136-145)
--- NOTE | 2019-06-09 08:11 | Cardiac Electrophysiology PN ---
Assessment/Plan Assessment/Plan 1. NSTEMI likely due to renal failure with creatinine of 5.3 as low level and flat. Denies any chest pain or shortness of breath. However has history of prior myocardial infarction and EF is 15-20%. Will need cardiac cath but at risk on going on HD in view of Renal failure. Continue Lipitor. Aspirin and Coreg 3.125 bid. 2. Newly diagnosed CMP with EF 15-20%. On Coreg 3.125 bid and Hydralazine 10 q6 Will change Hydralazine to 10 bid and add Isordil 10 bid if BP allows. Off Lasix and aldactone for renal failure 3. Atrial flutter with RVR 140s. Could be the cause of CMP or troponin elevation. 4. HTN, maximize CHF meds first 5. Acute on chronic renal failure.Cr improved from 5.3 to 3.7 6. Hyperkalemia due to renal failure. Fu by Dr. Jones. 7. Hyperlipidemia on Lipitor. 8. Hypothyroidism on Synthroid. 9. Benign prostatic hypertrophy on Flomax and Proscar. Subjective Subjective No CP or SOB. Transferred to [facility]. Developed atrial flutter up to 140s yesterday. Objective Last 24 Hour Vital Signs Date Time Temp Pulse Resp B/P (MAP) Pulse Ox O2 Delivery O2 Flow Rate FiO2 06/09/19 07:42 Room Air 06/09/19 05:54 92/50 06/09/19 04:00 97 06/09/19 04:00 97.7 98 20 92/50 (64) 98 06/09/19 00:00 100 06/09/19 00:00 90/52 06/09/19 00:00 98.4 101 20 90/52 (65) 95 06/08/19 21:00 Room Air 06/08/19 20:00 109 06/08/19 20:00 98.4 106 18 86/51 (63) 95 06/08/19 17:20 88/53 06/08/19 16:00 98.7 100 17 88/53 (65) 98 06/08/19 15:12 98 06/08/19 12:52 104 06/08/19 12:00 98.0 104 19 88/52 (64) 98 06/08/19 12:00 88/52 06/08/19 11:50 88 06/08/19 09:00 98 93/52 06/08/19 09:00 Room Air 06/08/19 08:00 98.5 98 20 93/52 (66) 95 Intake and Output 06/08/19 06/09/19 19:00 07:00 Intake Total 420 ml 120 ml Balance 420 ml 120 ml Intake Oral 420 ml 120 ml # Voids 3 1 # Bowel Movements 2 Laboratory Tests Test 06/09/19 06:53 White Blood Count 7.0 K/UL (4.8-10.8) Red Blood Count 2.82 M/UL (4.70-6.10) L Hemoglobin 8.7 G/DL (14.2-18.0) L Hematocrit 25.3 % (42.0-52.0) L Mean Corpuscular Volume 90 FL (80-99) Mean Corpuscular Hemoglobin 31.0 PG (27.0-31.0) Mean Corpuscular Hemoglobin Concent 34.6 G/DL (32.0-36.0) Red Cell Distribution Width 13.0 % (11.6-14.8) Platelet Count 164 K/UL (150-450) Mean Platelet Volume 6.4 FL (6.5-10.1) L Neutrophils (%) (Auto) 67.1 % (45.0-75.0) Lymphocytes (%) (Auto) 15.6 % (20.0-45.0) L Monocytes (%) (Auto) 14.6 % (1.0-10.0) H Eosinophils (%) (Auto) 1.5 % (0.0-3.0) Basophils (%) (Auto) 1.2 % (0.0-2.0) Sodium Level Pending Potassium Level Pending Chloride Level Pending Carbon Dioxide Level Pending Blood Urea Nitrogen Pending Creatinine Pending Estimat Glomerular Filtration Rate Pending Glucose Level Pending Uric Acid Pending Calcium Level Pending Phosphorus Level Pending Magnesium Level Pending Total Bilirubin Pending Aspartate Amino Transf (AST/SGOT) Pending Alanine Aminotransferase (ALT/SGPT) Pending Alkaline Phosphatase Pending C-Reactive Protein, Quantitative Pending Pro-B-Type Natriuretic Peptide Pending Total Protein Pending Albumin Pending Globulin Pending Digoxin Level Pending Objective HEAD AND NECK: No JVD. LUNGS: Clear. CARDIOVASCULAR: Regular S1 and S2 with no gallop or murmur. ABDOMEN: Soft. EXTREMITIES: No pitting edema. Alex Murphy MD Jun 09, 2019 08:11
[2019-06-09] MEDS: Docusate 100mg cap ORAL SCH ×3 (08:37→17:19)
[2019-06-09] MEDS: Sodium Citrate 30ml ORAL SCH ×3 (08:38→17:19)
--- NOTE | 2019-06-09 08:42 | Hematology/Onc Progress Note ---
Assessment/Plan Assessment/Plan Assessment and Recs: # Anemia of chronic disease, labs have been reviewed --> anemia panel is noted, reviewed prior labs as well --> occult blood pending --> ct a/p results pending --> as per gi Dr. Price # Thrombocytopenia likely reactive process --> meds have been reviewed --> smear noted --> now improved # Troponin elevation likely due to renal failure with creatinine of 5.3 as low level and flat. --> as per cards, renal --> Lipitor and Plavix daily and Lopressor 12.5 bid # HTN On Lopressor and Hydralazine 10 q 6 --> cards recs noted # Hyperkalemia due to renal failure. --> Fu by Dr. Jones. # Hyperlipidemia on Lipitor. # Hypothyroidism on Synthroid. # Benign prostatic hypertrophy on Flomax and Proscar. Apprecaite consultation and alana RN Subjective HEENT: Denies: no symptoms, eye pain, blurred vision, tearing, double vision, ear pain, ear discharge, nose pain, nose congestion, throat pain, throat swelling, mouth pain, mouth swelling, other Cardiovascular: Denies: no symptoms, chest pain, edema, irregular heart rate, lightheadedness, palpitations, syncope, other Respiratory: Denies: no symptoms, cough, shortness of breath, SOB with excertion, SOB at rest, sputum, wheezing, other Gastrointestinal/Abdominal: Denies: no symptoms, abdomen distended, abdominal pain, black stools, tarry stools, blood in stool, constipated, diarrhea, difficulty swallowing, nausea, poor appetite, poor fluid intake, rectal bleeding , vomiting, other Genitourinary: Denies: no symptoms, burning, discharge, frequency, flank pain, hematuria, incontinence, pain, urgency, other Neurologic/Psychiatric: Denies: no symptoms, anxiety, depressed, emotional problems, headache, numbness, paresthesia, pre-existing deficit, seizure, tingling, tremors, weakness, other Endocrine: Denies: no symptoms, excessive sweating, flushing, intolerance to cold, intolerance to heat, increased hunger, increased thirst, increased urine, unexplained weight gain, unexplained weight loss, other Hematologic/Lymphatic: Denies: no symptoms, anemia, easy bleeding, easy bruising, adenopathy, other Allergies: Coded Allergies: CASTANON (Unverified Allergy, Mild, 06/07/19) APPLE (Unverified Allergy, Unknown, 06/07/19) BANANA (Unverified Allergy, Unknown, 06/07/19) CHOCOLATE FLAVOR (Unverified Allergy, Unknown, 06/07/19) PENICILLINS (Verified Allergy, Unknown, 07/12/17) POTATO (Unverified Allergy, Unknown, 06/07/19) Subjective 06/09: labs noted, no bleeding or chills, hd as per renal, labs noted Objective Objective Current Medications Medications (Trade) Dose Ordered Sig/Stella Route PRN Reason Start Time Stop Time Status Last Admin Dose Admin Al Hydroxide/Mg Hydroxide (Mylanta II) 30 ml Q6H PRN ORAL hyperacidity 06/07/19 18:30 07/07/19 18:29 Atorvastatin Calcium (Lipitor) 10 mg BEDTIME ORAL 06/07/19 21:00 07/06/19 20:59 Barium Sulfate (Readi-Cat 2) 450 ml NOW PRN ORAL Radiology Procedure 06/08/19 07:45 06/10/19 07:37 Carvedilol (Coreg) 3.125 mg EVERY 12 HOURS ORAL 06/09/19 09:00 07/08/19 20:59 Clopidogrel Bisulfate (Plavix) 75 mg DAILY ORAL 06/06/19 09:00 07/06/19 08:59 06/09/19 08:38 Dextrose (Dextrose 50%) 25 ml Q30M PRN IV Hypoglycemia 06/06/19 22:00 07/06/19 21:59 Dextrose (Dextrose 50%) 50 ml Q30M PRN IV Hypoglycemia 06/06/19 22:00 07/06/19 21:59 Docusate Sodium (Colace) 100 mg TID ORAL 06/06/19 09:00 07/06/19 08:59 06/08/19 09:29 Epoetin Yaron (Epoetin Yaron(ESRD on dialysis)) 10,000 unit SUN-SUN-SUN SUBQ 06/09/19 21:00 07/09/19 20:59 Finasteride (Proscar) 5 mg DAILY ORAL 06/06/19 09:00 07/06/19 08:59 06/09/19 08:38 Hydralazine HCl (Apresoline) 10 mg BID ORAL 06/09/19 09:00 07/07/19 11:59 Insulin Aspart (NovoLOG) BEFORE MEALS AND HS SUBQ 06/07/19 06:30 07/07/19 06:29 06/07/19 12:40 Isosorbide Dinitrate (Isordil) 10 mg BID ORAL 06/09/19 09:00 07/09/19 08:59 Levothyroxine Sodium (Synthroid) 50 mcg DAILY@0630 ORAL 06/06/19 06:30 07/06/19 06:29 06/09/19 06:04 Morphine Sulfate (Morphine Sulfate) 2 mg Q4H PRN IVP For Pain 06/07/19 18:30 06/14/19 18:29 06/07/19 18:36 Ondansetron HCl (Zofran) 4 mg Q4H PRN IVP Nausea & Vomiting 06/07/19 17:30 07/07/19 17:29 06/07/19 17:27 Pantoprazole (Protonix) 40 mg Q12HR ORAL 06/06/19 09:00 07/06/19 08:59 06/09/19 08:38 Polyethylene Glycol (Miralax) 17 gm BEDTIME ORAL 06/08/19 21:00 07/08/19 20:59 Sodium Citrate (Bicitra) 30 ml BID ORAL 06/07/19 18:00 07/06/19 00:00 06/08/19 09:29 Tamsulosin HCl (Flomax) 0.4 mg BEDTIME ORAL 06/06/19 00:30 07/06/19 00:29 06/06/19 21:19 Last 24 Hour Vital Signs Date Time Temp Pulse Resp B/P (MAP) Pulse Ox O2 Delivery O2 Flow Rate FiO2 06/09/19 08:37 85/50 06/09/19 08:37 97 85/50 06/09/19 08:25 85/50 06/09/19 07:42 Room Air 06/09/19 05:54 92/50 06/09/19 04:00 97 06/09/19 04:00 97.7 98 20 92/50 (64) 98 06/09/19 00:00 100 06/09/19 00:00 90/52 06/09/19 00:00 98.4 101 20 90/52 (65) 95 06/08/19 21:00 Room Air 06/08/19 20:00 109 06/08/19 20:00 98.4 106 18 86/51 (63) 95 06/08/19 17:20 88/53 06/08/19 16:00 98.7 100 17 88/53 (65) 98 06/08/19 15:12 98 06/08/19 12:52 104 06/08/19 12:00 98.0 104 19 88/52 (64) 98 06/08/19 12:00 88/52 06/08/19 11:50 88 06/08/19 09:00 98 93/52 06/08/19 09:00 Room Air 06/08/19 08:00 98.5 98 20 93/52 (66) 95 06/08/19 07:40 102 06/08/19 06:00 94/53 06/08/19 04:00 98.0 83 19 122/69 (86) 97 06/08/19 04:00 92 06/08/19 00:00 68 06/08/19 00:00 97.9 95 19 118/62 (80) 96 06/07/19 21:00 Room Air 06/07/19 20:00 74 06/07/19 20:00 98.0 79 20 99/53 (68) 96 06/07/19 16:35 72 06/07/19 16:20 68 20 98 06/07/19 16:00 97.9 84 20 99/62 (74) 99 06/07/19 12:41 115/74 06/07/19 12:00 97.7 100 18 115/74 (88) 97 06/07/19 11:41 77 06/07/19 09:00 88 103/54 06/07/19 09:00 Room Air Intake and Output 06/08/19 06/09/19 19:00 07:00 Intake Total 420 ml 120 ml Balance 420 ml 120 ml Intake Oral 420 ml 120 ml # Voids 3 1 # Bowel Movements 2 Labs Test 06/06/19 11:27 06/06/19 18:27 06/07/19 03:07 06/07/19 16:00 Troponin I 0.050 ng/mL (0.000-0.056) 0.063 ng/mL (0.000-0.056) 0.066 ng/mL (0.000-0.056) White Blood Count 7.4 K/UL (4.8-10.8) Red Blood Count 2.46 M/UL (4.70-6.10) Hemoglobin 7.7 G/DL (14.2-18.0) Hematocrit 22.4 % (42.0-52.0) Mean Corpuscular Volume 91 FL (80-99) Mean Corpuscular Hemoglobin 31.3 PG (27.0-31.0) Mean Corpuscular Hemoglobin Concent 34.3 G/DL (32.0-36.0) Red Cell Distribution Width 12.6 % (11.6-14.8) Platelet Count 171 K/UL (150-450) Mean Platelet Volume 6.0 FL (6.5-10.1) Neutrophils (%) (Auto) % (45.0-75.0) Lymphocytes (%) (Auto) % (20.0-45.0) Monocytes (%) (Auto) % (1.0-10.0) Eosinophils (%) (Auto) % (0.0-3.0) Basophils (%) (Auto) % (0.0-2.0) Differential Total Cells Counted 100 Neutrophils % (Manual) 75 % (45-75) Lymphocytes % (Manual) 18 % (20-45) Monocytes % (Manual) 4 % (1-10) Eosinophils % (Manual) 3 % (0-3) Basophils % (Manual) 0 % (0-2) Band Neutrophils 0 % (0-8) Platelet Estimate Adequate Platelet Morphology Normal Hypochromasia 3+ Anisocytosis 1+ Spherocytes 2+ Sodium Level 145 MMOL/L (136-145) Potassium Level 5.1 MMOL/L (3.5-5.1) Chloride Level 111 MMOL/L (98-107) Carbon Dioxide Level 22 MMOL/L (21-32) Anion Gap 12 mmol/L (5-15) Blood Urea Nitrogen 75 mg/dL (7-18) Creatinine 3.8 MG/DL (0.55-1.30) Estimat Glomerular Filtration Rate 19.1 mL/min (>60) Glucose Level 98 MG/DL (74-106) Uric Acid 8.7 MG/DL (2.6-7.2) Calcium Level 8.6 MG/DL (8.5-10.1) Phosphorus Level 3.8 MG/DL (2.5-4.9) Magnesium Level 1.6 MG/DL (1.8-2.4) Total Bilirubin 0.2 MG/DL (0.2-1.0) Aspartate Amino Transf (AST/SGOT) 13 U/L (15-37) Alanine Aminotransferase (ALT/SGPT) 21 U/L (12-78) Alkaline Phosphatase 72 U/L (46-116) C-Reactive Protein, Quantitative < 0.4 mg/dL (0.00-0.90) Pro-B-Type Natriuretic Peptide 9457 pg/mL (0-125) Total Protein 5.6 G/DL (6.4-8.2) Albumin 2.7 G/DL (3.4-5.0) Globulin 2.9 g/dL Albumin/Globulin Ratio 0.9 (1.0-2.7) Urine Color Pale yellow Urine Appearance Clear Urine pH 5 (4.5-8.0) Urine Specific [place] 1.010 (1.005-1.035) Urine Protein Negative (NEGATIVE) Urine Glucose (UA) Negative (NEGATIVE) Urine Ketones Negative (NEGATIVE) Urine Blood Negative (NEGATIVE) Urine Nitrite Negative (NEGATIVE) Urine Bilirubin Negative (NEGATIVE) Urine Urobilinogen Normal MG/DL (0.0-1.0) Urine Leukocyte Esterase 1+ (NEGATIVE) Urine RBC 0 /HPF (0 - 0) Urine WBC 2-4 /HPF (0 - 0) Urine Squamous Epithelial Cells Occasional /LPF Urine Bacteria Few /HPF (NONE) Urine Eosinophils None seen (NONE SEEN) Stool Occult Blood Positive (NEGATIVE) Test 06/07/19 17:25 06/08/19 05:40 06/09/19 06:53 White Blood Count 10.3 K/UL (4.8-10.8) 11.9 K/UL (4.8-10.8) 7.0 K/UL (4.8-10.8) Red Blood Count 2.58 M/UL (4.70-6.10) 2.87 M/UL (4.70-6.10) 2.82 M/UL (4.70-6.10) Hemoglobin 8.0 G/DL (14.2-18.0) 9.0 G/DL (14.2-18.0) 8.7 G/DL (14.2-18.0) Hematocrit 23.6 % (42.0-52.0) 26.4 % (42.0-52.0) 25.3 % (42.0-52.0) Mean Corpuscular Volume 92 FL (80-99) 92 FL (80-99) 90 FL (80-99) Mean Corpuscular Hemoglobin 30.9 PG (27.0-31.0) 31.4 PG (27.0-31.0) 31.0 PG (27.0-31.0) Mean Corpuscular Hemoglobin Concent 33.7 G/DL (32.0-36.0) 34.1 G/DL (32.0-36.0) 34.6 G/DL (32.0-36.0) Red Cell Distribution Width 13.2 % (11.6-14.8) 13.2 % (11.6-14.8) 13.0 % (11.6-14.8) Platelet Count 169 K/UL (150-450) 193 K/UL (150-450) 164 K/UL (150-450) Mean Platelet Volume 6.2 FL (6.5-10.1) 6.2 FL (6.5-10.1) 6.4 FL (6.5-10.1) Neutrophils (%) (Auto) 60.5 % (45.0-75.0) % (45.0-75.0) 67.1 % (45.0-75.0) Lymphocytes (%) (Auto) 30.1 % (20.0-45.0) % (20.0-45.0) 15.6 % (20.0-45.0) Monocytes (%) (Auto) 5.5 % (1.0-10.0) % (1.0-10.0) 14.6 % (1.0-10.0) Eosinophils (%) (Auto) 3.5 % (0.0-3.0) % (0.0-3.0) 1.5 % (0.0-3.0) Basophils (%) (Auto) 0.3 % (0.0-2.0) % (0.0-2.0) 1.2 % (0.0-2.0) Sodium Level 145 MMOL/L (136-145) 145 MMOL/L (136-145) 143 MMOL/L (136-145) Potassium Level 4.5 MMOL/L (3.5-5.1) 4.7 MMOL/L (3.5-5.1) 4.8 MMOL/L (3.5-5.1) Chloride Level 109 MMOL/L (98-107) 109 MMOL/L (98-107) 109 MMOL/L (98-107) Carbon Dioxide Level 20 MMOL/L (21-32) 23 MMOL/L (21-32) 23 MMOL/L (21-32) Anion Gap 16 mmol/L (5-15) 13 mmol/L (5-15) 11 mmol/L (5-15) Blood Urea Nitrogen 70 mg/dL (7-18) 83 mg/dL (7-18) 95 mg/dL (7-18) Creatinine 3.8 MG/DL (0.55-1.30) 3.7 MG/DL (0.55-1.30) 4.2 MG/DL (0.55-1.30) Estimat Glomerular Filtration Rate 19.1 mL/min (>60) 19.8 mL/min (>60) 17.1 mL/min (>60) Glucose Level 158 MG/DL (74-106) 159 MG/DL (74-106) 99 MG/DL (74-106) Calcium Level 8.6 MG/DL (8.5-10.1) 8.5 MG/DL (8.5-10.1) 8.6 MG/DL (8.5-10.1) Troponin I 0.061 ng/mL (0.000-0.056) 0.206 ng/mL (0.000-0.056) Differential Total Cells Counted 100 Neutrophils % (Manual) 91 % (45-75) Lymphocytes % (Manual) 8 % (20-45) Monocytes % (Manual) 1 % (1-10) Eosinophils % (Manual) 0 % (0-3) Basophils % (Manual) 0 % (0-2) Band Neutrophils 0 % (0-8) Platelet Estimate Adequate Platelet Morphology Normal Hypochromasia 1+ Uric Acid 8.0 MG/DL (2.6-7.2) Phosphorus Level 4.1 MG/DL (2.5-4.9) Magnesium Level 2.0 MG/DL (1.8-2.4) Total Bilirubin 0.3 MG/DL (0.2-1.0) 0.4 MG/DL (0.2-1.0) Aspartate Amino Transf (AST/SGOT) 18 U/L (15-37) 14 U/L (15-37) Alanine Aminotransferase (ALT/SGPT) 17 U/L (12-78) 15 U/L (12-78) Alkaline Phosphatase 66 U/L (46-116) 58 U/L (46-116) Total Protein 6.0 G/DL (6.4-8.2) 5.6 G/DL (6.4-8.2) Albumin 2.8 G/DL (3.4-5.0) 2.4 G/DL (3.4-5.0) Globulin 3.2 g/dL 3.2 g/dL Albumin/Globulin Ratio 0.9 (1.0-2.7) 0.8 (1.0-2.7) Height (Feet): 5 Height (Inches): 8.00 Weight (Pounds): 147 Objective Physical Exam General: Awake and alert HEENT: NC/AT. EOMI. Neck: Supple Cardiov: RRR. S1 and S2 normal. No murmur appreciated Resp: No cough, wheezing or crackles appreciated Abd: Abdomen is soft, nondistended. Skin: Intact. No abrasions, laceration or rash MSK: Normal tone and bulk. Moving all extremities. Neuro: Awake and alert. Mentating appropriately. Roverto Orourke MD Jun 09, 2019 08:42
[2019-06-09 08:45] LABS: PHOSPHORUS 4.3 MG/DL (2.5-4.9)
--- NOTE | 2019-06-09 09:24 | General Progress Note ---
Assessment/Plan Problem List: (1) Cholelithiasis ICD Codes: K80.20 - Calculus of gallbladder without cholecystitis without obstruction SNOMED: 019625985 (2) Troponin level elevated ICD Codes: R79.89 - Other specified abnormal findings of blood chemistry SNOMED: 096863231, 639546219 (3) HTN (hypertension) ICD Codes: I10 - Essential (primary) hypertension SNOMED: 05603873 (4) Weakness ICD Codes: R53.1 - Weakness SNOMED: 06831683 (5) Anemia ICD Codes: D64.9 - Anemia SNOMED: 546025347 (6) Creatinine elevation ICD Codes: R79.89 - Other specified abnormal findings of blood chemistry SNOMED: 021377167, 123165180 (7) Cardiomyopathy ICD Codes: I42.9 - Cardiomyopathy, unspecified SNOMED: 19323186 (8) DM (diabetes mellitus) ICD Codes: E11.9 - DM (diabetes mellitus) SNOMED: 66323123 (9) Hypothyroid ICD Codes: E03.9 - Hypothyroidism, unspecified SNOMED: 78679676 (10) Abdominal pain ICD Codes: R10.9 - Unspecified abdominal pain SNOMED: 01798024 (11) Constipation ICD Codes: K59.00 - Constipation, unspecified SNOMED: 56476209 Status: stable, progressing Assessment/Plan: ct of abd pelvis without contrast>>> patient refused repeat labs bowel regimen stool ob positive>>> D/W the patient at length regarding EGd and colonoscopy, he refused Subjective ROS Limited/Unobtainable: Yes Allergies: Coded Allergies: CASTANON (Unverified Allergy, Mild, 06/07/19) APPLE (Unverified Allergy, Unknown, 06/07/19) BANANA (Unverified Allergy, Unknown, 06/07/19) CHOCOLATE FLAVOR (Unverified Allergy, Unknown, 06/07/19) PENICILLINS (Verified Allergy, Unknown, 07/12/17) POTATO (Unverified Allergy, Unknown, 06/07/19) Objective Last 24 Hour Vital Signs Date Time Temp Pulse Resp B/P (MAP) Pulse Ox O2 Delivery O2 Flow Rate FiO2 06/09/19 08:37 85/50 06/09/19 08:37 97 85/50 06/09/19 08:25 85/50 06/09/19 07:42 Room Air 06/09/19 05:54 92/50 06/09/19 04:00 97 06/09/19 04:00 97.7 98 20 92/50 (64) 98 06/09/19 00:00 100 06/09/19 00:00 90/52 06/09/19 00:00 98.4 101 20 90/52 (65) 95 06/08/19 21:00 Room Air 06/08/19 20:00 109 06/08/19 20:00 98.4 106 18 86/51 (63) 95 06/08/19 17:20 88/53 06/08/19 16:00 98.7 100 17 88/53 (65) 98 06/08/19 15:12 98 06/08/19 12:52 104 06/08/19 12:00 98.0 104 19 88/52 (64) 98 06/08/19 12:00 88/52 06/08/19 11:50 88 Intake and Output 06/08/19 06/09/19 19:00 07:00 Intake Total 420 ml 120 ml Balance 420 ml 120 ml Intake Oral 420 ml 120 ml # Voids 3 1 # Bowel Movements 2 Laboratory Tests 06/09/19 06:53: White Blood Count 7.0, Red Blood Count 2.82L, Hemoglobin 8.7L, Hematocrit 25.3L , Mean Corpuscular Volume 90, Mean Corpuscular Hemoglobin 31.0, Mean Corpuscular Hemoglobin Concent 34.6, Red Cell Distribution Width 13.0, Platelet Count 164, Mean Platelet Volume 6.4L, Neutrophils (%) (Auto) 67.1, Lymphocytes ( %) (Auto) 15.6L, Monocytes (%) (Auto) 14.6H, Eosinophils (%) (Auto) 1.5, Basophils (%) (Auto) 1.2, Sodium Level 143, Potassium Level 4.8, Chloride Level 109H, Carbon Dioxide Level 23, Anion Gap 11, Blood Urea Nitrogen 95H, Creatinine 4.2H, Estimat Glomerular Filtration Rate 17.1, Glucose Level 99, Uric Acid 8.0H, Calcium Level 8.6, Phosphorus Level 4.3, Magnesium Level 1.9, Total Bilirubin 0.4, Aspartate Amino Transf (AST/SGOT) 14L, Alanine Aminotransferase (ALT/SGPT) 15, Alkaline Phosphatase 58, C-Reactive Protein, Quantitative 14.8H, Pro-B-Type Natriuretic Peptide 93242S, Total Protein 5.6L, Albumin 2.4L, Globulin 3.2, Albumin/Globulin Ratio 0.8L, Digoxin Level 0.9 Height (Feet): 5 Height (Inches): 8.00 Weight (Pounds): 147 General Appearance: alert EENT: normal ENT inspection Neck: normal alignment Cardiovascular: normal rate Respiratory/Chest: decreased breath sounds Abdomen: normal bowel sounds, non tender, soft Extremities: non-tender Deric Price MD Jun 09, 2019 09:23
--- NOTE | 2019-06-09 10:36 | General Progress Note ---
Assessment/Plan Problem List: (1) Troponin level elevated ICD Codes: R79.89 - Other specified abnormal findings of blood chemistry SNOMED: 010339601, 420259564 (2) Weakness ICD Codes: R53.1 - Weakness SNOMED: 99875729 (3) HTN (hypertension) ICD Codes: I10 - Essential (primary) hypertension SNOMED: 19078892 (4) DM (diabetes mellitus) ICD Codes: E11.9 - DM (diabetes mellitus) SNOMED: 80919988 (5) Acute renal failure (ARF) ICD Codes: N17.9 - Acute renal failure (ARF) SNOMED: 76783478 (6) Anemia ICD Codes: D64.9 - Anemia SNOMED: 525440214 Status: stable, progressing Assessment/Plan: pt dit neph f/u cbc bmp am heme gi eval dc to aru Subjective Constitutional: Reports: weakness Allergies: Coded Allergies: CASTANON (Unverified Allergy, Mild, 06/07/19) APPLE (Unverified Allergy, Unknown, 06/07/19) BANANA (Unverified Allergy, Unknown, 06/07/19) CHOCOLATE FLAVOR (Unverified Allergy, Unknown, 06/07/19) PENICILLINS (Verified Allergy, Unknown, 07/12/17) POTATO (Unverified Allergy, Unknown, 06/07/19) All Systems: reviewed and negative except above Subjective sleepy calm Objective Last 24 Hour Vital Signs Date Time Temp Pulse Resp B/P (MAP) Pulse Ox O2 Delivery O2 Flow Rate FiO2 06/09/19 08:37 85/50 06/09/19 08:37 97 85/50 06/09/19 08:25 85/50 06/09/19 07:42 Room Air 06/09/19 05:54 92/50 06/09/19 04:00 97 06/09/19 04:00 97.7 98 20 92/50 (64) 98 06/09/19 00:00 100 06/09/19 00:00 90/52 06/09/19 00:00 98.4 101 20 90/52 (65) 95 06/08/19 21:00 Room Air 06/08/19 20:00 109 06/08/19 20:00 98.4 106 18 86/51 (63) 95 06/08/19 17:20 88/53 06/08/19 16:00 98.7 100 17 88/53 (65) 98 06/08/19 15:12 98 06/08/19 12:52 104 06/08/19 12:00 98.0 104 19 88/52 (64) 98 06/08/19 12:00 88/52 06/08/19 11:50 88 Intake and Output 06/08/19 06/09/19 19:00 07:00 Intake Total 420 ml 120 ml Balance 420 ml 120 ml Intake Oral 420 ml 120 ml # Voids 3 1 # Bowel Movements 2 Laboratory Tests 06/09/19 06:53: White Blood Count 7.0, Red Blood Count 2.82L, Hemoglobin 8.7L, Hematocrit 25.3L , Mean Corpuscular Volume 90, Mean Corpuscular Hemoglobin 31.0, Mean Corpuscular Hemoglobin Concent 34.6, Red Cell Distribution Width 13.0, Platelet Count 164, Mean Platelet Volume 6.4L, Neutrophils (%) (Auto) 67.1, Lymphocytes ( %) (Auto) 15.6L, Monocytes (%) (Auto) 14.6H, Eosinophils (%) (Auto) 1.5, Basophils (%) (Auto) 1.2, Sodium Level 143, Potassium Level 4.8, Chloride Level 109H, Carbon Dioxide Level 23, Anion Gap 11, Blood Urea Nitrogen 95H, Creatinine 4.2H, Estimat Glomerular Filtration Rate 17.1, Glucose Level 99, Uric Acid 8.0H, Calcium Level 8.6, Phosphorus Level 4.3, Magnesium Level 1.9, Total Bilirubin 0.4, Aspartate Amino Transf (AST/SGOT) 14L, Alanine Aminotransferase (ALT/SGPT) 15, Alkaline Phosphatase 58, C-Reactive Protein, Quantitative 14.8H, Pro-B-Type Natriuretic Peptide 92024Q, Total Protein 5.6L, Albumin 2.4L, Globulin 3.2, Albumin/Globulin Ratio 0.8L, Digoxin Level 0.9 Height (Feet): 5 Height (Inches): 8.00 Weight (Pounds): 147 General Appearance: lethargic EENT: normal ENT inspection Neck: normal alignment Cardiovascular: normal peripheral pulses, normal rate, regular rhythm Respiratory/Chest: chest wall non-tender, lungs clear, normal breath sounds Abdomen: normal bowel sounds, non tender, soft Extremities: normal inspection Edema: no edema noted Arm (L), no edema noted Arm (R), no edema noted Leg (L), no edema noted Leg (R), no edema noted Pedal (L), no edema noted Pedal (R), no edema noted Generalized Neurologic: motor weakness Skin: normal pigmentation, warm/dry Phillip Gandhi DO Jun 09, 2019 10:36
--- NOTE | 2019-06-09 10:42 | NUR ---
*-* DISCHARGE PLANNING *-* PATIENT HAS BEEN REFERRED TO: KARY QUILES P: [phone] F: [phone]
--- NOTE | 2019-06-09 11:15 | Nephrology Progress Note ---
Assessment/Plan Problem List: (1) Renal failure (ARF), acute on chronic (2) Hyperkalemia (3) DM (diabetes mellitus) (4) Hypothyroid (5) Cardiomyopathy Assessment: EjFx 15% Assessment Acute on chronic renal failure. Anemia of chronic kidney disease. Hyperkalemia. Elevated troponin. History of diabetes mellitus. History of hypothyroidism. Plan needs : Dialysis- Coronary Angio , Defibrillator add digoxin stop Hydrate. Anemia work-up. Kayexalate as needed. Monitor renal parameters. Keep the blood pressure and blood sugar in check. Kidney ultrasound. 2D echocardiogram. EjFx 15% Urine studies. Hold Metformin and Lasix. Per orders. Subjective ROS Limited/Unobtainable: No Constitutional: Reports: malaise, weakness Objective Objective Last 24 Hour Vital Signs Date Time Temp Pulse Resp B/P (MAP) Pulse Ox O2 Delivery O2 Flow Rate FiO2 06/09/19 08:37 85/50 06/09/19 08:37 97 85/50 06/09/19 08:25 85/50 06/09/19 07:42 Room Air 06/09/19 07:37 107 06/09/19 05:54 92/50 06/09/19 04:00 97 06/09/19 04:00 97.7 98 20 92/50 (64) 98 06/09/19 00:00 100 06/09/19 00:00 90/52 06/09/19 00:00 98.4 101 20 90/52 (65) 95 06/08/19 21:00 Room Air 06/08/19 20:00 109 06/08/19 20:00 98.4 106 18 86/51 (63) 95 06/08/19 17:20 88/53 06/08/19 16:00 98.7 100 17 88/53 (65) 98 06/08/19 15:12 98 06/08/19 12:52 104 06/08/19 12:00 98.0 104 19 88/52 (64) 98 06/08/19 12:00 88/52 06/08/19 11:50 88 Intake and Output 06/08/19 06/09/19 19:00 07:00 Intake Total 420 ml 120 ml Balance 420 ml 120 ml Intake Oral 420 ml 120 ml # Voids 3 1 # Bowel Movements 2 Laboratory Tests 06/09/19 06:53: White Blood Count 7.0, Red Blood Count 2.82L, Hemoglobin 8.7L, Hematocrit 25.3L , Mean Corpuscular Volume 90, Mean Corpuscular Hemoglobin 31.0, Mean Corpuscular Hemoglobin Concent 34.6, Red Cell Distribution Width 13.0, Platelet Count 164, Mean Platelet Volume 6.4L, Neutrophils (%) (Auto) 67.1, Lymphocytes ( %) (Auto) 15.6L, Monocytes (%) (Auto) 14.6H, Eosinophils (%) (Auto) 1.5, Basophils (%) (Auto) 1.2, Sodium Level 143, Potassium Level 4.8, Chloride Level 109H, Carbon Dioxide Level 23, Anion Gap 11, Blood Urea Nitrogen 95H, Creatinine 4.2H, Estimat Glomerular Filtration Rate 17.1, Glucose Level 99, Uric Acid 8.0H, Calcium Level 8.6, Phosphorus Level 4.3, Magnesium Level 1.9, Total Bilirubin 0.4, Aspartate Amino Transf (AST/SGOT) 14L, Alanine Aminotransferase (ALT/SGPT) 15, Alkaline Phosphatase 58, C-Reactive Protein, Quantitative 14.8H, Pro-B-Type Natriuretic Peptide 62460B, Total Protein 5.6L, Albumin 2.4L, Globulin 3.2, Albumin/Globulin Ratio 0.8L, Digoxin Level 0.9 Height (Feet): 5 Height (Inches): 8.00 Weight (Pounds): 147 General Appearance: no apparent distress, lethargic Cardiovascular: tachycardia Respiratory/Chest: decreased breath sounds Abdomen: distended Ti Jones MD Jun 09, 2019 11:15
[2019-06-09 12:00] VITALS: BP 94/55
[2019-06-09 16:00] VITALS: BP 95/60
--- NOTE | 2019-06-09 19:07 | NUR ---
HAND-OFF: Report given to SANDY ALAS.
--- NOTE | 2019-06-09 19:15 | NUR ---
NURSE NOTES: Received patient from Tonio ALAS. Patient in bed, on 2L NC, no signs of respiratory distress. Alert and oriented x4, calm and cooperative. Bed in low position, locked, bed alarm on, call light within reach.
[2019-06-09 20:00] VITALS: BP 80/44
[2019-06-09] MEDS: Tamsulosin 0.4mg cap ORAL SCH (20:32)
[2019-06-09] MEDS: Miralax 17gm pkt ORAL SCH (20:35)
[2019-06-09] MEDS ORDERED: Epoetin Alfa-EPBX(ESRD on dialysis)10,000 unit/ml vial SUBQ SCH (21:00)
--- NOTE | 2019-06-09 21:00 | NUR ---
NURSE NOTES: SBP below 100, held coreg per parameters. Patient only wanted his lipitor and flomax. Refused all other medications.
[2019-06-10] VITALS: BP 83/43
[2019-06-10 04:00] VITALS: BP 92/49
--- NOTE | 2019-06-10 06:00 | NUR ---
NURSE NOTES: AM blood sugar 76. Patient alert and responsive. Offered some snacks. Patient declined.
[2019-06-10] MEDS: NovoLOG Insulin Flexpen SUBQ SCH ×3 (06:30→16:30)
[2019-06-10 07:22] LABS: BASOPHILS % (AUTO) 1.6 % (0.0-2.0); EOSINOPHILS % (AUTO) 0.9 % (0.0-3.0); HEMATOCRIT 27.6 % (42.0-52.0); HEMOGLOBIN 9.3 G/DL (14.2-18.0); MEAN CORPUSCULAR VOLUME 92 FL (80-99); MONOCYTES % (AUTO) 8.5 % (1.0-10.0); NEUTROPHILS % (AUTO) 70.9 % (45.0-75.0); PLATELET COUNT 164 K/UL (150-450); RED BLOOD COUNT 3.02 M/UL (4.70-6.10); RED CELL DISTRIBUTION WIDTH 13.5 % (11.6-14.8); WHITE BLOOD COUNT 4.4 K/UL (4.8-10.8)
--- NOTE | 2019-06-10 07:29 | NUR ---
NURSE NOTES: Received pt in bed, AAO x 4. On RA. No c/o of pain/distress. IV on R hand 22g noted, with SL. Side rails x 2. Bed in the lowest, locked, and alarm on. Call light within reach. Will continue to monitor
[2019-06-10 08:00] VITALS: BP 94/45
[2019-06-10 08:26] LABS: ALANINE AMINOTRANSFERASE 16 U/L (12-78); ALBUMIN 2.6 G/DL (3.4-5.0); ALBUMIN/GLOBULIN RATIO 0.8 (1.0-2.7); ALKALINE PHOSPHATASE 68 U/L (46-116); ANION GAP 14 mmol/L (5-15); ASPARTATE AMINO TRANSFERASE 14 U/L (15-37); BILIRUBIN,TOTAL 0.7 MG/DL (0.2-1.0); BLOOD UREA NITROGEN 96 mg/dL (7-18); CALCIUM 8.8 MG/DL (8.5-10.1); CARBON DIOXIDE 22 MMOL/L (21-32); CHLORIDE 109 MMOL/L (98-107); CREATININE 4.5 MG/DL (0.55-1.30); POTASSIUM 5.1 MMOL/L (3.5-5.1); SODIUM 145 MMOL/L (136-145)
[2019-06-10 08:33] LABS: PHOSPHORUS 3.7 MG/DL (2.5-4.9)
[2019-06-10] MEDS: HydrALAZINE 10mg Tab ORAL SCH ×2 (08:56→16:43)
[2019-06-10] MEDS: Sodium Citrate 30ml ORAL SCH ×2 (08:58→17:46)
[2019-06-10] MEDS: Docusate 100mg cap ORAL SCH ×3 (08:58→17:46)
--- NOTE | 2019-06-10 09:06 | General Progress Note ---
Assessment/Plan Problem List: (1) Cholelithiasis ICD Codes: K80.20 - Calculus of gallbladder without cholecystitis without obstruction SNOMED: 542595927 (2) Troponin level elevated ICD Codes: R79.89 - Other specified abnormal findings of blood chemistry SNOMED: 668576320, 350785860 (3) HTN (hypertension) ICD Codes: I10 - Essential (primary) hypertension SNOMED: 28788644 (4) Weakness ICD Codes: R53.1 - Weakness SNOMED: 16591399 (5) Anemia ICD Codes: D64.9 - Anemia SNOMED: 076450151 (6) Creatinine elevation ICD Codes: R79.89 - Other specified abnormal findings of blood chemistry SNOMED: 889351554, 804243492 (7) Cardiomyopathy ICD Codes: I42.9 - Cardiomyopathy, unspecified SNOMED: 49881422 (8) DM (diabetes mellitus) ICD Codes: E11.9 - DM (diabetes mellitus) SNOMED: 53207414 (9) Hypothyroid ICD Codes: E03.9 - Hypothyroidism, unspecified SNOMED: 70879201 (10) Abdominal pain ICD Codes: R10.9 - Unspecified abdominal pain SNOMED: 12076568 (11) Constipation ICD Codes: K59.00 - Constipation, unspecified SNOMED: 17759704 Status: stable, progressing Assessment/Plan: ct of abd pelvis without contrast>>> patient refused repeat labs bowel regimen stool ob positive>>> D/W the patient at length regarding EGD and colonoscopy, he refused stable H&H now repeat labs Subjective ROS Limited/Unobtainable: Yes Allergies: Coded Allergies: CASTANON (Unverified Allergy, Mild, 06/07/19) APPLE (Unverified Allergy, Unknown, 06/07/19) BANANA (Unverified Allergy, Unknown, 06/07/19) CHOCOLATE FLAVOR (Unverified Allergy, Unknown, 06/07/19) PENICILLINS (Verified Allergy, Unknown, 07/12/17) POTATO (Unverified Allergy, Unknown, 06/07/19) Objective Last 24 Hour Vital Signs Date Time Temp Pulse Resp B/P (MAP) Pulse Ox O2 Delivery O2 Flow Rate FiO2 06/10/19 08:57 94/45 06/10/19 08:57 110 94/45 06/10/19 08:56 94/45 06/10/19 08:00 98.4 110 20 94/45 (61) 95 06/10/19 04:00 89 06/10/19 04:00 98.8 89 20 92/49 (63) 96 06/10/19 00:00 86 06/10/19 00:00 98.1 81 20 83/43 (56) 96 06/09/19 21:00 Room Air 06/09/19 20:00 97.9 90 20 80/44 (56) 99 06/09/19 20:00 91 06/09/19 17:20 95/60 06/09/19 17:19 95/60 06/09/19 16:00 99.5 95 20 95/60 (72) 98 06/09/19 15:20 92 06/09/19 12:00 97.7 95 20 94/55 (68) 98 06/09/19 11:46 97 06/09/19 11:39 92 Intake and Output 06/09/19 06/10/19 19:00 07:00 Intake Total 480 ml Output Total 1000 ml Balance 480 ml -1000 ml Intake Oral 480 ml Output Urine Total 1000 ml # Voids 5 Laboratory Tests 06/10/19 05:30: White Blood Count 4.4L, Red Blood Count 3.02L, Hemoglobin 9.3L, Hematocrit 27.6L , Mean Corpuscular Volume 92, Mean Corpuscular Hemoglobin 30.8, Mean Corpuscular Hemoglobin Concent 33.7, Red Cell Distribution Width 13.5, Platelet Count 164, Mean Platelet Volume 6.1L, Neutrophils (%) (Auto) 70.9, Lymphocytes ( %) (Auto) 18.0L, Monocytes (%) (Auto) 8.5, Eosinophils (%) (Auto) 0.9, Basophils (%) (Auto) 1.6, Sodium Level 145, Potassium Level 5.1, Chloride Level 109H, Carbon Dioxide Level 22, Anion Gap 14, Blood Urea Nitrogen 96H, Creatinine 4.5H, Estimat Glomerular Filtration Rate 15.8, Glucose Level 90, Uric Acid 8.4H, Calcium Level 8.8, Phosphorus Level 3.7, Magnesium Level 1.9, Total Bilirubin 0.7, Aspartate Amino Transf (AST/SGOT) 14L, Alanine Aminotransferase (ALT/SGPT) 16, Alkaline Phosphatase 68, C-Reactive Protein, Quantitative 15.8H, Pro-B-Type Natriuretic Peptide 9519H, Total Protein 5.8L, Albumin 2.6L, Globulin 3.2, Albumin/Globulin Ratio 0.8L, Digoxin Level 1.4 Height (Feet): 5 Height (Inches): 8.00 Weight (Pounds): 147 General Appearance: alert EENT: normal ENT inspection Neck: supple Cardiovascular: normal rate Respiratory/Chest: lungs clear Abdomen: non tender, soft, hypoactive bowel sounds Extremities: non-tender Deric Price MD Jun 10, 2019 09:06
--- NOTE | 2019-06-10 10:36 | NUR ---
RD ASSESSMENT & RECOMMENDATIONS SEE CARE ACTIVITY FOR COMPLETE ASSESSMENT DAILY ESTIMATED NEEDS: Needs based on Renal, no HD 67kg 25-35 kcals/kg 9727-8898 total kcals .6-1 g protein/kg 40-67 g total protein Fluid per MD NUTRITION DIAGNOSIS: 1) Altered nutrition-related lab values r/t CKD as evidenced by elev K (5.1), creat trending up (4.5), elev BUN (96), elev BNP (9519), pt requires HD per MD. CURRENT DIET: Cardiac w/ out apple, banana, beans, chocolate, potato PO DIET RECOMMENDATIONS--->>> REC RENAL DIET 60g PROT ADDITIONAL RECOMMENDATIONS: 1) Maintain calibrated bed scale wts 2) REST ROOM ATTENDANT eval for appropriate texture 3) Monitor for HD 4) Add snacks in b/w meals REC NEPRO 1 TETRA TIGIST w/ LUNCH
--- NOTE | 2019-06-10 11:30 | Cardiac Electrophysiology PN ---
Assessment/Plan Assessment/Plan 1. NSTEMI likely due to renal failure with creatinine of 5.3 as low level and flat. Denies any chest pain or shortness of breath. However has history of prior myocardial infarction and EF is 15-20%. Refusing cardiac cath Continue Lipitor, Aspirin and Coreg 3.125 bid but he is refusing all meds. 2. Newly diagnosed CMP with EF 15-20%. On Coreg 3.125 bid and Hydralazine 10 q6 On Hydralazine 10 bid and Isordil 10 bid but he is refusing all meds. Off Lasix and aldactone for renal failure 3. Atrial flutter with RVR 140s. Could be the cause of CMP or troponin elevation. 4. HTN, maximize CHF meds first 5. Acute on chronic renal failure.Cr improved from 5.3 to 3.7 6. Hyperkalemia due to renal failure. Fu by Dr. Jones. 7. Hyperlipidemia on Lipitor. 8. Hypothyroidism on Synthroid. 9. Benign prostatic hypertrophy on Flomax and Proscar. Noncompliant. MARCO ANTONIO RN Subjective Subjective No CP or SOB.On tele.No further atrial flutter. Refusing labs and meds. Says just wants to go home. Objective Last 24 Hour Vital Signs Date Time Temp Pulse Resp B/P (MAP) Pulse Ox O2 Delivery O2 Flow Rate FiO2 06/10/19 09:00 Room Air 06/10/19 08:57 94/45 06/10/19 08:57 110 94/45 06/10/19 08:56 94/45 06/10/19 08:00 116 06/10/19 08:00 98.4 110 20 94/45 (61) 95 06/10/19 04:00 89 06/10/19 04:00 98.8 89 20 92/49 (63) 96 06/10/19 00:00 86 06/10/19 00:00 98.1 81 20 83/43 (56) 96 06/09/19 21:00 Room Air 06/09/19 20:00 97.9 90 20 80/44 (56) 99 06/09/19 20:00 91 06/09/19 17:20 95/60 06/09/19 17:19 95/60 06/09/19 16:00 99.5 95 20 95/60 (72) 98 06/09/19 15:20 92 06/09/19 12:00 97.7 95 20 94/55 (68) 98 06/09/19 11:46 97 06/09/19 11:39 92 Intake and Output 06/09/19 06/10/19 19:00 07:00 Intake Total 480 ml Output Total 1000 ml Balance 480 ml -1000 ml Intake Oral 480 ml Output Urine Total 1000 ml # Voids 5 Laboratory Tests Test 06/10/19 05:30 White Blood Count 4.4 K/UL (4.8-10.8) L Red Blood Count 3.02 M/UL (4.70-6.10) L Hemoglobin 9.3 G/DL (14.2-18.0) L Hematocrit 27.6 % (42.0-52.0) L Mean Corpuscular Volume 92 FL (80-99) Mean Corpuscular Hemoglobin 30.8 PG (27.0-31.0) Mean Corpuscular Hemoglobin Concent 33.7 G/DL (32.0-36.0) Red Cell Distribution Width 13.5 % (11.6-14.8) Platelet Count 164 K/UL (150-450) Mean Platelet Volume 6.1 FL (6.5-10.1) L Neutrophils (%) (Auto) 70.9 % (45.0-75.0) Lymphocytes (%) (Auto) 18.0 % (20.0-45.0) L Monocytes (%) (Auto) 8.5 % (1.0-10.0) Eosinophils (%) (Auto) 0.9 % (0.0-3.0) Basophils (%) (Auto) 1.6 % (0.0-2.0) Sodium Level 145 MMOL/L (136-145) Potassium Level 5.1 MMOL/L (3.5-5.1) Chloride Level 109 MMOL/L (98-107) H Carbon Dioxide Level 22 MMOL/L (21-32) Anion Gap 14 mmol/L (5-15) Blood Urea Nitrogen 96 mg/dL (7-18) H Creatinine 4.5 MG/DL (0.55-1.30) H Estimat Glomerular Filtration Rate 15.8 mL/min (>60) Glucose Level 90 MG/DL (74-106) Uric Acid 8.4 MG/DL (2.6-7.2) H Calcium Level 8.8 MG/DL (8.5-10.1) Phosphorus Level 3.7 MG/DL (2.5-4.9) Magnesium Level 1.9 MG/DL (1.8-2.4) Total Bilirubin 0.7 MG/DL (0.2-1.0) Aspartate Amino Transf (AST/SGOT) 14 U/L (15-37) L Alanine Aminotransferase (ALT/SGPT) 16 U/L (12-78) Alkaline Phosphatase 68 U/L (46-116) C-Reactive Protein, Quantitative 15.8 mg/dL (0.00-0.90) H Pro-B-Type Natriuretic Peptide 9519 pg/mL (0-125) H Total Protein 5.8 G/DL (6.4-8.2) L Albumin 2.6 G/DL (3.4-5.0) L Globulin 3.2 g/dL Albumin/Globulin Ratio 0.8 (1.0-2.7) L Digoxin Level 1.4 NG/ML (0.5-2.0) Objective HEAD AND NECK: No JVD. LUNGS: Clear. CARDIOVASCULAR: Regular S1 and S2 with no gallop or murmur. ABDOMEN: Soft. EXTREMITIES: No pitting edema. Alex Murphy MD Jun 10, 2019 11:30
[2019-06-10 12:00] VITALS: BP 93/48
--- NOTE | 2019-06-10 12:00 | NUR ---
NURSE NOTES: Patient refused all morning medications and refused accu-ckeck, stating that he wants to go home
--- NOTE | 2019-06-10 13:53 | Nephrology Progress Note ---
Assessment/Plan Problem List: (1) Renal failure (ARF), acute on chronic (2) Hyperkalemia (3) DM (diabetes mellitus) (4) Hypothyroid (5) Cardiomyopathy Assessment: EjFx 15% Assessment Acute on chronic renal failure. Anemia of chronic kidney disease. Hyperkalemia. Elevated troponin. History of diabetes mellitus. History of hypothyroidism. Plan needs : Dialysis- Coronary Angio , Defibrillator Refusing all add digoxin stop Hydrate. Anemia work-up. Kayexalate as needed. Monitor renal parameters. Keep the blood pressure and blood sugar in check. Kidney ultrasound. 2D echocardiogram. EjFx 15% Urine studies. Hold Metformin and Lasix. Per orders. Subjective ROS Limited/Unobtainable: No Constitutional: Reports: malaise, weakness Objective Objective Last 24 Hour Vital Signs Date Time Temp Pulse Resp B/P (MAP) Pulse Ox O2 Delivery O2 Flow Rate FiO2 06/10/19 12:00 98.1 60 20 93/48 (63) 95 06/10/19 12:00 103 06/10/19 09:00 Room Air 06/10/19 08:57 94/45 06/10/19 08:57 110 94/45 06/10/19 08:56 94/45 06/10/19 08:00 116 06/10/19 08:00 98.4 110 20 94/45 (61) 95 06/10/19 04:00 89 06/10/19 04:00 98.8 89 20 92/49 (63) 96 06/10/19 00:00 86 06/10/19 00:00 98.1 81 20 83/43 (56) 96 06/09/19 21:00 Room Air 06/09/19 20:00 97.9 90 20 80/44 (56) 99 06/09/19 20:00 91 06/09/19 17:20 95/60 06/09/19 17:19 95/60 06/09/19 16:00 99.5 95 20 95/60 (72) 98 06/09/19 15:20 92 Intake and Output 06/09/19 06/10/19 19:00 07:00 Intake Total 480 ml Output Total 1000 ml Balance 480 ml -1000 ml Intake Oral 480 ml Output Urine Total 1000 ml # Voids 5 Laboratory Tests 06/10/19 05:30: White Blood Count 4.4L, Red Blood Count 3.02L, Hemoglobin 9.3L, Hematocrit 27.6L , Mean Corpuscular Volume 92, Mean Corpuscular Hemoglobin 30.8, Mean Corpuscular Hemoglobin Concent 33.7, Red Cell Distribution Width 13.5, Platelet Count 164, Mean Platelet Volume 6.1L, Neutrophils (%) (Auto) 70.9, Lymphocytes ( %) (Auto) 18.0L, Monocytes (%) (Auto) 8.5, Eosinophils (%) (Auto) 0.9, Basophils (%) (Auto) 1.6, Sodium Level 145, Potassium Level 5.1, Chloride Level 109H, Carbon Dioxide Level 22, Anion Gap 14, Blood Urea Nitrogen 96H, Creatinine 4.5H, Estimat Glomerular Filtration Rate 15.8, Glucose Level 90, Uric Acid 8.4H, Calcium Level 8.8, Phosphorus Level 3.7, Magnesium Level 1.9, Total Bilirubin 0.7, Aspartate Amino Transf (AST/SGOT) 14L, Alanine Aminotransferase (ALT/SGPT) 16, Alkaline Phosphatase 68, C-Reactive Protein, Quantitative 15.8H, Pro-B-Type Natriuretic Peptide 9519H, Total Protein 5.8L, Albumin 2.6L, Globulin 3.2, Albumin/Globulin Ratio 0.8L, Digoxin Level 1.4 Height (Feet): 5 Height (Inches): 8.00 Weight (Pounds): 147 General Appearance: no apparent distress Cardiovascular: other - variable rates Respiratory/Chest: decreased breath sounds Abdomen: soft Ti Jones MD Jun 10, 2019 13:53
--- NOTE | 2019-06-10 14:02 | General Progress Note ---
Assessment/Plan Problem List: (1) Troponin level elevated ICD Codes: R79.89 - Other specified abnormal findings of blood chemistry SNOMED: 797881892, 451805692 (2) Weakness ICD Codes: R53.1 - Weakness SNOMED: 66926397 (3) HTN (hypertension) ICD Codes: I10 - Essential (primary) hypertension SNOMED: 41985478 (4) DM (diabetes mellitus) ICD Codes: E11.9 - DM (diabetes mellitus) SNOMED: 07128713 (5) Acute renal failure (ARF) ICD Codes: N17.9 - Acute renal failure (ARF) SNOMED: 72309518 (6) Anemia ICD Codes: D64.9 - Anemia SNOMED: 555653985 Status: stable, progressing Assessment/Plan: pt dit neph f/u cbc bmp am heme gi eval dc to snf if clear Subjective Constitutional: Reports: weakness Allergies: Coded Allergies: CASTANON (Unverified Allergy, Mild, 06/07/19) APPLE (Unverified Allergy, Unknown, 06/07/19) BANANA (Unverified Allergy, Unknown, 06/07/19) CHOCOLATE FLAVOR (Unverified Allergy, Unknown, 06/07/19) PENICILLINS (Verified Allergy, Unknown, 07/12/17) POTATO (Unverified Allergy, Unknown, 06/07/19) All Systems: reviewed and negative except above Subjective sleepy calm Objective Last 24 Hour Vital Signs Date Time Temp Pulse Resp B/P (MAP) Pulse Ox O2 Delivery O2 Flow Rate FiO2 06/10/19 12:00 98.1 60 20 93/48 (63) 95 06/10/19 12:00 103 06/10/19 09:00 Room Air 06/10/19 08:57 94/45 06/10/19 08:57 110 94/45 06/10/19 08:56 94/45 06/10/19 08:00 116 06/10/19 08:00 98.4 110 20 94/45 (61) 95 06/10/19 04:00 89 06/10/19 04:00 98.8 89 20 92/49 (63) 96 06/10/19 00:00 86 06/10/19 00:00 98.1 81 20 83/43 (56) 96 06/09/19 21:00 Room Air 06/09/19 20:00 97.9 90 20 80/44 (56) 99 06/09/19 20:00 91 06/09/19 17:20 95/60 06/09/19 17:19 95/60 06/09/19 16:00 99.5 95 20 95/60 (72) 98 06/09/19 15:20 92 Intake and Output 06/09/19 06/10/19 19:00 07:00 Intake Total 480 ml Output Total 1000 ml Balance 480 ml -1000 ml Intake Oral 480 ml Output Urine Total 1000 ml # Voids 5 Laboratory Tests 06/10/19 05:30: White Blood Count 4.4L, Red Blood Count 3.02L, Hemoglobin 9.3L, Hematocrit 27.6L , Mean Corpuscular Volume 92, Mean Corpuscular Hemoglobin 30.8, Mean Corpuscular Hemoglobin Concent 33.7, Red Cell Distribution Width 13.5, Platelet Count 164, Mean Platelet Volume 6.1L, Neutrophils (%) (Auto) 70.9, Lymphocytes ( %) (Auto) 18.0L, Monocytes (%) (Auto) 8.5, Eosinophils (%) (Auto) 0.9, Basophils (%) (Auto) 1.6, Sodium Level 145, Potassium Level 5.1, Chloride Level 109H, Carbon Dioxide Level 22, Anion Gap 14, Blood Urea Nitrogen 96H, Creatinine 4.5H, Estimat Glomerular Filtration Rate 15.8, Glucose Level 90, Uric Acid 8.4H, Calcium Level 8.8, Phosphorus Level 3.7, Magnesium Level 1.9, Total Bilirubin 0.7, Aspartate Amino Transf (AST/SGOT) 14L, Alanine Aminotransferase (ALT/SGPT) 16, Alkaline Phosphatase 68, C-Reactive Protein, Quantitative 15.8H, Pro-B-Type Natriuretic Peptide 9519H, Total Protein 5.8L, Albumin 2.6L, Globulin 3.2, Albumin/Globulin Ratio 0.8L, Digoxin Level 1.4 Height (Feet): 5 Height (Inches): 8.00 Weight (Pounds): 147 General Appearance: lethargic EENT: normal ENT inspection Neck: normal alignment Cardiovascular: normal peripheral pulses, normal rate, regular rhythm Respiratory/Chest: chest wall non-tender, lungs clear, normal breath sounds Abdomen: normal bowel sounds, non tender, soft Extremities: normal inspection Edema: no edema noted Arm (L), no edema noted Arm (R), no edema noted Leg (L), no edema noted Leg (R), no edema noted Pedal (L), no edema noted Pedal (R), no edema noted Generalized Neurologic: responsive, motor weakness Skin: normal pigmentation, warm/dry Phillip Gandhi DO Jun 10, 2019 14:02
--- NOTE | 2019-06-10 14:02 | NUR ---
P.T Note: P.T attempted however pt refused to participate due to c/o stomach pain aggravated by movement activity. Will reattempt as pt tolerates.
--- NOTE | 2019-06-10 14:26 | NUR ---
*-* DISCHARGE PLANNING *-* PATIENT HAS BEEN REFERRED TO: [facility] P: [phone] F: [phone]
[2019-06-10 16:00] VITALS: BP 94/51
[2019-06-10 16:43] VITALS: BP 94/51
--- NOTE | 2019-06-10 17:09 | Hematology/Onc Progress Note ---
Assessment/Plan Assessment/Plan Assessment and Recs: # Anemia of chronic disease, labs have been reviewed --> anemia panel is noted, reviewed prior labs as well --> stool ob positive 06/07 --> ct a/p results pending --> as per gi Dr. Price --> cont on epogen --> hgb trend: 9.3 # Thrombocytopenia likely reactive process --> meds have been reviewed --> smear noted --> now improved # Troponin elevation likely due to renal failure with creatinine of 5.3 as low level and flat. --> as per cards, renal --> Lipitor and Plavix daily and Lopressor 12.5 bid # HTN On Lopressor and Hydralazine 10 q 6 --> cards recs noted # Hyperkalemia due to renal failure. --> Fu by Dr. Jones. # Hyperlipidemia on Lipitor. # Hypothyroidism on Synthroid. # Benign prostatic hypertrophy on Flomax and Proscar. Apprecaite consultation and alana RN Subjective Allergies: Coded Allergies: CASTANON (Unverified Allergy, Mild, 06/07/19) APPLE (Unverified Allergy, Unknown, 06/07/19) BANANA (Unverified Allergy, Unknown, 06/07/19) CHOCOLATE FLAVOR (Unverified Allergy, Unknown, 06/07/19) PENICILLINS (Verified Allergy, Unknown, 07/12/17) POTATO (Unverified Allergy, Unknown, 06/07/19) Subjective 06/09: labs noted, no bleeding or chills, hd as per renal, labs noted 06/10: awake and alert, no overnight events, on epogen, labs reviewed Objective Objective Current Medications Medications (Trade) Dose Ordered Sig/Stella Route PRN Reason Start Time Stop Time Status Last Admin Dose Admin Atorvastatin Calcium (Lipitor) 10 mg BEDTIME ORAL 06/07/19 21:00 07/06/19 20:59 06/09/19 20:32 Carvedilol (Coreg) 3.125 mg EVERY 12 HOURS ORAL 06/09/19 09:00 07/08/19 20:59 Clopidogrel Bisulfate (Plavix) 75 mg DAILY ORAL 06/06/19 09:00 07/06/19 08:59 06/09/19 08:38 Dextrose (Dextrose 50%) 25 ml Q30M PRN IV Hypoglycemia 06/06/19 22:00 07/06/19 21:59 Dextrose (Dextrose 50%) 50 ml Q30M PRN IV Hypoglycemia 06/06/19 22:00 07/06/19 21:59 Docusate Sodium (Colace) 100 mg TID ORAL 06/06/19 09:00 07/06/19 08:59 06/08/19 09:29 Epoetin Yaron (Epoetin Yaron(ESRD on dialysis)) 10,000 unit SUBQ 06/09/19 21:00 07/09/19 20:59 Finasteride (Proscar) 5 mg DAILY ORAL 06/06/19 09:00 07/06/19 08:59 06/09/19 08:38 Hydralazine HCl (Apresoline) 10 mg BID ORAL 06/09/19 09:00 07/07/19 11:59 Insulin Aspart (NovoLOG) BEFORE MEALS AND HS SUBQ 06/07/19 06:30 07/07/19 06:29 06/07/19 12:40 Isosorbide Dinitrate (Isordil) 10 mg BID ORAL 06/09/19 09:00 07/09/19 08:59 Levothyroxine Sodium (Synthroid) 50 mcg DAILY@0630 ORAL 06/06/19 06:30 07/06/19 06:29 06/10/19 06:15 Morphine Sulfate (Morphine Sulfate) 2 mg Q4H PRN IVP For Pain 06/07/19 18:30 06/14/19 18:29 06/07/19 18:36 Ondansetron HCl (Zofran) 4 mg Q4H PRN IVP Nausea & Vomiting 06/07/19 17:30 07/07/19 17:29 06/07/19 17:27 Pantoprazole (Protonix) 40 mg Q12HR ORAL 06/06/19 09:00 07/06/19 08:59 06/09/19 08:38 Polyethylene Glycol (Miralax) 17 gm BEDTIME ORAL 06/08/19 21:00 07/08/19 20:59 Sodium Citrate (Bicitra) 30 ml BID ORAL 06/07/19 18:00 07/06/19 00:00 06/08/19 09:29 Tamsulosin HCl (Flomax) 0.4 mg BEDTIME ORAL 06/06/19 00:30 07/06/19 00:29 06/09/19 20:32 Last 24 Hour Vital Signs Date Time Temp Pulse Resp B/P (MAP) Pulse Ox O2 Delivery O2 Flow Rate FiO2 06/10/19 16:43 94/51 06/10/19 16:00 87 06/10/19 16:00 99.0 62 20 94/51 (65) 95 06/10/19 12:00 98.1 60 20 93/48 (63) 95 06/10/19 12:00 103 06/10/19 09:00 Room Air 06/10/19 08:57 94/45 06/10/19 08:57 110 94/45 06/10/19 08:56 94/45 06/10/19 08:00 116 06/10/19 08:00 98.4 110 20 94/45 (61) 95 06/10/19 04:00 89 06/10/19 04:00 98.8 89 20 92/49 (63) 96 06/10/19 00:00 86 06/10/19 00:00 98.1 81 20 83/43 (56) 96 06/09/19 21:00 Room Air 06/09/19 20:00 97.9 90 20 80/44 (56) 99 06/09/19 20:00 91 06/09/19 17:20 95/60 06/09/19 17:19 95/60 06/09/19 16:00 99.5 95 20 95/60 (72) 98 06/09/19 15:20 92 06/09/19 12:00 97.7 95 20 94/55 (68) 98 06/09/19 11:46 97 06/09/19 11:39 92 06/09/19 08:37 85/50 06/09/19 08:37 97 85/50 06/09/19 08:25 85/50 06/09/19 08:00 97.7 100 20 85/50 (62) 98 06/09/19 07:42 Room Air 06/09/19 07:37 107 06/09/19 05:54 92/50 06/09/19 04:00 97 06/09/19 04:00 97.7 98 20 92/50 (64) 98 06/09/19 00:00 100 06/09/19 00:00 90/52 06/09/19 00:00 98.4 101 20 90/52 (65) 95 06/08/19 21:00 Room Air 06/08/19 20:00 109 06/08/19 20:00 98.4 106 18 86/51 (63) 95 06/08/19 17:20 88/53 Intake and Output 06/09/19 06/10/19 19:00 07:00 Intake Total 480 ml Output Total 1000 ml Balance 480 ml -1000 ml Intake Oral 480 ml Output Urine Total 1000 ml # Voids 5 Labs Test 06/07/19 17:25 06/08/19 05:40 06/09/19 06:53 06/10/19 05:30 White Blood Count 10.3 K/UL (4.8-10.8) 11.9 K/UL (4.8-10.8) 7.0 K/UL (4.8-10.8) 4.4 K/UL (4.8-10.8) Red Blood Count 2.58 M/UL (4.70-6.10) 2.87 M/UL (4.70-6.10) 2.82 M/UL (4.70-6.10) 3.02 M/UL (4.70-6.10) Hemoglobin 8.0 G/DL (14.2-18.0) 9.0 G/DL (14.2-18.0) 8.7 G/DL (14.2-18.0) 9.3 G/DL (14.2-18.0) Hematocrit 23.6 % (42.0-52.0) 26.4 % (42.0-52.0) 25.3 % (42.0-52.0) 27.6 % (42.0-52.0) Mean Corpuscular Volume 92 FL (80-99) 92 FL (80-99) 90 FL (80-99) 92 FL (80- 99) Mean Corpuscular Hemoglobin 30.9 PG (27.0-31.0) 31.4 PG (27.0-31.0) 31.0 PG (27.0-31.0) 30.8 PG (27.0-31.0) Mean Corpuscular Hemoglobin Concent 33.7 G/DL (32.0-36.0) 34.1 G/DL (32.0-36.0) 34.6 G/DL (32.0-36.0) 33.7 G/DL (32.0-36.0) Red Cell Distribution Width 13.2 % (11.6-14.8) 13.2 % (11.6-14.8) 13.0 % (11.6-14.8) 13.5 % (11.6-14.8) Platelet Count 169 K/UL (150-450) 193 K/UL (150-450) 164 K/UL (150-450) 164 K/UL (150-450) Mean Platelet Volume 6.2 FL (6.5-10.1) 6.2 FL (6.5-10.1) 6.4 FL (6.5-10.1) 6.1 FL (6.5-10.1) Neutrophils (%) (Auto) 60.5 % (45.0-75.0) % (45.0-75.0) 67.1 % (45.0-75.0) 70.9 % (45.0-75.0) Lymphocytes (%) (Auto) 30.1 % (20.0-45.0) % (20.0-45.0) 15.6 % (20.0-45.0) 18.0 % (20.0-45.0) Monocytes (%) (Auto) 5.5 % (1.0-10.0) % (1.0-10.0) 14.6 % (1.0-10.0) 8.5 % (1.0-10.0) Eosinophils (%) (Auto) 3.5 % (0.0-3.0) % (0.0-3.0) 1.5 % (0.0-3.0) 0.9 % (0.0-3.0) Basophils (%) (Auto) 0.3 % (0.0-2.0) % (0.0-2.0) 1.2 % (0.0-2.0) 1.6 % (0.0-2.0) Sodium Level 145 MMOL/L (136-145) 145 MMOL/L (136-145) 143 MMOL/L (136-145) 145 MMOL/L (136-145) Potassium Level 4.5 MMOL/L (3.5-5.1) 4.7 MMOL/L (3.5-5.1) 4.8 MMOL/L (3.5-5.1) 5.1 MMOL/L (3.5-5.1) Chloride Level 109 MMOL/L (98-107) 109 MMOL/L (98-107) 109 MMOL/L (98-107) 109 MMOL/L (98-107) Carbon Dioxide Level 20 MMOL/L (21-32) 23 MMOL/L (21-32) 23 MMOL/L (21-32) 22 MMOL/L (21-32) Anion Gap 16 mmol/L (5-15) 13 mmol/L (5-15) 11 mmol/L (5-15) 14 mmol/L (5-15) Blood Urea Nitrogen 70 mg/dL (7-18) 83 mg/dL (7-18) 95 mg/dL (7-18) 96 mg/dL (7-18) Creatinine 3.8 MG/DL (0.55-1.30) 3.7 MG/DL (0.55-1.30) 4.2 MG/DL (0.55-1.30) 4.5 MG/DL (0.55-1.30) Estimat Glomerular Filtration Rate 19.1 mL/min (>60) 19.8 mL/min (>60) 17.1 mL/min (>60) 15.8 mL/min (>60) Glucose Level 158 MG/DL (74-106) 159 MG/DL (74-106) 99 MG/DL (74-106) 90 MG/DL (74-106) Calcium Level 8.6 MG/DL (8.5-10.1) 8.5 MG/DL (8.5-10.1) 8.6 MG/DL (8.5-10.1) 8.8 MG/DL (8.5-10.1) Troponin I 0.061 ng/mL (0.000-0.056) 0.206 ng/mL (0.000-0.056) Differential Total Cells Counted 100 Neutrophils % (Manual) 91 % (45-75) Lymphocytes % (Manual) 8 % (20-45) Monocytes % (Manual) 1 % (1-10) Eosinophils % (Manual) 0 % (0-3) Basophils % (Manual) 0 % (0-2) Band Neutrophils 0 % (0-8) Platelet Estimate Adequate Platelet Morphology Normal Hypochromasia 1+ Uric Acid 8.0 MG/DL (2.6-7.2) 8.0 MG/DL (2.6-7.2) 8.4 MG/DL (2.6-7.2) Phosphorus Level 4.1 MG/DL (2.5-4.9) 4.3 MG/DL (2.5-4.9) 3.7 MG/DL (2.5-4.9) Magnesium Level 2.0 MG/DL (1.8-2.4) 1.9 MG/DL (1.8-2.4) 1.9 MG/DL (1.8-2.4) Total Bilirubin 0.3 MG/DL (0.2-1.0) 0.4 MG/DL (0.2-1.0) 0.7 MG/DL (0.2-1.0) Aspartate Amino Transf (AST/SGOT) 18 U/L (15-37) 14 U/L (15-37) 14 U/L (15-37) Alanine Aminotransferase (ALT/SGPT) 17 U/L (12-78) 15 U/L (12-78) 16 U/L (12-78) Alkaline Phosphatase 66 U/L (46-116) 58 U/L (46-116) 68 U/L (46-116) Total Protein 6.0 G/DL (6.4-8.2) 5.6 G/DL (6.4-8.2) 5.8 G/DL (6.4-8.2) Albumin 2.8 G/DL (3.4-5.0) 2.4 G/DL (3.4-5.0) 2.6 G/DL (3.4-5.0) Globulin 3.2 g/dL 3.2 g/dL 3.2 g/dL Albumin/Globulin Ratio 0.9 (1.0-2.7) 0.8 (1.0-2.7) 0.8 (1.0-2.7) Carcinoembryonic Antigen 2.3 ng/mL (0.0-4.7) C-Reactive Protein, Quantitative 14.8 mg/dL (0.00-0.90) 15.8 mg/dL (0.00-0.90) Pro-B-Type Natriuretic Peptide 47479 pg/mL (0-125) 9519 pg/mL (0-125) Digoxin Level 0.9 NG/ML (0.5-2.0) 1.4 NG/ML (0.5-2.0) Height (Feet): 5 Height (Inches): 8.00 Weight (Pounds): 147 Objective Physical Exam General: Awake and alert HEENT: NC/AT. EOMI. Neck: Supple Cardiov: RRR. S1 and S2 normal. No murmur appreciated Resp: No cough, wheezing or crackles appreciated Abd: Abdomen is soft, nondistended. Skin: Intact. No abrasions, laceration or rash MSK: Normal tone and bulk. Moving all extremities. Neuro: Awake and alert. Mentating appropriately. Roverto Orourke MD Jun 10, 2019 17:09
--- NOTE | 2019-06-10 17:47 | NUR ---
NURSE NOTES: Patient was not cleared by nephro and cardio. Patient signed AMA form. Dr. Gandhi was made aware.
--- NOTE | 2019-06-10 19:26 | NUR ---
HAND-OFF: Report given to EVETTE Luke.
--- NOTE | 2019-06-10 19:30 | NUR ---
NURSE NOTES: Received pt in bed, AAO x 4. On RA. No c/o of pain/distress. IV on R hand 22g noted, with SL will remove upon d/c. Pt is leaving AMA- signed, belongings with pt signed by previous shift, verified. Side rails x 2. Bed in the lowest, locked, and alarm on. Call light within reach. Will continue to monitor- waiting for [facility] to picker tender pt. was due to arrive around 1845 but not here as of yet.
--- NOTE | 2019-06-10 19:50 | NUR ---
NURSE NOTES: Pt picked up by [facility], VS taken and stable, in no acute distress, IV site removed, gauze applied no bleeding, secured entrance monitor removed, belongings sent with patient including cell phone and director of corporate strategy, pt wearing clothing from home. Assisted pt to [facility] with [facility]. Pt is leaving AMA and returning to [facility] as he was refusing all treatments and recommendations. AMA: SEE AMA FORM.
--- NOTE | 2019-06-12 08:40 | Discharge Summary ---
Discharge Summary Discharge Summary _ DATE OF ADMISSION: 06/05/2019 DATE OF DISCHARGE: 06/10/2019 DISCHARGED BY: Dr Gandhi REASON FOR ADMISSION: 73 years old male with past medical history of COPD, ischemic heart disease, hypertension, hyperlipidemia, TIA, chronic kidney disease, presented for evaluation due to abnormal labs. Patient apparently found to be anemic during the routine labs. He denied lightheadedness , syncope , palpitation. Patient noted to have abnormal renal function tests. He had no difficulty making urine and denied dysuria or hematuria. Upon evaluation vital signs were stable. Laboratory work-up revealed no leukocytosis ,hemoglobin 9.4 ,hematocrit 28, platelet count 190. Potassium 6.1. BUN 93, creatinine 5.3. Glucose 172. Stable LFT. Troponin 0.078. EKG revealed sinus rhythm and prolonged QRS duration , consistent with interventricular conduction delay. T wave inversion in the inferior and lateral leads. No PVC , no ectopy. In emergency department hyperkalemia was treated with insulin ,dextrose, Kayexalate , and bicarbonate. Patient received aspirin. Patient was typed and screened and admitted for further management. CONSULTANTS: posting clerk Dr. Varner GI specialist Dr. Price spring coiler hand Dr. Jones mine production engineer/oncologist Dr. Orourke [facility] COURSE: Patient admitted to telemetry floor. Echocardiogram demonstrated global left ventricular hypokinesis with left ventricular ejection fraction 15 to 20%. No evidence of pericardial effusion, no evidence of left ventricular hypertrophy. Right ventricular systolic pressure of 32. Network Architect closely followed. Troponin remained elevated. According to posting clerk , patient had NSTEMI , likely due to renal failure. He denied chest pain or shortness of breath . Patient had a history of prior myocardial infarction and a newly diagnosed severe cardiomyopathy. Patient refused cardiac catheterization. Guideline directed medical therapy with beta-ly , hydralazine and Isordil continued. Patient was off diuretic and Aldactone due to renal failure. Antiplatelet therapy with aspirin and statin continued. Patient noted to be in atrial flutter with rapid ventricular response , which could be a cause of newly diagnosed cardiomyopathy and /or troponin elevation. Blood pressure was managed with current antihypertensive regimen. Renal parameters and electrolytes were closely monitored, electrolytes corrected as needed , and nephrotoxic's were avoided . Patient required dialysis, coronary angiogram and placement of AICD . However patient refused all interventions. Patient declined renal ultrasound. Creatinine actually improved from 5.3 down to 3.7, and then up again to 4.5. Electrolytes were corrected as needed. Patient was continued on Synthroid . TSH within normal limits. Flomax and Proscar continued . Metformin was hold , given renal failure. Hemoglobin A1c at goal 6.0. Lipid panel stable. Anemia work-up revealed evidence of anemia of iron deficiency . CEA within normal limits. Hemoglobin and hematocrit were closely monitored with goal to keep hemoglobin above 7. Stool for occult blood was positive. GI specialist followed. Anemia work-up was consistent with anemia of chronic disease. Patient declined CT of the abdomen and pelvis as ordered by GI specialist. Bowel regimen instituted. Patient was explained the need for g EGD and colonoscopy , given positive stool OB and anemia . Patient declined procedure. Prior to discharge hemoglobin 9.3, hematocrit 27.6. Patient clinically stabilized and was ready for discharge to senior care facility for continuation of care. Patient was stressed importance of compliance with medication regimen. FINAL DIAGNOSES: NSTEMI , likely due to renal failure History of [place] Newly diagnosed cardiomyopathy with ejection fraction 15 to 20% Atrial flutter with rapid ventricular response Hypertension Acute on chronic renal failure Hyperkalemia Hyperlipidemia Hypothyroidism BPH Diabetes mellitus Noncompliance DISCHARGE MEDICATIONS: See Medication Reconciliation list. DISCHARGE INSTRUCTIONS: Patient was discharged to the senior care facility. Follow up with medical doctor at the facility. I have been assigned to dictate discharge summary for this account. I was not involved in the patient's management. Katy Panchal NP Jun 12, 2019 08:40
== END 2019-06-10 19:55 | DRG 682 ==
LOC: EDUNIT# 19:16 → EDBD 19:16 → EMR 20:12 → 2E 20:20 → EDBEDREQ 06-06 17:46 → 2E 06-07 17:15
DX: N17.9 Acute kidney failure, unspecified (principal); I21.4 Non-ST elevation (NSTEMI) myocardial infarction; E46 Unspecified protein-calorie malnutrition; I42.9 Cardiomyopathy, unspecified; I48.92 Unspecified atrial flutter; E87.5 Hyperkalemia; Z79.82 Long term (current) use of aspirin; Z79.4 Long term (current) use of insulin; Z88.0 Allergy status to penicillin; E11.22 Type 2 diabetes mellitus with diabetic chronic kidney disease; N18.9 Chronic kidney disease, unspecified; D63.1 Anemia in chronic kidney disease; E03.9 Hypothyroidism, unspecified; E78.5 Hyperlipidemia, unspecified; N40.0 Benign prostatic hyperplasia without lower urinary tract symptoms; I25.10 Atherosclerotic heart disease of native coronary artery without angina pectoris; I25.2 Old myocardial infarction; K80.20 Calculus of gallbladder without cholecystitis without obstruction; D69.6 Thrombocytopenia, unspecified; Z91.19 Patient's noncompliance with other medical treatment and regimen
CPT/HCPCS: 36415; 80048; 80053; 80061; 80162; 81001; 82270; 82378; 82533; 82550; 82607; 82728; 82746; 82962; 82977; 83036; 83540; 83550; 83735; 83880; 84100; 84300; 84443; 84484; 84550; 85007; 85025; 86140; 86850; 86900; 86901; 87081; 89050; 93005; 93306; 96361; 96374; 96375; 97803; 99285; 99291; J1815; J2405; J7030

== ENCOUNTER 2019-07-27 10:40 | Inpatient (IN) | payer MEDICARE, OTHER ==
[~2019-07-27] VITALS: Ht 172.7 cm; Wt 47.2 kg
[2019-07-27] VITALS (15 sets, daily range): BP systolic 89–105; BP diastolic 53–70
[~2019-07-27 10:40] MED LIST changes: +APRESOLINE50 MG ORAL; +COLACE100 MG ORAL; +NOVOLOG100 UNIT/4 SQ; +PROTONIX20 MG ORAL
--- NOTE | 2019-07-27 10:43 | Emergency Room Report ---
History of Present Illness General Source: Patient Present Illness HPI Patient is a 73-year-old male brought in by EMS after increased altered mental status. Patient had been noted to be more lethargic at home. He reports having recent cough for the past 3 days. Had not been having any fever per facility. Patient was sent in for further evaluation of altered mental status. Patient was noted to have unremarkable blood sugar at the facility.Have increased cough with yellow sputum. Patient was sent in from [facility]. Previous history of pneumonia approximately 2 months ago. Patient's primary care physician is Dr. Gandhi. Allergies: Coded Allergies: CASTANON (Unverified Allergy, Mild, 06/07/19) APPLE (Unverified Allergy, Unknown, 06/07/19) BANANA (Unverified Allergy, Unknown, 06/07/19) CHOCOLATE FLAVOR (Unverified Allergy, Unknown, 06/07/19) PENICILLINS (Verified Allergy, Unknown, 07/12/17) POTATO (Unverified Allergy, Unknown, 06/07/19) Patient History Past Medical History: see triage record Reviewed Nursing Documentation: PMH: Agreed; PSxH: Agreed Nursing Documentation-PMH Hx Cardiac Problems: Yes - atherosclerotic heart disease, [place] Hx Hypertension: Yes - ANEMIA, DYSPHAGIA Hx COPD: Yes Hx Diabetes: Yes - DMII Hx Cancer: No Hx Gastrointestinal Problems: Yes Hx Neurological Problems: Yes Hx Cerebrovascular Accident: Yes Hx Transient Ischemic Attacks: Yes Hx Dementia: Yes Review of Systems All Other Systems: negative except mentioned in HPI Physical Exam Sp02 EP Interpretation: reviewed, normal General Appearance: normal inspection, well appearing, no apparent distress, alert, GCS 15 Head: atraumatic ENT: normal ENT inspection, hearing grossly normal, normal voice Neck: normal inspection, full range of motion, supple, no bony tend Respiratory: normal inspection, lungs clear, normal breath sounds, no respiratory distress, no retraction, no wheezing Cardiovascular #1: regular rate, rhythm, no edema Gastrointestinal: normal inspection, normal bowel sounds, non tender, soft, no guarding, no hernia Genitourinary: no CVA tenderness Musculoskeletal: normal inspection, back normal, normal range of motion Neurologic: alert, motor strength/tone normal, high pressure boiler operator III-XII nml as tested, oriented x3, responsive, speech normal, normal inspection Psychiatric: normal inspection, judgement/insight normal, mood/affect normal Medical Decision Making Diagnostic Impression: Primary Impression: Pneumonia Additional Impressions: CHF (congestive heart failure) Elevated troponin ER Course Patient presented for shortness of breath. Differential diagnosis included but was not limited to pneumonia, chf, myocardial infarction, fluid overload, renal insufficiency among others. Patient was noted to have no chest pain. CXR showed bilateral small effusion and vascular congestion. Troponin was noted to be elevated consistent with non ST elevation [place]. Patient BNP and creatinine were also elevated. Patient does not have any definite known exposure to coronavirus. Dr. Phillip Gandhi was contacted for inpatient management due to primary care physician. EKG Diagnostic Results Rate: normal Rhythm: NSR ST Segments: other - left bundle branch block Status: unchanged Disposition: ADMITTED INPATIENT Condition: Serious Sergo Merino MD Jul 27, 2019 10:43
[2019-07-27 11:42] LABS: HEMATOCRIT 24.4 % (42.0-52.0); HEMOGLOBIN 8.1 G/DL (14.2-18.0); MEAN CORPUSCULAR VOLUME 84 FL (80-99); PLATELET COUNT 271 K/UL (150-450); RED BLOOD COUNT 2.89 M/UL (4.70-6.10); RED CELL DISTRIBUTION WIDTH 12.9 % (11.6-14.8)
[2019-07-27] MEDS ORDERED: Azithromycin 500 MG in D5W 275 ML IVPB ONE (11:45)
[2019-07-27 11:47] LABS: WHITE BLOOD COUNT 23.8 K/UL (4.8-10.8)
[2019-07-27 12:04] LABS: ALANINE AMINOTRANSFERASE 40 U/L (12-78); ALBUMIN 2.9 G/DL (3.4-5.0); ALBUMIN/GLOBULIN RATIO 0.7 (1.0-2.7); ALKALINE PHOSPHATASE 117 U/L (46-116); ASPARTATE AMINO TRANSFERASE 46 U/L (15-37); BILIRUBIN,TOTAL 1.2 MG/DL (0.2-1.0); BLOOD UREA NITROGEN 110 mg/dL (7-18); CALCIUM 8.5 MG/DL (8.5-10.1); CARBON DIOXIDE 22 MMOL/L (21-32); CHLORIDE 101 MMOL/L (98-107); CKMB 2.4 NG/ML (0.0-3.6); CREATINE KINASE 99 U/L (26-308); CREATININE 4.8 MG/DL (0.55-1.30); PHOSPHORUS 5.6 MG/DL (2.5-4.9); POTASSIUM 4.9 MMOL/L (3.5-5.1); SODIUM 137 MMOL/L (136-145)
[2019-07-27 12:05] LABS: BILIRUBIN,DIRECT 0.5 MG/DL (0.0-0.3)
[2019-07-27] MEDS ORDERED: Aspirin Baby 81mg ORAL ONE (12:30)
--- NOTE | 2019-07-27 12:37 | Diagnostic Imaging Report ---
EXAM: XR Chest, 1 View CLINICAL HISTORY: SOB TECHNIQUE: Frontal view of the chest. COMPARISON: Chest x-ray, 04/01/19 FINDINGS: Lungs: Bilateral perihilar interstitial prominence and vascular congestion. Right lower lobe airspace disease/consolidation. Hypoventilatory lungs. Pleural space: Small bilateral pleural effusion. No pneumothorax. Heart: Mild cardiomegaly. Mediastinum: Unremarkable. Bones/joints: Unremarkable. IMPRESSION: 1. Bilateral perihilar interstitial prominence and vascular congestion. Right lower lobe airspace disease/consolidation. Small bilateral pleural effusion. May be CHF and/or pneumonia.
[2019-07-27] MEDS ORDERED: ASPIRIN81 M3 PO (13:05)
[2019-07-27] MEDS ORDERED: METOPROLOL TART25 MG ORAL (13:11)
[2019-07-27] MEDS ORDERED: PANTOPRAZOLE SO40 MG ORAL (13:11)
[2019-07-27] MEDS ORDERED: CLOPIDOGREL75 MG ORAL (13:11)
[2019-07-27] MEDS ORDERED: METFORMIN HCL500 M1 ORAL (13:11)
[2019-07-27] MEDS ORDERED: JANUVIA25 MG ORAL (13:11)
[2019-07-27] MEDS ORDERED: COLACE100 MG ORAL (13:11)
[2019-07-27] MEDS ORDERED: FLOMAX0.4 MG ORAL (13:11)
[2019-07-27] MEDS ORDERED: LEVOTHYROXINE75 MCG ORAL (13:11)
[2019-07-27] MEDS ORDERED: FEROSUL325 M1 PO (13:11)
[2019-07-27] MEDS ORDERED: FUROSEMIDE20 M1 ORAL (13:11)
[2019-07-27] MEDS ORDERED: ATORVASTATIN CA20 MG ORAL (13:11)
--- NOTE | 2019-07-27 14:00 | Consultation ---
Consult Note Consult Note asked to niru at the request of Dr Gandhi 73 y old- admitted with Pneumonia Very well known to me from his previous admission\ ER: Patient is a 73-year-old male brought in by EMS after increased altered mental status. Patient had been noted to be more lethargic at home. He reports having recent cough for the past 3 days. Had not been having any fever per facility. Patient was sent in for further evaluation of altered mental status. Patient was noted to have unremarkable blood sugar at the facility.Have increased cough with yellow sputum. Patient was sent in from [facility]. Previous history of pneumonia approximately 2 months ago. Patient's primary care physician is Dr. Gandhi. Allergies: Coded Allergies: CASTANON (Unverified Allergy, Mild, 06/07/19) APPLE (Unverified Allergy, Unknown, 06/07/19) BANANA (Unverified Allergy, Unknown, 06/07/19) CHOCOLATE FLAVOR (Unverified Allergy, Unknown, 06/07/19) PENICILLINS (Verified Allergy, Unknown, 07/12/17) POTATO (Unverified Allergy, Unknown, 06/07/19) Hx Cardiac Problems: Yes - atherosclerotic heart disease, [place] Hx Hypertension: Yes - ANEMIA, DYSPHAGIA Hx COPD: Yes Hx Diabetes: Yes - DMII Hx Gastrointestinal Problems: Yes Hx Neurological Problems: Yes Hx Cerebrovascular Accident: Yes Hx Transient Ischemic Attacks: Yes Hx Dementia: Yes Assessment/Plan (1) Renal failure (ARF), acute on chronic (2) Hyperkalemia (3) DM (diabetes mellitus) (4) Hypothyroid (5) Cardiomyopathy EjFx 15% Acute on chronic renal failure. Anemia of chronic kidney disease. Hyperkalemia. Elevated troponin. History of diabetes mellitus. History of hypothyroidism. needs : Dialysis- Coronary Angio , Defibrillator Refused all previously digoxin slow Hydrate. Anemia work-up. Kayexalate as needed. Monitor renal parameters. Keep the blood pressure and blood sugar in check. Kidney ultrasound. ordered previously 2D echocardiogram. EjFx 15% Urine studies. Hold Metformin and Lasix. Per orders. Ti Jones MD Jul 27, 2019 14:00
[2019-07-27 16:10] LABS: APPEARANCE,URINE CLEAR; BILIRUBIN, URINE NEGATIVE (NEGATIVE); GLUCOSE, URINE (UA) NEGATIVE (NEGATIVE); KETONES,URINE NEGATIVE (NEGATIVE); LEUKOCYTE ESTERASE ,URINE NEGATIVE (NEGATIVE); NITRITE,URINE NEGATIVE (NEGATIVE); PH,URINE 5 (4.5-8.0); PROTEIN,URINE 1+ (NEGATIVE); UROBILINOGEN,URINE 1 MG/DL (0.0-1.0)
[2019-07-27 16:11] LABS: COLOR,URINE YELLOW
[2019-07-27] MEDS ORDERED: Heparin 25,000u/D5W 500ml 500 ML IV SCH (18:15)
[2019-07-27] MEDS ORDERED: Heparin 5000 units/ml inj IV ONE (18:15)
[2019-07-27] MEDS: Doxycycline Monohydrate 100mg ORAL SCH (20:32)
[2019-07-27] MEDS ORDERED: Aztreonam Inj 1 GM in NS 55 ML IVPB ONE (22:00)
[2019-07-28] VITALS (7 sets, daily range): BP systolic 89–111; BP diastolic 59–86
[2019-07-28] MEDS ORDERED: Heparin 25,000u/D5W 500ml 500 ML IV SCH ×2 (02:30→09:45)
[2019-07-28] MEDS ORDERED: Heparin 5000 units/ml inj IV SCH ×2 (02:30→09:45)
[2019-07-28 05:49] LABS: HEMATOCRIT 23.8 % (42.0-52.0); HEMOGLOBIN 7.8 G/DL (14.2-18.0); MEAN CORPUSCULAR VOLUME 85 FL (80-99); PLATELET COUNT 235 K/UL (150-450); RED BLOOD COUNT 2.79 M/UL (4.70-6.10); RED CELL DISTRIBUTION WIDTH 13.3 % (11.6-14.8); WHITE BLOOD COUNT 12.3 K/UL (4.8-10.8)
[2019-07-28 06:30] LABS: ALANINE AMINOTRANSFERASE 35 U/L (12-78); ALBUMIN 2.7 G/DL (3.4-5.0); ALBUMIN/GLOBULIN RATIO 0.7 (1.0-2.7); ALKALINE PHOSPHATASE 119 U/L (46-116); ANION GAP 16 mmol/L (5-15); ASPARTATE AMINO TRANSFERASE 39 U/L (15-37); BLOOD UREA NITROGEN 105 mg/dL (7-18); CALCIUM 8.6 MG/DL (8.5-10.1); CARBON DIOXIDE 19 MMOL/L (21-32); CHLORIDE 101 MMOL/L (98-107); CHOLESTEROL 102 MG/DL (< 200); CREATININE 5.2 MG/DL (0.55-1.30); FERRITIN 410 NG/ML (8-388); GAMMA GLUTAMYL TRANSPEPTIDASE 29 U/L (5-85); HDL CHOLESTEROL 38 MG/DL (40-60); LACTATE DEHYDROGENASE 222 U/L (81-234); POTASSIUM 4.3 MMOL/L (3.5-5.1); SODIUM 136 MMOL/L (136-145); TRIGLYCERIDES 67 MG/DL (30-150)
[2019-07-28 06:50] LABS: % IRON SATURATION 8 % (15-50); IRON 15 ug/dL (50-175); TOTAL IRON BINDING CAPACITY 187 ug/dL (250-450)
[2019-07-28] MEDS: Tamsulosin 0.4mg cap ORAL SCH ×2 (08:47→18:00)
[2019-07-28] MEDS: Metoprolol Tartrate 12.5mg TAB ORAL SCH ×2 (08:49→21:00)
[2019-07-28] MEDS: Doxycycline Monohydrate 100mg ORAL SCH ×2 (08:51→18:00)
[2019-07-28] MEDS ORDERED: Furosemide 40mg tab ORAL SCH (09:00)
[2019-07-28] MEDS ORDERED: metFORMIN 500mg tab ORAL SCH (09:00)
[2019-07-28] MEDS: Aztreonam Inj 0.5 GM in NS 55 ML IVPB SCH ×2 (10:18→16:57)
[2019-07-28] MEDS: NovoLOG Insulin Flexpen SUBQ SCH ×3 (11:30→21:00)
--- NOTE | 2019-07-28 13:26 | Consultation ---
History of Present Illness General Chief Complaint: Generalized Weakness Present Illness Allergies: Coded Allergies: CASTANON (Unverified Allergy, Mild, 06/07/19) APPLE (Unverified Allergy, Unknown, 06/07/19) BANANA (Unverified Allergy, Unknown, 06/07/19) CHOCOLATE FLAVOR (Unverified Allergy, Unknown, 06/07/19) PENICILLINS (Verified Allergy, Unknown, 07/12/17) POTATO (Unverified Allergy, Unknown, 06/07/19) Medication History Scheduled Atorvastatin Calcium* (Atorvastatin Calcium*), 20 MG ORAL BEDTIME, (Reported) Clopidogrel* (Clopidogrel*), 75 MG ORAL DAILY, (Reported) Docusate Sodium* (Colace*), 250 MG ORAL DAILY, (Reported) Furosemide* (Lasix*), 20 MG ORAL DAILY, (Reported) Levothyroxine Sodium* (Levothyroxine Sodium*), 50 MCG ORAL DAILY, (Reported) Metformin Hcl* (Metformin Hcl*), 500 MG ORAL DAILY, (Reported) Metoprolol Tartrate* (Metoprolol Tartrate*), 25 MG ORAL DAILY, (Reported) Pantoprazole* (Pantoprazole*), 20 MG ORAL DAILY, (Reported) Sitagliptin* (Januvia*), 25 MG ORAL DAILY, (Reported) Tamsulosin HCl (Flomax), 0.4 MG ORAL BID, (Reported) Miscellaneous Medications Aspirin (Aspirin), 81 MG PO, (Reported) Ferrous Sulfate (Ferosul), 325 MG PO, (Reported) Patient History Healthcare decision maker Resuscitation status Full Code Advanced Directive on File Physical Exam Last 24 Hour Vital Signs Date Time Temp Pulse Resp B/P (MAP) Pulse Ox O2 Delivery O2 Flow Rate FiO2 07/28/19 12:00 97.3 95 19 111/71 (84) 100 07/28/19 08:49 97 95/61 07/28/19 08:00 98.2 96 19 95/61 (72) 96 07/28/19 08:00 Room Air Room Air 07/28/19 07:53 95 07/28/19 04:00 Room Air Room Air 07/28/19 04:00 98.2 96 22 108/86 (93) 97 07/28/19 03:38 95 07/28/19 01:10 Room Air 07/28/19 00:38 99 07/28/19 00:30 97.8 100 22 107/86 (93) 96 07/28/19 00:25 98.3 80 17 101/61 100 Room Air 07/28/19 00:00 98.3 88 18 89/59 100 Room Air 07/27/19 23:30 98.3 89 16 89/58 100 Room Air 07/27/19 23:00 98.3 87 18 97/63 100 Room Air 07/27/19 22:30 98.3 85 21 102/67 100 Room Air 07/27/19 22:00 98.3 85 15 103/61 100 Room Air 07/27/19 21:30 98.3 88 19 99/61 100 Room Air 07/27/19 21:00 98.3 90 19 105/70 100 Room Air 07/27/19 20:30 98.3 80 17 101/61 100 Room Air 07/27/19 20:00 98.3 78 14 98/57 100 Room Air 07/27/19 19:30 98.3 78 14 98/57 100 Room Air 07/27/19 17:00 98.3 77 24 91/53 100 Room Air 07/27/19 15:30 98.3 82 17 91/58 100 Room Air 07/27/19 14:20 82 14 97/57 100 Room Air Intake and Output 07/27/19 07/28/19 19:00 07:00 Intake Total 1000 ml 141.1689 ml Balance 1000 ml 141.1689 ml Intake Oral 30 ml IV Total 1000 ml 111.1689 ml # Bowel Movements 2 Laboratory Tests Test 07/27/19 15:17 07/27/19 15:55 07/28/19 01:00 07/28/19 04:30 Troponin I 3.270 ng/mL (0.000-0.056) 2.921 ng/mL (0.000-0.056) Urine Color Yellow Urine Appearance Clear Urine pH 5 (4.5-8.0) Urine Specific [place] 1.015 (1.005-1.035) Urine Protein 1+ (NEGATIVE) H Urine Glucose (UA) Negative (NEGATIVE) Urine Ketones Negative (NEGATIVE) Urine Blood Negative (NEGATIVE) Urine Nitrite Negative (NEGATIVE) Urine Bilirubin Negative (NEGATIVE) Urine Urobilinogen 1 MG/DL (0.0-1.0) H Urine Leukocyte Esterase Negative (NEGATIVE) Urine RBC 0 /HPF (0 - 0) Urine WBC 0 /HPF (0 - 0) Urine Squamous Epithelial Cells Occasional /LPF Urine Bacteria Few /HPF (NONE) Activated Partial Thromboplast Time 60 SEC (23-33) H Ammonia 39 umol/L (11-32) H White Blood Count 12.3 K/UL (4.8-10.8) H Red Blood Count 2.79 M/UL (4.70-6.10) L Hemoglobin 7.8 G/DL (14.2-18.0) L Hematocrit 23.8 % (42.0-52.0) L Mean Corpuscular Volume 85 FL (80-99) Mean Corpuscular Hemoglobin 28.1 PG (27.0-31.0) Mean Corpuscular Hemoglobin Concent 32.9 G/DL (32.0-36.0) Red Cell Distribution Width 13.3 % (11.6-14.8) Platelet Count 235 K/UL (150-450) Mean Platelet Volume 5.2 FL (6.5-10.1) L Neutrophils (%) (Auto) % (45.0-75.0) Lymphocytes (%) (Auto) % (20.0-45.0) Monocytes (%) (Auto) % (1.0-10.0) Eosinophils (%) (Auto) % (0.0-3.0) Basophils (%) (Auto) % (0.0-2.0) Differential Total Cells Counted 100 Neutrophils % (Manual) 84 % (45-75) H Lymphocytes % (Manual) 14 % (20-45) L Monocytes % (Manual) 2 % (1-10) Eosinophils % (Manual) 0 % (0-3) Basophils % (Manual) 0 % (0-2) Band Neutrophils 0 % (0-8) Platelet Estimate Adequate Platelet Morphology Normal Hypochromasia 3+ Anisocytosis 1+ Sodium Level 136 MMOL/L (136-145) Potassium Level 4.3 MMOL/L (3.5-5.1) Chloride Level 101 MMOL/L (98-107) Carbon Dioxide Level 19 MMOL/L (21-32) L Anion Gap 16 mmol/L (5-15) H Blood Urea Nitrogen 105 mg/dL (7-18) H Creatinine 5.2 MG/DL (0.55-1.30) H Estimat Glomerular Filtration Rate 13.3 mL/min (>60) Glucose Level 241 MG/DL (74-106) H Hemoglobin A1c 6.7 % (4.3-6.0) H Uric Acid 11.3 MG/DL (2.6-7.2) H Calcium Level 8.6 MG/DL (8.5-10.1) Phosphorus Level 6.0 MG/DL (2.5-4.9) H Magnesium Level 1.7 MG/DL (1.8-2.4) L Iron Level 15 ug/dL (50-175) L Total Iron Binding Capacity 187 ug/dL (250-450) L Percent Iron Saturation 8 % (15-50) L Unsaturated Iron Binding 172 ug/dL (112-346) Ferritin 410 NG/ML (8-388) H Total Bilirubin 1.0 MG/DL (0.2-1.0) Gamma Glutamyl Transpeptidase 29 U/L (5-85) Aspartate Amino Transf (AST/SGOT) 39 U/L (15-37) H Alanine Aminotransferase (ALT/SGPT) 35 U/L (12-78) Alkaline Phosphatase 119 U/L (46-116) H Lactate Dehydrogenase 222 U/L (81-234) C-Reactive Protein, Quantitative 23.6 mg/dL (0.00-0.90) H Pro-B-Type Natriuretic Peptide > 49536 pg/mL (0-125) H Total Protein 6.8 G/DL (6.4-8.2) Albumin 2.7 G/DL (3.4-5.0) L Globulin 4.1 g/dL Albumin/Globulin Ratio 0.7 (1.0-2.7) L Triglycerides Level 67 MG/DL (30-150) Cholesterol Level 102 MG/DL (< 200) LDL Cholesterol 57 mg/dL (<100) HDL Cholesterol 38 MG/DL (40-60) L Cholesterol/HDL Ratio 2.7 (3.3-4.4) L Vitamin B12 Level 897 PG/ML (193-986) Folate 14.1 NG/ML (8.6-58.9) Thyroid Stimulating Hormone (TSH) 1.615 uiU/mL (0.358-3.740) Digoxin Level < 0.2 NG/ML (0.5-2.0) L Test 07/28/19 08:00 Activated Partial Thromboplast Time 57 SEC (23-33) H Microbiology Date/Time Source Procedure Growth Status 07/27/19 16:30 Rectum Received Height (Feet): 5 Height (Inches): 8.00 Weight (Pounds): 132 Medications Current Medications Medications (Trade) Dose Ordered Sig/Stella Route PRN Reason Start Time Stop Time Status Last Admin Dose Admin Allopurinol (allopurinoL) 300 mg DAILY ORAL 07/28/19 10:00 08/27/19 09:59 Aztreonam 0.5 gm/ Sodium Chloride 55 ml @ 110 mls/hr Q8HR IVPB 07/28/19 08:00 08/04/19 07:59 07/28/19 10:18 Clopidogrel Bisulfate (Plavix) 75 mg DAILY ORAL 07/28/19 09:00 08/27/19 08:59 07/28/19 08:51 Dextrose (Dextrose 50%) 25 ml Q30M PRN IV Hypoglycemia 07/28/19 09:30 10/26/19 09:29 Dextrose (Dextrose 50%) 50 ml Q30M PRN IV Hypoglycemia 07/28/19 09:30 10/26/19 09:29 Doxycycline Monohydrate (Doxycycline Monohydrate) 100 mg BID ORAL 07/27/19 20:00 08/03/19 19:59 07/28/19 08:51 Furosemide (Lasix) 20 mg DAILY ORAL 07/28/19 09:00 08/27/19 08:59 Heparin Sodium/ Dextrose 500 ml @ 19.16 mls/ hr ADJUST PER PROTOCOL IV 07/28/19 09:45 08/26/19 18:14 07/28/19 10:50 Insulin Aspart (NovoLOG) BEFORE MEALS AND HS SUBQ 07/28/19 11:30 10/26/19 11:29 Iron Sucrose 100 mg/Sodium Chloride 60 ml @ 240 mls/hr BEDTIME IV 07/28/19 21:00 08/01/19 21:14 Levothyroxine Sodium (Synthroid) 50 mcg ACBREAKFAST ORAL 07/28/19 06:30 08/27/19 06:29 Metoprolol Tartrate (Lopressor) 12.5 mg Q12HR ORAL 07/28/19 09:00 7/12/20 08:59 Pantoprazole (Protonix) 40 mg DAILY ORAL 07/28/19 09:00 08/27/19 08:59 07/28/19 08:46 Tamsulosin HCl (Flomax) 0.4 mg BID ORAL 07/28/19 09:00 08/27/19 08:59 07/28/19 08:47 Assessment/Plan Assessment/Plan: Hematology Consultation REQ MD: Huy Gandhi Chief Complaint: AMS DOS: 07/28/2019 RFC: Coagulopathy, Anemia severe HPI 73-year-old male well known to me, with history of renal disease, anemia requiring intermittent transfusion, intermittent hyperkalemia presents for evaluation of abnormal lab values, hgb low. On routine labs the patient was found to have hemoglobin of 7.8. He denies any lightheadedness, syncope, palpitations or other distress. His creatinine was elevated at 5.02 with an elevated BUN of 94. He states he has had no difficulty making urine and denies dysuria or hematuria. His potassium was elevated at 5.2, BUN 105. Again he denies any chest pain, palpitations or other discomfort at this time. He is otherwise in his usual state of health and denies any recent fevers, chills, URI symptoms, abdominal pain or cramping, vomiting, diarrhea or rash. He has required transfusion in the past, the last of which was summer 2018. He has never had dialysis. He has been treated for hyperkalemia in the past. Hgb is low, pending ct a/p, dw [place], no bleeding noted, no hemolysis, anemia panel reviewed. is supposed to get defib, hd, angio cath but refusing all PMH: COPD, ischemic heart disease, hypertension, hyperlipidemia, TIAs, CKD PSH: Reviewed Allergies: Penicillin Social Hx: Denies Allergies: Coded Allergies: PENICILLINS (Verified Allergy, Unknown, 07/12/17) Nursing Documentation-PMH Hx Cardiac Problems: Yes - atherosclerotic heart disease, [place] Hx Hypertension: Yes - ANEMIA, DYSPHAGIA Hx COPD: Yes Hx Diabetes: Yes Hx Cancer: No Hx Gastrointestinal Problems: Yes Hx Neurological Problems: Yes Hx Cerebrovascular Accident: Yes Hx Transient Ischemic Attacks: Yes Hx Dementia: Yes Review of Systems All Other Systems: negative except mentioned in HPI Physical Exam General: Awake and alert HEENT: NC/AT. EOMI. Neck: Supple Cardiov: RRR. S1 and S2 normal. No murmur appreciated Resp: No cough, wheezing or crackles appreciated Abd: Abdomen is soft, nondistended. Skin: Intact. No abrasions, laceration or rash MSK: Normal tone and bulk. Moving all extremities. Neuro: Awake and alert. Mentating appropriately. Labs: reviewed Imaging: reviewed Assessment and Recs: # Anemia of iron deficiency, must rule out gi bleed, as hgb has persistently been low --> anemia panel is noted, reviewed prior labs as well --> stool ob positive 06/07 --> ct a/p results pending --> as per gi Dr. Price --> cont on epogen --> hgb trend: 9.3-->8.7 --> ferritin is 410 # Coaguloapthy with elev ptt due to heparin gtt --> monitor as per pharmacy is medication induced --> as per pcards indication # Thrombocytopenia likely reactive process (HISTORY OF) --> meds have been reviewed --> smear noted --> now improved --> plt [id number] # Troponin elevation likely due to renal failure with creatinine of 5.3 as low level and flat. --> as per cards, renal --> Lipitor and Plavix daily and Lopressor 12.5 bid # HTN On Lopressor and Hydralazine 10 q 6 --> cards recs noted --> sbp goal <140 # Hyperkalemia due to renal failure. --> Fu by Dr. Jones. # Hyperlipidemia on Lipitor. # Hypothyroidism on Synthroid. # Benign prostatic hypertrophy --> on Flomax and Proscar. Apprecaite consultation and dw Roverto Tripp MD Jul 28, 2019 13:26
--- NOTE | 2019-07-28 14:04 | Cardiology Progress Note ---
Assessment/Plan Assessment/Plan The patient is seen and examined, full consult note id dictated. Objective Last 24 Hour Vital Signs Date Time Temp Pulse Resp B/P (MAP) Pulse Ox O2 Delivery O2 Flow Rate FiO2 07/28/19 12:00 97.3 95 19 111/71 (84) 100 07/28/19 08:49 97 95/61 07/28/19 08:00 98.2 96 19 95/61 (72) 96 07/28/19 08:00 Room Air Room Air 07/28/19 07:53 95 07/28/19 04:00 Room Air Room Air 07/28/19 04:00 98.2 96 22 108/86 (93) 97 07/28/19 03:38 95 07/28/19 01:10 Room Air 07/28/19 00:38 99 07/28/19 00:30 97.8 100 22 107/86 (93) 96 07/28/19 00:25 98.3 80 17 101/61 100 Room Air 07/28/19 00:00 98.3 88 18 89/59 100 Room Air 07/27/19 23:30 98.3 89 16 89/58 100 Room Air 07/27/19 23:00 98.3 87 18 97/63 100 Room Air 07/27/19 22:30 98.3 85 21 102/67 100 Room Air 07/27/19 22:00 98.3 85 15 103/61 100 Room Air 07/27/19 21:30 98.3 88 19 99/61 100 Room Air 07/27/19 21:00 98.3 90 19 105/70 100 Room Air 07/27/19 20:30 98.3 80 17 101/61 100 Room Air 07/27/19 20:00 98.3 78 14 98/57 100 Room Air 07/27/19 19:30 98.3 78 14 98/57 100 Room Air 07/27/19 17:00 98.3 77 24 91/53 100 Room Air 07/27/19 15:30 98.3 82 17 91/58 100 Room Air 07/27/19 14:20 82 14 97/57 100 Room Air Intake and Output 07/27/19 07/28/19 19:00 07:00 Intake Total 1000 ml 141.1689 ml Balance 1000 ml 141.1689 ml Intake Oral 30 ml IV Total 1000 ml 111.1689 ml # Bowel Movements 2 Laboratory Tests Test 07/27/19 15:17 07/27/19 15:55 07/28/19 01:00 07/28/19 04:30 Troponin I 3.270 ng/mL (0.000-0.056) 2.921 ng/mL (0.000-0.056) Urine Color Yellow Urine Appearance Clear Urine pH 5 (4.5-8.0) Urine Specific [place] 1.015 (1.005-1.035) Urine Protein 1+ (NEGATIVE) H Urine Glucose (UA) Negative (NEGATIVE) Urine Ketones Negative (NEGATIVE) Urine Blood Negative (NEGATIVE) Urine Nitrite Negative (NEGATIVE) Urine Bilirubin Negative (NEGATIVE) Urine Urobilinogen 1 MG/DL (0.0-1.0) H Urine Leukocyte Esterase Negative (NEGATIVE) Urine RBC 0 /HPF (0 - 0) Urine WBC 0 /HPF (0 - 0) Urine Squamous Epithelial Cells Occasional /LPF Urine Bacteria Few /HPF (NONE) Activated Partial Thromboplast Time 60 SEC (23-33) H Ammonia 39 umol/L (11-32) H White Blood Count 12.3 K/UL (4.8-10.8) H Red Blood Count 2.79 M/UL (4.70-6.10) L Hemoglobin 7.8 G/DL (14.2-18.0) L Hematocrit 23.8 % (42.0-52.0) L Mean Corpuscular Volume 85 FL (80-99) Mean Corpuscular Hemoglobin 28.1 PG (27.0-31.0) Mean Corpuscular Hemoglobin Concent 32.9 G/DL (32.0-36.0) Red Cell Distribution Width 13.3 % (11.6-14.8) Platelet Count 235 K/UL (150-450) Mean Platelet Volume 5.2 FL (6.5-10.1) L Neutrophils (%) (Auto) % (45.0-75.0) Lymphocytes (%) (Auto) % (20.0-45.0) Monocytes (%) (Auto) % (1.0-10.0) Eosinophils (%) (Auto) % (0.0-3.0) Basophils (%) (Auto) % (0.0-2.0) Differential Total Cells Counted 100 Neutrophils % (Manual) 84 % (45-75) H Lymphocytes % (Manual) 14 % (20-45) L Monocytes % (Manual) 2 % (1-10) Eosinophils % (Manual) 0 % (0-3) Basophils % (Manual) 0 % (0-2) Band Neutrophils 0 % (0-8) Platelet Estimate Adequate Platelet Morphology Normal Hypochromasia 3+ Anisocytosis 1+ Sodium Level 136 MMOL/L (136-145) Potassium Level 4.3 MMOL/L (3.5-5.1) Chloride Level 101 MMOL/L (98-107) Carbon Dioxide Level 19 MMOL/L (21-32) L Anion Gap 16 mmol/L (5-15) H Blood Urea Nitrogen 105 mg/dL (7-18) H Creatinine 5.2 MG/DL (0.55-1.30) H Estimat Glomerular Filtration Rate 13.3 mL/min (>60) Glucose Level 241 MG/DL (74-106) H Hemoglobin A1c 6.7 % (4.3-6.0) H Uric Acid 11.3 MG/DL (2.6-7.2) H Calcium Level 8.6 MG/DL (8.5-10.1) Phosphorus Level 6.0 MG/DL (2.5-4.9) H Magnesium Level 1.7 MG/DL (1.8-2.4) L Iron Level 15 ug/dL (50-175) L Total Iron Binding Capacity 187 ug/dL (250-450) L Percent Iron Saturation 8 % (15-50) L Unsaturated Iron Binding 172 ug/dL (112-346) Ferritin 410 NG/ML (8-388) H Total Bilirubin 1.0 MG/DL (0.2-1.0) Gamma Glutamyl Transpeptidase 29 U/L (5-85) Aspartate Amino Transf (AST/SGOT) 39 U/L (15-37) H Alanine Aminotransferase (ALT/SGPT) 35 U/L (12-78) Alkaline Phosphatase 119 U/L (46-116) H Lactate Dehydrogenase 222 U/L (81-234) C-Reactive Protein, Quantitative 23.6 mg/dL (0.00-0.90) H Pro-B-Type Natriuretic Peptide > 80262 pg/mL (0-125) H Total Protein 6.8 G/DL (6.4-8.2) Albumin 2.7 G/DL (3.4-5.0) L Globulin 4.1 g/dL Albumin/Globulin Ratio 0.7 (1.0-2.7) L Triglycerides Level 67 MG/DL (30-150) Cholesterol Level 102 MG/DL (< 200) LDL Cholesterol 57 mg/dL (<100) HDL Cholesterol 38 MG/DL (40-60) L Cholesterol/HDL Ratio 2.7 (3.3-4.4) L Vitamin B12 Level 897 PG/ML (193-986) Folate 14.1 NG/ML (8.6-58.9) Thyroid Stimulating Hormone (TSH) 1.615 uiU/mL (0.358-3.740) Digoxin Level < 0.2 NG/ML (0.5-2.0) L Test 07/28/19 08:00 Activated Partial Thromboplast Time 57 SEC (23-33) H Microbiology Date/Time Source Procedure Growth Status 07/27/19 16:30 Rectum Received Alex Mercedes MD Jul 28, 2019 14:04
[2019-07-28] MEDS ORDERED: LORazepam 0.5mg tab ORAL PRN (14:14)
--- NOTE | 2019-07-28 14:24 | Consultation ---
History of Present Illness General Date patient seen: Jul 28, 2019 Chief Complaint: Generalized Weakness Present Illness HPI 73 y/o M with hx of CAD, anemia, CKD, hypothyroidism, Cardiomyopathy EF 15% s/p AICD, CVA/TIA, Dementia, dysphagia, Dm2, COPD, PNA (2 months ago), SNF resident ([facility]) presented to ED on 07/27/19 due to altered mental status , lethargy, 3 days of productive cough of yellow sputum No reported fever Allergies: Coded Allergies: CASTANON (Unverified Allergy, Mild, 06/07/19) APPLE (Unverified Allergy, Unknown, 06/07/19) BANANA (Unverified Allergy, Unknown, 06/07/19) CHOCOLATE FLAVOR (Unverified Allergy, Unknown, 06/07/19) PENICILLINS (Verified Allergy, Unknown, 07/12/17) POTATO (Unverified Allergy, Unknown, 06/07/19) Medication History Scheduled Atorvastatin Calcium* (Atorvastatin Calcium*), 20 MG ORAL BEDTIME, (Reported) Clopidogrel* (Clopidogrel*), 75 MG ORAL DAILY, (Reported) Docusate Sodium* (Colace*), 250 MG ORAL DAILY, (Reported) Furosemide* (Lasix*), 20 MG ORAL DAILY, (Reported) Levothyroxine Sodium* (Levothyroxine Sodium*), 50 MCG ORAL DAILY, (Reported) Metformin Hcl* (Metformin Hcl*), 500 MG ORAL DAILY, (Reported) Metoprolol Tartrate* (Metoprolol Tartrate*), 25 MG ORAL DAILY, (Reported) Pantoprazole* (Pantoprazole*), 20 MG ORAL DAILY, (Reported) Sitagliptin* (Januvia*), 25 MG ORAL DAILY, (Reported) Tamsulosin HCl (Flomax), 0.4 MG ORAL BID, (Reported) Miscellaneous Medications Aspirin (Aspirin), 81 MG PO, (Reported) Ferrous Sulfate (Ferosul), 325 MG PO, (Reported) Patient History Healthcare decision maker Resuscitation status Full Code Advanced Directive on File Patient History Narrative Pmhx: as above SHx: reviewed Fhx: non contributory Review of Systems All Other Systems: negative except mentioned in HPI Physical Exam Physical Exam Narrative General Appearance: normal inspection, well appearing, no apparent distress, alert Head: atraumatic ENT: normal ENT inspection, hearing grossly normal, normal voice Neck: normal inspection, full range of motion, supple, no bony tend Respiratory: normal inspection, lungs clear, normal breath sounds, no respiratory distress, no retraction, no wheezing Cardiovascular #1: regular rate, rhythm, no edema Gastrointestinal: normal inspection, normal bowel sounds, non tender, soft, no guarding, no hernia Genitourinary: no CVA tenderness Musculoskeletal: normal inspection, back normal, normal range of motion Last 24 Hour Vital Signs Date Time Temp Pulse Resp B/P (MAP) Pulse Ox O2 Delivery O2 Flow Rate FiO2 07/28/19 12:00 97.3 95 19 111/71 (84) 100 07/28/19 08:49 97 95/61 07/28/19 08:00 98.2 96 19 95/61 (72) 96 07/28/19 08:00 Room Air Room Air 07/28/19 07:53 95 07/28/19 04:00 Room Air Room Air 07/28/19 04:00 98.2 96 22 108/86 (93) 97 07/28/19 03:38 95 07/28/19 01:10 Room Air 07/28/19 00:38 99 07/28/19 00:30 97.8 100 22 107/86 (93) 96 07/28/19 00:25 98.3 80 17 101/61 100 Room Air 07/28/19 00:00 98.3 88 18 89/59 100 Room Air 07/27/19 23:30 98.3 89 16 89/58 100 Room Air 07/27/19 23:00 98.3 87 18 97/63 100 Room Air 07/27/19 22:30 98.3 85 21 102/67 100 Room Air 07/27/19 22:00 98.3 85 15 103/61 100 Room Air 07/27/19 21:30 98.3 88 19 99/61 100 Room Air 07/27/19 21:00 98.3 90 19 105/70 100 Room Air 07/27/19 20:30 98.3 80 17 101/61 100 Room Air 07/27/19 20:00 98.3 78 14 98/57 100 Room Air 07/27/19 19:30 98.3 78 14 98/57 100 Room Air 07/27/19 17:00 98.3 77 24 91/53 100 Room Air 07/27/19 15:30 98.3 82 17 91/58 100 Room Air 07/27/19 14:20 82 14 97/57 100 Room Air Intake and Output 07/27/19 07/28/19 19:00 07:00 Intake Total 1000 ml 141.1689 ml Balance 1000 ml 141.1689 ml Intake Oral 30 ml IV Total 1000 ml 111.1689 ml # Bowel Movements 2 Laboratory Tests Test 07/27/19 15:17 07/27/19 15:55 07/28/19 01:00 07/28/19 04:30 Troponin I 3.270 ng/mL (0.000-0.056) 2.921 ng/mL (0.000-0.056) Urine Color Yellow Urine Appearance Clear Urine pH 5 (4.5-8.0) Urine Specific [place] 1.015 (1.005-1.035) Urine Protein 1+ (NEGATIVE) H Urine Glucose (UA) Negative (NEGATIVE) Urine Ketones Negative (NEGATIVE) Urine Blood Negative (NEGATIVE) Urine Nitrite Negative (NEGATIVE) Urine Bilirubin Negative (NEGATIVE) Urine Urobilinogen 1 MG/DL (0.0-1.0) H Urine Leukocyte Esterase Negative (NEGATIVE) Urine RBC 0 /HPF (0 - 0) Urine WBC 0 /HPF (0 - 0) Urine Squamous Epithelial Cells Occasional /LPF Urine Bacteria Few /HPF (NONE) Activated Partial Thromboplast Time 60 SEC (23-33) H Ammonia 39 umol/L (11-32) H White Blood Count 12.3 K/UL (4.8-10.8) H Red Blood Count 2.79 M/UL (4.70-6.10) L Hemoglobin 7.8 G/DL (14.2-18.0) L Hematocrit 23.8 % (42.0-52.0) L Mean Corpuscular Volume 85 FL (80-99) Mean Corpuscular Hemoglobin 28.1 PG (27.0-31.0) Mean Corpuscular Hemoglobin Concent 32.9 G/DL (32.0-36.0) Red Cell Distribution Width 13.3 % (11.6-14.8) Platelet Count 235 K/UL (150-450) Mean Platelet Volume 5.2 FL (6.5-10.1) L Neutrophils (%) (Auto) % (45.0-75.0) Lymphocytes (%) (Auto) % (20.0-45.0) Monocytes (%) (Auto) % (1.0-10.0) Eosinophils (%) (Auto) % (0.0-3.0) Basophils (%) (Auto) % (0.0-2.0) Differential Total Cells Counted 100 Neutrophils % (Manual) 84 % (45-75) H Lymphocytes % (Manual) 14 % (20-45) L Monocytes % (Manual) 2 % (1-10) Eosinophils % (Manual) 0 % (0-3) Basophils % (Manual) 0 % (0-2) Band Neutrophils 0 % (0-8) Platelet Estimate Adequate Platelet Morphology Normal Hypochromasia 3+ Anisocytosis 1+ Sodium Level 136 MMOL/L (136-145) Potassium Level 4.3 MMOL/L (3.5-5.1) Chloride Level 101 MMOL/L (98-107) Carbon Dioxide Level 19 MMOL/L (21-32) L Anion Gap 16 mmol/L (5-15) H Blood Urea Nitrogen 105 mg/dL (7-18) H Creatinine 5.2 MG/DL (0.55-1.30) H Estimat Glomerular Filtration Rate 13.3 mL/min (>60) Glucose Level 241 MG/DL (74-106) H Hemoglobin A1c 6.7 % (4.3-6.0) H Uric Acid 11.3 MG/DL (2.6-7.2) H Calcium Level 8.6 MG/DL (8.5-10.1) Phosphorus Level 6.0 MG/DL (2.5-4.9) H Magnesium Level 1.7 MG/DL (1.8-2.4) L Iron Level 15 ug/dL (50-175) L Total Iron Binding Capacity 187 ug/dL (250-450) L Percent Iron Saturation 8 % (15-50) L Unsaturated Iron Binding 172 ug/dL (112-346) Ferritin 410 NG/ML (8-388) H Total Bilirubin 1.0 MG/DL (0.2-1.0) Gamma Glutamyl Transpeptidase 29 U/L (5-85) Aspartate Amino Transf (AST/SGOT) 39 U/L (15-37) H Alanine Aminotransferase (ALT/SGPT) 35 U/L (12-78) Alkaline Phosphatase 119 U/L (46-116) H Lactate Dehydrogenase 222 U/L (81-234) C-Reactive Protein, Quantitative 23.6 mg/dL (0.00-0.90) H Pro-B-Type Natriuretic Peptide > 16150 pg/mL (0-125) H Total Protein 6.8 G/DL (6.4-8.2) Albumin 2.7 G/DL (3.4-5.0) L Globulin 4.1 g/dL Albumin/Globulin Ratio 0.7 (1.0-2.7) L Triglycerides Level 67 MG/DL (30-150) Cholesterol Level 102 MG/DL (< 200) LDL Cholesterol 57 mg/dL (<100) HDL Cholesterol 38 MG/DL (40-60) L Cholesterol/HDL Ratio 2.7 (3.3-4.4) L Vitamin B12 Level 897 PG/ML (193-986) Folate 14.1 NG/ML (8.6-58.9) Thyroid Stimulating Hormone (TSH) 1.615 uiU/mL (0.358-3.740) Digoxin Level < 0.2 NG/ML (0.5-2.0) L Test 07/28/19 08:00 Activated Partial Thromboplast Time 57 SEC (23-33) H Microbiology Date/Time Source Procedure Growth Status 07/27/19 16:30 Rectum Received Height (Feet): 5 Height (Inches): 8.00 Weight (Pounds): 132 Medications Current Medications Medications (Trade) Dose Ordered Sig/Stella Route PRN Reason Start Time Stop Time Status Last Admin Dose Admin Allopurinol (allopurinoL) 300 mg DAILY ORAL 07/28/19 10:00 08/27/19 09:59 Aztreonam 0.5 gm/ Sodium Chloride 55 ml @ 110 mls/hr Q8HR IVPB 07/28/19 08:00 08/04/19 07:59 07/28/19 10:18 Clopidogrel Bisulfate (Plavix) 75 mg DAILY ORAL 07/28/19 09:00 08/27/19 08:59 07/28/19 08:51 Dextrose (Dextrose 50%) 25 ml Q30M PRN IV Hypoglycemia 07/28/19 09:30 10/26/19 09:29 Dextrose (Dextrose 50%) 50 ml Q30M PRN IV Hypoglycemia 07/28/19 09:30 10/26/19 09:29 Doxycycline Monohydrate (Doxycycline Monohydrate) 100 mg BID ORAL 07/27/19 20:00 08/03/19 19:59 07/28/19 08:51 Furosemide (Lasix) 20 mg DAILY ORAL 07/28/19 09:00 08/27/19 08:59 Heparin Sodium/ Dextrose 500 ml @ 19.16 mls/ hr ADJUST PER PROTOCOL IV 07/28/19 09:45 08/26/19 18:14 07/28/19 10:50 Insulin Aspart (NovoLOG) BEFORE MEALS AND HS SUBQ 07/28/19 11:30 10/26/19 11:29 Iron Sucrose 100 mg/Sodium Chloride 60 ml @ 240 mls/hr BEDTIME IV 07/28/19 21:00 08/01/19 21:14 Levothyroxine Sodium (Synthroid) 50 mcg ACBREAKFAST ORAL 07/28/19 06:30 08/27/19 06:29 Metoprolol Tartrate (Lopressor) 12.5 mg Q12HR ORAL 07/28/19 09:00 10/26/19 08:59 Pantoprazole (Protonix) 40 mg DAILY ORAL 07/28/19 09:00 08/27/19 08:59 07/28/19 08:46 Tamsulosin HCl (Flomax) 0.4 mg BID ORAL 07/28/19 09:00 08/27/19 08:59 07/28/19 08:47 Assessment/Plan Assessment/Plan: Abx: Azithromycin x1 07/26 Doxycycline 07/26- Aztreonam 07/26- Assessment: Afebrile Leukocytosis, improving Lymphopenia Pnuemonia- HAP vs COVID19 (no reported COVID19 at pt's SNF so far) Cough- at [facility] CHF exacerbation -CXR: Bilateral perihilar interstitial prominence and vascular congestion. Right lower lobe airspace disease/consolidation. Small bilateral pleural effusion. May be CHF and/or pneumonia. Acute on chronic encephalopathy CAD anemia CKD hypothyroidism Cardiomyopathy EF 15% s/p AICD CVA/TIA Dementia dysphagia Dm2 COPD hx of PNA (2 months ago) SNF resident ([facility]) Plan: -Continue empiric Aztreonam and Doxycycline #2 and add empiric IV Vancomycin -f/u cx -Monitor CBC/CMP, temperaturse -sp cx (not induced), legionella ag urine -f/u SARS-COV2 PCR; if negative, will send a 2nd test -COVID19 precautions (droplets/contact) Thank you for consulting [facility]. Will continue to follow along wiht you. Ana Lilia Gaines M.D. Jul 28, 2019 14:24
--- NOTE | 2019-07-28 14:28 | Nephrology Progress Note ---
Assessment/Plan Problem List: (1) Renal failure (ARF), acute on chronic (2) Cardiomyopathy (3) Elevated troponin (4) Pneumonia (5) Anemia Assessment Renal failure (ARF), acute on chronic DM (diabetes mellitus) Hypothyroid Cardiomyopathy EjFx 15% Anemia of chronic kidney disease. Elevated troponin. Plan 73 y old- admitted with Pneumonia As per previous admission records indicate, patient needs Dialysis- Coronary Angio , Defibrillator Refused all previously Will entertain the dialysis option, hopefully the patient will be agreeable Beta-blockers nitrates Plavix Kayexalate as needed. Monitor renal parameters. Keep the blood pressure and blood sugar in check. Kidney ultrasound. ordered previously 2D echocardiogram. EjFx 15% Urine studies. Hold Metformin and Lasix. Per orders. Subjective ROS Limited/Unobtainable: No Constitutional: Reports: malaise, weakness Objective Objective Last 24 Hour Vital Signs Date Time Temp Pulse Resp B/P (MAP) Pulse Ox O2 Delivery O2 Flow Rate FiO2 07/28/19 12:00 97.3 95 19 111/71 (84) 100 07/28/19 08:49 97 95/61 07/28/19 08:00 98.2 96 19 95/61 (72) 96 07/28/19 08:00 Room Air Room Air 07/28/19 07:53 95 07/28/19 04:00 Room Air Room Air 07/28/19 04:00 98.2 96 22 108/86 (93) 97 07/28/19 03:38 95 07/28/19 01:10 Room Air 07/28/19 00:38 99 07/28/19 00:30 97.8 100 22 107/86 (93) 96 07/28/19 00:25 98.3 80 17 101/61 100 Room Air 07/28/19 00:00 98.3 88 18 89/59 100 Room Air 07/27/19 23:30 98.3 89 16 89/58 100 Room Air 07/27/19 23:00 98.3 87 18 97/63 100 Room Air 07/27/19 22:30 98.3 85 21 102/67 100 Room Air 07/27/19 22:00 98.3 85 15 103/61 100 Room Air 07/27/19 21:30 98.3 88 19 99/61 100 Room Air 4/12/20 21:00 98.3 90 19 105/70 100 Room Air 07/27/19 20:30 98.3 80 17 101/61 100 Room Air 07/27/19 20:00 98.3 78 14 98/57 100 Room Air 07/27/19 19:30 98.3 78 14 98/57 100 Room Air 07/27/19 17:00 98.3 77 24 91/53 100 Room Air 07/27/19 15:30 98.3 82 17 91/58 100 Room Air Intake and Output 07/27/19 07/28/19 19:00 07:00 Intake Total 1000 ml 141.1689 ml Balance 1000 ml 141.1689 ml Intake Oral 30 ml IV Total 1000 ml 111.1689 ml # Bowel Movements 2 Current Medications Medications (Trade) Dose Ordered Sig/Stella Route PRN Reason Start Time Stop Time Status Last Admin Dose Admin Allopurinol (allopurinoL) 300 mg DAILY ORAL 07/28/19 10:00 08/27/19 09:59 Aztreonam 1 gm/ Sodium Chloride 55 ml @ 110 mls/hr Q8HR IVPB 07/28/19 22:00 08/04/19 21:59 Clopidogrel Bisulfate (Plavix) 75 mg DAILY ORAL 07/28/19 09:00 08/27/19 08:59 07/28/19 08:51 Dextrose (Dextrose 50%) 25 ml Q30M PRN IV Hypoglycemia 07/28/19 09:30 10/26/19 09:29 Dextrose (Dextrose 50%) 50 ml Q30M PRN IV Hypoglycemia 07/28/19 09:30 10/26/19 09:29 Doxycycline Monohydrate (Doxycycline Monohydrate) 100 mg BID ORAL 07/27/19 20:00 08/03/19 19:59 07/28/19 08:51 Furosemide (Lasix) 20 mg DAILY ORAL 07/28/19 09:00 08/27/19 08:59 Heparin Sodium/ Dextrose 500 ml @ 19.16 mls/ hr ADJUST PER PROTOCOL IV 07/28/19 09:45 08/26/19 18:14 07/28/19 10:50 Insulin Aspart (NovoLOG) BEFORE MEALS AND HS SUBQ 07/28/19 11:30 10/26/19 11:29 Iron Sucrose 100 mg/Sodium Chloride 60 ml @ 240 mls/hr BEDTIME IV 07/28/19 21:00 08/01/19 21:14 Levothyroxine Sodium (Synthroid) 50 mcg ACBREAKFAST ORAL 07/28/19 06:30 08/27/19 06:29 Lorazepam (Ativan) 0.5 mg Q6H PRN ORAL For Anxiety 07/28/19 14:14 08/04/19 14:13 Memantine (Namenda) 5 mg BID ORAL 07/28/19 18:00 08/27/19 17:59 Metoprolol Tartrate (Lopressor) 12.5 mg Q12HR ORAL 07/28/19 09:00 10/26/19 08:59 Pantoprazole (Protonix) 40 mg DAILY ORAL 07/28/19 09:00 08/27/19 08:59 07/28/19 08:46 Tamsulosin HCl (Flomax) 0.4 mg BID ORAL 07/28/19 09:00 08/27/19 08:59 07/28/19 08:47 Vancomycin HCl (Vanco rx to dose) 1 ea DAILY PRN MISC Per rx protocol 07/28/19 14:30 08/27/19 14:29 Laboratory Tests 07/27/19 15:17: Troponin I 3.270H 07/27/19 15:55: Urine Color Yellow, Urine Appearance Clear, Urine pH 5, Urine Specific [place] 1.015, Urine Protein 1+H, Urine Glucose (UA) Negative, Urine Ketones Negative, Urine Blood Negative, Urine Nitrite Negative, Urine Bilirubin Negative, Urine Urobilinogen 1H, Urine Leukocyte Esterase Negative, Urine RBC 0, Urine WBC 0, Urine Squamous Epithelial Cells Occasional, Urine Bacteria Few 07/28/19 01:00: Activated Partial Thromboplast Time 60H, Ammonia 39H 07/28/19 04:30: Troponin I 2.921H, White Blood Count 12.3H, Red Blood Count 2.79L, Hemoglobin 7.8L, Hematocrit 23.8L, Mean Corpuscular Volume 85, Mean Corpuscular Hemoglobin 28.1, Mean Corpuscular Hemoglobin Concent 32.9, Red Cell Distribution Width 13.3 , Platelet Count 235, Mean Platelet Volume 5.2L, Neutrophils (%) (Auto) , Lymphocytes (%) (Auto) , Monocytes (%) (Auto) , Eosinophils (%) (Auto) , Basophils (%) (Auto) , Differential Total Cells Counted 100, Neutrophils % ( Manual) 84H, Lymphocytes % (Manual) 14L, Monocytes % (Manual) 2, Eosinophils % ( Manual) 0, Basophils % (Manual) 0, Band Neutrophils 0, Platelet Estimate Adequate, Platelet Morphology Normal, Hypochromasia 3+, Anisocytosis 1+, Sodium Level 136, Potassium Level 4.3, Chloride Level 101, Carbon Dioxide Level 19L, Anion Gap 16H, Blood Urea Nitrogen 105H, Creatinine 5.2H, Estimat Glomerular Filtration Rate 13.3, Glucose Level 241H, Hemoglobin A1c 6.7H, Uric Acid 11.3H, Calcium Level 8.6, Phosphorus Level 6.0H, Magnesium Level 1.7L, Iron Level 15L, Total Iron Binding Capacity 187L, Percent Iron Saturation 8L, Unsaturated Iron Binding 172, Ferritin 410H, Total Bilirubin 1.0, Gamma Glutamyl Transpeptidase 29, Aspartate Amino Transf (AST/SGOT) 39H, Alanine Aminotransferase (ALT/SGPT) 35, Alkaline Phosphatase 119H, Lactate Dehydrogenase 222, C-Reactive Protein, Quantitative 23.6H, Pro-B-Type Natriuretic Peptide > 91509R, Total Protein 6.8, Albumin 2.7L, Globulin 4.1, Albumin/Globulin Ratio 0.7L, Triglycerides Level 67 , Cholesterol Level 102, LDL Cholesterol 57, HDL Cholesterol 38L, Cholesterol/ HDL Ratio 2.7L, Vitamin B12 Level 897, Folate 14.1, Thyroid Stimulating Hormone (TSH) 1.615, Digoxin Level < 0.2L 07/28/19 08:00: Activated Partial Thromboplast Time 57H Height (Feet): 5 Height (Inches): 8.00 Weight (Pounds): 132 General Appearance: no apparent distress, lethargic Cardiovascular: tachycardia Respiratory/Chest: decreased breath sounds Abdomen: soft Ti Jones MD Jul 28, 2019 14:28
[2019-07-28] MEDS: Nitroglycerin Patch 0.4mg TDERMAL SCH (15:00)
--- NOTE | 2019-07-28 15:45 | Consultation ---
DATE OF CONSULTATION: 07/28/2019 PULMONARY CONSULTATION CONSULTING PHYSICIAN: Melvin Wells M.D. HISTORY OF PRESENT ILLNESS: This is a 73-year-old male who came to the hospital, brought in by paramedics with altered mental status. Patient has been found to be lethargic. He also reports having a cough and fever. He reported cough with phlegm production. He is a alf resident at [facility]. Patient has multiple allergies to food ingredients as well as to penicillin. PAST MEDICAL HISTORY: Chronic anemia, dysphagia, diabetes mellitus, previous CVA, and dementia. REVIEW OF SYSTEMS: Unreliable. PHYSICAL EXAMINATION: GENERAL: Reveals a 73-year-old male. Current saturation on room air 94%. Blood pressure is 110/80, heart rate is 84, respirations are 20, he is afebrile. HEENT: Unremarkable. CHEST: Clear breath sounds bilaterally with normal heart sounds. ABDOMEN: Soft. LABORATORY AND DIAGNOSTIC DATA: White count now 12.3, hemoglobin now is 7.8. Chemistry notable for creatinine of 5.2. Uric acid 11, phosphorus 6, magnesium 1.7. Troponin 3.27, which has gone up from initial. X-ray chest shows bilateral lower lobe interstitial infiltrates as well as probable right lung pneumonia. IMPRESSION: 1. Pneumonia. 2. Rule out COVID-19. 3. Diabetes mellitus. 4. Previous CVA. DISCUSSION: Admit to the hospital. Agree with intravenous heparin for acute coronary syndrome. Diabetes monitoring. Continue beta blockers. DVT prophylaxis with IV heparin. Broad-spectrum antibiotics and Plaquenil. Follow carefully. Continue oxygen monitoring. Currently saturating well on room air. Melvin Wells M.D. DR: ASHLEY JOB#: [id number] CC:
--- NOTE | 2019-07-28 15:59 | Consultation ---
DATE OF CONSULTATION: 07/28/2019 CONSULTING PHYSICIAN: Deric Price M.D. CHIEF COMPLAINT: Anemia. HISTORY OF PRESENT ILLNESS: Most of history per chart. This is a 73-year-old retirement patient known to me from last admission. Patient has history of chronic kidney disease, chronic anemia. Last admission, he had a stool OB positive x1, but his hemoglobin was stable. He was admitted this time with altered mental status. He was found to be profoundly anemic again. So, GI consult requested for evaluation. PAST MEDICAL HISTORY: 1. Coronary artery disease and NH. 2. Anemia, chronic. 3. Renal failure, on dialysis. 4. Hypothyroidism. 5. History of CBD stone, status post ERCP. ALLERGIES: Multiple allergies. Food allergies including apple, banana, beans, chocolate. Also, patient is allergic to penicillin. MEDICATIONS: Please see medication reconciliation list. SOCIAL HISTORY: Currently lives in a retirement. No history of tobacco, alcohol, or drug abuse. FAMILY HISTORY: Noncontributory. REVIEW OF SYSTEMS: A 10-point review of systems was performed and pertinent positives in HPI. PHYSICAL EXAMINATION: VITAL SIGNS: Temperature is 98.2, pulse is 97, respirations 22, blood pressure 95/61. HEENT: Normocephalic, atraumatic. Mild pale conjunctivae. NECK: Supple. No evidence of obvious lymphadenopathy. CARDIOVASCULAR: Regular rate and rhythm. Plus S1-S2. LUNGS: Decreased breath sounds bilaterally based on the supine exam. ABDOMEN: Soft, nontender. No rebound. No guarding. No peritoneal sign. EXTREMITIES: No cyanosis, no clubbing, no edema. LABORATORY DATA: White count is 12, hemoglobin 7.8, hematocrit 23, platelet count is 235. BUN is 105, creatinine is 5.2. Iron saturation is only 8%. ASSESSMENT AND PLAN: This is a 73 years old male with anemia, history of stool OB positive, evidence of iron deficiency. Patient is a dialysis patient, so anemia might be secondary to dialysis. Given active NH with troponin of 3.2, we are going to hold off on any GI procedures unless it becomes medical emergency. At this time, patient is on aspirin and Plavix. Plan will be to monitor hemoglobin and hematocrit. Transfuse as needed to keep hemoglobin above 7. Follow Cardiology recommendation. Continue on PPI daily. Send the repeat stool for OB. Start patient on IV iron. Consider doing endoscopy and colonoscopy if it becomes medical emergency. I want to thank Dr. Phillip Gandhi for this kind referral. Deric Price M.D. DR: TARA JOB#: [id number] CC: Phillip Gandhi D.O.
[2019-07-28] MEDS ORDERED: Vancomycin 1.5gm/NS Premix q24h IVPB SCH (16:00)
--- NOTE | 2019-07-28 17:30 | History and Physical Report ---
DATE OF ADMISSION: 07/27/2019 DATE AND TIME SEEN: On 07/28/2019 at 9 a.m. CONSULTANTS: 1. Ti Jones MD. 2. Ashok Galeana MD. 3. Alex Mercedes MD. 4. Melvin Wells MD. 5. Nata Walker MD. CHIEF COMPLAINT: Shortness of breath, cough, pneumonia, and sepsis. BRIEF HISTORY: This is a 73-year-old male from [facility], who presented with the above-mentioned diagnoses and admitted to [facility] for further care. Currently, slight short of breath in bed, not talking much. REVIEW OF SYSTEMS: Unavailable. PAST MEDICAL HISTORY: Includes psych disorder, renal insufficiency, acute renal failure, hypothyroid, diabetes, weakness, hypertension. PAST SURGICAL HISTORY: Unknown. MEDICATIONS: Include insulin, allopurinol, magnesium, clopidogrel, furosemide, metoprolol, tamsulosin, levofloxacin, heparin, and doxycycline. ALLERGIES: Penicillin. SOCIAL HISTORY: No smoking. No alcohol. No intravenous drug abuse. FAMILY HISTORY: Noncontributory. PHYSICAL EXAMINATION: GENERAL: Awake, calm in bed, oriented x1, in no acute distress. VITAL SIGNS: Temperature is 98, pulse 97, respirations 22, blood pressure 95/61. HEENT: Normocephalic, atraumatic. NECK: Trachea midline. CARDIOVASCULAR: No peripheral edema. PULMONARY: Breathing comfortably on room air. ABDOMEN: No apparent wounds. EXTREMITIES: No cyanosis or clubbing. LABORATORY AND DIAGNOSTIC DATA: Labs at this time show white count 12.3, hemoglobin and hematocrit 7.8/23. BMP shows CO2 of 19, BUN and creatinine 105/5.2, glucose 241. INR is 1.0, PTT 60. Urinalysis, 1+ protein. Urine-tox; digoxin less than 2. ASSESSMENT: 1. Shortness of breath. 2. CHF. 3. Pneumonia. 4. Sepsis. 5. Anemia. 6. Elevated troponin. 7. Suspect COVID viral infection. 8. Left bundle-branch block. 9. Diabetes. 10. Psych history. 11. Renal failure. PLAN: 1. O2 and pulmonary treatments as needed. 2. Antibiotics per Infectious Disease. 3. Blood pressure and blood sugar control. 4. Dietary followup. 5. Transfuse p.r.n. 6. Resume home medications. 7. PT and dietary evaluation. 8. CBC and BMP in the morning. Phillip Gandhi D.O. DR: NAFISA JOB#: [id number] CC:
[2019-07-28] MEDS: HydrALAZINE 10mg Tab ORAL SCH (18:00)
[2019-07-28] MEDS: Memantine 5 MG TAB ORAL SCH (18:00)
[2019-07-28] MEDS: Docusate 100mg cap ORAL SCH (18:00)
--- NOTE | 2019-07-28 20:14 | Consultation ---
DATE OF CONSULTATION: 07/28/2019 CONSULTING PHYSICIAN: Nata Coronado M.D. HISTORY OF PRESENT ILLNESS: This is a 73-year-old male patient, brought into the ER of [facility]. Actually he was brought in because he had altered mental status, he was lethargic at home. Had a recent cough for 3 days. He was guarded, altered mental status. By the time he came in, he continued to have a cough with yellow sputum, so rule out COVID-19. He came in from [facility]. He did have pneumonia approximately 2 months prior. When I saw him, he seemed slightly agitated. He was refusing treatments intermittently on the unit. He on interview said "I'm not interested in taking any medications right now, ." MEDICAL HISTORY: Patient has a medical history significant for abscess in the peritoneum, abscess or cellulitis of the groin, renal insufficiency, hypothyroidism, diabetes, cardiomyopathy, hypertension, and elevated troponins. ALLERGIES: He has allergies to penicillin. MEDICATIONS: Psychotropic medications on admission, he takes Ativan as needed. history of psychiatric medication. SUBSTANCE ABUSE HISTORY: Denies drug and alcohol use. FAMILY PSYCHIATRIC HISTORY: Denies. PAIN ASSESSMENT: 0/10 pain. DEVELOPMENTAL PROBLEMS: Denies. SOCIAL HISTORY: Lives in [facility]. Financially supported by [email or web address] and Medicare. STRENGTHS: He is motivated to get better and has a place to live. WEAKNESSES: He is impulsive. He has got minimal support system. MENTAL STATUS EXAMINATION: This is a 73-year-old male. His appearance is disheveled. His attitude is irritable and agitated. His affect is labile. Intellect poor because he does not know current events, does not know last 4 presidents. Mood depressed and anxious. Motor activity, psychomotor agitation. Attention span is poor because he cannot do serial sevens or spell world backwards. Orientation x2. He is oriented to person and place, not to time or situation. Speech is pressured, nonsensical. Thought process, disorganized and illogical. Thought content, auditory hallucinations and paranoid delusions. Perception is poor because of the perceptual disturbance such as auditory hallucinations and paranoid delusions. Abstract reasoning is poor because he does not understand proverbs, only has concrete thinking. Insight is poor because he does not recognize to have psych disorder. Judgment is poor because he cannot make medical decisions for himself. Short-term memory is 3/3 word recall after 5-minute delay with good short-term memory. Long-term memory is intact based on his knowledge of long-term events in his life such as high school that he went to. Gait is normal. DIAGNOSES: 1. Major depressive disorder, severe, recurrent with paranoid features, rule out dementia with psychosis. 2. No secondary. 3. Medical - abscess in the peritoneum, rule out COVID-19, renal failure, respiratory failure, elevated troponin, diabetes, weakness, hypertension. 4. Psychosocial stressors, financial. 5. Functional impairment, severe. PLAN: Treat patient with medication regimen consisting of Namenda 5 mg twice a day and I am also going to treat him with Ativan 0.5 mg every 6 hours p.r.n. anxiety and agitation. Twenty minutes of cognitive behavioral therapy was provided and during that 20 minutes of cognitive behavioral therapy helped this patient to identify his automatic negative thoughts, help him convert his negative thoughts to more positive thoughts to reduce depression, anxiety, and mood lability. Twenty minutes of cognitive behavioral therapy provided. Probably this patient lacks capacity to make his own medical decisions. I will continue to follow this patient throughout hospital course. Chart reviewed. Discussed with staff. Patient is seen and assessed in his room. I would like to thank Dr. Phillip Gandhi for this interesting consultation. Nata Coronado M.D. DR: JARAD JOB#: [id number] CC:
[2019-07-28] MEDS: Iron Sucrose 100 MG in NS 55 ML IV SCH (20:48)
[2019-07-28] MEDS ORDERED: Epoetin Alfa-EPBX (NON ESRD)10,000 unit/ml vial SUBQ SCH (21:00)
[2019-07-28] MEDS: Aztreonam Inj 1 GM in NS 55 ML IVPB SCH (21:51)
[2019-07-29] VITALS (20 sets, daily range): BP systolic 97–110; BP diastolic 58–82
--- NOTE | 2019-07-29 02:29 | Consultation ---
DATE OF CONSULTATION: 07/28/2019 CARDIOLOGY CONSULTATION CONSULTING PHYSICIAN: Alex Mercedes MD. REFERRING PHYSICIAN: Phillip Gandhi DO. REASON FOR CONSULTATION: Management of elevated troponin I level. HISTORY OF PRESENT ILLNESS: The patient is a very unfortunate 73-year-old gentleman, who is known to me with a prior history of non-ST elevation myocardial infarction, who refused cardiac catheterization, history of chronic kidney disease, stage 5, who was recently seen in this facility, presents again to the hospital for altered level of consciousness as well as evaluation for recent cough that has been going on for about three days. At the time of arrival to the hospital, the patient did not have any fever and there are no complaints of shortness of breath. Initial vital signs in the emergency department revealed blood pressure of 97/62 mmHg, heart rate of 86, and he was afebrile, sherin oxygen of 96% on room air. Initial chest x-ray was significant for bilateral perihilar interstitial prominence and vascular congestion as well as right lower lobe airspace disease/consolidation highly suggestive of pneumonia with associated small bilateral pleural effusion. The patient was suspected for COVID-19 infection, was admitted to a step-down unit. Initial laboratory findings showed severe leukocytosis with WBC count 23.8 with left shift and as well as his elevated BUN and creatinine of 110 and 4.8 respectively. His initial troponin I level was 2.64 and pro-brain natriuretic peptide was over 35,000. He was admitted to [facility] for further evaluation and management of altered level of consciousness and cough, suspicious for COVID-19 infection. Cardiology consultation was made for assessment and evaluation for elevated troponin I level, possibility of non-ST elevation myocardial infarction. The patient was in this facility back in May of this year and at that time the patient had 2D echocardiography, which revealed LVEF of approximately 15% to 20%. The patient also had atrial flutter with rapid ventricular response, non-ST elevation myocardial infarction. In that admission, the patient also refused cardiac catheterization and was placed on Coreg, hydralazine, and Isordil in combination. PAST MEDICAL HISTORY: Again: 1. Stage 5 CKD, refusing hemodialysis. 2. Atrial flutter, paroxysmal. 3. History of severe cardiomyopathy with LVEF of approximately 15% to 20%. 4. History of anemia. 5. History of dysphagia. 6. History of myocardial infarction, refused cardiac catheterization. 7. In the past, has had COPD. 8. History of diabetes mellitus. 9. History of CVA/TIA. 10. History of dementia. ALLERGIES: To potato, penicillin, chocolate flavor, banana, apple, and machado. PAST SURGICAL HISTORY: None. FAMILY HISTORY: No premature coronary artery disease in the first-degree relatives. REVIEW OF SYSTEMS: A 12-system review done essentially negative except what was mentioned in the history of present illness. SOCIAL HISTORY: Denies any tobacco, alcohol, or illicit drug use. MEDICATIONS: List of medication includes aspirin 81 mg p.o. daily, clopidogrel 75 mg p.o. daily, atorvastatin 20 mg p.o. at bedtime, Colace 250 mg p.o. daily, ferrous sulfate 325 mg p.o. daily, Lasix 20 mg p.o. daily, levothyroxine 50 mcg p.o. daily, metformin 500 mg p.o. daily, metoprolol 25 mg p.o. daily, pantoprazole 20 mg p.o. daily, Januvia 25 mg p.o. daily, and tamsulosin 0.4 mg twice daily. PHYSICAL EXAMINATION: VITAL SIGNS: Blood pressure was 99/63, heart rate of 82, respirations of 17, O2 saturation 100% on room air, temperature 97.8 degrees Fahrenheit. GENERAL: The patient is a very unfortunate 73-year-old gentleman, in no apparent respiratory distress. Alert and oriented x4. HEENT: Atraumatic and normocephalic. Anicteric. Pupils are equal, round, and reactive to light and accommodation. Extraocular muscles are intact. NECK: JVP less than 5 cm. No carotid bruits. Carotid upstrokes 2+ bilaterally. CARDIOVASCULAR: Normal S1, S2. Regular rate and rhythm. No murmurs, gallops, or rubs. PMI is at fourth intercostal space in the midclavicular line. LUNGS: Diminished breath sounds in both bases. Increased dullness in the right base with scattered crackles in both bases. ABDOMEN: Soft, nontender, and nondistended. No hepatosplenomegaly. Positive bowel sounds. EXTREMITIES: No evidence of edema, clubbing, or cyanosis. LABORATORY FINDINGS: WBC 23.8, hemoglobin 8.1, hematocrit 24.4, and platelet count 271,000. Chemistry significant for sodium of 137, potassium of 3.9, chloride 101, bicarbonate 22, BUN of 110, creatinine 4.8, glucose 191, calcium 8.5, magnesium 1.6. AST 46. Troponin I was 2.6. ProBNP was over 35,000. INR is 1.0. Toxicology, digoxin level was less than 0.2. ASSESSMENT AND PLAN: The patient is a very unfortunate 73-year-old gentleman, seen in Cardiology consultation. 1. Elevated troponin I level with the troponin leak in the patient with end-stage renal disease. However, non ST-elevation myocardial infarction cannot be ruled out. Troponin I can also be elevated in presence of myonecrosis as the patient has heart failure with EF of about 15% to 20%. At this point, given the fact that the patient does not have any chest pain and no EKG changes suggestive of ischemia, we will continue with medical therapy. In fact, the patient has refused cardiac catheterization, which many times offered to him in different hospitalization by different providers. 2. Dilated cardiomyopathy with LVEF about 15% to 20% and ischemic etiologies could not be ruled out as the patient refused cardiac catheterization. Other possibilities decided ischemic cardiomyopathy would be uremic cardiomyopathy as well as tachycardia-induced cardiomyopathy as the patient has history of atrial flutter in the past. 3. Altered level of consciousness, possibilities could be sepsis. In view of leukocytosis, the patient is suspicious for COVID-19 infection. Other possibilities could be toxic encephalopathy due to end-stage renal disease. 4. History of paroxysmal atrial flutter. 5. History of anemia. 6. Diabetes mellitus. I agree with withholding metformin in the patient with severely decreased GFR. I would like to thank, Dr. Gandhi, for the courtesy of this consultation. Alex Mercedes M.D. DR: NELLY JOB#: [id number] CC:
[2019-07-29 05:53] LABS: HEMATOCRIT 22.6 % (42.0-52.0); HEMOGLOBIN 7.6 G/DL (14.2-18.0); MEAN CORPUSCULAR VOLUME 84 FL (80-99); PLATELET COUNT 263 K/UL (150-450); WHITE BLOOD COUNT 11.5 K/UL (4.8-10.8)
[2019-07-29 05:57] LABS: INR 1.1 (0.9-1.1)
[2019-07-29] MEDS: HydrALAZINE 10mg Tab ORAL SCH ×4 (06:00→17:13)
[2019-07-29 06:17] LABS: ALANINE AMINOTRANSFERASE 931 U/L (12-78); ALBUMIN 2.6 G/DL (3.4-5.0); ALBUMIN/GLOBULIN RATIO 0.6 (1.0-2.7); ALKALINE PHOSPHATASE 231 U/L (46-116); ANION GAP 16 mmol/L (5-15); ASPARTATE AMINO TRANSFERASE 938 U/L (15-37); BILIRUBIN,TOTAL 0.9 MG/DL (0.2-1.0); BLOOD UREA NITROGEN 102 mg/dL (7-18); CALCIUM 8.8 MG/DL (8.5-10.1); CARBON DIOXIDE 18 MMOL/L (21-32); CHLORIDE 102 MMOL/L (98-107); CREATININE 4.9 MG/DL (0.55-1.30); PHOSPHORUS 5.9 MG/DL (2.5-4.9); POTASSIUM 4.3 MMOL/L (3.5-5.1); SODIUM 136 MMOL/L (136-145)
[2019-07-29] MEDS: Aztreonam Inj 1 GM in NS 55 ML IVPB SCH ×3 (06:24→21:25)
[2019-07-29] MEDS: NovoLOG Insulin Flexpen SUBQ SCH ×4 (06:30→20:51)
[2019-07-29] MEDS: Doxycycline Monohydrate 100mg ORAL SCH ×2 (08:17→17:15)
[2019-07-29] MEDS: Memantine 5 MG TAB ORAL SCH ×2 (08:18→17:15)
[2019-07-29] MEDS: Docusate 100mg cap ORAL SCH ×3 (08:20→17:14)
[2019-07-29] MEDS: Imdur 30mg tab ORAL SCH (08:23)
[2019-07-29] MEDS: Sodium Citrate 30ml ORAL SCH ×2 (08:36→17:14)
[2019-07-29] MEDS ORDERED: Vancomycin 750mg/NS 275ml IVPB ONE ×2 (09:00)
--- NOTE | 2019-07-29 09:13 | Nephrology Progress Note ---
Assessment/Plan Problem List: (1) Renal failure (ARF), acute on chronic (2) Cardiomyopathy (3) Elevated troponin (4) Pneumonia (5) Anemia Assessment Rule out COVID-19 Renal failure (ARF), acute on chronic DM (diabetes mellitus) Hypothyroid Cardiomyopathy EjFx 15% Anemia of chronic kidney disease. Elevated troponin. Plan 73 y old- admitted with Pneumonia rule out COVID-19 As per previous admission records indicate, patient needs Dialysis- Coronary Angio , Defibrillator Refused all previously and continues to refuse dialysis now Will entertain the dialysis option, hopefully the patient will be agreeable Beta-blockers nitrates Plavix Kayexalate as needed. Monitor renal parameters. Keep the blood pressure and blood sugar in check. Kidney ultrasound. ordered previously 2D echocardiogram. EjFx 15% Urine studies. Hold Metformin and Lasix. Per orders. Subjective ROS Limited/Unobtainable: No Constitutional: Reports: malaise, weakness Objective Objective Last 24 Hour Vital Signs Date Time Temp Pulse Resp B/P (MAP) Pulse Ox O2 Delivery O2 Flow Rate FiO2 07/29/19 08:23 101/63 07/29/19 08:22 94 101/63 07/29/19 08:00 98.6 85 17 101/63 (76) 98 07/29/19 08:00 Room Air Room Air 07/29/19 06:15 86 16 110/60 (77) 98 07/29/19 06:00 87 18 106/65 (79) 100 07/29/19 06:00 106/65 07/29/19 05:00 85 16 104/64 (77) 98 07/29/19 04:00 85 15 103/64 (77) 98 07/29/19 04:00 85 07/29/19 03:00 88 15 98/64 (75) 100 07/29/19 02:00 Room Air Room Air 07/29/19 02:00 98.2 90 21 110/60 (77) 100 07/29/19 00:00 Room Air Room Air 07/29/19 00:00 98.0 82 20 108/62 (77) 98 07/29/19 00:00 89 07/28/19 20:00 98.2 78 18 107/72 (84) 100 07/28/19 20:00 Room Air Room Air 07/28/19 19:11 92 07/28/19 16:00 97.8 82 17 99/63 (75) 100 07/28/19 16:00 Room Air Room Air 07/28/19 15:56 89 07/28/19 12:00 Room Air Room Air 07/28/19 12:00 91 07/28/19 12:00 97.3 95 19 111/71 (84) 100 Intake and Output 07/28/19 07/29/19 19:00 07:00 Intake Total 100 ml 215 ml Balance 100 ml 215 ml Intake Oral 100 ml 100 ml IV Total 115 ml # Voids 30 # Bowel Movements 6 4 Current Medications Medications (Trade) Dose Ordered Sig/Stella Route PRN Reason Start Time Stop Time Status Last Admin Dose Admin Allopurinol (allopurinoL) 300 mg DAILY ORAL 07/28/19 10:00 08/27/19 09:59 07/29/19 08:18 Aztreonam 1 gm/ Sodium Chloride 55 ml @ 110 mls/hr Q8HR IVPB 07/28/19 22:00 08/04/19 21:59 07/29/19 06:24 Carvedilol (Coreg) 3.125 mg EVERY 12 HOURS ORAL 07/29/19 09:00 08/28/19 08:59 Clopidogrel Bisulfate (Plavix) 75 mg DAILY ORAL 07/28/19 09:00 08/27/19 08:59 07/29/19 08:17 Dextrose (Dextrose 50%) 25 ml Q30M PRN IV Hypoglycemia 07/28/19 09:30 10/26/19 09:29 Dextrose (Dextrose 50%) 50 ml Q30M PRN IV Hypoglycemia 07/28/19 09:30 10/26/19 09:29 Docusate Sodium (Colace) 100 mg THREE TIMES A DAY ORAL 07/28/19 18:00 08/27/19 17:59 Doxycycline Monohydrate (Doxycycline Monohydrate) 100 mg BID ORAL 07/27/19 20:00 08/03/19 19:59 07/29/19 08:17 Epoetin Yaron (Epoetin Yaron-EPBX(NON ESRD)) 10,000 unit SUN-SUN-SUN SUBQ 07/28/19 21:00 10/26/19 20:59 Hydralazine HCl (Apresoline) 10 mg Q6HR ORAL 07/28/19 18:00 10/26/19 17:59 Insulin Aspart (NovoLOG) BEFORE MEALS AND HS SUBQ 07/28/19 11:30 10/26/19 11:29 Iron Sucrose 100 mg/Sodium Chloride 60 ml @ 240 mls/hr BEDTIME IV 07/28/19 21:00 08/01/19 21:14 07/28/19 20:48 Isosorbide Mononitrate (Imdur) 30 mg DAILY ORAL 07/29/19 09:00 08/28/19 08:59 Levothyroxine Sodium (Synthroid) 50 mcg ACBREAKFAST ORAL 07/28/19 06:30 08/27/19 06:29 07/29/19 06:25 Lorazepam (Ativan) 0.5 mg Q6H PRN ORAL For Anxiety 07/28/19 14:14 08/04/19 14:13 Memantine (Namenda) 5 mg BID ORAL 07/28/19 18:00 08/27/19 17:59 07/29/19 08:18 Nitroglycerin (Ntg) 1 patch Q24H TDERMAL 07/28/19 15:00 08/27/19 14:59 Pantoprazole (Protonix) 40 mg BID ORAL 07/28/19 18:00 08/27/19 08:59 07/29/19 08:18 Risperidone (RisperDAL) 0.5 mg EVERY 6 HOURS ORAL 07/28/19 18:00 09/11/19 17:59 07/29/19 06:24 Sevelamer Carbonate (Renvela) 800 mg THREE TIMES A DAY ORAL 07/28/19 18:00 10/26/19 17:59 07/29/19 08:17 Sodium Citrate (Bicitra) 30 ml BID ORAL 07/29/19 09:00 08/28/19 08:59 07/29/19 08:36 Tamsulosin HCl (Flomax) 0.4 mg BEDTIME ORAL 07/29/19 21:00 08/28/19 20:59 Vancomycin HCl (Vanco rx to dose) 1 ea DAILY PRN MISC Per rx protocol 07/28/19 14:30 08/27/19 14:29 Vancomycin HCl 750 mg/Sodium Chloride 275 ml @ 183.333 mls/hr ONCE ONCE IVPB 07/29/19 09:00 07/29/19 10:29 07/29/19 08:20 Laboratory Tests 07/28/19 17:30: Activated Partial Thromboplast Time 87H 07/28/19 22:20: Urine Legionella Antigen [Pending] 07/29/19 03:40: Lactate Dehydrogenase 682H 07/29/19 04:25: Activated Partial Thromboplast Time 30, White Blood Count 11.5H, Red Blood Count 2.70L, Hemoglobin 7.6L, Hematocrit 22.6L, Mean Corpuscular Volume 84, Mean Corpuscular Hemoglobin 28.3, Mean Corpuscular Hemoglobin Concent 33.7, Red Cell Distribution Width 13.0, Platelet Count 263, Mean Platelet Volume 5.6L, Neutrophils (%) (Auto) , Lymphocytes (%) (Auto) , Monocytes (%) (Auto) , Eosinophils (%) (Auto) , Basophils (%) (Auto) , Prothrombin Time 11.2, Prothromb Time International Ratio 1.1, D-Dimer 3.62H, Sodium Level 136, Potassium Level 4.3, Chloride Level 102, Carbon Dioxide Level 18L, Anion Gap 16H , Blood Urea Nitrogen 102H, Creatinine 4.9H, Estimat Glomerular Filtration Rate 14.3, Glucose Level 153H, Calcium Level 8.8, Phosphorus Level 5.9H, Magnesium Level 2.3, Total Bilirubin 0.9, Aspartate Amino Transf (AST/SGOT) 938H, Alanine Aminotransferase (ALT/SGPT) 931H, Alkaline Phosphatase 231H, Troponin I 0.986H, C-Reactive Protein, Quantitative > 70.0H, Pro-B-Type Natriuretic Peptide > 26199J, Total Protein 6.6, Albumin 2.6L, Globulin 4.0, Albumin/Globulin Ratio 0.6L, Random Vancomycin Level 18.7 Height (Feet): 5 Height (Inches): 8.00 Weight (Pounds): 132 General Appearance: no apparent distress, lethargic Cardiovascular: normal rate Respiratory/Chest: decreased breath sounds Abdomen: distended Ti Jones MD Jul 29, 2019 09:13
--- NOTE | 2019-07-29 09:40 | Hematology/Onc Progress Note ---
Assessment/Plan Assessment/Plan Assessment and Recs: # Anemia of iron deficiency, must rule out gi bleed, as hgb has persistently been low --> anemia panel is noted, reviewed prior labs as well --> stool ob positive 06/07 --> ct a/p results pending --> as per gi Dr. Price --> cont on epogen --> hgb trend: 9.3-->8.7->7.6 --> ferritin is 410 # Coaguloapthy with elev ptt due to heparin gtt --> monitor as per pharmacy is medication induced --> as per pcards indication # Thrombocytopenia likely reactive process (HISTORY OF) --> meds have been reviewed --> smear noted --> now improved --> plt 235k # Troponin elevation likely due to renal failure with creatinine of 5.3 as low level and flat. --> as per cards, renal --> Lipitor and Plavix daily and Lopressor 12.5 bid # HTN On Lopressor and Hydralazine 10 q 6 --> cards recs noted --> sbp goal <140 # Hyperkalemia due to renal failure. --> Fu by Dr. Jones. # Hyperlipidemia on Lipitor. # Hypothyroidism on Synthroid. # Benign prostatic hypertrophy --> on Flomax and Proscar. Apprecaite consultation and alana RN Subjective HEENT: Denies: no symptoms, eye pain, blurred vision, tearing, double vision, ear pain, ear discharge, nose pain, nose congestion, throat pain, throat swelling, mouth pain, mouth swelling, other Cardiovascular: Denies: no symptoms, chest pain, edema, irregular heart rate, lightheadedness, palpitations, syncope, other Respiratory: Denies: no symptoms, cough, shortness of breath, SOB with excertion, SOB at rest, sputum, wheezing, other Gastrointestinal/Abdominal: Denies: no symptoms, abdomen distended, abdominal pain, black stools, tarry stools, blood in stool, constipated, diarrhea, difficulty swallowing, nausea, poor appetite, poor fluid intake, rectal bleeding , vomiting, other Neurologic/Psychiatric: Denies: no symptoms, anxiety, depressed, emotional problems, headache, numbness, paresthesia, pre-existing deficit, seizure, tingling, tremors, weakness, other Allergies: Coded Allergies: CASTANON (Unverified Allergy, Mild, 06/07/19) APPLE (Unverified Allergy, Unknown, 06/07/19) BANANA (Unverified Allergy, Unknown, 06/07/19) CHOCOLATE FLAVOR (Unverified Allergy, Unknown, 06/07/19) PENICILLINS (Verified Allergy, Unknown, 07/12/17) POTATO (Unverified Allergy, Unknown, 06/07/19) Subjective 07/28 labs reviewed, remains in icu, hgb remains low, holding off prbc Objective Objective Current Medications Medications (Trade) Dose Ordered Sig/Stella Route PRN Reason Start Time Stop Time Status Last Admin Dose Admin Allopurinol (allopurinoL) 300 mg DAILY ORAL 07/28/19 10:00 08/27/19 09:59 07/29/19 08:18 Aztreonam 1 gm/ Sodium Chloride 55 ml @ 110 mls/hr Q8HR IVPB 07/28/19 22:00 08/04/19 21:59 07/29/19 06:24 Carvedilol (Coreg) 3.125 mg EVERY 12 HOURS ORAL 07/29/19 09:00 08/28/19 08:59 Clopidogrel Bisulfate (Plavix) 75 mg DAILY ORAL 07/28/19 09:00 08/27/19 08:59 07/29/19 08:17 Dextrose (Dextrose 50%) 25 ml Q30M PRN IV Hypoglycemia 07/28/19 09:30 10/26/19 09:29 Dextrose (Dextrose 50%) 50 ml Q30M PRN IV Hypoglycemia 07/28/19 09:30 10/26/19 09:29 Docusate Sodium (Colace) 100 mg THREE TIMES A DAY ORAL 07/28/19 18:00 08/27/19 17:59 Doxycycline Monohydrate (Doxycycline Monohydrate) 100 mg BID ORAL 07/27/19 20:00 08/03/19 19:59 07/29/19 08:17 Epoetin Yaron (Epoetin Yaron-EPBX(NON ESRD)) 10,000 unit SUN-SUN-SUN SUBQ 07/28/19 21:00 10/26/19 20:59 Hydralazine HCl (Apresoline) 10 mg Q6HR ORAL 07/28/19 18:00 10/26/19 17:59 Insulin Aspart (NovoLOG) BEFORE MEALS AND HS SUBQ 07/28/19 11:30 10/26/19 11:29 Iron Sucrose 100 mg/Sodium Chloride 60 ml @ 240 mls/hr BEDTIME IV 07/28/19 21:00 08/01/19 21:14 07/28/19 20:48 Isosorbide Mononitrate (Imdur) 30 mg DAILY ORAL 07/29/19 09:00 08/28/19 08:59 Levothyroxine Sodium (Synthroid) 50 mcg ACBREAKFAST ORAL 07/28/19 06:30 08/27/19 06:29 07/29/19 06:25 Lorazepam (Ativan) 0.5 mg Q6H PRN ORAL For Anxiety 07/28/19 14:14 08/04/19 14:13 Memantine (Namenda) 5 mg BID ORAL 07/28/19 18:00 08/27/19 17:59 07/29/19 08:18 Nitroglycerin (Ntg) 1 patch Q24H TDERMAL 07/28/19 15:00 08/27/19 14:59 Pantoprazole (Protonix) 40 mg BID ORAL 07/28/19 18:00 08/27/19 08:59 07/29/19 08:18 Risperidone (RisperDAL) 0.5 mg EVERY 6 HOURS ORAL 07/28/19 18:00 09/11/19 17:59 07/29/19 06:24 Sevelamer Carbonate (Renvela) 800 mg THREE TIMES A DAY ORAL 07/28/19 18:00 10/26/19 17:59 07/29/19 08:17 Sodium Citrate (Bicitra) 30 ml BID ORAL 07/29/19 09:00 08/28/19 08:59 07/29/19 08:36 Tamsulosin HCl (Flomax) 0.4 mg BEDTIME ORAL 07/29/19 21:00 08/28/19 20:59 Vancomycin HCl (Vanco rx to dose) 1 ea DAILY PRN MISC Per rx protocol 07/28/19 14:30 08/27/19 14:29 Vancomycin HCl 750 mg/Sodium Chloride 275 ml @ 183.333 mls/hr ONCE ONCE IVPB 07/29/19 09:00 07/29/19 10:29 07/29/19 08:20 Last 24 Hour Vital Signs Date Time Temp Pulse Resp B/P (MAP) Pulse Ox O2 Delivery O2 Flow Rate FiO2 07/29/19 08:23 101/63 07/29/19 08:22 94 101/63 07/29/19 08:00 98.6 85 17 101/63 (76) 98 07/29/19 08:00 Room Air Room Air 07/29/19 06:15 86 16 110/60 (77) 98 07/29/19 06:00 87 18 106/65 (79) 100 07/29/19 06:00 106/65 07/29/19 05:00 85 16 104/64 (77) 98 07/29/19 04:00 85 15 103/64 (77) 98 07/29/19 04:00 85 07/29/19 03:00 88 15 98/64 (75) 100 07/29/19 02:00 Room Air Room Air 07/29/19 02:00 98.2 90 21 110/60 (77) 100 07/29/19 00:00 Room Air Room Air 07/29/19 00:00 98.0 82 20 108/62 (77) 98 07/29/19 00:00 89 07/28/19 20:00 98.2 78 18 107/72 (84) 100 07/28/19 20:00 Room Air Room Air 07/28/19 19:11 92 07/28/19 16:00 97.8 82 17 99/63 (75) 100 07/28/19 16:00 Room Air Room Air 07/28/19 15:56 89 07/28/19 12:00 Room Air Room Air 07/28/19 12:00 91 07/28/19 12:00 97.3 95 19 111/71 (84) 100 07/28/19 08:49 97 95/61 07/28/19 08:00 98.2 96 19 95/61 (72) 96 07/28/19 08:00 Room Air Room Air 07/28/19 07:53 95 07/28/19 04:00 Room Air Room Air 07/28/19 04:00 98.2 96 22 108/86 (93) 97 07/28/19 03:38 95 07/28/19 01:10 Room Air 07/28/19 00:38 99 07/28/19 00:30 97.8 100 22 107/86 (93) 96 07/28/19 00:25 98.3 80 17 101/61 100 Room Air 07/28/19 00:00 98.3 88 18 89/59 100 Room Air 07/27/19 23:30 98.3 89 16 89/58 100 Room Air 07/27/19 23:00 98.3 87 18 97/63 100 Room Air 07/27/19 22:30 98.3 85 21 102/67 100 Room Air 07/27/19 22:00 98.3 85 15 103/61 100 Room Air 07/27/19 21:30 98.3 88 19 99/61 100 Room Air 07/27/19 21:00 98.3 90 19 105/70 100 Room Air 07/27/19 20:30 98.3 80 17 101/61 100 Room Air 07/27/19 20:00 98.3 78 14 98/57 100 Room Air 07/27/19 19:30 98.3 78 14 98/57 100 Room Air 07/27/19 17:00 98.3 77 24 91/53 100 Room Air 07/27/19 15:30 98.3 82 17 91/58 100 Room Air 07/27/19 14:20 82 14 97/57 100 Room Air 07/27/19 13:18 83 15 95/57 100 Room Air 07/27/19 12:59 98.2 83 17 92/57 100 Room Air 07/27/19 11:22 86 22 Room Air 07/27/19 10:43 98.1 86 18 97/62 96 Room Air 07/27/19 10:43 98.1 86 18 97/62 (74) 96 Room Air Intake and Output 07/28/19 07/29/19 19:00 07:00 Intake Total 100 ml 215 ml Balance 100 ml 215 ml Intake Oral 100 ml 100 ml IV Total 115 ml # Voids 30 # Bowel Movements 6 4 Labs Test 07/27/19 10:40 07/27/19 15:17 07/27/19 15:55 07/28/19 01:00 White Blood Count 23.8 K/UL (4.8-10.8) Red Blood Count 2.89 M/UL (4.70-6.10) Hemoglobin 8.1 G/DL (14.2-18.0) Hematocrit 24.4 % (42.0-52.0) Mean Corpuscular Volume 84 FL (80-99) Mean Corpuscular Hemoglobin 28.0 PG (27.0-31.0) Mean Corpuscular Hemoglobin Concent 33.2 G/DL (32.0-36.0) Red Cell Distribution Width 12.9 % (11.6-14.8) Platelet Count 271 K/UL (150-450) Mean Platelet Volume 5.2 FL (6.5-10.1) Neutrophils (%) (Auto) % (45.0-75.0) Lymphocytes (%) (Auto) % (20.0-45.0) Monocytes (%) (Auto) % (1.0-10.0) Eosinophils (%) (Auto) % (0.0-3.0) Basophils (%) (Auto) % (0.0-2.0) Differential Total Cells Counted 100 Neutrophils % (Manual) 90 % (45-75) Lymphocytes % (Manual) 4 % (20-45) Monocytes % (Manual) 6 % (1-10) Eosinophils % (Manual) 0 % (0-3) Basophils % (Manual) 0 % (0-2) Band Neutrophils 0 % (0-8) Platelet Estimate Adequate Platelet Morphology Normal Hypochromasia 1+ Prothrombin Time 10.6 SEC (9.30-11.50) Prothromb Time International Ratio 1.0 (0.9-1.1) Activated Partial Thromboplast Time 28 SEC (23-33) 60 SEC (23-33) Sodium Level 137 MMOL/L (136-145) Potassium Level 4.9 MMOL/L (3.5-5.1) Chloride Level 101 MMOL/L (98-107) Carbon Dioxide Level 22 MMOL/L (21-32) Blood Urea Nitrogen 110 mg/dL (7-18) Creatinine 4.8 MG/DL (0.55-1.30) Estimat Glomerular Filtration Rate 14.7 mL/min (>60) Glucose Level 191 MG/DL (74-106) Lactic Acid Level 1.30 mmol/L (0.4-2.0) Calcium Level 8.5 MG/DL (8.5-10.1) Phosphorus Level 5.6 MG/DL (2.5-4.9) Magnesium Level 1.6 MG/DL (1.8-2.4) Total Bilirubin 1.2 MG/DL (0.2-1.0) Direct Bilirubin 0.5 MG/DL (0.0-0.3) Aspartate Amino Transf (AST/SGOT) 46 U/L (15-37) Alanine Aminotransferase (ALT/SGPT) 40 U/L (12-78) Alkaline Phosphatase 117 U/L (46-116) Total Creatine Kinase 99 U/L (26-308) Creatine Kinase MB 2.4 NG/ML (0.0-3.6) Creatine Kinase MB Relative Index 2.4 Troponin I 2.647 ng/mL (0.000-0.056) 3.270 ng/mL (0.000-0.056) Pro-B-Type Natriuretic Peptide > 60100 pg/mL (0-125) Total Protein 7.3 G/DL (6.4-8.2) Albumin 2.9 G/DL (3.4-5.0) Globulin 4.4 g/dL Albumin/Globulin Ratio 0.7 (1.0-2.7) Urine Color Yellow Urine Appearance Clear Urine pH 5 (4.5-8.0) Urine Specific Rayne 1.015 (1.005-1.035) Urine Protein 1+ (NEGATIVE) Urine Glucose (UA) Negative (NEGATIVE) Urine Ketones Negative (NEGATIVE) Urine Blood Negative (NEGATIVE) Urine Nitrite Negative (NEGATIVE) Urine Bilirubin Negative (NEGATIVE) Urine Urobilinogen 1 MG/DL (0.0-1.0) Urine Leukocyte Esterase Negative (NEGATIVE) Urine RBC 0 /HPF (0 - 0) Urine WBC 0 /HPF (0 - 0) Urine Squamous Epithelial Cells Occasional /LPF Urine Bacteria Few /HPF (NONE) Ammonia 39 umol/L (11-32) Test 07/28/19 04:30 07/28/19 08:00 07/28/19 17:30 07/28/19 22:20 White Blood Count 12.3 K/UL (4.8-10.8) Red Blood Count 2.79 M/UL (4.70-6.10) Hemoglobin 7.8 G/DL (14.2-18.0) Hematocrit 23.8 % (42.0-52.0) Mean Corpuscular Volume 85 FL (80-99) Mean Corpuscular Hemoglobin 28.1 PG (27.0-31.0) Mean Corpuscular Hemoglobin Concent 32.9 G/DL (32.0-36.0) Red Cell Distribution Width 13.3 % (11.6-14.8) Platelet Count 235 K/UL (150-450) Mean Platelet Volume 5.2 FL (6.5-10.1) Neutrophils (%) (Auto) % (45.0-75.0) Lymphocytes (%) (Auto) % (20.0-45.0) Monocytes (%) (Auto) % (1.0-10.0) Eosinophils (%) (Auto) % (0.0-3.0) Basophils (%) (Auto) % (0.0-2.0) Differential Total Cells Counted 100 Neutrophils % (Manual) 84 % (45-75) Lymphocytes % (Manual) 14 % (20-45) Monocytes % (Manual) 2 % (1-10) Eosinophils % (Manual) 0 % (0-3) Basophils % (Manual) 0 % (0-2) Band Neutrophils 0 % (0-8) Platelet Estimate Adequate Platelet Morphology Normal Hypochromasia 3+ Anisocytosis 1+ Sodium Level 136 MMOL/L (136-145) Potassium Level 4.3 MMOL/L (3.5-5.1) Chloride Level 101 MMOL/L (98-107) Carbon Dioxide Level 19 MMOL/L (21-32) Anion Gap 16 mmol/L (5-15) Blood Urea Nitrogen 105 mg/dL (7-18) Creatinine 5.2 MG/DL (0.55-1.30) Estimat Glomerular Filtration Rate 13.3 mL/min (>60) Glucose Level 241 MG/DL (74-106) Hemoglobin A1c 6.7 % (4.3-6.0) Uric Acid 11.3 MG/DL (2.6-7.2) Calcium Level 8.6 MG/DL (8.5-10.1) Phosphorus Level 6.0 MG/DL (2.5-4.9) Magnesium Level 1.7 MG/DL (1.8-2.4) Iron Level 15 ug/dL (50-175) Total Iron Binding Capacity 187 ug/dL (250-450) Percent Iron Saturation 8 % (15-50) Unsaturated Iron Binding 172 ug/dL (112-346) Ferritin 410 NG/ML (8-388) Total Bilirubin 1.0 MG/DL (0.2-1.0) Gamma Glutamyl Transpeptidase 29 U/L (5-85) Aspartate Amino Transf (AST/SGOT) 39 U/L (15-37) Alanine Aminotransferase (ALT/SGPT) 35 U/L (12-78) Alkaline Phosphatase 119 U/L (46-116) Lactate Dehydrogenase 222 U/L (81-234) Troponin I 2.921 ng/mL (0.000-0.056) C-Reactive Protein, Quantitative 23.6 mg/dL (0.00-0.90) Pro-B-Type Natriuretic Peptide > 92116 pg/mL (0-125) Total Protein 6.8 G/DL (6.4-8.2) Albumin 2.7 G/DL (3.4-5.0) Globulin 4.1 g/dL Albumin/Globulin Ratio 0.7 (1.0-2.7) Triglycerides Level 67 MG/DL (30-150) Cholesterol Level 102 MG/DL (< 200) LDL Cholesterol 57 mg/dL (<100) HDL Cholesterol 38 MG/DL (40-60) Cholesterol/HDL Ratio 2.7 (3.3-4.4) Vitamin B12 Level 897 PG/ML (193-986) Folate 14.1 NG/ML (8.6-58.9) Thyroid Stimulating Hormone (TSH) 1.615 uiU/mL (0.358-3.740) Digoxin Level < 0.2 NG/ML (0.5-2.0) Activated Partial Thromboplast Time 57 SEC (23-33) 87 SEC (23-33) Test 07/29/19 03:40 07/29/19 04:25 Lactate Dehydrogenase 682 U/L (81-234) White Blood Count 11.5 K/UL (4.8-10.8) Red Blood Count 2.70 M/UL (4.70-6.10) Hemoglobin 7.6 G/DL (14.2-18.0) Hematocrit 22.6 % (42.0-52.0) Mean Corpuscular Volume 84 FL (80-99) Mean Corpuscular Hemoglobin 28.3 PG (27.0-31.0) Mean Corpuscular Hemoglobin Concent 33.7 G/DL (32.0-36.0) Red Cell Distribution Width 13.0 % (11.6-14.8) Platelet Count 263 K/UL (150-450) Mean Platelet Volume 5.6 FL (6.5-10.1) Neutrophils (%) (Auto) % (45.0-75.0) Lymphocytes (%) (Auto) % (20.0-45.0) Monocytes (%) (Auto) % (1.0-10.0) Eosinophils (%) (Auto) % (0.0-3.0) Basophils (%) (Auto) % (0.0-2.0) Prothrombin Time 11.2 SEC (9.30-11.50) Prothromb Time International Ratio 1.1 (0.9-1.1) Activated Partial Thromboplast Time 30 SEC (23-33) D-Dimer 3.62 mg/L FEU (0.00-0.49) Sodium Level 136 MMOL/L (136-145) Potassium Level 4.3 MMOL/L (3.5-5.1) Chloride Level 102 MMOL/L (98-107) Carbon Dioxide Level 18 MMOL/L (21-32) Anion Gap 16 mmol/L (5-15) Blood Urea Nitrogen 102 mg/dL (7-18) Creatinine 4.9 MG/DL (0.55-1.30) Estimat Glomerular Filtration Rate 14.3 mL/min (>60) Glucose Level 153 MG/DL (74-106) Calcium Level 8.8 MG/DL (8.5-10.1) Phosphorus Level 5.9 MG/DL (2.5-4.9) Magnesium Level 2.3 MG/DL (1.8-2.4) Total Bilirubin 0.9 MG/DL (0.2-1.0) Aspartate Amino Transf (AST/SGOT) 938 U/L (15-37) Alanine Aminotransferase (ALT/SGPT) 931 U/L (12-78) Alkaline Phosphatase 231 U/L (46-116) Troponin I 0.986 ng/mL (0.000-0.056) C-Reactive Protein, Quantitative > 70.0 mg/dL (0.00-0.90) Pro-B-Type Natriuretic Peptide > 73132 pg/mL (0-125) Total Protein 6.6 G/DL (6.4-8.2) Albumin 2.6 G/DL (3.4-5.0) Globulin 4.0 g/dL Albumin/Globulin Ratio 0.6 (1.0-2.7) Random Vancomycin Level 18.7 ug/mL Height (Feet): 5 Height (Inches): 8.00 Weight (Pounds): 132 Objective Physical Exam General: Awake and alert HEENT: NC/AT. EOMI. Neck: Supple Cardiov: RRR. S1 and S2 normal. No murmur appreciated Resp: No cough, wheezing or crackles appreciated Abd: Abdomen is soft, nondistended. Skin: Intact. No abrasions, laceration or rash MSK: Normal tone and bulk. Moving all extremities. Neuro: Awake and alert. Mentating appropriately. Roverto Orourke MD Jul 29, 2019 09:40
--- NOTE | 2019-07-29 10:54 | Pulmonology Progress Note ---
Assessment/Plan Assessment/Plan IMPRESSION: 1. Pneumonia. 2. Rule out COVID-19. 3. Diabetes mellitus. 4. Previous CVA. DISCUSSION: Continue ICU care and isolation. Agree with intravenous heparin for acute coronary syndrome. Diabetes monitoring. Continue beta blockers. DVT prophylaxis with IV heparin. Broad-spectrum antibiotics and Plaquenil. Follow carefully. Continue oxygen monitoring. Currently saturating well on room air. Melvin Wells M.D. Subjective Interval Events: Much improved; SaO2 96% RA Constitutional: Reports: no symptoms HEENT: Repors: no symptoms Respiratory: Reports: no symptoms Cardiovascular: Reports: no symptoms Allergies: Coded Allergies: CASTANON (Unverified Allergy, Mild, 06/07/19) APPLE (Unverified Allergy, Unknown, 06/07/19) BANANA (Unverified Allergy, Unknown, 06/07/19) CHOCOLATE FLAVOR (Unverified Allergy, Unknown, 06/07/19) PENICILLINS (Verified Allergy, Unknown, 07/12/17) POTATO (Unverified Allergy, Unknown, 06/07/19) Objective Last 24 Hour Vital Signs Date Time Temp Pulse Resp B/P (MAP) Pulse Ox O2 Delivery O2 Flow Rate FiO2 07/29/19 08:23 101/63 07/29/19 08:22 94 101/63 07/29/19 08:00 98.6 85 17 101/63 (76) 98 07/29/19 08:00 84 07/29/19 08:00 Room Air Room Air 07/29/19 06:15 86 16 110/60 (77) 98 07/29/19 06:00 87 18 106/65 (79) 100 07/29/19 06:00 106/65 07/29/19 05:00 85 16 104/64 (77) 98 07/29/19 04:00 85 15 103/64 (77) 98 07/29/19 04:00 85 07/29/19 03:00 88 15 98/64 (75) 100 07/29/19 02:00 Room Air Room Air 07/29/19 02:00 98.2 90 21 110/60 (77) 100 07/29/19 00:00 Room Air Room Air 07/29/19 00:00 98.0 82 20 108/62 (77) 98 07/29/19 00:00 89 07/28/19 20:00 98.2 78 18 107/72 (84) 100 07/28/19 20:00 Room Air Room Air 07/28/19 19:11 92 07/28/19 16:00 97.8 82 17 99/63 (75) 100 07/28/19 16:00 Room Air Room Air 07/28/19 15:56 89 07/28/19 12:00 Room Air Room Air 07/28/19 12:00 91 07/28/19 12:00 97.3 95 19 111/71 (84) 100 Intake and Output 07/28/19 07/29/19 19:00 07:00 Intake Total 100 ml 215 ml Balance 100 ml 215 ml Intake Oral 100 ml 100 ml IV Total 115 ml # Voids 30 # Bowel Movements 6 4 General Appearance: no acute distress HEENT: normocephalic Respiratory/Chest: chest wall non-tender Cardiovascular: normal peripheral pulses, normal rate Abdomen: normal bowel sounds Microbiology Date/Time Source Procedure Growth Status 07/27/19 10:50 Blood Blood Culture - Preliminary NO GROWTH AFTER 24 HOURS Resulted 07/27/19 10:40 Blood Blood Culture - Preliminary NO GROWTH AFTER 24 HOURS Resulted 07/27/19 16:30 Rectum Received Laboratory Tests 07/28/19 17:30: Activated Partial Thromboplast Time 87H 07/28/19 22:20: Urine Legionella Antigen [Pending] 07/29/19 03:40: Lactate Dehydrogenase 682H 07/29/19 04:25: Activated Partial Thromboplast Time 30, White Blood Count 11.5H, Red Blood Count 2.70L, Hemoglobin 7.6L, Hematocrit 22.6L, Mean Corpuscular Volume 84, Mean Corpuscular Hemoglobin 28.3, Mean Corpuscular Hemoglobin Concent 33.7, Red Cell Distribution Width 13.0, Platelet Count 263, Mean Platelet Volume 5.6L, Neutrophils (%) (Auto) , Lymphocytes (%) (Auto) , Monocytes (%) (Auto) , Eosinophils (%) (Auto) , Basophils (%) (Auto) , Prothrombin Time 11.2, Prothromb Time International Ratio 1.1, D-Dimer 3.62H, Sodium Level 136, Potassium Level 4.3, Chloride Level 102, Carbon Dioxide Level 18L, Anion Gap 16H , Blood Urea Nitrogen 102H, Creatinine 4.9H, Estimat Glomerular Filtration Rate 14.3, Glucose Level 153H, Calcium Level 8.8, Phosphorus Level 5.9H, Magnesium Level 2.3, Total Bilirubin 0.9, Aspartate Amino Transf (AST/SGOT) 938H, Alanine Aminotransferase (ALT/SGPT) 931H, Alkaline Phosphatase 231H, Troponin I 0.986H, C-Reactive Protein, Quantitative > 70.0H, Pro-B-Type Natriuretic Peptide > 48607J, Total Protein 6.6, Albumin 2.6L, Globulin 4.0, Albumin/Globulin Ratio 0.6L, Random Vancomycin Level 18.7 Current Medications Medications (Trade) Dose Ordered Sig/Stella Route PRN Reason Start Time Stop Time Status Last Admin Dose Admin Allopurinol (allopurinoL) 300 mg DAILY ORAL 07/28/19 10:00 08/27/19 09:59 07/29/19 08:18 Aztreonam 1 gm/ Sodium Chloride 55 ml @ 110 mls/hr Q8HR IVPB 07/28/19 22:00 08/04/19 21:59 07/29/19 06:24 Carvedilol (Coreg) 3.125 mg EVERY 12 HOURS ORAL 07/29/19 09:00 08/28/19 08:59 Clopidogrel Bisulfate (Plavix) 75 mg DAILY ORAL 07/28/19 09:00 08/27/19 08:59 07/29/19 08:17 Dextrose (Dextrose 50%) 25 ml Q30M PRN IV Hypoglycemia 07/28/19 09:30 10/26/19 09:29 Dextrose (Dextrose 50%) 50 ml Q30M PRN IV Hypoglycemia 07/28/19 09:30 10/26/19 09:29 Docusate Sodium (Colace) 100 mg THREE TIMES A DAY ORAL 07/28/19 18:00 08/27/19 17:59 Doxycycline Monohydrate (Doxycycline Monohydrate) 100 mg BID ORAL 07/27/19 20:00 08/03/19 19:59 07/29/19 08:17 Epoetin Yaron (Epoetin Yaron-EPBX(NON ESRD)) 10,000 unit MON-WED-FRI SUBQ 07/28/19 21:00 10/26/19 20:59 Hydralazine HCl (Apresoline) 10 mg Q6HR ORAL 07/28/19 18:00 10/26/19 17:59 Insulin Aspart (NovoLOG) BEFORE MEALS AND HS SUBQ 07/28/19 11:30 10/26/19 11:29 Iron Sucrose 100 mg/Sodium Chloride 60 ml @ 240 mls/hr BEDTIME IV 07/28/19 21:00 08/01/19 21:14 07/28/19 20:48 Isosorbide Mononitrate (Imdur) 30 mg DAILY ORAL 07/29/19 09:00 08/28/19 08:59 Levothyroxine Sodium (Synthroid) 50 mcg ACBREAKFAST ORAL 07/28/19 06:30 08/27/19 06:29 07/29/19 06:25 Lorazepam (Ativan) 0.5 mg Q6H PRN ORAL For Anxiety 07/28/19 14:14 08/04/19 14:13 Memantine (Namenda) 5 mg BID ORAL 07/28/19 18:00 08/27/19 17:59 07/29/19 08:18 Nitroglycerin (Ntg) 1 patch Q24H TDERMAL 07/28/19 15:00 08/27/19 14:59 Pantoprazole (Protonix) 40 mg BID ORAL 07/28/19 18:00 08/27/19 08:59 07/29/19 08:18 Risperidone (RisperDAL) 0.5 mg EVERY 6 HOURS ORAL 07/28/19 18:00 09/11/19 17:59 07/29/19 06:24 Sevelamer Carbonate (Renvela) 800 mg THREE TIMES A DAY ORAL 07/28/19 18:00 10/26/19 17:59 07/29/19 08:17 Sodium Citrate (Bicitra) 30 ml BID ORAL 07/29/19 09:00 08/28/19 08:59 07/29/19 08:36 Tamsulosin HCl (Flomax) 0.4 mg BEDTIME ORAL 07/29/19 21:00 08/28/19 20:59 Vancomycin HCl (Vanco rx to dose) 1 ea DAILY PRN MISC Per rx protocol 07/28/19 14:30 08/27/19 14:29 Melvin Wells MD Jul 29, 2019 10:54
--- NOTE | 2019-07-29 11:07 | Infectious Diseases Prog Note ---
Assessment/Plan Assessment/Plan Assessment: Afebrile Leukocytosis, improving Lymphopenia Pnuemonia- HAP vs COVID19 (no reported COVID19 at pt's SNF so far) Cough- at RA CHF exacerbation -CXR: Bilateral perihilar interstitial prominence and vascular congestion. Right lower lobe airspace disease/consolidation. Small bilateral pleural effusion. May be CHF and/or pneumonia. Acute on chronic encephalopathy JOVANY on CKD, needs HD Elevated LFTs (900s)-likely shock liver from hypoperfusion-r/o viral effect CAD anemia hypothyroidism Cardiomyopathy EF 15% s/p AICD CVA/TIA Dementia dysphagia Dm2 COPD hx of PNA (2 months ago) SNF resident ([facility]) Plan: -Continue empiric Aztreonam and Doxycycline #3 -Switch empiric IV Vancomycin #2 to PO Linezolid in view of renal failure -07/26 SP Azithromycin x1 -f/u cx -Monitor CBC/CMP, temperaturse -f/u sp cx (not induced), legionella ag urine -f/u SARS-COV2 PCR; if negative, will send a 2nd test -COVID19 precautions (droplets/contact) -CXR, EKG, acute hep panel Thank you for consulting [facility]. Will continue to follow along wiht you. Subjective Allergies: Coded Allergies: CASTANON (Unverified Allergy, Mild, 06/07/19) APPLE (Unverified Allergy, Unknown, 06/07/19) BANANA (Unverified Allergy, Unknown, 06/07/19) CHOCOLATE FLAVOR (Unverified Allergy, Unknown, 06/07/19) PENICILLINS (Verified Allergy, Unknown, 07/12/17) POTATO (Unverified Allergy, Unknown, 06/07/19) Subjective on ICU but as SDU overflow afebrile at RA LFts on 900 range Objective Vital Signs Last 24 Hour Vital Signs Date Time Temp Pulse Resp B/P (MAP) Pulse Ox O2 Delivery O2 Flow Rate FiO2 07/29/19 08:23 101/63 07/29/19 08:22 94 101/63 07/29/19 08:00 98.6 85 17 101/63 (76) 98 07/29/19 08:00 84 07/29/19 08:00 Room Air Room Air 07/29/19 06:15 86 16 110/60 (77) 98 07/29/19 06:00 87 18 106/65 (79) 100 07/29/19 06:00 106/65 07/29/19 05:00 85 16 104/64 (77) 98 07/29/19 04:00 85 15 103/64 (77) 98 07/29/19 04:00 85 07/29/19 03:00 88 15 98/64 (75) 100 07/29/19 02:00 Room Air Room Air 07/29/19 02:00 98.2 90 21 110/60 (77) 100 07/29/19 00:00 Room Air Room Air 07/29/19 00:00 98.0 82 20 108/62 (77) 98 07/29/19 00:00 89 07/28/19 20:00 98.2 78 18 107/72 (84) 100 07/28/19 20:00 Room Air Room Air 07/28/19 19:11 92 07/28/19 16:00 97.8 82 17 99/63 (75) 100 07/28/19 16:00 Room Air Room Air 07/28/19 15:56 89 07/28/19 12:00 Room Air Room Air 07/28/19 12:00 91 07/28/19 12:00 97.3 95 19 111/71 (84) 100 Height (Feet): 5 Height (Inches): 8.00 Weight (Pounds): 132 Objective not seen to limit COVID19 exposure Microbiology Date/Time Source Procedure Growth Status 07/27/19 10:50 Blood Blood Culture - Preliminary NO GROWTH AFTER 24 HOURS Resulted 07/27/19 10:40 Blood Blood Culture - Preliminary NO GROWTH AFTER 24 HOURS Resulted 07/27/19 16:30 Rectum Received Laboratory Tests Test 07/28/19 17:30 07/28/19 22:20 07/29/19 03:40 07/29/19 04:25 Activated Partial Thromboplast Time 87 SEC (23-33) H 30 SEC (23-33) Urine Legionella Antigen Pending Lactate Dehydrogenase 682 U/L (81-234) H White Blood Count 11.5 K/UL (4.8-10.8) H Red Blood Count 2.70 M/UL (4.70-6.10) L Hemoglobin 7.6 G/DL (14.2-18.0) L Hematocrit 22.6 % (42.0-52.0) L Mean Corpuscular Volume 84 FL (80-99) Mean Corpuscular Hemoglobin 28.3 PG (27.0-31.0) Mean Corpuscular Hemoglobin Concent 33.7 G/DL (32.0-36.0) Red Cell Distribution Width 13.0 % (11.6-14.8) Platelet Count 263 K/UL (150-450) Mean Platelet Volume 5.6 FL (6.5-10.1) L Neutrophils (%) (Auto) % (45.0-75.0) Lymphocytes (%) (Auto) % (20.0-45.0) Monocytes (%) (Auto) % (1.0-10.0) Eosinophils (%) (Auto) % (0.0-3.0) Basophils (%) (Auto) % (0.0-2.0) Prothrombin Time 11.2 SEC (9.30-11.50) Prothromb Time International Ratio 1.1 (0.9-1.1) D-Dimer 3.62 mg/L FEU (0.00-0.49) H Sodium Level 136 MMOL/L (136-145) Potassium Level 4.3 MMOL/L (3.5-5.1) Chloride Level 102 MMOL/L (98-107) Carbon Dioxide Level 18 MMOL/L (21-32) L Anion Gap 16 mmol/L (5-15) H Blood Urea Nitrogen 102 mg/dL (7-18) H Creatinine 4.9 MG/DL (0.55-1.30) H Estimat Glomerular Filtration Rate 14.3 mL/min (>60) Glucose Level 153 MG/DL (74-106) H Calcium Level 8.8 MG/DL (8.5-10.1) Phosphorus Level 5.9 MG/DL (2.5-4.9) H Magnesium Level 2.3 MG/DL (1.8-2.4) Total Bilirubin 0.9 MG/DL (0.2-1.0) Aspartate Amino Transf (AST/SGOT) 938 U/L (15-37) H Alanine Aminotransferase (ALT/SGPT) 931 U/L (12-78) H Alkaline Phosphatase 231 U/L (46-116) H Troponin I 0.986 ng/mL (0.000-0.056) C-Reactive Protein, Quantitative > 70.0 mg/dL (0.00-0.90) H Pro-B-Type Natriuretic Peptide > 12217 pg/mL (0-125) H Total Protein 6.6 G/DL (6.4-8.2) Albumin 2.6 G/DL (3.4-5.0) L Globulin 4.0 g/dL Albumin/Globulin Ratio 0.6 (1.0-2.7) L Random Vancomycin Level 18.7 ug/mL Current Medications Medications (Trade) Dose Ordered Sig/Stella Route PRN Reason Start Time Stop Time Status Last Admin Dose Admin Allopurinol (allopurinoL) 300 mg DAILY ORAL 07/28/19 10:00 08/27/19 09:59 07/29/19 08:18 Aztreonam 1 gm/ Sodium Chloride 55 ml @ 110 mls/hr Q8HR IVPB 07/28/19 22:00 08/04/19 21:59 07/29/19 06:24 Carvedilol (Coreg) 3.125 mg EVERY 12 HOURS ORAL 07/29/19 09:00 08/28/19 08:59 Clopidogrel Bisulfate (Plavix) 75 mg DAILY ORAL 07/28/19 09:00 08/27/19 08:59 07/29/19 08:17 Dextrose (Dextrose 50%) 25 ml Q30M PRN IV Hypoglycemia 07/28/19 09:30 10/26/19 09:29 Dextrose (Dextrose 50%) 50 ml Q30M PRN IV Hypoglycemia 07/28/19 09:30 10/26/19 09:29 Docusate Sodium (Colace) 100 mg THREE TIMES A DAY ORAL 07/28/19 18:00 08/27/19 17:59 Doxycycline Monohydrate (Doxycycline Monohydrate) 100 mg BID ORAL 07/27/19 20:00 08/03/19 19:59 07/29/19 08:17 Epoetin Yaron (Epoetin Yaron-EPBX(NON ESRD)) 10,000 unit SUN-SUN-SUN SUBQ 07/28/19 21:00 10/26/19 20:59 Hydralazine HCl (Apresoline) 10 mg Q6HR ORAL 07/28/19 18:00 10/26/19 17:59 Insulin Aspart (NovoLOG) BEFORE MEALS AND HS SUBQ 07/28/19 11:30 10/26/19 11:29 Iron Sucrose 100 mg/Sodium Chloride 60 ml @ 240 mls/hr BEDTIME IV 07/28/19 21:00 08/01/19 21:14 07/28/19 20:48 Isosorbide Mononitrate (Imdur) 30 mg DAILY ORAL 07/29/19 09:00 08/28/19 08:59 Levothyroxine Sodium (Synthroid) 50 mcg ACBREAKFAST ORAL 07/28/19 06:30 08/27/19 06:29 07/29/19 06:25 Lorazepam (Ativan) 0.5 mg Q6H PRN ORAL For Anxiety 07/28/19 14:14 08/04/19 14:13 Memantine (Namenda) 5 mg BID ORAL 07/28/19 18:00 08/27/19 17:59 07/29/19 08:18 Nitroglycerin (Ntg) 1 patch Q24H TDERMAL 07/28/19 15:00 08/27/19 14:59 Pantoprazole (Protonix) 40 mg BID ORAL 07/28/19 18:00 08/27/19 08:59 07/29/19 08:18 Risperidone (RisperDAL) 0.5 mg EVERY 6 HOURS ORAL 07/28/19 18:00 09/11/19 17:59 07/29/19 06:24 Sevelamer Carbonate (Renvela) 800 mg THREE TIMES A DAY ORAL 07/28/19 18:00 10/26/19 17:59 07/29/19 08:17 Sodium Citrate (Bicitra) 30 ml BID ORAL 07/29/19 09:00 08/28/19 08:59 07/29/19 08:36 Tamsulosin HCl (Flomax) 0.4 mg BEDTIME ORAL 07/29/19 21:00 08/28/19 20:59 Vancomycin HCl (Vanco rx to dose) 1 ea DAILY PRN MISC Per rx protocol 07/28/19 14:30 08/27/19 14:29 Ana Lilia Gaines M.D. Jul 29, 2019 11:07
--- NOTE | 2019-07-29 11:10 | General Progress Note ---
Assessment/Plan Assessment/Plan: 1. Stage 5 CKD, refusing hemodialysis. 2. Atrial flutter, paroxysmal. 3. History of severe cardiomyopathy with LVEF of approximately 15% to 20%. 4. History of anemia. 5. History of dysphagia. 6. History of myocardial infarction, refused cardiac catheterization. 7. In the past, has had COPD. 8. History of diabetes mellitus. 9. History of CVA/TIA. 10. History of dementia. 11. elevate LFTS>> ? shock liver repeat labs fu H&H transfuse as needed not a good candidate for GI procedures fu stool ob Subjective Allergies: Coded Allergies: CASTANON (Unverified Allergy, Mild, 06/07/19) APPLE (Unverified Allergy, Unknown, 06/07/19) BANANA (Unverified Allergy, Unknown, 06/07/19) CHOCOLATE FLAVOR (Unverified Allergy, Unknown, 06/07/19) PENICILLINS (Verified Allergy, Unknown, 07/12/17) POTATO (Unverified Allergy, Unknown, 06/07/19) Objective Last 24 Hour Vital Signs Date Time Temp Pulse Resp B/P (MAP) Pulse Ox O2 Delivery O2 Flow Rate FiO2 07/29/19 08:23 101/63 07/29/19 08:22 94 101/63 07/29/19 08:00 98.6 85 17 101/63 (76) 98 07/29/19 08:00 84 07/29/19 08:00 Room Air Room Air 07/29/19 06:15 86 16 110/60 (77) 98 07/29/19 06:00 87 18 106/65 (79) 100 07/29/19 06:00 106/65 07/29/19 05:00 85 16 104/64 (77) 98 07/29/19 04:00 85 15 103/64 (77) 98 07/29/19 04:00 85 07/29/19 03:00 88 15 98/64 (75) 100 07/29/19 02:00 Room Air Room Air 07/29/19 02:00 98.2 90 21 110/60 (77) 100 07/29/19 00:00 Room Air Room Air 07/29/19 00:00 98.0 82 20 108/62 (77) 98 07/29/19 00:00 89 07/28/19 20:00 98.2 78 18 107/72 (84) 100 07/28/19 20:00 Room Air Room Air 07/28/19 19:11 92 07/28/19 16:00 97.8 82 17 99/63 (75) 100 07/28/19 16:00 Room Air Room Air 07/28/19 15:56 89 07/28/19 12:00 Room Air Room Air 07/28/19 12:00 91 07/28/19 12:00 97.3 95 19 111/71 (84) 100 Intake and Output 07/28/19 07/29/19 19:00 07:00 Intake Total 100 ml 215 ml Balance 100 ml 215 ml Intake Oral 100 ml 100 ml IV Total 115 ml # Voids 30 # Bowel Movements 6 4 Laboratory Tests 07/28/19 17:30: Activated Partial Thromboplast Time 87H 07/28/19 22:20: Urine Legionella Antigen [Pending] 07/29/19 03:40: Lactate Dehydrogenase 682H 07/29/19 04:25: Activated Partial Thromboplast Time 30, White Blood Count 11.5H, Red Blood Count 2.70L, Hemoglobin 7.6L, Hematocrit 22.6L, Mean Corpuscular Volume 84, Mean Corpuscular Hemoglobin 28.3, Mean Corpuscular Hemoglobin Concent 33.7, Red Cell Distribution Width 13.0, Platelet Count 263, Mean Platelet Volume 5.6L, Neutrophils (%) (Auto) , Lymphocytes (%) (Auto) , Monocytes (%) (Auto) , Eosinophils (%) (Auto) , Basophils (%) (Auto) , Prothrombin Time 11.2, Prothromb Time International Ratio 1.1, D-Dimer 3.62H, Sodium Level 136, Potassium Level 4.3, Chloride Level 102, Carbon Dioxide Level 18L, Anion Gap 16H , Blood Urea Nitrogen 102H, Creatinine 4.9H, Estimat Glomerular Filtration Rate 14.3, Glucose Level 153H, Calcium Level 8.8, Phosphorus Level 5.9H, Magnesium Level 2.3, Total Bilirubin 0.9, Aspartate Amino Transf (AST/SGOT) 938H, Alanine Aminotransferase (ALT/SGPT) 931H, Alkaline Phosphatase 231H, Troponin I 0.986H, C-Reactive Protein, Quantitative > 70.0H, Pro-B-Type Natriuretic Peptide > 37150O, Total Protein 6.6, Albumin 2.6L, Globulin 4.0, Albumin/Globulin Ratio 0.6L, Random Vancomycin Level 18.7 Height (Feet): 5 Height (Inches): 8.00 Weight (Pounds): 132 General Appearance: no apparent distress EENT: normal ENT inspection Neck: normal alignment Cardiovascular: normal rate Respiratory/Chest: decreased breath sounds Abdomen: normal bowel sounds, non tender, soft Extremities: non-tender Deric Price MD Jul 29, 2019 11:10
--- NOTE | 2019-07-29 12:00 | General Progress Note ---
Assessment/Plan Problem List: (1) SOB (shortness of breath) ICD Codes: R06.02 - Shortness of breath SNOMED: 448622765 (2) CHF (congestive heart failure) ICD Codes: I50.9 - Heart failure, unspecified SNOMED: 74501889 (3) Suspected COVID-19 virus infection ICD Codes: R68.89 - Other general symptoms and signs SNOMED: 106420784 (4) Psychiatric disorder ICD Codes: F99 - Psychiatric disorder SNOMED: 93851408 (5) DM (diabetes mellitus) ICD Codes: E11.9 - DM (diabetes mellitus) SNOMED: 68412688 (6) Weakness ICD Codes: R53.1 - Weakness SNOMED: 80483455 (7) Acute renal failure (ARF) ICD Codes: N17.9 - Acute renal failure (ARF) SNOMED: 52617791 (8) Anemia ICD Codes: D64.9 - Anemia SNOMED: 476442478 Status: unchanged Assessment/Plan: pt diet abx bp bs control cbc bmp am Subjective Constitutional: Reports: weakness Allergies: Coded Allergies: CASTANON (Unverified Allergy, Mild, 06/07/19) APPLE (Unverified Allergy, Unknown, 06/07/19) BANANA (Unverified Allergy, Unknown, 06/07/19) CHOCOLATE FLAVOR (Unverified Allergy, Unknown, 06/07/19) PENICILLINS (Verified Allergy, Unknown, 07/12/17) POTATO (Unverified Allergy, Unknown, 06/07/19) All Systems: reviewed and negative except above Subjective sleepy in icu Objective Last 24 Hour Vital Signs Date Time Temp Pulse Resp B/P (MAP) Pulse Ox O2 Delivery O2 Flow Rate FiO2 07/29/19 08:23 101/63 07/29/19 08:22 94 101/63 07/29/19 08:00 98.6 85 17 101/63 (76) 98 07/29/19 08:00 84 07/29/19 08:00 Room Air Room Air 07/29/19 06:15 86 16 110/60 (77) 98 07/29/19 06:00 87 18 106/65 (79) 100 07/29/19 06:00 106/65 07/29/19 05:00 85 16 104/64 (77) 98 07/29/19 04:00 85 15 103/64 (77) 98 07/29/19 04:00 85 07/29/19 03:00 88 15 98/64 (75) 100 07/29/19 02:00 Room Air Room Air 07/29/19 02:00 98.2 90 21 110/60 (77) 100 07/29/19 00:00 Room Air Room Air 07/29/19 00:00 98.0 82 20 108/62 (77) 98 07/29/19 00:00 89 07/28/19 20:00 98.2 78 18 107/72 (84) 100 07/28/19 20:00 Room Air Room Air 07/28/19 19:11 92 07/28/19 16:00 97.8 82 17 99/63 (75) 100 07/28/19 16:00 Room Air Room Air 07/28/19 15:56 89 07/28/19 12:00 Room Air Room Air 07/28/19 12:00 91 07/28/19 12:00 97.3 95 19 111/71 (84) 100 Intake and Output 07/28/19 07/29/19 19:00 07:00 Intake Total 100 ml 215 ml Balance 100 ml 215 ml Intake Oral 100 ml 100 ml IV Total 115 ml # Voids 30 # Bowel Movements 6 4 Laboratory Tests 07/28/19 17:30: Activated Partial Thromboplast Time 87H 07/28/19 22:20: Urine Legionella Antigen [Pending] 07/29/19 03:40: Lactate Dehydrogenase 682H 07/29/19 04:25: Activated Partial Thromboplast Time 30, White Blood Count 11.5H, Red Blood Count 2.70L, Hemoglobin 7.6L, Hematocrit 22.6L, Mean Corpuscular Volume 84, Mean Corpuscular Hemoglobin 28.3, Mean Corpuscular Hemoglobin Concent 33.7, Red Cell Distribution Width 13.0, Platelet Count 263, Mean Platelet Volume 5.6L, Neutrophils (%) (Auto) , Lymphocytes (%) (Auto) , Monocytes (%) (Auto) , Eosinophils (%) (Auto) , Basophils (%) (Auto) , Prothrombin Time 11.2, Prothromb Time International Ratio 1.1, D-Dimer 3.62H, Sodium Level 136, Potassium Level 4.3, Chloride Level 102, Carbon Dioxide Level 18L, Anion Gap 16H , Blood Urea Nitrogen 102H, Creatinine 4.9H, Estimat Glomerular Filtration Rate 14.3, Glucose Level 153H, Calcium Level 8.8, Phosphorus Level 5.9H, Magnesium Level 2.3, Total Bilirubin 0.9, Aspartate Amino Transf (AST/SGOT) 938H, Alanine Aminotransferase (ALT/SGPT) 931H, Alkaline Phosphatase 231H, Troponin I 0.986H, C-Reactive Protein, Quantitative > 70.0H, Pro-B-Type Natriuretic Peptide > 06591C, Total Protein 6.6, Albumin 2.6L, Globulin 4.0, Albumin/Globulin Ratio 0.6L, Random Vancomycin Level 18.7 Height (Feet): 5 Height (Inches): 8.00 Weight (Pounds): 132 General Appearance: lethargic EENT: normal ENT inspection Neck: normal alignment Cardiovascular: normal rate, regular rhythm Respiratory/Chest: no accessory muscle use Extremities: normal inspection Skin: normal pigmentation Phillip Gandhi DO Jul 29, 2019 12:00
[2019-07-29] MEDS: Nitroglycerin Patch 0.4mg TDERMAL SCH (14:41)
--- NOTE | 2019-07-29 19:30 | Progress Note ---
DATE: 07/29/2019 SUBJECTIVE: This is a 73-year-old male patient. This patient is now in ICU. He is slightly less verbal to me the day before, but he has been refusing medications and still has very poor insight. I believe he lacks capacity to make his own medical decisions because he insisted he is not getting the same medications that he was taking before, but he does not really know what he was taking before and it is disrupting his care on the unit. He does not seem to understand the risks of doing this. MENTAL STATUS EXAMINATION: A 73-year-old male. Appearance is disheveled. Attitude, irritable and agitated. Affect, guarded and restricted. Intellect poor. Mood, depressed and anxious. Motor activity, psychomotor agitation. Attention span is poor. Orientation x2. Speech is low volume, slurred. Thought process, disorganized and illogical. Insight and judgment is poor even though I met. DIAGNOSIS: Major depressive disorder, mild, recurrent with psychotic features, rule out dementia with psychosis. PLAN: Treat him with Namenda 5 twice a day, Risperdal 0.5 twice a day, Ativan 0.5 mg every 6 hours p.r.n. anxiety or agitation. Twenty minutes of cognitive behavioral therapy to help him identify his automatic negative thoughts and help him convert his negative thoughts to more positive thoughts to reduce depression, anxiety, and mood lability. Chart was reviewed. Discussed with staff. Seen and assessed in his room. Nata Coronado M.D. DR: JARAD JOB#: [id number] CC:
[2019-07-29] MEDS: Iron Sucrose 100 MG in NS 55 ML IV SCH (20:52)
[2019-07-29] MEDS ORDERED: Tamsulosin 0.4mg cap ORAL SCH (21:00)
[2019-07-30] VITALS (13 sets, daily range): BP systolic 86–109; BP diastolic 54–73
[2019-07-30] MEDS: Aztreonam Inj 1 GM in NS 55 ML IVPB SCH ×3 (05:23→21:48)
[2019-07-30] MEDS: HydrALAZINE 10mg Tab ORAL SCH ×4 (06:00→17:31)
[2019-07-30] MEDS: NovoLOG Insulin Flexpen SUBQ SCH ×5 (06:12→22:54)
[2019-07-30 07:49] LABS: ALANINE AMINOTRANSFERASE 744 U/L (12-78); ALBUMIN 2.4 G/DL (3.4-5.0); ALBUMIN/GLOBULIN RATIO 0.6 (1.0-2.7); ALKALINE PHOSPHATASE 206 U/L (46-116); ANION GAP 17 mmol/L (5-15); ASPARTATE AMINO TRANSFERASE 461 U/L (15-37); BILIRUBIN,TOTAL 0.6 MG/DL (0.2-1.0); BLOOD UREA NITROGEN 97 mg/dL (7-18); CALCIUM 8.6 MG/DL (8.5-10.1); CARBON DIOXIDE 19 MMOL/L (21-32); CHLORIDE 104 MMOL/L (98-107); CREATININE 4.6 MG/DL (0.55-1.30); SODIUM 140 MMOL/L (136-145)
[2019-07-30 08:12] LABS: PHOSPHORUS 4.1 MG/DL (2.5-4.9)
[2019-07-30] MEDS ORDERED: Digoxin 0.5mg/2ml Inj IVP SCH (08:30)
--- NOTE | 2019-07-30 08:30 | Nephrology Progress Note ---
Assessment/Plan Problem List: (1) Renal failure (ARF), acute on chronic (2) Cardiomyopathy Assessment: Significant low perfusion state (3) Elevated troponin (4) Pneumonia (5) Anemia Assessment Rule out COVID-19 Renal failure (ARF), acute on chronic DM (diabetes mellitus) Hypothyroid Cardiomyopathy EjFx 15% Anemia of chronic kidney disease. Elevated troponin. Plan 73 y old- admitted with Pneumonia rule out COVID-19 As per previous admission records indicate, patient needs Dialysis- Coronary Angio , Defibrillator Refused all previously and continues to refuse dialysis now 1 dose digoxin IV Beta-blockers nitrates Plavix Kayexalate as needed. Monitor renal parameters. Keep the blood pressure and blood sugar in check. Kidney ultrasound. ordered previously 2D echocardiogram. EjFx 15% Urine studies. Hold Metformin and Lasix. Per orders. Subjective ROS Limited/Unobtainable: No Constitutional: Reports: malaise, weakness Objective Objective Last 24 Hour Vital Signs Date Time Temp Pulse Resp B/P (MAP) Pulse Ox O2 Delivery O2 Flow Rate FiO2 07/30/19 06:00 96/59 07/30/19 04:00 97.9 89 17 96/59 (71) 99 07/30/19 04:00 Room Air Room Air 07/30/19 04:00 91 07/30/19 03:00 92 16 105/62 (76) 98 07/30/19 02:00 92 17 104/62 (76) 99 07/30/19 01:00 90 18 98/63 (75) 99 07/30/19 00:00 90 07/30/19 00:00 Room Air Room Air 07/30/19 00:00 98.0 90 20 102/73 (83) 99 07/30/19 00:00 101/62 07/29/19 23:00 89 16 102/65 (77) 97 07/29/19 22:00 89 16 99/60 (73) 97 07/29/19 21:00 90 15 103/61 (75) 100 07/29/19 20:50 90 103/59 07/29/19 20:00 Room Air Room Air 07/29/19 20:00 97.9 88 15 99/67 (78) 98 07/29/19 20:00 87 07/29/19 19:00 87 15 104/60 (75) 100 07/29/19 18:00 90 17 105/62 (76) 100 07/29/19 17:13 99/54 07/29/19 17:00 89 17 103/63 (76) 100 07/29/19 16:00 82 07/29/19 16:00 Room Air Room Air 07/29/19 16:00 98.1 84 15 100/58 (72) 99 07/29/19 15:00 83 15 97/60 (72) 99 07/29/19 14:41 99/60 07/29/19 14:00 85 17 99/60 (73) 100 07/29/19 13:00 85 15 101/82 (88) 100 07/29/19 12:00 82 07/29/19 12:00 102/63 07/29/19 12:00 Room Air Room Air 07/29/19 12:00 97.8 83 14 102/63 (76) 99 Intake and Output 07/29/19 07/30/19 19:00 07:00 Intake Total 575.000 ml 410 ml Output Total 800 ml 500 ml Balance -225.000 ml -90 ml Intake Oral 300 ml 240 ml IV Total 275.000 ml 170 ml Output Urine Total 800 ml 500 ml # Voids 2 Current Medications Medications (Trade) Dose Ordered Sig/Stella Route PRN Reason Start Time Stop Time Status Last Admin Dose Admin Allopurinol (allopurinoL) 300 mg DAILY ORAL 07/28/19 10:00 08/27/19 09:59 07/29/19 08:18 Aztreonam 1 gm/ Sodium Chloride 55 ml @ 110 mls/hr Q8HR IVPB 07/28/19 22:00 08/04/19 21:59 07/30/19 05:23 Carvedilol (Coreg) 3.125 mg EVERY 12 HOURS ORAL 07/29/19 09:00 08/28/19 08:59 Clopidogrel Bisulfate (Plavix) 75 mg DAILY ORAL 07/28/19 09:00 08/27/19 08:59 07/29/19 08:17 Dextrose (Dextrose 50%) 25 ml Q30M PRN IV Hypoglycemia 07/28/19 09:30 10/26/19 09:29 Dextrose (Dextrose 50%) 50 ml Q30M PRN IV Hypoglycemia 07/28/19 09:30 10/26/19 09:29 Docusate Sodium (Colace) 100 mg THREE TIMES A DAY ORAL 07/28/19 18:00 08/27/19 17:59 Doxycycline Monohydrate (Doxycycline Monohydrate) 100 mg BID ORAL 07/27/19 20:00 08/03/19 19:59 07/29/19 17:15 Epoetin Yaron (Epoetin Yaron-EPBX(NON ESRD)) 10,000 unit SUN-SUN-SUN SUBQ 07/28/19 21:00 10/26/19 20:59 Hydralazine HCl (Apresoline) 10 mg Q6HR ORAL 07/28/19 18:00 10/26/19 17:59 Insulin Aspart (NovoLOG) BEFORE MEALS AND HS SUBQ 07/28/19 11:30 10/26/19 11:29 Iron Sucrose 100 mg/Sodium Chloride 60 ml @ 240 mls/hr BEDTIME IV 07/28/19 21:00 08/01/19 21:14 07/29/19 20:52 Isosorbide Mononitrate (Imdur) 30 mg DAILY ORAL 07/29/19 09:00 08/28/19 08:59 Levothyroxine Sodium (Synthroid) 50 mcg ACBREAKFAST ORAL 07/28/19 06:30 08/27/19 06:29 07/30/19 05:24 Linezolid (Zyvox) 600 mg EVERY 12 HOURS ORAL 07/29/19 21:00 08/03/19 20:59 07/29/19 20:51 Lorazepam (Ativan) 0.5 mg Q6H PRN ORAL For Anxiety 07/28/19 14:14 08/04/19 14:13 Memantine (Namenda) 5 mg BID ORAL 07/28/19 18:00 08/27/19 17:59 07/29/19 17:15 Nitroglycerin (Ntg) 1 patch Q24H TDERMAL 07/28/19 15:00 08/27/19 14:59 Pantoprazole (Protonix) 40 mg BID ORAL 07/28/19 18:00 08/27/19 08:59 07/29/19 17:15 Risperidone (RisperDAL) 0.5 mg EVERY 6 HOURS ORAL 07/28/19 18:00 09/11/19 17:59 07/30/19 05:24 Sevelamer Carbonate (Renvela) 800 mg THREE TIMES A DAY ORAL 07/28/19 18:00 10/26/19 17:59 07/29/19 17:16 Sodium Citrate (Bicitra) 30 ml BID ORAL 07/29/19 09:00 08/28/19 08:59 07/29/19 17:14 Tamsulosin HCl (Flomax) 0.4 mg BEDTIME ORAL 07/29/19 21:00 08/28/19 20:59 07/29/19 20:50 Laboratory Tests 07/30/19 05:34: White Blood Count [Pending], Red Blood Count [Pending], Hemoglobin [Pending], Hematocrit [Pending], Mean Corpuscular Volume [Pending], Mean Corpuscular Hemoglobin [Pending], Mean Corpuscular Hemoglobin Concent [Pending], Red Cell Distribution Width [Pending], Platelet Count [Pending], Mean Platelet Volume [ Pending], Neutrophils (%) (Auto) [Pending], Lymphocytes (%) (Auto) [Pending], Monocytes (%) (Auto) [Pending], Eosinophils (%) (Auto) [Pending], Basophils (%) (Auto) [Pending], Sodium Level 140, Potassium Level 4.0, Chloride Level 104, Carbon Dioxide Level 19L, Anion Gap 17H, Blood Urea Nitrogen 97H, Creatinine 4.6H, Estimat Glomerular Filtration Rate 15.4, Glucose Level 151H, Uric Acid 11.5H, Calcium Level 8.6, Phosphorus Level 4.1, Magnesium Level 2.5H, Total Bilirubin 0.6, Gamma Glutamyl Transpeptidase 80, Aspartate Amino Transf (AST/ SGOT) 461H, Alanine Aminotransferase (ALT/SGPT) 744H, Alkaline Phosphatase 206H , Troponin I [Pending], Total Protein 6.5, Albumin 2.4L, Globulin 4.1, Albumin/ Globulin Ratio 0.6L, Hepatitis A IgM Antibody [Pending], Hepatitis B Surface Antigen [Pending], Hepatitis B Core IgM Antibody [Pending], Hepatitis C Antibody [Pending] Height (Feet): 5 Height (Inches): 8.00 Weight (Pounds): 104 General Appearance: no apparent distress, lethargic Cardiovascular: tachycardia Respiratory/Chest: decreased breath sounds Abdomen: distended Ti Jones MD Jul 30, 2019 08:30
[2019-07-30] MEDS: Docusate 100mg cap ORAL SCH ×3 (08:37→17:31)
[2019-07-30] MEDS: Sodium Citrate 30ml ORAL SCH ×2 (08:37→17:32)
[2019-07-30] MEDS: Doxycycline Monohydrate 100mg ORAL SCH ×2 (08:38→17:32)
[2019-07-30] MEDS: Imdur 30mg tab ORAL SCH (08:38)
[2019-07-30] MEDS: Memantine 5 MG TAB ORAL SCH ×2 (08:38→17:32)
--- NOTE | 2019-07-30 09:00 | General Progress Note ---
Assessment/Plan Problem List: (1) SOB (shortness of breath) ICD Codes: R06.02 - Shortness of breath SNOMED: 901715914 (2) CHF (congestive heart failure) ICD Codes: I50.9 - Heart failure, unspecified SNOMED: 07671842 (3) Suspected COVID-19 virus infection ICD Codes: R68.89 - Other general symptoms and signs SNOMED: 684129317 (4) Psychiatric disorder ICD Codes: F99 - Psychiatric disorder SNOMED: 98019888 (5) DM (diabetes mellitus) ICD Codes: E11.9 - DM (diabetes mellitus) SNOMED: 30394860 (6) Weakness ICD Codes: R53.1 - Weakness SNOMED: 41794497 (7) Acute renal failure (ARF) ICD Codes: N17.9 - Acute renal failure (ARF) SNOMED: 02513559 (8) Anemia ICD Codes: D64.9 - Anemia SNOMED: 043518367 (9) Malnutrition ICD Codes: E46 - Unspecified protein-calorie malnutrition SNOMED: 20588839 Status: unchanged Assessment/Plan: pt diet abx bp bs control cbc bmp am Subjective Constitutional: Reports: weakness Allergies: Coded Allergies: CASTANON (Unverified Allergy, Mild, 06/07/19) APPLE (Unverified Allergy, Unknown, 06/07/19) BANANA (Unverified Allergy, Unknown, 06/07/19) CHOCOLATE FLAVOR (Unverified Allergy, Unknown, 06/07/19) PENICILLINS (Verified Allergy, Unknown, 07/12/17) POTATO (Unverified Allergy, Unknown, 06/07/19) All Systems: reviewed and negative except above Subjective sleepy in icu Objective Last 24 Hour Vital Signs Date Time Temp Pulse Resp B/P (MAP) Pulse Ox O2 Delivery O2 Flow Rate FiO2 07/30/19 08:38 103/63 07/30/19 08:37 90 103/63 07/30/19 06:00 96/59 07/30/19 04:00 97.9 89 17 96/59 (71) 99 07/30/19 04:00 Room Air Room Air 07/30/19 04:00 91 07/30/19 03:00 92 16 105/62 (76) 98 07/30/19 02:00 92 17 104/62 (76) 99 07/30/19 01:00 90 18 98/63 (75) 99 07/30/19 00:00 90 07/30/19 00:00 Room Air Room Air 07/30/19 00:00 98.0 90 20 102/73 (83) 99 07/30/19 00:00 101/62 07/29/19 23:00 89 16 102/65 (77) 97 07/29/19 22:00 89 16 99/60 (73) 97 07/29/19 21:00 90 15 103/61 (75) 100 07/29/19 20:50 90 103/59 07/29/19 20:00 Room Air Room Air 07/29/19 20:00 97.9 88 15 99/67 (78) 98 07/29/19 20:00 87 07/29/19 19:00 87 15 104/60 (75) 100 07/29/19 18:00 90 17 105/62 (76) 100 07/29/19 17:13 99/54 07/29/19 17:00 89 17 103/63 (76) 100 07/29/19 16:00 82 07/29/19 16:00 Room Air Room Air 07/29/19 16:00 98.1 84 15 100/58 (72) 99 07/29/19 15:00 83 15 97/60 (72) 99 07/29/19 14:41 99/60 07/29/19 14:00 85 17 99/60 (73) 100 07/29/19 13:00 85 15 101/82 (88) 100 07/29/19 12:00 82 07/29/19 12:00 102/63 07/29/19 12:00 Room Air Room Air 07/29/19 12:00 97.8 83 14 102/63 (76) 99 Intake and Output 07/29/19 07/30/19 19:00 07:00 Intake Total 575.000 ml 410 ml Output Total 800 ml 500 ml Balance -225.000 ml -90 ml Intake Oral 300 ml 240 ml IV Total 275.000 ml 170 ml Output Urine Total 800 ml 500 ml # Voids 2 Laboratory Tests 07/30/19 05:30: Digoxin Level < 0.3L 07/30/19 05:34: White Blood Count [Pending], Red Blood Count [Pending], Hemoglobin [Pending], Hematocrit [Pending], Mean Corpuscular Volume [Pending], Mean Corpuscular Hemoglobin [Pending], Mean Corpuscular Hemoglobin Concent [Pending], Red Cell Distribution Width [Pending], Platelet Count [Pending], Mean Platelet Volume [ Pending], Neutrophils (%) (Auto) [Pending], Lymphocytes (%) (Auto) [Pending], Monocytes (%) (Auto) [Pending], Eosinophils (%) (Auto) [Pending], Basophils (%) (Auto) [Pending], Sodium Level 140, Potassium Level 4.0, Chloride Level 104, Carbon Dioxide Level 19L, Anion Gap 17H, Blood Urea Nitrogen 97H, Creatinine 4.6H, Estimat Glomerular Filtration Rate 15.4, Glucose Level 151H, Uric Acid 11.5H, Calcium Level 8.6, Phosphorus Level 4.1, Magnesium Level 2.5H, Total Bilirubin 0.6, Gamma Glutamyl Transpeptidase 80, Aspartate Amino Transf (AST/ SGOT) 461H, Alanine Aminotransferase (ALT/SGPT) 744H, Alkaline Phosphatase 206H , Troponin I 0.703H, Total Protein 6.5, Albumin 2.4L, Globulin 4.1, Albumin/ Globulin Ratio 0.6L, Hepatitis A IgM Antibody [Pending], Hepatitis B Surface Antigen [Pending], Hepatitis B Core IgM Antibody [Pending], Hepatitis C Antibody [Pending] Height (Feet): 5 Height (Inches): 8.00 Weight (Pounds): 104 General Appearance: lethargic EENT: normal ENT inspection Neck: normal alignment Cardiovascular: normal rate, regular rhythm Respiratory/Chest: no accessory muscle use Extremities: normal inspection Skin: normal pigmentation Phillip Gandhi DO Jul 30, 2019 09:00
--- NOTE | 2019-07-30 09:06 | Diagnostic Imaging Report ---
Indication: Shortness of breath Technique: XRAY Chest 1v Comparison: 07/27/2019 Findings: Heart is enlarged but stable in size. There is interval worsening of aeration with persistent vascular congestion but increased right-sided layering pleural effusion and patchy opacities at the right base. There are also some mild streaky opacities at the left base. No evidence of pneumothorax. Osseous structures demonstrate no acute abnormality. IMPRESSION: Persistent central pulmonary vascular congestion. Interval worsening of aeration with increased layering right pleural effusion and increased patchy opacities at the right base which may be related to compressive atelectasis and/or pneumonia.
--- NOTE | 2019-07-30 09:39 | General Progress Note ---
Assessment/Plan Status: unchanged Assessment/Plan: 1. Stage 5 CKD, refusing hemodialysis. 2. Atrial flutter, paroxysmal. 3. History of severe cardiomyopathy with LVEF of approximately 15% to 20%. 4. History of anemia. 5. History of dysphagia. 6. History of myocardial infarction, refused cardiac catheterization. 7. In the past, has had COPD. 8. History of diabetes mellitus. 9. History of CVA/TIA. 10. History of dementia. 11. elevate LFTS>> ? shock liver repeat labs fu H&H transfuse as needed not a good candidate for GI procedures fu stool ob Subjective ROS Limited/Unobtainable: No Allergies: Coded Allergies: CASTANON (Unverified Allergy, Mild, 06/07/19) APPLE (Unverified Allergy, Unknown, 06/07/19) BANANA (Unverified Allergy, Unknown, 06/07/19) CHOCOLATE FLAVOR (Unverified Allergy, Unknown, 06/07/19) PENICILLINS (Verified Allergy, Unknown, 07/12/17) POTATO (Unverified Allergy, Unknown, 06/07/19) Objective Last 24 Hour Vital Signs Date Time Temp Pulse Resp B/P (MAP) Pulse Ox O2 Delivery O2 Flow Rate FiO2 07/30/19 08:57 90 07/30/19 08:38 103/63 07/30/19 08:37 90 103/63 07/30/19 06:00 96/59 07/30/19 04:00 97.9 89 17 96/59 (71) 99 07/30/19 04:00 Room Air Room Air 07/30/19 04:00 91 07/30/19 03:00 92 16 105/62 (76) 98 07/30/19 02:00 92 17 104/62 (76) 99 07/30/19 01:00 90 18 98/63 (75) 99 07/30/19 00:00 90 07/30/19 00:00 Room Air Room Air 07/30/19 00:00 98.0 90 20 102/73 (83) 99 07/30/19 00:00 101/62 07/29/19 23:00 89 16 102/65 (77) 97 07/29/19 22:00 89 16 99/60 (73) 97 07/29/19 21:00 90 15 103/61 (75) 100 07/29/19 20:50 90 103/59 07/29/19 20:00 Room Air Room Air 07/29/19 20:00 97.9 88 15 99/67 (78) 98 07/29/19 20:00 87 07/29/19 19:00 87 15 104/60 (75) 100 07/29/19 18:00 90 17 105/62 (76) 100 07/29/19 17:13 99/54 07/29/19 17:00 89 17 103/63 (76) 100 07/29/19 16:00 82 07/29/19 16:00 Room Air Room Air 07/29/19 16:00 98.1 84 15 100/58 (72) 99 07/29/19 15:00 83 15 97/60 (72) 99 07/29/19 14:41 99/60 07/29/19 14:00 85 17 99/60 (73) 100 07/29/19 13:00 85 15 101/82 (88) 100 07/29/19 12:00 82 07/29/19 12:00 102/63 07/29/19 12:00 Room Air Room Air 07/29/19 12:00 97.8 83 14 102/63 (76) 99 Intake and Output 07/29/19 07/30/19 19:00 07:00 Intake Total 575.000 ml 410 ml Output Total 800 ml 500 ml Balance -225.000 ml -90 ml Intake Oral 300 ml 240 ml IV Total 275.000 ml 170 ml Output Urine Total 800 ml 500 ml # Voids 2 Laboratory Tests 07/30/19 05:30: Digoxin Level < 0.3L 07/30/19 05:34: White Blood Count [Pending], Red Blood Count [Pending], Hemoglobin [Pending], Hematocrit [Pending], Mean Corpuscular Volume [Pending], Mean Corpuscular Hemoglobin [Pending], Mean Corpuscular Hemoglobin Concent [Pending], Red Cell Distribution Width [Pending], Platelet Count [Pending], Mean Platelet Volume [ Pending], Neutrophils (%) (Auto) [Pending], Lymphocytes (%) (Auto) [Pending], Monocytes (%) (Auto) [Pending], Eosinophils (%) (Auto) [Pending], Basophils (%) (Auto) [Pending], Sodium Level 140, Potassium Level 4.0, Chloride Level 104, Carbon Dioxide Level 19L, Anion Gap 17H, Blood Urea Nitrogen 97H, Creatinine 4.6H, Estimat Glomerular Filtration Rate 15.4, Glucose Level 151H, Uric Acid 11.5H, Calcium Level 8.6, Phosphorus Level 4.1, Magnesium Level 2.5H, Total Bilirubin 0.6, Gamma Glutamyl Transpeptidase 80, Aspartate Amino Transf (AST/ SGOT) 461H, Alanine Aminotransferase (ALT/SGPT) 744H, Alkaline Phosphatase 206H , Troponin I 0.703H, Total Protein 6.5, Albumin 2.4L, Globulin 4.1, Albumin/ Globulin Ratio 0.6L, Hepatitis A IgM Antibody [Pending], Hepatitis B Surface Antigen [Pending], Hepatitis B Core IgM Antibody [Pending], Hepatitis C Antibody [Pending] Height (Feet): 5 Height (Inches): 8.00 Weight (Pounds): 104 General Appearance: alert EENT: normal ENT inspection Neck: supple Cardiovascular: normal rate Respiratory/Chest: decreased breath sounds Abdomen: normal bowel sounds, non tender, soft Extremities: non-tender Deric Price MD Jul 30, 2019 09:39
--- NOTE | 2019-07-30 09:39 | Hematology/Onc Progress Note ---
Assessment/Plan Assessment/Plan Assessment and Recs: # Anemia of iron deficiency, must rule out gi bleed, as hgb has persistently been low --> anemia panel is noted, reviewed prior labs as well --> stool ob positive 06/07 --> ct a/p results pending --> as per gi Dr. Price --> cont on epogen --> hgb trend: 9.3-->8.7->7.6 --> ferritin is 410 # Coaguloapthy with elev ptt due to heparin gtt --> monitor as per pharmacy is medication induced --> as per pcards indication # Thrombocytopenia likely reactive process (HISTORY OF) --> meds have been reviewed --> smear noted --> now improved --> plt 235k # Troponin elevation likely due to renal failure with creatinine of 5.3 as low level and flat. --> as per cards, renal --> Lipitor and Plavix daily and Lopressor 12.5 bid # HTN On Lopressor and Hydralazine 10 q 6 --> cards recs noted --> sbp goal <140 # Hyperkalemia due to renal failure. --> Fu by Dr. Jones. # Hyperlipidemia on Lipitor. # Hypothyroidism on Synthroid. # Benign prostatic hypertrophy --> on Flomax and Proscar Apprecaite consultation and alana RN Subjective Constitutional: Denies: no symptoms, chills, fever, malaise, weakness, other HEENT: Denies: no symptoms, eye pain, blurred vision, tearing, double vision, ear pain, ear discharge, nose pain, nose congestion, throat pain, throat swelling, mouth pain, mouth swelling, other Cardiovascular: Denies: no symptoms, chest pain, edema, irregular heart rate, lightheadedness, palpitations, syncope, other Genitourinary: Denies: no symptoms, burning, discharge, frequency, flank pain, hematuria, incontinence, pain, urgency, other Neurologic/Psychiatric: Denies: no symptoms, anxiety, depressed, emotional problems, headache, numbness, paresthesia, pre-existing deficit, seizure, tingling, tremors, weakness, other Endocrine: Denies: no symptoms, excessive sweating, flushing, intolerance to cold, intolerance to heat, increased hunger, increased thirst, increased urine, unexplained weight gain, unexplained weight loss, other Allergies: Coded Allergies: CASTANON (Unverified Allergy, Mild, 06/07/19) APPLE (Unverified Allergy, Unknown, 06/07/19) BANANA (Unverified Allergy, Unknown, 06/07/19) CHOCOLATE FLAVOR (Unverified Allergy, Unknown, 06/07/19) PENICILLINS (Verified Allergy, Unknown, 07/12/17) POTATO (Unverified Allergy, Unknown, 06/07/19) Subjective 07/28 labs reviewed, remains in icu, hgb remains low, holding off prbc 07/29 labs refusing, meds noted, abs pending this am still Objective Objective Current Medications Medications (Trade) Dose Ordered Sig/Stella Route PRN Reason Start Time Stop Time Status Last Admin Dose Admin Allopurinol (allopurinoL) 300 mg DAILY ORAL 07/28/19 10:00 08/27/19 09:59 07/30/19 08:37 Aztreonam 1 gm/ Sodium Chloride 55 ml @ 110 mls/hr Q8HR IVPB 07/28/19 22:00 08/04/19 21:59 07/30/19 05:23 Carvedilol (Coreg) 3.125 mg EVERY 12 HOURS ORAL 07/29/19 09:00 08/28/19 08:59 Clopidogrel Bisulfate (Plavix) 75 mg DAILY ORAL 07/28/19 09:00 08/27/19 08:59 07/30/19 08:38 Dextrose (Dextrose 50%) 25 ml Q30M PRN IV Hypoglycemia 07/28/19 09:30 10/26/19 09:29 Dextrose (Dextrose 50%) 50 ml Q30M PRN IV Hypoglycemia 07/28/19 09:30 10/26/19 09:29 Docusate Sodium (Colace) 100 mg THREE TIMES A DAY ORAL 07/28/19 18:00 08/27/19 17:59 Doxycycline Monohydrate (Doxycycline Monohydrate) 100 mg BID ORAL 07/27/19 20:00 08/03/19 19:59 07/30/19 08:38 Epoetin Yaron (Epoetin Yaron-EPBX(NON ESRD)) 10,000 unit SUN-SUN-SUN SUBQ 07/28/19 21:00 10/26/19 20:59 Hydralazine HCl (Apresoline) 10 mg Q6HR ORAL 07/28/19 18:00 10/26/19 17:59 Insulin Aspart (NovoLOG) BEFORE MEALS AND HS SUBQ 07/28/19 11:30 10/26/19 11:29 Iron Sucrose 100 mg/Sodium Chloride 60 ml @ 240 mls/hr BEDTIME IV 07/28/19 21:00 08/01/19 21:14 07/29/19 20:52 Isosorbide Mononitrate (Imdur) 30 mg DAILY ORAL 07/29/19 09:00 08/28/19 08:59 Levothyroxine Sodium (Synthroid) 50 mcg ACBREAKFAST ORAL 07/28/19 06:30 08/27/19 06:29 07/30/19 05:24 Linezolid (Zyvox) 600 mg EVERY 12 HOURS ORAL 07/29/19 21:00 08/03/19 20:59 07/30/19 08:39 Lorazepam (Ativan) 0.5 mg Q6H PRN ORAL For Anxiety 07/28/19 14:14 08/04/19 14:13 Memantine (Namenda) 5 mg BID ORAL 07/28/19 18:00 08/27/19 17:59 07/30/19 08:38 Pantoprazole (Protonix) 40 mg BID ORAL 07/28/19 18:00 08/27/19 08:59 07/30/19 08:38 Risperidone (RisperDAL) 0.5 mg EVERY 6 HOURS ORAL 07/28/19 18:00 09/11/19 17:59 07/30/19 05:24 Sevelamer Carbonate (Renvela) 800 mg THREE TIMES A DAY ORAL 07/28/19 18:00 10/26/19 17:59 07/30/19 08:39 Sodium Citrate (Bicitra) 30 ml BID ORAL 07/29/19 09:00 08/28/19 08:59 07/30/19 08:37 Tamsulosin HCl (Flomax) 0.4 mg BEDTIME ORAL 07/29/19 21:00 08/28/19 20:59 07/29/19 20:50 Last 24 Hour Vital Signs Date Time Temp Pulse Resp B/P (MAP) Pulse Ox O2 Delivery O2 Flow Rate FiO2 07/30/19 08:57 90 07/30/19 08:38 103/63 07/30/19 08:37 90 103/63 07/30/19 06:00 96/59 07/30/19 04:00 97.9 89 17 96/59 (71) 99 07/30/19 04:00 Room Air Room Air 07/30/19 04:00 91 07/30/19 03:00 92 16 105/62 (76) 98 07/30/19 02:00 92 17 104/62 (76) 99 07/30/19 01:00 90 18 98/63 (75) 99 07/30/19 00:00 90 07/30/19 00:00 Room Air Room Air 07/30/19 00:00 98.0 90 20 102/73 (83) 99 07/30/19 00:00 101/62 07/29/19 23:00 89 16 102/65 (77) 97 07/29/19 22:00 89 16 99/60 (73) 97 07/29/19 21:00 90 15 103/61 (75) 100 07/29/19 20:50 90 103/59 07/29/19 20:00 Room Air Room Air 07/29/19 20:00 97.9 88 15 99/67 (78) 98 07/29/19 20:00 87 07/29/19 19:00 87 15 104/60 (75) 100 07/29/19 18:00 90 17 105/62 (76) 100 07/29/19 17:13 99/54 07/29/19 17:00 89 17 103/63 (76) 100 07/29/19 16:00 82 07/29/19 16:00 Room Air Room Air 07/29/19 16:00 98.1 84 15 100/58 (72) 99 07/29/19 15:00 83 15 97/60 (72) 99 07/29/19 14:41 99/60 07/29/19 14:00 85 17 99/60 (73) 100 07/29/19 13:00 85 15 101/82 (88) 100 07/29/19 12:00 82 07/29/19 12:00 102/63 07/29/19 12:00 Room Air Room Air 07/29/19 12:00 97.8 83 14 102/63 (76) 99 07/29/19 08:23 101/63 07/29/19 08:22 94 101/63 07/29/19 08:00 98.6 85 17 101/63 (76) 98 07/29/19 08:00 84 07/29/19 08:00 Room Air Room Air 07/29/19 06:15 86 16 110/60 (77) 98 07/29/19 06:00 87 18 106/65 (79) 100 07/29/19 06:00 106/65 07/29/19 05:00 85 16 104/64 (77) 98 07/29/19 04:00 85 15 103/64 (77) 98 07/29/19 04:00 85 07/29/19 03:00 88 15 98/64 (75) 100 07/29/19 02:00 Room Air Room Air 07/29/19 02:00 98.2 90 21 110/60 (77) 100 07/29/19 00:00 Room Air Room Air 07/29/19 00:00 98.0 82 20 108/62 (77) 98 07/29/19 00:00 89 07/28/19 20:00 98.2 78 18 107/72 (84) 100 07/28/19 20:00 Room Air Room Air 07/28/19 19:11 92 07/28/19 16:00 97.8 82 17 99/63 (75) 100 07/28/19 16:00 Room Air Room Air 07/28/19 15:56 89 07/28/19 12:00 Room Air Room Air 07/28/19 12:00 91 07/28/19 12:00 97.3 95 19 111/71 (84) 100 Intake and Output 07/29/19 07/30/19 19:00 07:00 Intake Total 575.000 ml 410 ml Output Total 800 ml 500 ml Balance -225.000 ml -90 ml Intake Oral 300 ml 240 ml IV Total 275.000 ml 170 ml Output Urine Total 800 ml 500 ml # Voids 2 Labs Test 07/27/19 10:40 07/27/19 15:17 07/27/19 15:55 07/28/19 01:00 White Blood Count 23.8 K/UL (4.8-10.8) Red Blood Count 2.89 M/UL (4.70-6.10) Hemoglobin 8.1 G/DL (14.2-18.0) Hematocrit 24.4 % (42.0-52.0) Mean Corpuscular Volume 84 FL (80-99) Mean Corpuscular Hemoglobin 28.0 PG (27.0-31.0) Mean Corpuscular Hemoglobin Concent 33.2 G/DL (32.0-36.0) Red Cell Distribution Width 12.9 % (11.6-14.8) Platelet Count 271 K/UL (150-450) Mean Platelet Volume 5.2 FL (6.5-10.1) Neutrophils (%) (Auto) % (45.0-75.0) Lymphocytes (%) (Auto) % (20.0-45.0) Monocytes (%) (Auto) % (1.0-10.0) Eosinophils (%) (Auto) % (0.0-3.0) Basophils (%) (Auto) % (0.0-2.0) Differential Total Cells Counted 100 Neutrophils % (Manual) 90 % (45-75) Lymphocytes % (Manual) 4 % (20-45) Monocytes % (Manual) 6 % (1-10) Eosinophils % (Manual) 0 % (0-3) Basophils % (Manual) 0 % (0-2) Band Neutrophils 0 % (0-8) Platelet Estimate Adequate Platelet Morphology Normal Hypochromasia 1+ Prothrombin Time 10.6 SEC (9.30-11.50) Prothromb Time International Ratio 1.0 (0.9-1.1) Activated Partial Thromboplast Time 28 SEC (23-33) 60 SEC (23-33) Sodium Level 137 MMOL/L (136-145) Potassium Level 4.9 MMOL/L (3.5-5.1) Chloride Level 101 MMOL/L (98-107) Carbon Dioxide Level 22 MMOL/L (21-32) Blood Urea Nitrogen 110 mg/dL (7-18) Creatinine 4.8 MG/DL (0.55-1.30) Estimat Glomerular Filtration Rate 14.7 mL/min (>60) Glucose Level 191 MG/DL (74-106) Lactic Acid Level 1.30 mmol/L (0.4-2.0) Calcium Level 8.5 MG/DL (8.5-10.1) Phosphorus Level 5.6 MG/DL (2.5-4.9) Magnesium Level 1.6 MG/DL (1.8-2.4) Total Bilirubin 1.2 MG/DL (0.2-1.0) Direct Bilirubin 0.5 MG/DL (0.0-0.3) Aspartate Amino Transf (AST/SGOT) 46 U/L (15-37) Alanine Aminotransferase (ALT/SGPT) 40 U/L (12-78) Alkaline Phosphatase 117 U/L (46-116) Total Creatine Kinase 99 U/L (26-308) Creatine Kinase MB 2.4 NG/ML (0.0-3.6) Creatine Kinase MB Relative Index 2.4 Troponin I 2.647 ng/mL (0.000-0.056) 3.270 ng/mL (0.000-0.056) Pro-B-Type Natriuretic Peptide > 95030 pg/mL (0-125) Total Protein 7.3 G/DL (6.4-8.2) Albumin 2.9 G/DL (3.4-5.0) Globulin 4.4 g/dL Albumin/Globulin Ratio 0.7 (1.0-2.7) Urine Color Yellow Urine Appearance Clear Urine pH 5 (4.5-8.0) Urine Specific [place] 1.015 (1.005-1.035) Urine Protein 1+ (NEGATIVE) Urine Glucose (UA) Negative (NEGATIVE) Urine Ketones Negative (NEGATIVE) Urine Blood Negative (NEGATIVE) Urine Nitrite Negative (NEGATIVE) Urine Bilirubin Negative (NEGATIVE) Urine Urobilinogen 1 MG/DL (0.0-1.0) Urine Leukocyte Esterase Negative (NEGATIVE) Urine RBC 0 /HPF (0 - 0) Urine WBC 0 /HPF (0 - 0) Urine Squamous Epithelial Cells Occasional /LPF Urine Bacteria Few /HPF (NONE) Ammonia 39 umol/L (11-32) Test 07/28/19 04:30 07/28/19 08:00 07/28/19 17:30 07/28/19 22:20 White Blood Count 12.3 K/UL (4.8-10.8) Red Blood Count 2.79 M/UL (4.70-6.10) Hemoglobin 7.8 G/DL (14.2-18.0) Hematocrit 23.8 % (42.0-52.0) Mean Corpuscular Volume 85 FL (80-99) Mean Corpuscular Hemoglobin 28.1 PG (27.0-31.0) Mean Corpuscular Hemoglobin Concent 32.9 G/DL (32.0-36.0) Red Cell Distribution Width 13.3 % (11.6-14.8) Platelet Count 235 K/UL (150-450) Mean Platelet Volume 5.2 FL (6.5-10.1) Neutrophils (%) (Auto) % (45.0-75.0) Lymphocytes (%) (Auto) % (20.0-45.0) Monocytes (%) (Auto) % (1.0-10.0) Eosinophils (%) (Auto) % (0.0-3.0) Basophils (%) (Auto) % (0.0-2.0) Differential Total Cells Counted 100 Neutrophils % (Manual) 84 % (45-75) Lymphocytes % (Manual) 14 % (20-45) Monocytes % (Manual) 2 % (1-10) Eosinophils % (Manual) 0 % (0-3) Basophils % (Manual) 0 % (0-2) Band Neutrophils 0 % (0-8) Platelet Estimate Adequate Platelet Morphology Normal Hypochromasia 3+ Anisocytosis 1+ Sodium Level 136 MMOL/L (136-145) Potassium Level 4.3 MMOL/L (3.5-5.1) Chloride Level 101 MMOL/L (98-107) Carbon Dioxide Level 19 MMOL/L (21-32) Anion Gap 16 mmol/L (5-15) Blood Urea Nitrogen 105 mg/dL (7-18) Creatinine 5.2 MG/DL (0.55-1.30) Estimat Glomerular Filtration Rate 13.3 mL/min (>60) Glucose Level 241 MG/DL (74-106) Hemoglobin A1c 6.7 % (4.3-6.0) Uric Acid 11.3 MG/DL (2.6-7.2) Calcium Level 8.6 MG/DL (8.5-10.1) Phosphorus Level 6.0 MG/DL (2.5-4.9) Magnesium Level 1.7 MG/DL (1.8-2.4) Iron Level 15 ug/dL (50-175) Total Iron Binding Capacity 187 ug/dL (250-450) Percent Iron Saturation 8 % (15-50) Unsaturated Iron Binding 172 ug/dL (112-346) Ferritin 410 NG/ML (8-388) Total Bilirubin 1.0 MG/DL (0.2-1.0) Gamma Glutamyl Transpeptidase 29 U/L (5-85) Aspartate Amino Transf (AST/SGOT) 39 U/L (15-37) Alanine Aminotransferase (ALT/SGPT) 35 U/L (12-78) Alkaline Phosphatase 119 U/L (46-116) Lactate Dehydrogenase 222 U/L (81-234) Troponin I 2.921 ng/mL (0.000-0.056) C-Reactive Protein, Quantitative 23.6 mg/dL (0.00-0.90) Pro-B-Type Natriuretic Peptide > 02881 pg/mL (0-125) Total Protein 6.8 G/DL (6.4-8.2) Albumin 2.7 G/DL (3.4-5.0) Globulin 4.1 g/dL Albumin/Globulin Ratio 0.7 (1.0-2.7) Triglycerides Level 67 MG/DL (30-150) Cholesterol Level 102 MG/DL (< 200) LDL Cholesterol 57 mg/dL (<100) HDL Cholesterol 38 MG/DL (40-60) Cholesterol/HDL Ratio 2.7 (3.3-4.4) Vitamin B12 Level 897 PG/ML (193-986) Folate 14.1 NG/ML (8.6-58.9) Thyroid Stimulating Hormone (TSH) 1.615 uiU/mL (0.358-3.740) Digoxin Level < 0.2 NG/ML (0.5-2.0) Activated Partial Thromboplast Time 57 SEC (23-33) 87 SEC (23-33) Test 07/29/19 03:40 07/29/19 04:25 07/30/19 05:30 07/30/19 05:34 Lactate Dehydrogenase 682 U/L (81-234) White Blood Count 11.5 K/UL (4.8-10.8) Red Blood Count 2.70 M/UL (4.70-6.10) Hemoglobin 7.6 G/DL (14.2-18.0) Hematocrit 22.6 % (42.0-52.0) Mean Corpuscular Volume 84 FL (80-99) Mean Corpuscular Hemoglobin 28.3 PG (27.0-31.0) Mean Corpuscular Hemoglobin Concent 33.7 G/DL (32.0-36.0) Red Cell Distribution Width 13.0 % (11.6-14.8) Platelet Count 263 K/UL (150-450) Mean Platelet Volume 5.6 FL (6.5-10.1) Neutrophils (%) (Auto) % (45.0-75.0) Lymphocytes (%) (Auto) % (20.0-45.0) Monocytes (%) (Auto) % (1.0-10.0) Eosinophils (%) (Auto) % (0.0-3.0) Basophils (%) (Auto) % (0.0-2.0) Prothrombin Time 11.2 SEC (9.30-11.50) Prothromb Time International Ratio 1.1 (0.9-1.1) Activated Partial Thromboplast Time 30 SEC (23-33) D-Dimer 3.62 mg/L FEU (0.00-0.49) Sodium Level 136 MMOL/L (136-145) 140 MMOL/L (136-145) Potassium Level 4.3 MMOL/L (3.5-5.1) 4.0 MMOL/L (3.5-5.1) Chloride Level 102 MMOL/L (98-107) 104 MMOL/L (98-107) Carbon Dioxide Level 18 MMOL/L (21-32) 19 MMOL/L (21-32) Anion Gap 16 mmol/L (5-15) 17 mmol/L (5-15) Blood Urea Nitrogen 102 mg/dL (7-18) 97 mg/dL (7-18) Creatinine 4.9 MG/DL (0.55-1.30) 4.6 MG/DL (0.55-1.30) Estimat Glomerular Filtration Rate 14.3 mL/min (>60) 15.4 mL/min (>60) Glucose Level 153 MG/DL (74-106) 151 MG/DL (74-106) Calcium Level 8.8 MG/DL (8.5-10.1) 8.6 MG/DL (8.5-10.1) Phosphorus Level 5.9 MG/DL (2.5-4.9) 4.1 MG/DL (2.5-4.9) Magnesium Level 2.3 MG/DL (1.8-2.4) 2.5 MG/DL (1.8-2.4) Total Bilirubin 0.9 MG/DL (0.2-1.0) 0.6 MG/DL (0.2-1.0) Aspartate Amino Transf (AST/SGOT) 938 U/L (15-37) 461 U/L (15-37) Alanine Aminotransferase (ALT/SGPT) 931 U/L (12-78) 744 U/L (12-78) Alkaline Phosphatase 231 U/L (46-116) 206 U/L (46-116) Troponin I 0.986 ng/mL (0.000-0.056) 0.703 ng/mL (0.000-0.056) C-Reactive Protein, Quantitative > 70.0 mg/dL (0.00-0.90) Pro-B-Type Natriuretic Peptide > 76926 pg/mL (0-125) Total Protein 6.6 G/DL (6.4-8.2) 6.5 G/DL (6.4-8.2) Albumin 2.6 G/DL (3.4-5.0) 2.4 G/DL (3.4-5.0) Globulin 4.0 g/dL 4.1 g/dL Albumin/Globulin Ratio 0.6 (1.0-2.7) 0.6 (1.0-2.7) Random Vancomycin Level 18.7 ug/mL Digoxin Level < 0.3 NG/ML (0.5-2.0) Uric Acid 11.5 MG/DL (2.6-7.2) Gamma Glutamyl Transpeptidase 80 U/L (5-85) Height (Feet): 5 Height (Inches): 8.00 Weight (Pounds): 104 Objective Physical Exam General: Awake and alert HEENT: NC/AT. EOMI. Neck: Supple Cardiov: RRR. S1 and S2 normal. No murmur appreciated Resp: No cough, wheezing or crackles appreciated Abd: Abdomen is soft, nondistended. Skin: Intact. No abrasions, laceration or rash MSK: Normal tone and bulk. Moving all extremities. Neuro: Awake and alert. Mentating appropriately. Kleynberg,Roverto L. MD Jul 30, 2019 09:39
--- NOTE | 2019-07-30 10:13 | Pulmonology Progress Note ---
Assessment/Plan Assessment/Plan IMPRESSION: 1. Pneumonia. 2. Rule out COVID-19. 3. Diabetes mellitus. 4. Previous CVA. DISCUSSION: Continue ICU care and isolation. Agree with intravenous heparin for acute coronary syndrome. Diabetes monitoring. Continue beta blockers. DVT prophylaxis with IV heparin. Broad-spectrum antibiotics and Plaquenil. Follow carefully. Continue oxygen monitoring. Currently saturating well on room air. Melvin Wells M.D. Subjective Interval Events: None new Constitutional: Reports: no symptoms HEENT: Repors: no symptoms Respiratory: Reports: no symptoms Cardiovascular: Reports: no symptoms Gastrointestinal/Abdominal: Reports: no symptoms Allergies: Coded Allergies: CASTANON (Unverified Allergy, Mild, 06/07/19) APPLE (Unverified Allergy, Unknown, 06/07/19) BANANA (Unverified Allergy, Unknown, 06/07/19) CHOCOLATE FLAVOR (Unverified Allergy, Unknown, 06/07/19) PENICILLINS (Verified Allergy, Unknown, 07/12/17) POTATO (Unverified Allergy, Unknown, 06/07/19) Objective Last 24 Hour Vital Signs Date Time Temp Pulse Resp B/P (MAP) Pulse Ox O2 Delivery O2 Flow Rate FiO2 07/30/19 08:57 90 07/30/19 08:38 103/63 07/30/19 08:37 90 103/63 07/30/19 06:00 96/59 07/30/19 04:00 97.9 89 17 96/59 (71) 99 07/30/19 04:00 Room Air Room Air 07/30/19 04:00 91 07/30/19 03:00 92 16 105/62 (76) 98 07/30/19 02:00 92 17 104/62 (76) 99 07/30/19 01:00 90 18 98/63 (75) 99 07/30/19 00:00 90 07/30/19 00:00 Room Air Room Air 07/30/19 00:00 98.0 90 20 102/73 (83) 99 07/30/19 00:00 101/62 07/29/19 23:00 89 16 102/65 (77) 97 07/29/19 22:00 89 16 99/60 (73) 97 07/29/19 21:00 90 15 103/61 (75) 100 07/29/19 20:50 90 103/59 07/29/19 20:00 Room Air Room Air 07/29/19 20:00 97.9 88 15 99/67 (78) 98 07/29/19 20:00 87 07/29/19 19:00 87 15 104/60 (75) 100 07/29/19 18:00 90 17 105/62 (76) 100 07/29/19 17:13 99/54 07/29/19 17:00 89 17 103/63 (76) 100 07/29/19 16:00 82 07/29/19 16:00 Room Air Room Air 07/29/19 16:00 98.1 84 15 100/58 (72) 99 07/29/19 15:00 83 15 97/60 (72) 99 07/29/19 14:41 99/60 07/29/19 14:00 85 17 99/60 (73) 100 07/29/19 13:00 85 15 101/82 (88) 100 07/29/19 12:00 82 07/29/19 12:00 102/63 07/29/19 12:00 Room Air Room Air 07/29/19 12:00 97.8 83 14 102/63 (76) 99 Intake and Output 07/29/19 07/30/19 19:00 07:00 Intake Total 575.000 ml 410 ml Output Total 800 ml 500 ml Balance -225.000 ml -90 ml Intake Oral 300 ml 240 ml IV Total 275.000 ml 170 ml Output Urine Total 800 ml 500 ml # Voids 2 General Appearance: no acute distress HEENT: normocephalic Respiratory/Chest: chest wall non-tender, decreased breath sounds Cardiovascular: normal peripheral pulses Abdomen: normal bowel sounds Microbiology Date/Time Source Procedure Growth Status 07/27/19 10:50 Blood Blood Culture - Preliminary NO GROWTH AFTER 48 HOURS Resulted 07/27/19 10:40 Blood Blood Culture - Preliminary NO GROWTH AFTER 48 HOURS Resulted 07/28/19 11:25 Nasopharynx Coronavirus COVID-19 PCR (ERIN) - Final Complete 07/27/19 16:30 Nasal Nares MRSA Culture - Final NO METHICILLIN RESISTANT STAPH AUREUS... Complete 07/27/19 16:30 Rectum - Final NO CARBAPENEM-RESISTANT ENTEROBACTERI... Complete 07/27/19 16:30 Rectum VRE Culture - Final Enterococcus Faecium - Vre Complete Laboratory Tests 07/30/19 05:30: Digoxin Level < 0.3L 07/30/19 05:34: White Blood Count [Pending], Red Blood Count [Pending], Hemoglobin [Pending], Hematocrit [Pending], Mean Corpuscular Volume [Pending], Mean Corpuscular Hemoglobin [Pending], Mean Corpuscular Hemoglobin Concent [Pending], Red Cell Distribution Width [Pending], Platelet Count [Pending], Mean Platelet Volume [ Pending], Neutrophils (%) (Auto) [Pending], Lymphocytes (%) (Auto) [Pending], Monocytes (%) (Auto) [Pending], Eosinophils (%) (Auto) [Pending], Basophils (%) (Auto) [Pending], Sodium Level 140, Potassium Level 4.0, Chloride Level 104, Carbon Dioxide Level 19L, Anion Gap 17H, Blood Urea Nitrogen 97H, Creatinine 4.6H, Estimat Glomerular Filtration Rate 15.4, Glucose Level 151H, Uric Acid 11.5H, Calcium Level 8.6, Phosphorus Level 4.1, Magnesium Level 2.5H, Total Bilirubin 0.6, Gamma Glutamyl Transpeptidase 80, Aspartate Amino Transf (AST/ SGOT) 461H, Alanine Aminotransferase (ALT/SGPT) 744H, Alkaline Phosphatase 206H , Troponin I 0.703H, Total Protein 6.5, Albumin 2.4L, Globulin 4.1, Albumin/ Globulin Ratio 0.6L, Hepatitis A IgM Antibody [Pending], Hepatitis B Surface Antigen [Pending], Hepatitis B Core IgM Antibody [Pending], Hepatitis C Antibody [Pending] Current Medications Medications (Trade) Dose Ordered Sig/Stella Route PRN Reason Start Time Stop Time Status Last Admin Dose Admin Allopurinol (allopurinoL) 300 mg DAILY ORAL 07/28/19 10:00 08/27/19 09:59 07/30/19 08:37 Aztreonam 1 gm/ Sodium Chloride 55 ml @ 110 mls/hr Q8HR IVPB 07/28/19 22:00 08/04/19 21:59 07/30/19 05:23 Carvedilol (Coreg) 3.125 mg EVERY 12 HOURS ORAL 07/29/19 09:00 08/28/19 08:59 Clopidogrel Bisulfate (Plavix) 75 mg DAILY ORAL 07/28/19 09:00 08/27/19 08:59 07/30/19 08:38 Dextrose (Dextrose 50%) 25 ml Q30M PRN IV Hypoglycemia 07/28/19 09:30 10/26/19 09:29 Dextrose (Dextrose 50%) 50 ml Q30M PRN IV Hypoglycemia 07/28/19 09:30 10/26/19 09:29 Docusate Sodium (Colace) 100 mg THREE TIMES A DAY ORAL 07/28/19 18:00 08/27/19 17:59 Doxycycline Monohydrate (Doxycycline Monohydrate) 100 mg BID ORAL 07/27/19 20:00 08/03/19 19:59 07/30/19 08:38 Epoetin Yaron (Epoetin Yaron-EPBX(NON ESRD)) 10,000 unit SUN-SUN-SUN SUBQ 07/28/19 21:00 10/26/19 20:59 Hydralazine HCl (Apresoline) 10 mg Q6HR ORAL 07/28/19 18:00 10/26/19 17:59 Insulin Aspart (NovoLOG) BEFORE MEALS AND HS SUBQ 07/28/19 11:30 10/26/19 11:29 Iron Sucrose 100 mg/Sodium Chloride 60 ml @ 240 mls/hr BEDTIME IV 07/28/19 21:00 08/01/19 21:14 07/29/19 20:52 Isosorbide Mononitrate (Imdur) 30 mg DAILY ORAL 07/29/19 09:00 08/28/19 08:59 Levothyroxine Sodium (Synthroid) 50 mcg ACBREAKFAST ORAL 07/28/19 06:30 08/27/19 06:29 07/30/19 05:24 Linezolid (Zyvox) 600 mg EVERY 12 HOURS ORAL 07/29/19 21:00 08/03/19 20:59 07/30/19 08:39 Lorazepam (Ativan) 0.5 mg Q6H PRN ORAL For Anxiety 07/28/19 14:14 08/04/19 14:13 Memantine (Namenda) 5 mg BID ORAL 07/28/19 18:00 08/27/19 17:59 07/30/19 08:38 Pantoprazole (Protonix) 40 mg BID ORAL 07/28/19 18:00 08/27/19 08:59 07/30/19 08:38 Risperidone (RisperDAL) 0.5 mg EVERY 6 HOURS ORAL 07/28/19 18:00 09/11/19 17:59 07/30/19 05:24 Sevelamer Carbonate (Renvela) 800 mg THREE TIMES A DAY ORAL 07/28/19 18:00 10/26/19 17:59 07/30/19 08:39 Sodium Citrate (Bicitra) 30 ml BID ORAL 07/29/19 09:00 08/28/19 08:59 07/30/19 08:37 Tamsulosin HCl (Flomax) 0.4 mg BEDTIME ORAL 07/29/19 21:00 08/28/19 20:59 07/29/19 20:50 Melvin Wells MD Jul 30, 2019 10:13
--- NOTE | 2019-07-30 10:33 | Cardiology Progress Note ---
Assessment/Plan Assessment/Plan 1. Elevated troponin I level with the troponin leak in the patient with end- stage renal disease. However, non ST-elevation myocardial infarction cannot be ruled out. Troponin I can also be elevated in presence of myonecrosis as the patient has heart failure with EF of about 15% to 20%. At this point, given the fact that the patient does not have any chest pain and no EKG changes suggestive of ischemia, we will continue with medical therapy. In fact, the patient has refused cardiac catheterization, which many times offered to him in different hospitalization by different providers. 2. Dilated cardiomyopathy with LVEF about 15% to 20%, possible ICM in view of wall motion abnormalities. 3. Acute respiratory failure. 4. Altered level of consciousness, possibilities could be sepsis. In view of leukocytosis, the patient is suspicious for COVID-19 infection. Other possibilities could be toxic encephalopathy due to end-stage renal disease. 5. History of paroxysmal atrial flutter. 6. History of anemia. 7. Diabetes mellitus. Subjective Subjective Sinus rhythm at rate of 90. Objective Last 24 Hour Vital Signs Date Time Temp Pulse Resp B/P (MAP) Pulse Ox O2 Delivery O2 Flow Rate FiO2 07/30/19 08:57 90 07/30/19 08:38 103/63 07/30/19 08:37 90 103/63 07/30/19 06:00 96/59 07/30/19 04:00 97.9 89 17 96/59 (71) 99 07/30/19 04:00 Room Air Room Air 07/30/19 04:00 91 07/30/19 03:00 92 16 105/62 (76) 98 07/30/19 02:00 92 17 104/62 (76) 99 07/30/19 01:00 90 18 98/63 (75) 99 07/30/19 00:00 90 07/30/19 00:00 Room Air Room Air 07/30/19 00:00 98.0 90 20 102/73 (83) 99 07/30/19 00:00 101/62 07/29/19 23:00 89 16 102/65 (77) 97 07/29/19 22:00 89 16 99/60 (73) 97 07/29/19 21:00 90 15 103/61 (75) 100 07/29/19 20:50 90 103/59 07/29/19 20:00 Room Air Room Air 07/29/19 20:00 97.9 88 15 99/67 (78) 98 07/29/19 20:00 87 07/29/19 19:00 87 15 104/60 (75) 100 07/29/19 18:00 90 17 105/62 (76) 100 07/29/19 17:13 99/54 07/29/19 17:00 89 17 103/63 (76) 100 07/29/19 16:00 82 07/29/19 16:00 Room Air Room Air 07/29/19 16:00 98.1 84 15 100/58 (72) 99 07/29/19 15:00 83 15 97/60 (72) 99 07/29/19 14:41 99/60 07/29/19 14:00 85 17 99/60 (73) 100 07/29/19 13:00 85 15 101/82 (88) 100 07/29/19 12:00 82 07/29/19 12:00 102/63 07/29/19 12:00 Room Air Room Air 07/29/19 12:00 97.8 83 14 102/63 (76) 99 Intake and Output 07/29/19 07/30/19 19:00 07:00 Intake Total 575.000 ml 410 ml Output Total 800 ml 500 ml Balance -225.000 ml -90 ml Intake Oral 300 ml 240 ml IV Total 275.000 ml 170 ml Output Urine Total 800 ml 500 ml # Voids 2 2D Echo: LVEF 15%, + WMA likely Ischemic CM, Mild MR, RVSP 32 mmHg, Grade I LVDD Laboratory Tests Test 07/30/19 05:30 07/30/19 05:34 Digoxin Level < 0.3 NG/ML (0.5-2.0) L White Blood Count Pending Red Blood Count Pending Hemoglobin Pending Hematocrit Pending Mean Corpuscular Volume Pending Mean Corpuscular Hemoglobin Pending Mean Corpuscular Hemoglobin Concent Pending Red Cell Distribution Width Pending Platelet Count Pending Mean Platelet Volume Pending Neutrophils (%) (Auto) Pending Lymphocytes (%) (Auto) Pending Monocytes (%) (Auto) Pending Eosinophils (%) (Auto) Pending Basophils (%) (Auto) Pending Sodium Level 140 MMOL/L (136-145) Potassium Level 4.0 MMOL/L (3.5-5.1) Chloride Level 104 MMOL/L (98-107) Carbon Dioxide Level 19 MMOL/L (21-32) L Anion Gap 17 mmol/L (5-15) H Blood Urea Nitrogen 97 mg/dL (7-18) H Creatinine 4.6 MG/DL (0.55-1.30) H Estimat Glomerular Filtration Rate 15.4 mL/min (>60) Glucose Level 151 MG/DL (74-106) H Uric Acid 11.5 MG/DL (2.6-7.2) H Calcium Level 8.6 MG/DL (8.5-10.1) Phosphorus Level 4.1 MG/DL (2.5-4.9) Magnesium Level 2.5 MG/DL (1.8-2.4) H Total Bilirubin 0.6 MG/DL (0.2-1.0) Gamma Glutamyl Transpeptidase 80 U/L (5-85) Aspartate Amino Transf (AST/SGOT) 461 U/L (15-37) H Alanine Aminotransferase (ALT/SGPT) 744 U/L (12-78) H Alkaline Phosphatase 206 U/L (46-116) H Troponin I 0.703 ng/mL (0.000-0.056) Total Protein 6.5 G/DL (6.4-8.2) Albumin 2.4 G/DL (3.4-5.0) L Globulin 4.1 g/dL Albumin/Globulin Ratio 0.6 (1.0-2.7) L Hepatitis A IgM Antibody Pending Hepatitis B Surface Antigen Pending Hepatitis B Core IgM Antibody Pending Hepatitis C Antibody Pending Microbiology Date/Time Source Procedure Growth Status 07/27/19 10:50 Blood Blood Culture - Preliminary NO GROWTH AFTER 48 HOURS Resulted 07/27/19 10:40 Blood Blood Culture - Preliminary NO GROWTH AFTER 48 HOURS Resulted 07/28/19 11:25 Nasopharynx Coronavirus COVID-19 PCR (ERIN) - Final Complete 07/27/19 16:30 Nasal Nares MRSA Culture - Final NO METHICILLIN RESISTANT STAPH AUREUS... Complete 07/27/19 16:30 Rectum - Final NO CARBAPENEM-RESISTANT ENTEROBACTERI... Complete 07/27/19 16:30 Rectum VRE Culture - Final Enterococcus Faecium - Vre Complete Objective HEENT: Atraumatic and normocephalic. Anicteric. Pupils are equal, round, and reactive to light and accommodation. Extraocular muscles are intact. NECK: JVP less than 5 cm. No carotid bruits. Carotid upstrokes 2+ bilaterally. CARDIOVASCULAR: Normal S1, S2. Regular rate and rhythm. No murmurs, gallops, or rubs. PMI is at fourth intercostal space in the midclavicular line. LUNGS: Diminished breath sounds in both bases. Increased dullness in the right base with scattered crackles in both bases. ABDOMEN: Soft, nontender, and nondistended. No hepatosplenomegaly. Positive bowel sounds. EXTREMITIES: No evidence of edema, clubbing, or cyanosis. Alex Mercedes MD Jul 30, 2019 10:33
[2019-07-30 11:08] LABS: HEMATOCRIT 22.4 % (42.0-52.0); HEMOGLOBIN 7.4 G/DL (14.2-18.0); MEAN CORPUSCULAR VOLUME 84 FL (80-99); PLATELET COUNT 226 K/UL (150-450); RED BLOOD COUNT 2.66 M/UL (4.70-6.10); WHITE BLOOD COUNT 9.4 K/UL (4.8-10.8)
[2019-07-30] MEDS ORDERED: LORazepam 0.5mg tab ORAL PRN (11:30)
--- NOTE | 2019-07-30 13:33 | Infectious Diseases Prog Note ---
Assessment/Plan Assessment/Plan Assessment: Afebrile Leukocytosis, SP Lymphopenia Pnuemonia- HAP vs COVID19 (no reported COVID19 at pt's SNF so far) Cough- at [facility] CHF exacerbation -07/27 SARS-COV2 PCR neg (1st sample) -07/29 CXR: Persistent central pulmonary vascular congestion. Interval worsening of aeration with increased layering right pleural effusion and increased patchy opacities at the right base which may be related to compressive atelectasis and/or pneumonia. -CXR: Bilateral perihilar interstitial prominence and vascular congestion. Right lower lobe airspace disease/consolidation. Small bilateral pleural effusion. May be CHF and/or pneumonia. Acute on chronic encephalopathy JOVANY on CKD, needs HD Elevated LFTs (900s)-likely shock liver from hypoperfusion-r/o viral effect; improving -Hep panel p CAD anemia hypothyroidism Cardiomyopathy EF 15% s/p AICD CVA/TIA Dementia dysphagia Dm2 COPD hx of PNA (2 months ago) SNF resident ([facility]) Plan: -Continue empiric Aztreonam and Doxycycline #4 -Continue PO Linezolid#2 (abx d #3) in view of renal failure -07/28 SP IV Vancomycin #2 -07/26 SP Azithromycin x1 -f/u cx -Monitor CBC/CMP, temperaturse -f/u sp cx (not induced), legionella ag urine -Send a 2nd COVID10 test -COVID19 precautions (droplets/contact) -f/u acute hep panel Thank you for consulting [facility]. Will continue to follow along wiht you. Subjective Allergies: Coded Allergies: CASTANON (Unverified Allergy, Mild, 06/07/19) APPLE (Unverified Allergy, Unknown, 06/07/19) BANANA (Unverified Allergy, Unknown, 06/07/19) CHOCOLATE FLAVOR (Unverified Allergy, Unknown, 06/07/19) PENICILLINS (Verified Allergy, Unknown, 07/12/17) POTATO (Unverified Allergy, Unknown, 06/07/19) Subjective afebrile at RA leukocytosis resovled Bcx NTD Objective Vital Signs Last 24 Hour Vital Signs Date Time Temp Pulse Resp B/P (MAP) Pulse Ox O2 Delivery O2 Flow Rate FiO2 07/30/19 12:17 88 07/30/19 12:00 104/66 4/15/20 11:35 Room Air Room Air 07/30/19 10:55 97.2 92 18 104/66 (79) 99 07/30/19 08:57 90 07/30/19 08:38 103/63 07/30/19 08:37 90 103/63 07/30/19 06:00 96/59 07/30/19 04:00 97.9 89 17 96/59 (71) 99 07/30/19 04:00 Room Air Room Air 07/30/19 04:00 91 07/30/19 03:00 92 16 105/62 (76) 98 07/30/19 02:00 92 17 104/62 (76) 99 07/30/19 01:00 90 18 98/63 (75) 99 07/30/19 00:00 90 07/30/19 00:00 Room Air Room Air 07/30/19 00:00 98.0 90 20 102/73 (83) 99 07/30/19 00:00 101/62 07/29/19 23:00 89 16 102/65 (77) 97 07/29/19 22:00 89 16 99/60 (73) 97 07/29/19 21:00 90 15 103/61 (75) 100 07/29/19 20:50 90 103/59 07/29/19 20:00 Room Air Room Air 07/29/19 20:00 97.9 88 15 99/67 (78) 98 07/29/19 20:00 87 07/29/19 19:00 87 15 104/60 (75) 100 07/29/19 18:00 90 17 105/62 (76) 100 07/29/19 17:13 99/54 07/29/19 17:00 89 17 103/63 (76) 100 07/29/19 16:00 82 07/29/19 16:00 Room Air Room Air 07/29/19 16:00 98.1 84 15 100/58 (72) 99 07/29/19 15:00 83 15 97/60 (72) 99 07/29/19 14:41 99/60 07/29/19 14:00 85 17 99/60 (73) 100 Height (Feet): 5 Height (Inches): 8.00 Weight (Pounds): 104 Objective not seen to limit COVID19 exposure Microbiology Date/Time Source Procedure Growth Status 07/28/19 11:25 Nasopharynx Coronavirus COVID-19 PCR (ERIN) - Final Complete 07/27/19 16:30 Nasal Nares MRSA Culture - Final NO METHICILLIN RESISTANT STAPH AUREUS... Complete 07/27/19 16:30 Rectum - Final NO CARBAPENEM-RESISTANT ENTEROBACTERI... Complete 07/27/19 16:30 Rectum VRE Culture - Final Enterococcus Faecium - Vre Complete Laboratory Tests Test 07/30/19 05:30 07/30/19 05:34 07/30/19 11:00 Digoxin Level < 0.3 NG/ML (0.5-2.0) L Sodium Level 140 MMOL/L (136-145) Potassium Level 4.0 MMOL/L (3.5-5.1) Chloride Level 104 MMOL/L (98-107) Carbon Dioxide Level 19 MMOL/L (21-32) L Anion Gap 17 mmol/L (5-15) H Blood Urea Nitrogen 97 mg/dL (7-18) H Creatinine 4.6 MG/DL (0.55-1.30) H Estimat Glomerular Filtration Rate 15.4 mL/min (>60) Glucose Level 151 MG/DL (74-106) H Uric Acid 11.5 MG/DL (2.6-7.2) H Calcium Level 8.6 MG/DL (8.5-10.1) Phosphorus Level 4.1 MG/DL (2.5-4.9) Magnesium Level 2.5 MG/DL (1.8-2.4) H Total Bilirubin 0.6 MG/DL (0.2-1.0) Gamma Glutamyl Transpeptidase 80 U/L (5-85) Aspartate Amino Transf (AST/SGOT) 461 U/L (15-37) H Alanine Aminotransferase (ALT/SGPT) 744 U/L (12-78) H Alkaline Phosphatase 206 U/L (46-116) H Troponin I 0.703 ng/mL (0.000-0.056) Total Protein 6.5 G/DL (6.4-8.2) Albumin 2.4 G/DL (3.4-5.0) L Globulin 4.1 g/dL Albumin/Globulin Ratio 0.6 (1.0-2.7) L Hepatitis A IgM Antibody Pending Hepatitis B Surface Antigen Pending Hepatitis B Core IgM Antibody Pending Hepatitis C Antibody Pending White Blood Count 9.4 K/UL (4.8-10.8) Red Blood Count 2.66 M/UL (4.70-6.10) L Hemoglobin 7.4 G/DL (14.2-18.0) L Hematocrit 22.4 % (42.0-52.0) L Mean Corpuscular Volume 84 FL (80-99) Mean Corpuscular Hemoglobin 27.7 PG (27.0-31.0) Mean Corpuscular Hemoglobin Concent 33.0 G/DL (32.0-36.0) Red Cell Distribution Width 13.0 % (11.6-14.8) Platelet Count 226 K/UL (150-450) Mean Platelet Volume 5.0 FL (6.5-10.1) L Neutrophils (%) (Auto) % (45.0-75.0) Lymphocytes (%) (Auto) % (20.0-45.0) Monocytes (%) (Auto) % (1.0-10.0) Eosinophils (%) (Auto) % (0.0-3.0) Basophils (%) (Auto) % (0.0-2.0) Neutrophils % (Manual) Pending Lymphocytes % (Manual) Pending Platelet Estimate Pending Platelet Morphology Pending Current Medications Medications (Trade) Dose Ordered Sig/Stella Route PRN Reason Start Time Stop Time Status Last Admin Dose Admin Allopurinol (allopurinoL) 300 mg DAILY ORAL 07/31/19 09:00 08/27/19 09:59 Aztreonam 1 gm/ Sodium Chloride 55 ml @ 110 mls/hr Q8HR IVPB 07/30/19 14:00 08/04/19 21:59 Carvedilol (Coreg) 3.125 mg EVERY 12 HOURS ORAL 07/30/19 21:00 08/28/19 08:59 Clopidogrel Bisulfate (Plavix) 75 mg DAILY ORAL 07/31/19 09:00 08/27/19 08:59 Dextrose (Dextrose 50%) 25 ml Q30M PRN IV Hypoglycemia 07/30/19 11:30 10/26/19 09:29 Dextrose (Dextrose 50%) 50 ml Q30M PRN IV Hypoglycemia 07/30/19 11:30 10/26/19 09:29 Docusate Sodium (Colace) 100 mg THREE TIMES A DAY ORAL 07/30/19 13:00 08/27/19 17:59 Doxycycline Monohydrate (Doxycycline Monohydrate) 100 mg BID ORAL 07/30/19 18:00 08/03/19 19:59 Epoetin Yaron (Epoetin Yaron-EPBX(NON ESRD)) 10,000 unit SUN-SUN-SUN SUBQ 07/30/19 21:00 10/26/19 20:59 Hydralazine HCl (Apresoline) 10 mg Q6HR ORAL 07/30/19 12:00 10/26/19 17:59 Insulin Aspart (NovoLOG) BEFORE MEALS AND HS SUBQ 07/30/19 11:30 10/26/19 11:29 Iron Sucrose 100 mg/Sodium Chloride 60 ml @ 240 mls/hr BEDTIME IV 07/30/19 21:00 08/01/19 21:14 Isosorbide Mononitrate (Imdur) 30 mg DAILY ORAL 07/31/19 09:00 08/28/19 08:59 Levothyroxine Sodium (Synthroid) 50 mcg ACBREAKFAST ORAL 07/31/19 06:30 08/27/19 06:29 Linezolid (Zyvox) 600 mg EVERY 12 HOURS ORAL 07/30/19 21:00 08/03/19 20:59 Lorazepam (Ativan) 0.5 mg Q6H PRN ORAL For Anxiety 07/30/19 11:30 08/04/19 11:29 Memantine (Namenda) 5 mg BID ORAL 07/30/19 18:00 08/27/19 17:59 Pantoprazole (Protonix) 40 mg BID ORAL 07/30/19 18:00 08/27/19 08:59 Risperidone (RisperDAL) 0.5 mg EVERY 6 HOURS ORAL 07/30/19 12:00 09/11/19 17:59 07/30/19 12:52 Sevelamer Carbonate (Renvela) 800 mg THREE TIMES A DAY ORAL 07/30/19 13:00 10/26/19 17:59 07/30/19 12:52 Sodium Citrate (Bicitra) 30 ml BID ORAL 07/30/19 18:00 5/14/20 08:59 Tamsulosin HCl (Flomax) 0.4 mg BEDTIME ORAL 07/30/19 21:00 08/28/19 20:59 Ana Lilia Gaines M.D. Jul 30, 2019 13:33
--- NOTE | 2019-07-30 14:14 | Progress Note ---
DATE: 07/27/2019 CONSULTING PHYSICIAN: Omari Macdonald PsyD. HISTORY OF PRESENT ILLNESS: The patient is a 73-year-old male patient nursing facility with shortness of breath, cough, pneumonia, and sepsis. The patient . The patient . homicidal or suicidal ideation . PAST MEDICAL HISTORY: Includes history of hypertension, , renal insufficiency, and diabetes. ALLERGIES: The patient is allergic to penicillin. . PSYCHIATRIC HISTORY: The patient with a positive history of depression. SOCIAL HISTORY: The patient is a 73-year-old female . MENTAL STATUS EXAMINATION: She is alert and oriented to person and place. Her mood is anxious. Affect . Thought process is disorganized. Thought content . Poor attention and concentration. Poor insight, judgment, and impulse control. . PLAN: Plan is to maintain medication compliance with positive coping skills and stabilizing the thoughts. Behavioral psychotherapy provided for this patient is 45 minutes. This clinician has reviewed the patient's chart and discussed treatment with treatment team. Omari Macdonald PsyD. DR: Kayla JOB#: [id number] CC:
--- NOTE | 2019-07-30 17:44 | Progress Note ---
DATE: 07/30/2019 SUBJECTIVE: This is a 73-year-old male patient. Patient is still in ICU. Patient still has some mood lability, confusion. Still has some poor insight and altered mental status. He has abscess and cellulitis of groin, renal insufficiency, respiratory insufficiency, hypothyroidism, hypertension. He is also to rule out COVID-19 with pneumonia, so he needs close monitoring, but he still has altered mental status and slight agitation as well as confusion and altered mental status. MENTAL STATUS EXAMINATION: This is a 73-year-old male. Appearance is disheveled. Attitude, irritable and agitated. Affect, guarded and restricted. Intellect poor. Mood, depressed and anxious. Motor activity, psychomotor agitation. Attention span is poor. Orientation x2. Speech is low volume, slurred. Thought process, disorganized and illogical. Insight and judgment is poor. DIAGNOSIS: Major depressive disorder, severe, recurrent with psychotic features. PLAN: Plan for this patient is to treat him with psychotropic medication regimen consisting of Risperdal 0.5 mg every 6 hours, Namenda 5 mg twice a day, Ativan 0.5 mg every 6 hours p.r.n. anxiety and agitation. Twenty minutes of cognitive behavioral therapy provided to help him identify his automatic negative thoughts, help him convert his negative thoughts to more positive thoughts to reduce depression, anxiety, and mood lability. Chart reviewed. Discussed with staff. Nata Coronado M.D. DR: JARAD JOB#: [id number] CC:
[2019-07-30] MEDS ORDERED: Epoetin Alfa-EPBX (NON ESRD)10,000 unit/ml vial SUBQ SCH (21:00)
[2019-07-30] MEDS: Tamsulosin 0.4mg cap ORAL SCH (21:47)
[2019-07-30] MEDS: Iron Sucrose 100 MG in NS 55 ML IV SCH (21:47)
[2019-07-31] VITALS (7 sets, daily range): BP systolic 100–114; BP diastolic 50–69
[2019-07-31] MEDS: NovoLOG Insulin Flexpen SUBQ SCH ×4 (05:54→20:43)
[2019-07-31] MEDS: Aztreonam Inj 1 GM in NS 55 ML IVPB SCH ×3 (05:56→22:11)
[2019-07-31] MEDS: HydrALAZINE 10mg Tab ORAL SCH ×4 (06:00→17:47)
[2019-07-31 08:54] LABS: BASOPHILS % (AUTO) 0.4 % (0.0-2.0); HEMATOCRIT 25.1 % (42.0-52.0); HEMOGLOBIN 8.5 G/DL (14.2-18.0); LYMPHOCYTES % (AUTO) 14.7 % (20.0-45.0); MEAN CORPUSCULAR VOLUME 85 FL (80-99); MONOCYTES % (AUTO) 7.7 % (1.0-10.0); NEUTROPHILS % (AUTO) 75.2 % (45.0-75.0); PLATELET COUNT 229 K/UL (150-450); RED BLOOD COUNT 2.94 M/UL (4.70-6.10); RED CELL DISTRIBUTION WIDTH 13.8 % (11.6-14.8); WHITE BLOOD COUNT 8.5 K/UL (4.8-10.8)
[2019-07-31] MEDS: Sodium Citrate 30ml ORAL SCH ×3 (08:58→17:48)
[2019-07-31] MEDS: Imdur 30mg tab ORAL SCH (08:59)
[2019-07-31] MEDS: Doxycycline Monohydrate 100mg ORAL SCH ×2 (08:59→20:42)
[2019-07-31] MEDS: Docusate 100mg cap ORAL SCH ×3 (09:00→17:48)
[2019-07-31] MEDS: Memantine 5 MG TAB ORAL SCH ×2 (09:00→17:48)
[2019-07-31 09:21] LABS: ALANINE AMINOTRANSFERASE 580 U/L (12-78); ALBUMIN 2.4 G/DL (3.4-5.0); ALBUMIN/GLOBULIN RATIO 0.6 (1.0-2.7); ALKALINE PHOSPHATASE 188 U/L (46-116); ANION GAP 16 mmol/L (5-15); ASPARTATE AMINO TRANSFERASE 262 U/L (15-37); BILIRUBIN,TOTAL 1.4 MG/DL (0.2-1.0); BLOOD UREA NITROGEN 86 mg/dL (7-18); CALCIUM 8.3 MG/DL (8.5-10.1); CARBON DIOXIDE 20 MMOL/L (21-32); CHLORIDE 104 MMOL/L (98-107); CREATININE 4.4 MG/DL (0.55-1.30); LACTATE DEHYDROGENASE 265 U/L (81-234); PHOSPHORUS 3.5 MG/DL (2.5-4.9); SODIUM 140 MMOL/L (136-145)
[2019-07-31 09:24] LABS: BILIRUBIN,DIRECT 0.6 MG/DL (0.0-0.3)
--- NOTE | 2019-07-31 09:32 | Nephrology Progress Note ---
Assessment/Plan Problem List: (1) Renal failure (ARF), acute on chronic (2) Cardiomyopathy Assessment: Significant low perfusion state (3) Elevated troponin (4) Pneumonia (5) Anemia Assessment Rule out COVID-19 Renal failure (ARF), acute on chronic DM (diabetes mellitus) Hypothyroid Cardiomyopathy EjFx 15% Anemia of chronic kidney disease. Elevated troponin. Plan 73 y old- admitted with Pneumonia rule out COVID-19 COVID-19 test not detected As per previous admission records indicate, patient needs Dialysis- Coronary Angio , Defibrillator Refused all previously and continues to refuse dialysis now 1 dose digoxin IV Beta-blockers nitrates Plavix Kayexalate as needed. Monitor renal parameters. Keep the blood pressure and blood sugar in check. Kidney ultrasound. ordered previously 2D echocardiogram. EjFx 15% Urine studies. Hold Metformin and Lasix. Per orders. Subjective ROS Limited/Unobtainable: No Constitutional: Reports: malaise, weakness Objective Objective Last 24 Hour Vital Signs Date Time Temp Pulse Resp B/P (MAP) Pulse Ox O2 Delivery O2 Flow Rate FiO2 07/31/19 09:01 98 114/69 07/31/19 09:01 98 114/69 (84) 07/31/19 08:59 106/68 07/31/19 08:00 98.1 78 18 106/68 (81) 100 07/31/19 07:48 91 07/31/19 06:00 108/50 07/31/19 04:00 97.9 91 18 108/50 (69) 98 07/31/19 04:00 Room Air Room Air 07/31/19 03:38 87 07/31/19 00:00 Room Air Room Air 07/31/19 00:00 90 07/31/19 00:00 102/62 07/31/19 00:00 97.5 91 20 102/62 (75) 99 07/30/19 21:00 94 102/63 07/30/19 20:00 94 07/30/19 20:00 96.3 94 20 102/63 (76) 100 07/30/19 20:00 Room Air Room Air 07/30/19 17:31 109/63 07/30/19 16:20 Room Air Room Air 07/30/19 16:00 97.9 89 20 109/63 (78) 100 07/30/19 16:00 86 07/30/19 12:17 88 07/30/19 12:00 104/66 07/30/19 11:35 Room Air Room Air 07/30/19 11:00 95 16 101/65 (77) 99 07/30/19 10:55 97.2 92 18 104/66 (79) 99 07/30/19 10:00 94 15 105/57 (73) 98 Intake and Output 07/30/19 07/31/19 19:00 07:00 Intake Total 800 ml 220 ml Output Total 500 ml Balance 300 ml 220 ml Intake Oral 800 ml 220 ml Output Urine Total 500 ml # Voids 2 # Bowel Movements 2 Laboratory Tests 07/30/19 11:00: White Blood Count 9.4, Red Blood Count 2.66L, Hemoglobin 7.4L, Hematocrit 22.4L , Mean Corpuscular Volume 84, Mean Corpuscular Hemoglobin 27.7, Mean Corpuscular Hemoglobin Concent 33.0, Red Cell Distribution Width 13.0, Platelet Count 226, Mean Platelet Volume 5.0L, Neutrophils (%) (Auto) , Lymphocytes (%) ( Auto) , Monocytes (%) (Auto) , Eosinophils (%) (Auto) , Basophils (%) (Auto) , Differential Total Cells Counted 100, Neutrophils % (Manual) 80H, Lymphocytes % (Manual) 13L, Monocytes % (Manual) 7, Eosinophils % (Manual) 0, Basophils % ( Manual) 0, Band Neutrophils 0, Platelet Estimate Adequate, Platelet Morphology Normal, Hypochromasia 3+, Poikilocytosis 3+, Anisocytosis 1+, [place] Cells 2+ 07/31/19 08:15: White Blood Count 8.5, Red Blood Count 2.94L, Hemoglobin 8.5L, Hematocrit 25.1L , Mean Corpuscular Volume 85, Mean Corpuscular Hemoglobin 28.8, Mean Corpuscular Hemoglobin Concent 33.7, Red Cell Distribution Width 13.8, Platelet Count 229, Mean Platelet Volume 5.4L, Neutrophils (%) (Auto) 75.2H, Lymphocytes (%) (Auto) 14.7L, Monocytes (%) (Auto) 7.7, Eosinophils (%) (Auto) 2.0, Basophils (%) (Auto) 0.4, D-Dimer 10.42H, Sodium Level 140, Potassium Level 4.0 , Chloride Level 104, Carbon Dioxide Level 20L, Anion Gap 16H, Blood Urea Nitrogen 86H, Creatinine 4.4H, Estimat Glomerular Filtration Rate 16.1, Glucose Level 178H, Uric Acid 9.9H, Calcium Level 8.3L, Phosphorus Level 3.5, Magnesium Level 2.1, Total Bilirubin 1.4H, Direct Bilirubin 0.6H, Aspartate Amino Transf ( AST/SGOT) 262H, Alanine Aminotransferase (ALT/SGPT) 580H, Alkaline Phosphatase 188H, Lactate Dehydrogenase 265H, C-Reactive Protein, Quantitative 13.3H, Pro-B- Type Natriuretic Peptide > 28528Q, Total Protein 6.4, Albumin 2.4L, Globulin 4.0 , Albumin/Globulin Ratio 0.6L Height (Feet): 5 Height (Inches): 8.00 Weight (Pounds): 104 General Appearance: no apparent distress Cardiovascular: tachycardia Respiratory/Chest: decreased breath sounds Abdomen: soft Ti Jones MD Jul 31, 2019 09:32
--- NOTE | 2019-07-31 09:47 | General Progress Note ---
Assessment/Plan Status: unchanged Assessment/Plan: 1. Stage 5 CKD, refusing hemodialysis. 2. Atrial flutter, paroxysmal. 3. History of severe cardiomyopathy with LVEF of approximately 15% to 20%. 4. History of anemia. 5. History of dysphagia. 6. History of myocardial infarction, refused cardiac catheterization. 7. In the past, has had COPD. 8. History of diabetes mellitus. 9. History of CVA/TIA. 10. History of dementia. 11. elevate LFTS>> ? shock liver repeat labs fu H&H transfuse as needed>>>>s/p blood transfusion yesterday not a good candidate for GI procedures unless urgent patient on plavix fu LFTS>>>> improving fu stool ob Subjective ROS Limited/Unobtainable: No Allergies: Coded Allergies: CASTANON (Unverified Allergy, Mild, 06/07/19) APPLE (Unverified Allergy, Unknown, 06/07/19) BANANA (Unverified Allergy, Unknown, 06/07/19) CHOCOLATE FLAVOR (Unverified Allergy, Unknown, 06/07/19) PENICILLINS (Verified Allergy, Unknown, 07/12/17) POTATO (Unverified Allergy, Unknown, 06/07/19) Objective Last 24 Hour Vital Signs Date Time Temp Pulse Resp B/P (MAP) Pulse Ox O2 Delivery O2 Flow Rate FiO2 07/31/19 09:01 98 114/69 07/31/19 09:01 98 114/69 (84) 07/31/19 08:59 106/68 07/31/19 08:00 98.1 78 18 106/68 (81) 100 07/31/19 07:48 91 07/31/19 06:00 108/50 07/31/19 04:00 97.9 91 18 108/50 (69) 98 07/31/19 04:00 Room Air Room Air 07/31/19 03:38 87 07/31/19 00:00 Room Air Room Air 07/31/19 00:00 90 07/31/19 00:00 102/62 07/31/19 00:00 97.5 91 20 102/62 (75) 99 07/30/19 21:00 94 102/63 07/30/19 20:00 94 07/30/19 20:00 96.3 94 20 102/63 (76) 100 07/30/19 20:00 Room Air Room Air 07/30/19 17:31 109/63 07/30/19 16:20 Room Air Room Air 07/30/19 16:00 97.9 89 20 109/63 (78) 100 07/30/19 16:00 86 07/30/19 12:17 88 07/30/19 12:00 104/66 07/30/19 11:35 Room Air Room Air 07/30/19 11:00 95 16 101/65 (77) 99 07/30/19 10:55 97.2 92 18 104/66 (79) 99 07/30/19 10:00 94 15 105/57 (73) 98 Intake and Output 07/30/19 07/31/19 19:00 07:00 Intake Total 800 ml 220 ml Output Total 500 ml Balance 300 ml 220 ml Intake Oral 800 ml 220 ml Output Urine Total 500 ml # Voids 2 # Bowel Movements 2 Laboratory Tests 07/30/19 11:00: White Blood Count 9.4, Red Blood Count 2.66L, Hemoglobin 7.4L, Hematocrit 22.4L , Mean Corpuscular Volume 84, Mean Corpuscular Hemoglobin 27.7, Mean Corpuscular Hemoglobin Concent 33.0, Red Cell Distribution Width 13.0, Platelet Count 226, Mean Platelet Volume 5.0L, Neutrophils (%) (Auto) , Lymphocytes (%) ( Auto) , Monocytes (%) (Auto) , Eosinophils (%) (Auto) , Basophils (%) (Auto) , Differential Total Cells Counted 100, Neutrophils % (Manual) 80H, Lymphocytes % (Manual) 13L, Monocytes % (Manual) 7, Eosinophils % (Manual) 0, Basophils % ( Manual) 0, Band Neutrophils 0, Platelet Estimate Adequate, Platelet Morphology Normal, Hypochromasia 3+, Poikilocytosis 3+, Anisocytosis 1+, [place] Cells 2+ 07/31/19 08:15: White Blood Count 8.5, Red Blood Count 2.94L, Hemoglobin 8.5L, Hematocrit 25.1L , Mean Corpuscular Volume 85, Mean Corpuscular Hemoglobin 28.8, Mean Corpuscular Hemoglobin Concent 33.7, Red Cell Distribution Width 13.8, Platelet Count 229, Mean Platelet Volume 5.4L, Neutrophils (%) (Auto) 75.2H, Lymphocytes (%) (Auto) 14.7L, Monocytes (%) (Auto) 7.7, Eosinophils (%) (Auto) 2.0, Basophils (%) (Auto) 0.4, D-Dimer 10.42H, Sodium Level 140, Potassium Level 4.0 , Chloride Level 104, Carbon Dioxide Level 20L, Anion Gap 16H, Blood Urea Nitrogen 86H, Creatinine 4.4H, Estimat Glomerular Filtration Rate 16.1, Glucose Level 178H, Uric Acid 9.9H, Calcium Level 8.3L, Phosphorus Level 3.5, Magnesium Level 2.1, Total Bilirubin 1.4H, Direct Bilirubin 0.6H, Aspartate Amino Transf ( AST/SGOT) 262H, Alanine Aminotransferase (ALT/SGPT) 580H, Alkaline Phosphatase 188H, Lactate Dehydrogenase 265H, C-Reactive Protein, Quantitative 13.3H, Pro-B- Type Natriuretic Peptide > 95239K, Total Protein 6.4, Albumin 2.4L, Globulin 4.0 , Albumin/Globulin Ratio 0.6L Height (Feet): 5 Height (Inches): 8.00 Weight (Pounds): 104 General Appearance: alert EENT: normal ENT inspection Neck: normal alignment Cardiovascular: normal rate Respiratory/Chest: decreased breath sounds Abdomen: normal bowel sounds, non tender, soft Extremities: non-tender Deric Price MD Jul 31, 2019 09:47
--- NOTE | 2019-07-31 11:17 | Hematology/Onc Progress Note ---
Assessment/Plan Assessment/Plan Assessment and Recs: # Anemia of iron deficiency, must rule out gi bleed, as hgb has persistently been low --> anemia panel is noted, reviewed prior labs as well --> stool ob positive 06/07 --> ct a/p results pending --> as per gi Dr. Price --> cont on epogen --> hgb trend: 9.3-->8.7->7.6->8.5 --> ferritin is 410 # Coaguloapthy with elev ptt due to heparin gtt --> monitor as per pharmacy is medication induced --> as per pcards indication # Thrombocytopenia likely reactive process (HISTORY OF) --> meds have been reviewed --> smear noted --> now improved --> plt 235k # Troponin elevation likely due to renal failure with creatinine of 5.3 as low level and flat. --> as per cards, renal --> Lipitor and Plavix daily and Lopressor 12.5 bid # HTN On Lopressor and Hydralazine 10 q 6 --> cards recs noted --> sbp goal <140 # Hyperkalemia due to renal failure. --> Fu by Dr. Jones. # Hyperlipidemia on Lipitor. # Hypothyroidism on Synthroid. # Benign prostatic hypertrophy --> on Flomax and Proscar Apprecaite consultation and alana RN Subjective Constitutional: Denies: no symptoms, chills, fever, malaise, weakness, other HEENT: Denies: no symptoms, eye pain, blurred vision, tearing, double vision, ear pain, ear discharge, nose pain, nose congestion, throat pain, throat swelling, mouth pain, mouth swelling, other Gastrointestinal/Abdominal: Denies: no symptoms, abdomen distended, abdominal pain, black stools, tarry stools, blood in stool, constipated, diarrhea, difficulty swallowing, nausea, poor appetite, poor fluid intake, rectal bleeding , vomiting, other Genitourinary: Denies: no symptoms, burning, discharge, frequency, flank pain, hematuria, incontinence, pain, urgency, other Neurologic/Psychiatric: Denies: no symptoms, anxiety, depressed, emotional problems, headache, numbness, paresthesia, pre-existing deficit, seizure, tingling, tremors, weakness, other Endocrine: Denies: no symptoms, excessive sweating, flushing, intolerance to cold, intolerance to heat, increased hunger, increased thirst, increased urine, unexplained weight gain, unexplained weight loss, other Allergies: Coded Allergies: CASTANON (Unverified Allergy, Mild, 06/07/19) APPLE (Unverified Allergy, Unknown, 06/07/19) BANANA (Unverified Allergy, Unknown, 06/07/19) CHOCOLATE FLAVOR (Unverified Allergy, Unknown, 06/07/19) PENICILLINS (Verified Allergy, Unknown, 07/12/17) POTATO (Unverified Allergy, Unknown, 06/07/19) Subjective 07/28 labs reviewed, remains in icu, hgb remains low, holding off prbc 07/29 labs refusing, meds noted, abs pending this am still 07/30 labs reviewed, hgb 8.5, no bleeding, no hemolysis, prbc as needed Objective Objective Current Medications Medications (Trade) Dose Ordered Sig/Stella Route PRN Reason Start Time Stop Time Status Last Admin Dose Admin Allopurinol (allopurinoL) 300 mg DAILY ORAL 07/31/19 09:00 08/27/19 09:59 07/31/19 09:01 Aztreonam 1 gm/ Sodium Chloride 55 ml @ 110 mls/hr Q8HR IVPB 07/30/19 14:00 08/04/19 21:59 07/31/19 05:56 Carvedilol (Coreg) 3.125 mg EVERY 12 HOURS ORAL 07/30/19 21:00 08/28/19 08:59 07/31/19 09:01 Clopidogrel Bisulfate (Plavix) 75 mg DAILY ORAL 07/31/19 09:00 08/27/19 08:59 07/31/19 08:59 Dextrose (Dextrose 50%) 25 ml Q30M PRN IV Hypoglycemia 07/30/19 11:30 10/26/19 09:29 Dextrose (Dextrose 50%) 50 ml Q30M PRN IV Hypoglycemia 07/30/19 11:30 10/26/19 09:29 Docusate Sodium (Colace) 100 mg TWICE A DAY ORAL 07/31/19 18:00 08/30/19 17:59 Doxycycline Monohydrate (Doxycycline Monohydrate) 100 mg Q12HR ORAL 07/31/19 21:00 08/07/19 20:59 Epoetin Yaron (Epoetin Yaron-EPBX(NON ESRD)) 10,000 unit SUN-SUN-SUN SUBQ 07/30/19 21:00 10/26/19 20:59 07/30/19 21:48 Hydralazine HCl (Apresoline) 10 mg Q6HR ORAL 07/30/19 12:00 10/26/19 17:59 Insulin Aspart (NovoLOG) BEFORE MEALS AND HS SUBQ 07/30/19 11:30 10/26/19 11:29 07/30/19 21:00 Iron Sucrose 100 mg/Sodium Chloride 60 ml @ 240 mls/hr BEDTIME IV 07/30/19 21:00 08/01/19 21:14 07/30/19 21:47 Isosorbide Mononitrate (Imdur) 30 mg DAILY ORAL 07/31/19 09:00 08/28/19 08:59 07/31/19 08:59 Levothyroxine Sodium (Synthroid) 50 mcg ACBREAKFAST ORAL 07/31/19 06:30 08/27/19 06:29 07/31/19 05:56 Linezolid (Zyvox) 600 mg EVERY 12 HOURS ORAL 07/30/19 21:00 08/03/19 20:59 07/31/19 08:59 Lorazepam (Ativan) 0.5 mg Q6H PRN ORAL For Anxiety 07/30/19 11:30 08/04/19 11:29 Memantine (Namenda) 5 mg BID ORAL 07/30/19 18:00 08/27/19 17:59 07/31/19 09:00 Pantoprazole (Protonix) 40 mg BID ORAL 07/30/19 18:00 08/27/19 08:59 07/31/19 08:58 Polyethylene Glycol (Miralax) 17 gm BEDTIME ORAL 07/31/19 21:00 08/30/19 20:59 Risperidone (RisperDAL) 0.5 mg EVERY 6 HOURS ORAL 07/30/19 12:00 09/11/19 17:59 07/31/19 05:56 Sevelamer Carbonate (Renvela) 800 mg THREE TIMES A DAY ORAL 07/30/19 13:00 10/26/19 17:59 07/31/19 08:59 Sodium Citrate (Bicitra) 30 ml TID ORAL 07/31/19 13:00 08/28/19 08:59 Tamsulosin HCl (Flomax) 0.4 mg BEDTIME ORAL 07/30/19 21:00 08/28/19 20:59 07/30/19 21:47 Last 24 Hour Vital Signs Date Time Temp Pulse Resp B/P (MAP) Pulse Ox O2 Delivery O2 Flow Rate FiO2 07/31/19 09:01 98 114/69 07/31/19 09:01 98 114/69 (84) 07/31/19 08:59 106/68 07/31/19 08:00 Room Air Room Air 07/31/19 08:00 98.1 78 18 106/68 (81) 100 07/31/19 07:48 91 07/31/19 06:00 108/50 07/31/19 04:00 97.9 91 18 108/50 (69) 98 07/31/19 04:00 Room Air Room Air 07/31/19 03:38 87 07/31/19 00:00 Room Air Room Air 07/31/19 00:00 90 07/31/19 00:00 102/62 07/31/19 00:00 97.5 91 20 102/62 (75) 99 07/30/19 21:00 94 102/63 07/30/19 20:00 94 07/30/19 20:00 96.3 94 20 102/63 (76) 100 07/30/19 20:00 Room Air Room Air 07/30/19 17:31 109/63 07/30/19 16:20 Room Air Room Air 07/30/19 16:00 97.9 89 20 109/63 (78) 100 07/30/19 16:00 86 07/30/19 12:17 88 07/30/19 12:00 104/66 07/30/19 11:35 Room Air Room Air 07/30/19 11:00 95 16 101/65 (77) 99 07/30/19 10:55 97.2 92 18 104/66 (79) 99 07/30/19 10:00 94 15 105/57 (73) 98 07/30/19 09:00 90 20 99/64 (76) 100 07/30/19 08:57 90 07/30/19 08:38 103/63 07/30/19 08:37 90 103/63 07/30/19 08:00 90 07/30/19 08:00 98.0 85 18 103/63 (76) 99 07/30/19 08:00 Room Air Room Air 07/30/19 07:00 88 18 100/60 (73) 100 07/30/19 06:00 96/59 07/30/19 04:00 97.9 89 17 96/59 (71) 99 07/30/19 04:00 Room Air Room Air 07/30/19 04:00 91 07/30/19 03:00 92 16 105/62 (76) 98 07/30/19 02:00 92 17 104/62 (76) 99 07/30/19 01:00 90 18 98/63 (75) 99 07/30/19 00:00 90 07/30/19 00:00 Room Air Room Air 07/30/19 00:00 98.0 90 20 102/73 (83) 99 07/30/19 00:00 101/62 07/29/19 23:00 89 16 102/65 (77) 97 07/29/19 22:00 89 16 99/60 (73) 97 07/29/19 21:00 90 15 103/61 (75) 100 07/29/19 20:50 90 103/59 07/29/19 20:00 Room Air Room Air 07/29/19 20:00 97.9 88 15 99/67 (78) 98 07/29/19 20:00 87 07/29/19 19:00 87 15 104/60 (75) 100 07/29/19 18:00 90 17 105/62 (76) 100 07/29/19 17:13 99/54 07/29/19 17:00 89 17 103/63 (76) 100 07/29/19 16:00 82 07/29/19 16:00 Room Air Room Air 07/29/19 16:00 98.1 84 15 100/58 (72) 99 07/29/19 15:00 83 15 97/60 (72) 99 07/29/19 14:41 99/60 07/29/19 14:00 85 17 99/60 (73) 100 07/29/19 13:00 85 15 101/82 (88) 100 07/29/19 12:00 82 07/29/19 12:00 102/63 07/29/19 12:00 Room Air Room Air 07/29/19 12:00 97.8 83 14 102/63 (76) 99 Intake and Output 07/30/19 07/31/19 19:00 07:00 Intake Total 800 ml 220 ml Output Total 500 ml Balance 300 ml 220 ml Intake Oral 800 ml 220 ml Output Urine Total 500 ml # Voids 2 # Bowel Movements 2 Labs Test 07/28/19 17:30 07/28/19 22:20 07/29/19 03:40 07/29/19 04:25 Activated Partial Thromboplast Time 87 SEC (23-33) 30 SEC (23-33) Urine Legionella Antigen Negative (Negative) Lactate Dehydrogenase 682 U/L (81-234) White Blood Count 11.5 K/UL (4.8-10.8) Red Blood Count 2.70 M/UL (4.70-6.10) Hemoglobin 7.6 G/DL (14.2-18.0) Hematocrit 22.6 % (42.0-52.0) Mean Corpuscular Volume 84 FL (80-99) Mean Corpuscular Hemoglobin 28.3 PG (27.0-31.0) Mean Corpuscular Hemoglobin Concent 33.7 G/DL (32.0-36.0) Red Cell Distribution Width 13.0 % (11.6-14.8) Platelet Count 263 K/UL (150-450) Mean Platelet Volume 5.6 FL (6.5-10.1) Neutrophils (%) (Auto) % (45.0-75.0) Lymphocytes (%) (Auto) % (20.0-45.0) Monocytes (%) (Auto) % (1.0-10.0) Eosinophils (%) (Auto) % (0.0-3.0) Basophils (%) (Auto) % (0.0-2.0) Prothrombin Time 11.2 SEC (9.30-11.50) Prothromb Time International Ratio 1.1 (0.9-1.1) D-Dimer 3.62 mg/L FEU (0.00-0.49) Sodium Level 136 MMOL/L (136-145) Potassium Level 4.3 MMOL/L (3.5-5.1) Chloride Level 102 MMOL/L (98-107) Carbon Dioxide Level 18 MMOL/L (21-32) Anion Gap 16 mmol/L (5-15) Blood Urea Nitrogen 102 mg/dL (7-18) Creatinine 4.9 MG/DL (0.55-1.30) Estimat Glomerular Filtration Rate 14.3 mL/min (>60) Glucose Level 153 MG/DL (74-106) Calcium Level 8.8 MG/DL (8.5-10.1) Phosphorus Level 5.9 MG/DL (2.5-4.9) Magnesium Level 2.3 MG/DL (1.8-2.4) Total Bilirubin 0.9 MG/DL (0.2-1.0) Aspartate Amino Transf (AST/SGOT) 938 U/L (15-37) Alanine Aminotransferase (ALT/SGPT) 931 U/L (12-78) Alkaline Phosphatase 231 U/L (46-116) Troponin I 0.986 ng/mL (0.000-0.056) C-Reactive Protein, Quantitative > 70.0 mg/dL (0.00-0.90) Pro-B-Type Natriuretic Peptide > 61565 pg/mL (0-125) Total Protein 6.6 G/DL (6.4-8.2) Albumin 2.6 G/DL (3.4-5.0) Globulin 4.0 g/dL Albumin/Globulin Ratio 0.6 (1.0-2.7) Random Vancomycin Level 18.7 ug/mL Test 07/30/19 05:30 07/30/19 05:34 07/30/19 11:00 07/31/19 08:15 Digoxin Level < 0.3 NG/ML (0.5-2.0) Sodium Level 140 MMOL/L (136-145) 140 MMOL/L (136-145) Potassium Level 4.0 MMOL/L (3.5-5.1) 4.0 MMOL/L (3.5-5.1) Chloride Level 104 MMOL/L (98-107) 104 MMOL/L (98-107) Carbon Dioxide Level 19 MMOL/L (21-32) 20 MMOL/L (21-32) Anion Gap 17 mmol/L (5-15) 16 mmol/L (5-15) Blood Urea Nitrogen 97 mg/dL (7-18) 86 mg/dL (7-18) Creatinine 4.6 MG/DL (0.55-1.30) 4.4 MG/DL (0.55-1.30) Estimat Glomerular Filtration Rate 15.4 mL/min (>60) 16.1 mL/min (>60) Glucose Level 151 MG/DL (74-106) 178 MG/DL (74-106) Uric Acid 11.5 MG/DL (2.6-7.2) 9.9 MG/DL (2.6-7.2) Calcium Level 8.6 MG/DL (8.5-10.1) 8.3 MG/DL (8.5-10.1) Phosphorus Level 4.1 MG/DL (2.5-4.9) 3.5 MG/DL (2.5-4.9) Magnesium Level 2.5 MG/DL (1.8-2.4) 2.1 MG/DL (1.8-2.4) Total Bilirubin 0.6 MG/DL (0.2-1.0) 1.4 MG/DL (0.2-1.0) Gamma Glutamyl Transpeptidase 80 U/L (5-85) Aspartate Amino Transf (AST/SGOT) 461 U/L (15-37) 262 U/L (15-37) Alanine Aminotransferase (ALT/SGPT) 744 U/L (12-78) 580 U/L (12-78) Alkaline Phosphatase 206 U/L (46-116) 188 U/L (46-116) Troponin I 0.703 ng/mL (0.000-0.056) Total Protein 6.5 G/DL (6.4-8.2) 6.4 G/DL (6.4-8.2) Albumin 2.4 G/DL (3.4-5.0) 2.4 G/DL (3.4-5.0) Globulin 4.1 g/dL 4.0 g/dL Albumin/Globulin Ratio 0.6 (1.0-2.7) 0.6 (1.0-2.7) Hepatitis A IgM Antibody Negative (Negative) Hepatitis B Surface Antigen Negative (Negative) Hepatitis B Core IgM Antibody Negative (Negative) Hepatitis C Antibody <0.1 s/co ratio White Blood Count 9.4 K/UL (4.8-10.8) 8.5 K/UL (4.8-10.8) Red Blood Count 2.66 M/UL (4.70-6.10) 2.94 M/UL (4.70-6.10) Hemoglobin 7.4 G/DL (14.2-18.0) 8.5 G/DL (14.2-18.0) Hematocrit 22.4 % (42.0-52.0) 25.1 % (42.0-52.0) Mean Corpuscular Volume 84 FL (80-99) 85 FL (80-99) Mean Corpuscular Hemoglobin 27.7 PG (27.0-31.0) 28.8 PG (27.0-31.0) Mean Corpuscular Hemoglobin Concent 33.0 G/DL (32.0-36.0) 33.7 G/DL (32.0-36.0) Red Cell Distribution Width 13.0 % (11.6-14.8) 13.8 % (11.6-14.8) Platelet Count 226 K/UL (150-450) 229 K/UL (150-450) Mean Platelet Volume 5.0 FL (6.5-10.1) 5.4 FL (6.5-10.1) Neutrophils (%) (Auto) % (45.0-75.0) 75.2 % (45.0-75.0) Lymphocytes (%) (Auto) % (20.0-45.0) 14.7 % (20.0-45.0) Monocytes (%) (Auto) % (1.0-10.0) 7.7 % (1.0-10.0) Eosinophils (%) (Auto) % (0.0-3.0) 2.0 % (0.0-3.0) Basophils (%) (Auto) % (0.0-2.0) 0.4 % (0.0-2.0) Differential Total Cells Counted 100 Neutrophils % (Manual) 80 % (45-75) Lymphocytes % (Manual) 13 % (20-45) Monocytes % (Manual) 7 % (1-10) Eosinophils % (Manual) 0 % (0-3) Basophils % (Manual) 0 % (0-2) Band Neutrophils 0 % (0-8) Platelet Estimate Adequate Platelet Morphology Normal Hypochromasia 3+ Poikilocytosis 3+ Anisocytosis 1+ [place] Cells 2+ D-Dimer 10.42 mg/L FEU (0.00-0.49) Direct Bilirubin 0.6 MG/DL (0.0-0.3) Lactate Dehydrogenase 265 U/L (81-234) C-Reactive Protein, Quantitative 13.3 mg/dL (0.00-0.90) Pro-B-Type Natriuretic Peptide > 88182 pg/mL (0-125) Test 07/31/19 10:29 Height (Feet): 5 Height (Inches): 8.00 Weight (Pounds): 104 Objective Physical Exam General: Awake and alert HEENT: NC/AT. EOMI. Neck: Supple Cardiov: RRR. S1 and S2 normal. No murmur appreciated Resp: No cough, wheezing or crackles appreciated Abd: Abdomen is soft, nondistended. Skin: Intact. No abrasions, laceration or rash MSK: Normal tone and bulk. Moving all extremities. Neuro: Awake and alert. Mentating appropriately. Roverto Orourke MD Jul 31, 2019 11:17
--- NOTE | 2019-07-31 11:38 | Pulmonology Progress Note ---
Assessment/Plan Assessment/Plan IMPRESSION: 1. Pneumonia. with worsening R base on CXR 2. Negative COVID-19. 3. Diabetes mellitus. 4. Previous CVA. DISCUSSION: Continue current care. Agree with intravenous heparin for acute coronary syndrome. Diabetes monitoring. Continue beta blockers. DVT prophylaxis with IV heparin. Broad-spectrum antibiotics and Plaquenil. Follow carefully. Continue oxygen monitoring. Currently saturating well on room air. Melvin Wells M.D. Subjective Interval Events: None new Constitutional: Reports: no symptoms HEENT: Repors: no symptoms Respiratory: Reports: no symptoms Cardiovascular: Reports: no symptoms Allergies: Coded Allergies: CASTANON (Unverified Allergy, Mild, 06/07/19) APPLE (Unverified Allergy, Unknown, 06/07/19) BANANA (Unverified Allergy, Unknown, 06/07/19) CHOCOLATE FLAVOR (Unverified Allergy, Unknown, 06/07/19) PENICILLINS (Verified Allergy, Unknown, 07/12/17) POTATO (Unverified Allergy, Unknown, 06/07/19) Objective Last 24 Hour Vital Signs Date Time Temp Pulse Resp B/P (MAP) Pulse Ox O2 Delivery O2 Flow Rate FiO2 07/31/19 09:01 98 114/69 07/31/19 09:01 98 114/69 (84) 07/31/19 08:59 106/68 07/31/19 08:00 Room Air Room Air 07/31/19 08:00 98.1 78 18 106/68 (81) 100 07/31/19 07:48 91 07/31/19 06:00 108/50 07/31/19 04:00 97.9 91 18 108/50 (69) 98 07/31/19 04:00 Room Air Room Air 07/31/19 03:38 87 07/31/19 00:00 Room Air Room Air 07/31/19 00:00 90 07/31/19 00:00 102/62 07/31/19 00:00 97.5 91 20 102/62 (75) 99 07/30/19 21:00 94 102/63 07/30/19 20:00 94 07/30/19 20:00 96.3 94 20 102/63 (76) 100 07/30/19 20:00 Room Air Room Air 07/30/19 17:31 109/63 07/30/19 16:20 Room Air Room Air 07/30/19 16:00 97.9 89 20 109/63 (78) 100 07/30/19 16:00 86 07/30/19 12:17 88 07/30/19 12:00 104/66 Intake and Output 07/30/19 07/31/19 19:00 07:00 Intake Total 800 ml 220 ml Output Total 500 ml Balance 300 ml 220 ml Intake Oral 800 ml 220 ml Output Urine Total 500 ml # Voids 2 # Bowel Movements 2 General Appearance: no acute distress HEENT: normocephalic Respiratory/Chest: chest wall non-tender Cardiovascular: normal peripheral pulses Abdomen: normal bowel sounds Laboratory Tests 07/31/19 08:15: White Blood Count 8.5, Red Blood Count 2.94L, Hemoglobin 8.5L, Hematocrit 25.1L , Mean Corpuscular Volume 85, Mean Corpuscular Hemoglobin 28.8, Mean Corpuscular Hemoglobin Concent 33.7, Red Cell Distribution Width 13.8, Platelet Count 229, Mean Platelet Volume 5.4L, Neutrophils (%) (Auto) 75.2H, Lymphocytes (%) (Auto) 14.7L, Monocytes (%) (Auto) 7.7, Eosinophils (%) (Auto) 2.0, Basophils (%) (Auto) 0.4, D-Dimer 10.42H, Sodium Level 140, Potassium Level 4.0 , Chloride Level 104, Carbon Dioxide Level 20L, Anion Gap 16H, Blood Urea Nitrogen 86H, Creatinine 4.4H, Estimat Glomerular Filtration Rate 16.1, Glucose Level 178H, Uric Acid 9.9H, Calcium Level 8.3L, Phosphorus Level 3.5, Magnesium Level 2.1, Total Bilirubin 1.4H, Direct Bilirubin 0.6H, Aspartate Amino Transf ( AST/SGOT) 262H, Alanine Aminotransferase (ALT/SGPT) 580H, Alkaline Phosphatase 188H, Lactate Dehydrogenase 265H, C-Reactive Protein, Quantitative 13.3H, Pro-B- Type Natriuretic Peptide > 34262E, Total Protein 6.4, Albumin 2.4L, Globulin 4.0 , Albumin/Globulin Ratio 0.6L 07/31/19 10:29: Stool Occult Blood [Pending] Current Medications Medications (Trade) Dose Ordered Sig/Stella Route PRN Reason Start Time Stop Time Status Last Admin Dose Admin Allopurinol (allopurinoL) 300 mg DAILY ORAL 07/31/19 09:00 08/27/19 09:59 07/31/19 09:01 Aztreonam 1 gm/ Sodium Chloride 55 ml @ 110 mls/hr Q8HR IVPB 07/30/19 14:00 08/04/19 21:59 07/31/19 05:56 Carvedilol (Coreg) 3.125 mg EVERY 12 HOURS ORAL 07/30/19 21:00 08/28/19 08:59 07/31/19 09:01 Clopidogrel Bisulfate (Plavix) 75 mg DAILY ORAL 07/31/19 09:00 08/27/19 08:59 07/31/19 08:59 Dextrose (Dextrose 50%) 25 ml Q30M PRN IV Hypoglycemia 07/30/19 11:30 10/26/19 09:29 Dextrose (Dextrose 50%) 50 ml Q30M PRN IV Hypoglycemia 07/30/19 11:30 10/26/19 09:29 Docusate Sodium (Colace) 100 mg TWICE A DAY ORAL 07/31/19 18:00 08/30/19 17:59 Doxycycline Monohydrate (Doxycycline Monohydrate) 100 mg Q12HR ORAL 07/31/19 21:00 08/07/19 20:59 Epoetin Yaron (Epoetin Yaron-EPBX(NON ESRD)) 10,000 unit SUN-SUN-SUN SUBQ 07/30/19 21:00 10/26/19 20:59 07/30/19 21:48 Hydralazine HCl (Apresoline) 10 mg Q6HR ORAL 07/30/19 12:00 10/26/19 17:59 Insulin Aspart (NovoLOG) BEFORE MEALS AND HS SUBQ 07/30/19 11:30 10/26/19 11:29 07/30/19 21:00 Iron Sucrose 100 mg/Sodium Chloride 60 ml @ 240 mls/hr BEDTIME IV 07/30/19 21:00 08/01/19 21:14 07/30/19 21:47 Isosorbide Mononitrate (Imdur) 30 mg DAILY ORAL 07/31/19 09:00 08/28/19 08:59 07/31/19 08:59 Levothyroxine Sodium (Synthroid) 50 mcg ACBREAKFAST ORAL 07/31/19 06:30 08/27/19 06:29 07/31/19 05:56 Linezolid (Zyvox) 600 mg EVERY 12 HOURS ORAL 07/30/19 21:00 08/03/19 20:59 07/31/19 08:59 Lorazepam (Ativan) 0.5 mg Q6H PRN ORAL For Anxiety 07/30/19 11:30 08/04/19 11:29 Memantine (Namenda) 5 mg BID ORAL 07/30/19 18:00 08/27/19 17:59 07/31/19 09:00 Pantoprazole (Protonix) 40 mg BID ORAL 07/30/19 18:00 08/27/19 08:59 07/31/19 08:58 Polyethylene Glycol (Miralax) 17 gm BEDTIME ORAL 07/31/19 21:00 08/30/19 20:59 Risperidone (RisperDAL) 0.5 mg EVERY 6 HOURS ORAL 07/30/19 12:00 09/11/19 17:59 07/31/19 05:56 Sevelamer Carbonate (Renvela) 800 mg THREE TIMES A DAY ORAL 07/30/19 13:00 10/26/19 17:59 07/31/19 08:59 Sodium Citrate (Bicitra) 30 ml TID ORAL 07/31/19 13:00 08/28/19 08:59 Tamsulosin HCl (Flomax) 0.4 mg BEDTIME ORAL 07/30/19 21:00 08/28/19 20:59 07/30/19 21:47 Melvin Wells MD Jul 31, 2019 11:38
--- NOTE | 2019-07-31 12:43 | General Progress Note ---
Assessment/Plan Problem List: (1) SOB (shortness of breath) ICD Codes: R06.02 - Shortness of breath SNOMED: 402758511 (2) CHF (congestive heart failure) ICD Codes: I50.9 - Heart failure, unspecified SNOMED: 70090982 (3) Suspected COVID-19 virus infection ICD Codes: R68.89 - Other general symptoms and signs SNOMED: 045656515 (4) Psychiatric disorder ICD Codes: F99 - Psychiatric disorder SNOMED: 67898951 (5) DM (diabetes mellitus) ICD Codes: E11.9 - DM (diabetes mellitus) SNOMED: 69464113 (6) Weakness ICD Codes: R53.1 - Weakness SNOMED: 01577050 (7) Acute renal failure (ARF) ICD Codes: N17.9 - Acute renal failure (ARF) SNOMED: 81394680 (8) Anemia ICD Codes: D64.9 - Anemia SNOMED: 249539625 (9) Malnutrition ICD Codes: E46 - Unspecified protein-calorie malnutrition SNOMED: 71565365 Status: unchanged Assessment/Plan: pt diet abx bp bs control cbc bmp am hospice eval Subjective Constitutional: Reports: weakness Allergies: Coded Allergies: CASTANON (Unverified Allergy, Mild, 06/07/19) APPLE (Unverified Allergy, Unknown, 06/07/19) BANANA (Unverified Allergy, Unknown, 06/07/19) CHOCOLATE FLAVOR (Unverified Allergy, Unknown, 06/07/19) PENICILLINS (Verified Allergy, Unknown, 07/12/17) POTATO (Unverified Allergy, Unknown, 06/07/19) All Systems: reviewed and negative except above Subjective sleepy in bed Objective Last 24 Hour Vital Signs Date Time Temp Pulse Resp B/P (MAP) Pulse Ox O2 Delivery O2 Flow Rate FiO2 07/31/19 11:51 103/61 07/31/19 11:50 98.0 88 18 103/61 (75) 100 07/31/19 09:01 98 114/69 07/31/19 09:01 98 114/69 (84) 07/31/19 08:59 106/68 07/31/19 08:00 Room Air Room Air 07/31/19 08:00 98.1 78 18 106/68 (81) 100 4/16/20 07:48 91 07/31/19 06:00 108/50 07/31/19 04:00 97.9 91 18 108/50 (69) 98 07/31/19 04:00 Room Air Room Air 07/31/19 03:38 87 07/31/19 00:00 Room Air Room Air 07/31/19 00:00 90 07/31/19 00:00 102/62 07/31/19 00:00 97.5 91 20 102/62 (75) 99 07/30/19 21:00 94 102/63 07/30/19 20:00 94 07/30/19 20:00 96.3 94 20 102/63 (76) 100 07/30/19 20:00 Room Air Room Air 07/30/19 17:31 109/63 07/30/19 16:20 Room Air Room Air 07/30/19 16:00 97.9 89 20 109/63 (78) 100 07/30/19 16:00 86 Intake and Output 07/30/19 07/31/19 19:00 07:00 Intake Total 800 ml 220 ml Output Total 500 ml Balance 300 ml 220 ml Intake Oral 800 ml 220 ml Output Urine Total 500 ml # Voids 2 # Bowel Movements 2 Laboratory Tests 07/31/19 08:15: White Blood Count 8.5, Red Blood Count 2.94L, Hemoglobin 8.5L, Hematocrit 25.1L , Mean Corpuscular Volume 85, Mean Corpuscular Hemoglobin 28.8, Mean Corpuscular Hemoglobin Concent 33.7, Red Cell Distribution Width 13.8, Platelet Count 229, Mean Platelet Volume 5.4L, Neutrophils (%) (Auto) 75.2H, Lymphocytes (%) (Auto) 14.7L, Monocytes (%) (Auto) 7.7, Eosinophils (%) (Auto) 2.0, Basophils (%) (Auto) 0.4, D-Dimer 10.42H, Sodium Level 140, Potassium Level 4.0 , Chloride Level 104, Carbon Dioxide Level 20L, Anion Gap 16H, Blood Urea Nitrogen 86H, Creatinine 4.4H, Estimat Glomerular Filtration Rate 16.1, Glucose Level 178H, Uric Acid 9.9H, Calcium Level 8.3L, Phosphorus Level 3.5, Magnesium Level 2.1, Total Bilirubin 1.4H, Direct Bilirubin 0.6H, Aspartate Amino Transf ( AST/SGOT) 262H, Alanine Aminotransferase (ALT/SGPT) 580H, Alkaline Phosphatase 188H, Lactate Dehydrogenase 265H, C-Reactive Protein, Quantitative 13.3H, Pro-B- Type Natriuretic Peptide > 09192B, Total Protein 6.4, Albumin 2.4L, Globulin 4.0 , Albumin/Globulin Ratio 0.6L 07/31/19 10:29: Stool Occult Blood [Pending] Height (Feet): 5 Height (Inches): 8.00 Weight (Pounds): 104 General Appearance: lethargic EENT: normal ENT inspection Neck: normal alignment Cardiovascular: normal rate, regular rhythm Respiratory/Chest: no respiratory distress, no accessory muscle use Extremities: normal inspection Skin: normal pigmentation Phillip Gandhi DO Jul 31, 2019 12:43
[2019-07-31] MEDS: Iron Sucrose 100 MG in NS 55 ML IV SCH (20:42)
[2019-07-31] MEDS: Tamsulosin 0.4mg cap ORAL SCH (20:42)
[2019-07-31] MEDS ORDERED: Miralax 17gm pkt ORAL SCH (21:00)
[2019-08-01] VITALS: BP 107/63
--- NOTE | 2019-08-01 01:05 | Cardiology Progress Note ---
Assessment/Plan Assessment/Plan LATE NOTE ENTRY DTAE OF ENCOUNTER: JULY 31, 2019 TIME OF ENCOUNTER: 21:21 1. High trop level, possible etiologies NSTEMI, barrera. in view of WMA on echo, vs myonecrosis vs trop leak in ESRD, continue medical therapy, cardiac catheterization has been rejected in the past. 2. Dilated cardiomyopathy with LVEF about 15% to 20%, possible ICM in view of wall motion abnormalities. 3. Right lower lobe PNS with associated pleural effusion. 4. History of paroxysmal atrial flutter, in SR. 5. History of anemia. 6. Diabetes mellitus. Subjective Subjective Sinus rhythm at rate of 88. Objective Last 24 Hour Vital Signs Date Time Temp Pulse Resp B/P (MAP) Pulse Ox O2 Delivery O2 Flow Rate FiO2 08/01/19 00:00 Room Air 08/01/19 00:00 96.8 88 17 107/63 (78) 98 08/01/19 00:00 81 08/01/19 00:00 107/63 07/31/19 20:46 85 101/66 07/31/19 20:00 80 07/31/19 20:00 97.3 87 18 101/66 (78) 100 07/31/19 20:00 Room Air 07/31/19 17:47 100/60 07/31/19 16:00 Room Air 07/31/19 16:00 98.1 80 18 100/60 (73) 100 07/31/19 15:33 81 07/31/19 12:00 85 07/31/19 12:00 Room Air Room Air 07/31/19 11:51 103/61 07/31/19 11:50 98.0 88 18 103/61 (75) 100 07/31/19 09:01 98 114/69 07/31/19 09:01 98 114/69 (84) 07/31/19 08:59 106/68 07/31/19 08:00 Room Air Room Air 07/31/19 08:00 98.1 78 18 106/68 (81) 100 07/31/19 07:48 91 07/31/19 06:00 108/50 07/31/19 04:00 97.9 91 18 108/50 (69) 98 07/31/19 04:00 Room Air Room Air 07/31/19 03:38 87 Intake and Output 07/31/19 08/01/19 19:00 07:00 Intake Total 500 ml Balance 500 ml Intake Oral 500 ml # Voids 2 # Bowel Movements 2 2D Echo: LVEF 15%, + WMA likely Ischemic CM, Mild MR, RVSP 32 mmHg, Grade I LVDD Laboratory Tests Test 07/31/19 08:15 07/31/19 10:29 White Blood Count 8.5 K/UL (4.8-10.8) Red Blood Count 2.94 M/UL (4.70-6.10) L Hemoglobin 8.5 G/DL (14.2-18.0) L Hematocrit 25.1 % (42.0-52.0) L Mean Corpuscular Volume 85 FL (80-99) Mean Corpuscular Hemoglobin 28.8 PG (27.0-31.0) Mean Corpuscular Hemoglobin Concent 33.7 G/DL (32.0-36.0) Red Cell Distribution Width 13.8 % (11.6-14.8) Platelet Count 229 K/UL (150-450) Mean Platelet Volume 5.4 FL (6.5-10.1) L Neutrophils (%) (Auto) 75.2 % (45.0-75.0) H Lymphocytes (%) (Auto) 14.7 % (20.0-45.0) L Monocytes (%) (Auto) 7.7 % (1.0-10.0) Eosinophils (%) (Auto) 2.0 % (0.0-3.0) Basophils (%) (Auto) 0.4 % (0.0-2.0) D-Dimer 10.42 mg/L FEU (0.00-0.49) H Sodium Level 140 MMOL/L (136-145) Potassium Level 4.0 MMOL/L (3.5-5.1) Chloride Level 104 MMOL/L (98-107) Carbon Dioxide Level 20 MMOL/L (21-32) L Anion Gap 16 mmol/L (5-15) H Blood Urea Nitrogen 86 mg/dL (7-18) H Creatinine 4.4 MG/DL (0.55-1.30) H Estimat Glomerular Filtration Rate 16.1 mL/min (>60) Glucose Level 178 MG/DL (74-106) H Uric Acid 9.9 MG/DL (2.6-7.2) H Calcium Level 8.3 MG/DL (8.5-10.1) L Phosphorus Level 3.5 MG/DL (2.5-4.9) Magnesium Level 2.1 MG/DL (1.8-2.4) Total Bilirubin 1.4 MG/DL (0.2-1.0) H Direct Bilirubin 0.6 MG/DL (0.0-0.3) H Aspartate Amino Transf (AST/SGOT) 262 U/L (15-37) H Alanine Aminotransferase (ALT/SGPT) 580 U/L (12-78) H Alkaline Phosphatase 188 U/L (46-116) H Lactate Dehydrogenase 265 U/L (81-234) H C-Reactive Protein, Quantitative 13.3 mg/dL (0.00-0.90) H Pro-B-Type Natriuretic Peptide > 91532 pg/mL (0-125) H Total Protein 6.4 G/DL (6.4-8.2) Albumin 2.4 G/DL (3.4-5.0) L Globulin 4.0 g/dL Albumin/Globulin Ratio 0.6 (1.0-2.7) L Stool Occult Blood Pending Objective HEENT: Atraumatic and normocephalic. Anicteric. Pupils are equal, round, and reactive to light and accommodation. Extraocular muscles are intact. NECK: JVP less than 5 cm. No carotid bruits. Carotid upstrokes 2+ bilaterally. CARDIOVASCULAR: Normal S1, S2. Regular rate and rhythm. No murmurs, gallops, or rubs. PMI is at fourth intercostal space in the midclavicular line. LUNGS: Diminished breath sounds in both bases. Increased dullness in the right base with scattered crackles in both bases. ABDOMEN: Soft, nontender, and nondistended. No hepatosplenomegaly. Positive bowel sounds. EXTREMITIES: No evidence of edema, clubbing, or cyanosis. Alex Mercedes MD Aug 01, 2019 01:05
[2019-08-01 04:00] VITALS: BP 114/79
[2019-08-01] MEDS: Aztreonam Inj 1 GM in NS 55 ML IVPB SCH (05:59)
[2019-08-01] MEDS: HydrALAZINE 10mg Tab ORAL SCH ×3 (06:00→12:00)
[2019-08-01] MEDS: NovoLOG Insulin Flexpen SUBQ SCH ×2 (06:16→11:30)
--- NOTE | 2019-08-01 07:18 | General Progress Note ---
Assessment/Plan Status: unchanged Assessment/Plan: 1. Stage 5 CKD, refusing hemodialysis. 2. Atrial flutter, paroxysmal. 3. History of severe cardiomyopathy with LVEF of approximately 15% to 20%. 4. History of anemia. 5. History of dysphagia. 6. History of myocardial infarction, refused cardiac catheterization. 7. In the past, has had COPD. 8. History of diabetes mellitus. 9. History of CVA/TIA. 10. History of dementia. 11. elevate LFTS>> ? shock liver repeat labs fu H&H transfuse as needed>>>>s/p blood transfusion 07/29 not a good candidate for GI procedures unless urgent patient on plavix fu LFTS>>>> improving fu stool ob repeat labs for am fu cardiology recs Subjective Allergies: Coded Allergies: CASTANON (Unverified Allergy, Mild, 06/07/19) APPLE (Unverified Allergy, Unknown, 06/07/19) BANANA (Unverified Allergy, Unknown, 06/07/19) CHOCOLATE FLAVOR (Unverified Allergy, Unknown, 06/07/19) PENICILLINS (Verified Allergy, Unknown, 07/12/17) POTATO (Unverified Allergy, Unknown, 06/07/19) Objective Last 24 Hour Vital Signs Date Time Temp Pulse Resp B/P (MAP) Pulse Ox O2 Delivery O2 Flow Rate FiO2 08/01/19 06:00 106/70 08/01/19 04:00 Room Air 08/01/19 04:00 97.5 87 17 114/79 (91) 100 08/01/19 04:00 84 08/01/19 00:00 Room Air 08/01/19 00:00 96.8 88 17 107/63 (78) 98 08/01/19 00:00 81 08/01/19 00:00 107/63 07/31/19 20:46 85 101/66 07/31/19 20:00 80 07/31/19 20:00 97.3 87 18 101/66 (78) 100 07/31/19 20:00 Room Air 07/31/19 17:47 100/60 07/31/19 16:00 Room Air 07/31/19 16:00 98.1 80 18 100/60 (73) 100 07/31/19 15:33 81 07/31/19 12:00 85 07/31/19 12:00 Room Air Room Air 07/31/19 11:51 103/61 07/31/19 11:50 98.0 88 18 103/61 (75) 100 07/31/19 09:01 98 114/69 07/31/19 09:01 98 114/69 (84) 07/31/19 08:59 106/68 07/31/19 08:00 Room Air Room Air 07/31/19 08:00 98.1 78 18 106/68 (81) 100 07/31/19 07:48 91 Intake and Output 07/31/19 08/01/19 19:00 07:00 Intake Total 500 ml 320 ml Balance 500 ml 320 ml Intake Oral 500 ml 320 ml # Voids 2 1 # Bowel Movements 2 Laboratory Tests 07/31/19 08:15: White Blood Count 8.5, Red Blood Count 2.94L, Hemoglobin 8.5L, Hematocrit 25.1L , Mean Corpuscular Volume 85, Mean Corpuscular Hemoglobin 28.8, Mean Corpuscular Hemoglobin Concent 33.7, Red Cell Distribution Width 13.8, Platelet Count 229, Mean Platelet Volume 5.4L, Neutrophils (%) (Auto) 75.2H, Lymphocytes (%) (Auto) 14.7L, Monocytes (%) (Auto) 7.7, Eosinophils (%) (Auto) 2.0, Basophils (%) (Auto) 0.4, D-Dimer 10.42H, Sodium Level 140, Potassium Level 4.0 , Chloride Level 104, Carbon Dioxide Level 20L, Anion Gap 16H, Blood Urea Nitrogen 86H, Creatinine 4.4H, Estimat Glomerular Filtration Rate 16.1, Glucose Level 178H, Uric Acid 9.9H, Calcium Level 8.3L, Phosphorus Level 3.5, Magnesium Level 2.1, Total Bilirubin 1.4H, Direct Bilirubin 0.6H, Aspartate Amino Transf ( AST/SGOT) 262H, Alanine Aminotransferase (ALT/SGPT) 580H, Alkaline Phosphatase 188H, Lactate Dehydrogenase 265H, C-Reactive Protein, Quantitative 13.3H, Pro-B- Type Natriuretic Peptide > 90482O, Total Protein 6.4, Albumin 2.4L, Globulin 4.0 , Albumin/Globulin Ratio 0.6L 07/31/19 10:29: Stool Occult Blood [Pending] Height (Feet): 5 Height (Inches): 8.00 Weight (Pounds): 104 General Appearance: no apparent distress EENT: normal ENT inspection Neck: supple Cardiovascular: normal rate Respiratory/Chest: decreased breath sounds Abdomen: normal bowel sounds, non tender, soft Extremities: non-tender Deric Price MD Aug 01, 2019 07:18
[2019-08-01 08:00] VITALS: BP 99/60
--- NOTE | 2019-08-01 08:43 | Progress Note ---
DATE: 07/31/2019 SUBJECTIVE: This is a 73-year-old male patient . The patient has abscess of peritoneum, cellulitis of groin, renal insufficiency, hypothyroidism, hypertension, and rule out COVID-19 that is reason why he is in the hospital, but because of his medical illness, he tends to have agitation, irritability and mood lability, declining cognition below his baseline. That is why, his attending physician has requested daily psychiatric consultation. MENTAL STATUS EXAMINATION: This is a 73-year-old male. Appearance is disheveled. Attitude, irritable and agitated. Affect, guarded and restricted. Intellect poor. Mood, depressed and anxious. Motor activity, psychomotor agitation. Attention is poor. Orientation x2. Speech is low volume and slurred. Thought process, disorganized and illogical. Insight and judgment is poor. DIAGNOSIS: Major depressive disorder, severe, recurrent with psychotic features. PLAN: For this patient is to treat him with the psychotropic medication regimen consisting of Risperdal 0.5 mg every 6 hours p.r.n. anxiety and agitation, Namenda 5 mg twice a day and 20 minutes of cognitive behavioral therapy will help him identify his automatic negative thoughts, help him convert his negative thoughts to more positive thoughts to reduce depression, anxiety, mood lability. Chart reviewed. Discussed with staff. Seen and assessed at bedside. Nata Coronado M.D. DR: Amirah JOB#: [id number] CC:
--- NOTE | 2019-08-01 08:44 | Progress Note ---
DATE: 08/01/2019 SUBJECTIVE: This is a 73-year-old male patient with pneumonia, suspected COVID-19 infection. I saw and assessed the patient at bedside today. He is in the ICU step-down currently. The patient has mood lability, confusion, disorganized thought process, respiratory insufficiency, renal insufficiency, cellulitis of the groin, hypothyroidism, hypertension, and pneumonia. So, he has altered mental status, agitation, and confusion. That is why, his attending has requested daily psychiatric consultation. MENTAL STATUS EXAMINATION: This is a 73-year-old male. Appearance is disheveled. Attitude, irritable and agitated. Affect, guarded and restricted. Intellect poor. Mood, depressed and anxious. Motor activity, psychomotor agitation. Attention span is poor. Orientation x2. Speech is low volume, slurred. Thought process, disorganized and illogical. Insight and judgment is poor. DIAGNOSIS: Major depressive disorder, mild, recurrent with psychotic features. PLAN: Treat the patient with Risperdal 0.5 mg every 6 hours p.r.n. anxiety and agitation, Namenda 5 mg twice a day, Ativan 0.5 mg every 6 hours p.r.n. anxiety and agitation. A 20 minutes of cognitive behavioral therapy provided, will help him identify his automatic negative thoughts, help him convert his negative thoughts to more positive thoughts to reduce depression, anxiety, and mood lability. Chart was reviewed. Discussed with staff. Seen and assessed in his room. Nata Coronado M.D. DR: GIANCARLO JOB#: [id number] CC:
[2019-08-01] MEDS: Sodium Citrate 30ml ORAL SCH ×2 (08:54→12:27)
[2019-08-01] MEDS: Doxycycline Monohydrate 100mg ORAL SCH (08:54)
[2019-08-01] MEDS: Memantine 5 MG TAB ORAL SCH (08:57)
[2019-08-01] MEDS: Docusate 100mg cap ORAL SCH (09:00)
[2019-08-01] MEDS: Imdur 30mg tab ORAL SCH (09:00)
--- NOTE | 2019-08-01 09:12 | General Progress Note ---
Assessment/Plan Problem List: (1) SOB (shortness of breath) ICD Codes: R06.02 - Shortness of breath SNOMED: 135210553 (2) CHF (congestive heart failure) ICD Codes: I50.9 - Heart failure, unspecified SNOMED: 95184999 (3) Suspected COVID-19 virus infection ICD Codes: R68.89 - Other general symptoms and signs SNOMED: 193776867 (4) Psychiatric disorder ICD Codes: F99 - Psychiatric disorder SNOMED: 23474932 (5) DM (diabetes mellitus) ICD Codes: E11.9 - DM (diabetes mellitus) SNOMED: 25350227 (6) Weakness ICD Codes: R53.1 - Weakness SNOMED: 22582084 (7) Acute renal failure (ARF) ICD Codes: N17.9 - Acute renal failure (ARF) SNOMED: 94935835 (8) Anemia ICD Codes: D64.9 - Anemia SNOMED: 558549335 (9) Malnutrition ICD Codes: E46 - Unspecified protein-calorie malnutrition SNOMED: 04455848 Status: unchanged Assessment/Plan: pt diet abx bp bs control cbc bmp am dc plan w hospice Subjective Constitutional: Reports: weakness Allergies: Coded Allergies: CASTANON (Unverified Allergy, Mild, 06/07/19) APPLE (Unverified Allergy, Unknown, 06/07/19) BANANA (Unverified Allergy, Unknown, 06/07/19) CHOCOLATE FLAVOR (Unverified Allergy, Unknown, 06/07/19) PENICILLINS (Verified Allergy, Unknown, 07/12/17) POTATO (Unverified Allergy, Unknown, 06/07/19) All Systems: reviewed and negative except above Subjective sleepy in bed Objective Last 24 Hour Vital Signs Date Time Temp Pulse Resp B/P (MAP) Pulse Ox O2 Delivery O2 Flow Rate FiO2 08/01/19 08:55 82 99/60 08/01/19 08:00 97.0 82 18 99/60 (73) 97 08/01/19 07:43 82 08/01/19 06:00 106/70 08/01/19 04:00 Room Air 08/01/19 04:00 97.5 87 17 114/79 (91) 100 08/01/19 04:00 84 08/01/19 00:00 Room Air 08/01/19 00:00 96.8 88 17 107/63 (78) 98 08/01/19 00:00 81 08/01/19 00:00 107/63 07/31/19 20:46 85 101/66 07/31/19 20:00 80 07/31/19 20:00 97.3 87 18 101/66 (78) 100 07/31/19 20:00 Room Air 07/31/19 17:47 100/60 07/31/19 16:00 Room Air 07/31/19 16:00 98.1 80 18 100/60 (73) 100 07/31/19 15:33 81 07/31/19 12:00 85 07/31/19 12:00 Room Air Room Air 07/31/19 11:51 103/61 07/31/19 11:50 98.0 88 18 103/61 (75) 100 Intake and Output 07/31/19 08/01/19 19:00 07:00 Intake Total 500 ml 320 ml Balance 500 ml 320 ml Intake Oral 500 ml 320 ml # Voids 2 1 # Bowel Movements 2 Laboratory Tests 07/31/19 10:29: Stool Occult Blood [Pending] 08/01/19 08:50: White Blood Count [Pending], Red Blood Count [Pending], Hemoglobin [Pending], Hematocrit [Pending], Mean Corpuscular Volume [Pending], Mean Corpuscular Hemoglobin [Pending], Mean Corpuscular Hemoglobin Concent [Pending], Red Cell Distribution Width [Pending], Platelet Count [Pending], Mean Platelet Volume [ Pending], Neutrophils (%) (Auto) [Pending], Lymphocytes (%) (Auto) [Pending], Monocytes (%) (Auto) [Pending], Eosinophils (%) (Auto) [Pending], Basophils (%) (Auto) [Pending], Sodium Level [Pending], Potassium Level [Pending], Chloride Level [Pending], Carbon Dioxide Level [Pending], Blood Urea Nitrogen [Pending], Creatinine [Pending], Estimat Glomerular Filtration Rate [Pending], Glucose Level [Pending], Calcium Level [Pending], Total Bilirubin [Pending], Aspartate Amino Transf (AST/SGOT) [Pending], Alanine Aminotransferase (ALT/SGPT) [Pending] , Alkaline Phosphatase [Pending], Total Protein [Pending], Albumin [Pending], Globulin [Pending] Height (Feet): 5 Height (Inches): 8.00 Weight (Pounds): 104 General Appearance: lethargic EENT: normal ENT inspection Neck: normal alignment Cardiovascular: normal peripheral pulses, normal rate, regular rhythm Respiratory/Chest: chest wall non-tender, lungs clear, normal breath sounds Abdomen: normal bowel sounds, non tender, soft Extremities: normal inspection Edema: no edema noted Arm (L), no edema noted Arm (R), no edema noted Leg (L), no edema noted Leg (R), no edema noted Pedal (L), no edema noted Pedal (R), no edema noted Generalized Neurologic: responsive, motor weakness Skin: normal pigmentation, warm/dry Phillip Gandhi DO Aug 01, 2019 09:12
[2019-08-01 09:15] LABS: BASOPHILS % (AUTO) 0.5 % (0.0-2.0); EOSINOPHILS % (AUTO) 2.5 % (0.0-3.0); HEMATOCRIT 25.6 % (42.0-52.0); HEMOGLOBIN 8.6 G/DL (14.2-18.0); LYMPHOCYTES % (AUTO) 12.7 % (20.0-45.0); MEAN CORPUSCULAR VOLUME 85 FL (80-99); MONOCYTES % (AUTO) 7.7 % (1.0-10.0); NEUTROPHILS % (AUTO) 76.6 % (45.0-75.0); PLATELET COUNT 227 K/UL (150-450); RED BLOOD COUNT 3.01 M/UL (4.70-6.10); RED CELL DISTRIBUTION WIDTH 13.9 % (11.6-14.8)
[2019-08-01 09:45] LABS: ALANINE AMINOTRANSFERASE 467 U/L (12-78); ALBUMIN 2.3 G/DL (3.4-5.0); ALBUMIN/GLOBULIN RATIO 0.6 (1.0-2.7); ALKALINE PHOSPHATASE 173 U/L (46-116); ANION GAP 13 mmol/L (5-15); ASPARTATE AMINO TRANSFERASE 201 U/L (15-37); BILIRUBIN,TOTAL 0.6 MG/DL (0.2-1.0); BLOOD UREA NITROGEN 84 mg/dL (7-18); CALCIUM 8.9 MG/DL (8.5-10.1); CARBON DIOXIDE 23 MMOL/L (21-32); CHLORIDE 103 MMOL/L (98-107); CREATININE 4.6 MG/DL (0.55-1.30); POTASSIUM 4.2 MMOL/L (3.5-5.1); SODIUM 139 MMOL/L (136-145)
--- NOTE | 2019-08-01 09:55 | Nephrology Progress Note ---
Assessment/Plan Problem List: (1) Renal failure (ARF), acute on chronic (2) Cardiomyopathy Assessment: Significant low perfusion state (3) Elevated troponin (4) Pneumonia (5) Anemia Assessment Rule out COVID-19 Renal failure (ARF), acute on chronic DM (diabetes mellitus) Hypothyroid Cardiomyopathy EjFx 15% Anemia of chronic kidney disease. Elevated troponin. Plan 73 y old- admitted with Pneumonia rule out COVID-19 COVID-19 test not detected As per previous admission records indicate, patient needs Dialysis- Coronary Angio , Defibrillator Refused all previously and continues to refuse dialysis now 1 dose digoxin IV Beta-blockers nitrates Plavix Kayexalate as needed. Monitor renal parameters. Keep the blood pressure and blood sugar in check. Kidney ultrasound. ordered previously 2D echocardiogram. EjFx 15% Urine studies. Hold Metformin and Lasix. Per orders. Subjective ROS Limited/Unobtainable: No Constitutional: Reports: malaise, weakness Objective Objective Last 24 Hour Vital Signs Date Time Temp Pulse Resp B/P (MAP) Pulse Ox O2 Delivery O2 Flow Rate FiO2 08/01/19 08:55 82 99/60 08/01/19 08:00 Room Air 08/01/19 08:00 97.0 82 18 99/60 (73) 97 08/01/19 07:43 82 08/01/19 06:00 106/70 08/01/19 04:00 Room Air 08/01/19 04:00 97.5 87 17 114/79 (91) 100 08/01/19 04:00 84 08/01/19 00:00 Room Air 08/01/19 00:00 96.8 88 17 107/63 (78) 98 08/01/19 00:00 81 08/01/19 00:00 107/63 07/31/19 20:46 85 101/66 07/31/19 20:00 80 07/31/19 20:00 97.3 87 18 101/66 (78) 100 07/31/19 20:00 Room Air 07/31/19 17:47 100/60 07/31/19 16:00 Room Air 07/31/19 16:00 98.1 80 18 100/60 (73) 100 07/31/19 15:33 81 07/31/19 12:00 85 07/31/19 12:00 Room Air Room Air 07/31/19 11:51 103/61 07/31/19 11:50 98.0 88 18 103/61 (75) 100 Intake and Output 07/31/19 08/01/19 19:00 07:00 Intake Total 500 ml 320 ml Balance 500 ml 320 ml Intake Oral 500 ml 320 ml # Voids 2 1 # Bowel Movements 2 Current Medications Medications (Trade) Dose Ordered Sig/Stella Route PRN Reason Start Time Stop Time Status Last Admin Dose Admin Allopurinol (allopurinoL) 300 mg DAILY ORAL 07/31/19 09:00 08/27/19 09:59 08/01/19 09:03 Aztreonam 1 gm/ Sodium Chloride 55 ml @ 110 mls/hr Q8HR IVPB 07/30/19 14:00 08/04/19 21:59 08/01/19 05:59 Carvedilol (Coreg) 3.125 mg EVERY 12 HOURS ORAL 07/30/19 21:00 08/28/19 08:59 08/01/19 08:55 Clopidogrel Bisulfate (Plavix) 75 mg DAILY ORAL 07/31/19 09:00 08/27/19 08:59 08/01/19 08:54 Dextrose (Dextrose 50%) 25 ml Q30M PRN IV Hypoglycemia 07/30/19 11:30 10/26/19 09:29 Dextrose (Dextrose 50%) 50 ml Q30M PRN IV Hypoglycemia 07/30/19 11:30 10/26/19 09:29 Docusate Sodium (Colace) 100 mg TWICE A DAY ORAL 07/31/19 18:00 08/30/19 17:59 Doxycycline Monohydrate (Doxycycline Monohydrate) 100 mg Q12HR ORAL 07/31/19 21:00 08/07/19 20:59 08/01/19 08:54 Epoetin Yaron (Epoetin Yaron-EPBX(NON ESRD)) 10,000 unit SUN-SUN-SUN SUBQ 07/30/19 21:00 10/26/19 20:59 07/30/19 21:48 Hydralazine HCl (Apresoline) 10 mg Q6HR ORAL 07/30/19 12:00 10/26/19 17:59 Insulin Aspart (NovoLOG) BEFORE MEALS AND HS SUBQ 07/30/19 11:30 10/26/19 11:29 07/30/19 21:00 Iron Sucrose 100 mg/Sodium Chloride 60 ml @ 240 mls/hr BEDTIME IV 07/30/19 21:00 08/01/19 21:14 07/31/19 20:42 Isosorbide Mononitrate (Imdur) 30 mg DAILY ORAL 07/31/19 09:00 08/28/19 08:59 07/31/19 08:59 Levothyroxine Sodium (Synthroid) 50 mcg ACBREAKFAST ORAL 07/31/19 06:30 08/27/19 06:29 08/01/19 05:59 Linezolid (Zyvox) 600 mg EVERY 12 HOURS ORAL 07/30/19 21:00 08/03/19 20:59 08/01/19 08:54 Lorazepam (Ativan) 0.5 mg Q6H PRN ORAL For Anxiety 07/30/19 11:30 08/04/19 11:29 Memantine (Namenda) 5 mg BID ORAL 07/30/19 18:00 08/27/19 17:59 08/01/19 08:57 Pantoprazole (Protonix) 40 mg BID ORAL 07/30/19 18:00 08/27/19 08:59 08/01/19 08:54 Polyethylene Glycol (Miralax) 17 gm BEDTIME ORAL 07/31/19 21:00 08/30/19 20:59 07/31/19 20:42 Risperidone (RisperDAL) 0.5 mg EVERY 6 HOURS ORAL 07/30/19 12:00 09/11/19 17:59 08/01/19 05:59 Sevelamer Carbonate (Renvela) 800 mg THREE TIMES A DAY ORAL 07/30/19 13:00 10/26/19 17:59 08/01/19 08:57 Sodium Citrate (Bicitra) 30 ml TID ORAL 07/31/19 13:00 08/28/19 08:59 08/01/19 08:54 Tamsulosin HCl (Flomax) 0.4 mg BEDTIME ORAL 07/30/19 21:00 08/28/19 20:59 07/31/19 20:42 Laboratory Tests 07/31/19 10:29: Stool Occult Blood Negative 08/01/19 08:50: White Blood Count 10.0, Red Blood Count 3.01L, Hemoglobin 8.6L, Hematocrit 25.6L , Mean Corpuscular Volume 85, Mean Corpuscular Hemoglobin 28.5, Mean Corpuscular Hemoglobin Concent 33.5, Red Cell Distribution Width 13.9, Platelet Count 227, Mean Platelet Volume 5.1L, Neutrophils (%) (Auto) 76.6H, Lymphocytes (%) (Auto) 12.7L, Monocytes (%) (Auto) 7.7, Eosinophils (%) (Auto) 2.5, Basophils (%) (Auto) 0.5, Sodium Level 139, Potassium Level 4.2, Chloride Level 103, Carbon Dioxide Level 23, Anion Gap 13, Blood Urea Nitrogen 84H, Creatinine 4.6H, Estimat Glomerular Filtration Rate 15.4, Glucose Level 144H, Calcium Level 8.9, Total Bilirubin 0.6, Aspartate Amino Transf (AST/SGOT) 201H, Alanine Aminotransferase (ALT/SGPT) 467H, Alkaline Phosphatase 173H, Total Protein 6.2L , Albumin 2.3L, Globulin 3.9, Albumin/Globulin Ratio 0.6L Height (Feet): 5 Height (Inches): 8.00 Weight (Pounds): 104 General Appearance: no apparent distress Respiratory/Chest: decreased breath sounds Abdomen: distended Objective No change Ti Jones MD Aug 01, 2019 09:55
--- NOTE | 2019-08-01 10:19 | Diagnostic Imaging Report ---
Indication: Cough Technique: One view of the chest Comparison: 07/30/2019 Findings: Right pleural effusion persists. Right basilar consolidation may be minimally improved. Central venous congestion persists bilaterally, mild. The heart remains enlarged. Impression: Stable to slightly improved right basilar infiltrate. Otherwise unchanged findings, as described
--- NOTE | 2019-08-01 11:03 | Pulmonology Progress Note ---
Assessment/Plan Assessment/Plan IMPRESSION: 1. Pneumonia. with worsening R base on CXR 2. Negative COVID-19. 3. Diabetes mellitus. 4. Previous CVA. 5. Renal failure; pt declines HD DISCUSSION: OK to dc with home hospice Discussed with family yesterday Melvin Wells M.D. Subjective Interval Events: None reported Constitutional: Reports: no symptoms HEENT: Repors: no symptoms Respiratory: Reports: no symptoms Cardiovascular: Reports: no symptoms Gastrointestinal/Abdominal: Reports: no symptoms Allergies: Coded Allergies: CASTANON (Unverified Allergy, Mild, 06/07/19) APPLE (Unverified Allergy, Unknown, 06/07/19) BANANA (Unverified Allergy, Unknown, 06/07/19) CHOCOLATE FLAVOR (Unverified Allergy, Unknown, 06/07/19) PENICILLINS (Verified Allergy, Unknown, 07/12/17) POTATO (Unverified Allergy, Unknown, 06/07/19) Objective Last 24 Hour Vital Signs Date Time Temp Pulse Resp B/P (MAP) Pulse Ox O2 Delivery O2 Flow Rate FiO2 08/01/19 08:55 82 99/60 08/01/19 08:00 Room Air 08/01/19 08:00 97.0 82 18 99/60 (73) 97 08/01/19 07:43 82 08/01/19 06:00 106/70 08/01/19 04:00 Room Air 08/01/19 04:00 97.5 87 17 114/79 (91) 100 08/01/19 04:00 84 08/01/19 00:00 Room Air 08/01/19 00:00 96.8 88 17 107/63 (78) 98 08/01/19 00:00 81 08/01/19 00:00 107/63 07/31/19 20:46 85 101/66 07/31/19 20:00 80 07/31/19 20:00 97.3 87 18 101/66 (78) 100 07/31/19 20:00 Room Air 07/31/19 17:47 100/60 07/31/19 16:00 Room Air 07/31/19 16:00 98.1 80 18 100/60 (73) 100 07/31/19 15:33 81 07/31/19 12:00 85 07/31/19 12:00 Room Air Room Air 07/31/19 11:51 103/61 07/31/19 11:50 98.0 88 18 103/61 (75) 100 Intake and Output 07/31/19 08/01/19 19:00 07:00 Intake Total 500 ml 320 ml Balance 500 ml 320 ml Intake Oral 500 ml 320 ml # Voids 2 1 # Bowel Movements 2 General Appearance: no acute distress HEENT: normocephalic Respiratory/Chest: decreased breath sounds Cardiovascular: normal peripheral pulses Abdomen: normal bowel sounds Microbiology Date/Time Source Procedure Growth Status 07/30/19 16:10 Nasopharynx Coronavirus COVID-19 PCR (ERIN) - Final Complete Laboratory Tests 08/01/19 08:50: White Blood Count 10.0, Red Blood Count 3.01L, Hemoglobin 8.6L, Hematocrit 25.6L , Mean Corpuscular Volume 85, Mean Corpuscular Hemoglobin 28.5, Mean Corpuscular Hemoglobin Concent 33.5, Red Cell Distribution Width 13.9, Platelet Count 227, Mean Platelet Volume 5.1L, Neutrophils (%) (Auto) 76.6H, Lymphocytes (%) (Auto) 12.7L, Monocytes (%) (Auto) 7.7, Eosinophils (%) (Auto) 2.5, Basophils (%) (Auto) 0.5, Sodium Level 139, Potassium Level 4.2, Chloride Level 103, Carbon Dioxide Level 23, Anion Gap 13, Blood Urea Nitrogen 84H, Creatinine 4.6H, Estimat Glomerular Filtration Rate 15.4, Glucose Level 144H, Calcium Level 8.9, Total Bilirubin 0.6, Aspartate Amino Transf (AST/SGOT) 201H, Alanine Aminotransferase (ALT/SGPT) 467H, Alkaline Phosphatase 173H, Total Protein 6.2L , Albumin 2.3L, Globulin 3.9, Albumin/Globulin Ratio 0.6L Current Medications Medications (Trade) Dose Ordered Sig/Stella Route PRN Reason Start Time Stop Time Status Last Admin Dose Admin Allopurinol (allopurinoL) 300 mg DAILY ORAL 07/31/19 09:00 08/27/19 09:59 08/01/19 09:03 Aztreonam 1 gm/ Sodium Chloride 55 ml @ 110 mls/hr Q8HR IVPB 07/30/19 14:00 08/04/19 21:59 08/01/19 05:59 Carvedilol (Coreg) 3.125 mg EVERY 12 HOURS ORAL 07/30/19 21:00 08/28/19 08:59 08/01/19 08:55 Clopidogrel Bisulfate (Plavix) 75 mg DAILY ORAL 07/31/19 09:00 08/27/19 08:59 08/01/19 08:54 Dextrose (Dextrose 50%) 25 ml Q30M PRN IV Hypoglycemia 07/30/19 11:30 10/26/19 09:29 Dextrose (Dextrose 50%) 50 ml Q30M PRN IV Hypoglycemia 07/30/19 11:30 10/26/19 09:29 Docusate Sodium (Colace) 100 mg TWICE A DAY ORAL 07/31/19 18:00 08/30/19 17:59 Doxycycline Monohydrate (Doxycycline Monohydrate) 100 mg Q12HR ORAL 07/31/19 21:00 08/07/19 20:59 08/01/19 08:54 Epoetin Yaron (Epoetin Yaron-EPBX(NON ESRD)) 10,000 unit SUN-SUN-SUN SUBQ 07/30/19 21:00 10/26/19 20:59 07/30/19 21:48 Hydralazine HCl (Apresoline) 10 mg Q6HR ORAL 07/30/19 12:00 10/26/19 17:59 Insulin Aspart (NovoLOG) BEFORE MEALS AND HS SUBQ 07/30/19 11:30 10/26/19 11:29 07/30/19 21:00 Iron Sucrose 100 mg/Sodium Chloride 60 ml @ 240 mls/hr BEDTIME IV 07/30/19 21:00 08/01/19 21:14 07/31/19 20:42 Isosorbide Mononitrate (Imdur) 30 mg DAILY ORAL 07/31/19 09:00 08/28/19 08:59 07/31/19 08:59 Levothyroxine Sodium (Synthroid) 50 mcg ACBREAKFAST ORAL 07/31/19 06:30 08/27/19 06:29 08/01/19 05:59 Linezolid (Zyvox) 600 mg EVERY 12 HOURS ORAL 07/30/19 21:00 08/03/19 20:59 08/01/19 08:54 Lorazepam (Ativan) 0.5 mg Q6H PRN ORAL For Anxiety 07/30/19 11:30 08/04/19 11:29 Memantine (Namenda) 5 mg BID ORAL 07/30/19 18:00 08/27/19 17:59 08/01/19 08:57 Pantoprazole (Protonix) 40 mg BID ORAL 07/30/19 18:00 08/27/19 08:59 08/01/19 08:54 Polyethylene Glycol (Miralax) 17 gm BEDTIME ORAL 07/31/19 21:00 08/30/19 20:59 07/31/19 20:42 Risperidone (RisperDAL) 0.5 mg EVERY 6 HOURS ORAL 07/30/19 12:00 09/11/19 17:59 08/01/19 05:59 Sevelamer Carbonate (Renvela) 800 mg THREE TIMES A DAY ORAL 07/30/19 13:00 10/26/19 17:59 08/01/19 08:57 Sodium Citrate (Bicitra) 30 ml TID ORAL 07/31/19 13:00 08/28/19 08:59 08/01/19 08:54 Tamsulosin HCl (Flomax) 0.4 mg BEDTIME ORAL 07/30/19 21:00 08/28/19 20:59 07/31/19 20:42 Melvin Wells MD Aug 01, 2019 11:03
[2019-08-01 12:00] VITALS: BP 104/58
[2019-08-01] MEDS ORDERED: Aztreonam Inj 1 GM in NS 55 ML IVPB SCH ×2 (12:30→14:00)
--- NOTE | 2019-08-01 12:40 | CDS Physician Query ---
Clarification is required for compliance, coding accuracy, and to reflect severity of illness for this patient. Dear Dr. Phillip Gandhi Date: 08/01/2019 CDS name: Sarina Glez Clinical Documentation: HNP: CHIEF COMPLAINT: Shortness of breath, cough, pneumonia, and sepsis.BRIEF HISTORY: This is a 73-year-old male from [facility], who presented with the above-mentioned diagnoses Labs/Vitals on admit: WBC 23.8, RR 24, HR 86, Temp 98.3 Treatment: IV aztreonam, oral linezolid A diagnosis of Sepsis was made in the medical record on. Upon review, it is difficult to determine whether this diagnosis has been ruled in, ruled out,or is still being worked up. Please indicate below the status of the aforementioned diagnosis. [] Treated and resolve [] Presumed and treated [] Currently under treatment [] Still being worked-up [] Ruled out Present on Admission: [] Yes [] No [] Clinically Undetermined Physician signature Date Please also document in your Progress Notes and/or Discharge Summary and indicate if the condition was present on admission. MTDD
[2019-08-01 13:15] VITALS: BP 110/64
[2019-08-01] MEDS ORDERED: NS 500ML ONE (13:19)
[2019-08-01] MEDS ORDERED: NS 275ml ONE ×2 (13:19)
[2019-08-01] MEDS ORDERED: Tubing IV Secondary IV ONE ×2 (13:19)
--- NOTE | 2019-08-01 17:25 | Hematology/Onc Progress Note ---
Assessment/Plan Assessment/Plan Assessment and Recs: # Anemia of iron deficiency, must rule out gi bleed, as hgb has persistently been low --> anemia panel is noted, reviewed prior labs as well --> stool ob positive 06/07 --> ct a/p results pending --> as per gi Dr. Price --> cont on epogen --> hgb trend: 9.3-->8.7->7.6->8.5 --> ferritin is 410 # Coaguloapthy with elev ptt due to heparin gtt --> monitor as per pharmacy is medication induced --> as per pcards indication # Thrombocytopenia likely reactive process (HISTORY OF) --> meds have been reviewed --> smear noted --> now improved --> plt 235k # Troponin elevation likely due to renal failure with creatinine of 5.3 as low level and flat. --> as per cards, renal --> Lipitor and Plavix daily and Lopressor 12.5 bid # HTN On Lopressor and Hydralazine 10 q 6 --> cards recs noted --> sbp goal <140 # Hyperkalemia due to renal failure. --> Fu by Dr. Jones. # Hyperlipidemia on Lipitor. # Hypothyroidism on Synthroid. # Benign prostatic hypertrophy --> on Flomax and Proscar Apprecaite consultation and alana RN Subjective Allergies: Coded Allergies: CASTANON (Unverified Allergy, Mild, 06/07/19) APPLE (Unverified Allergy, Unknown, 06/07/19) BANANA (Unverified Allergy, Unknown, 06/07/19) CHOCOLATE FLAVOR (Unverified Allergy, Unknown, 06/07/19) PENICILLINS (Verified Allergy, Unknown, 07/12/17) POTATO (Unverified Allergy, Unknown, 06/07/19) Subjective 07/28 labs reviewed, remains in icu, hgb remains low, holding off prbc 07/29 labs refusing, meds noted, abs pending this am still 07/30 labs reviewed, hgb 8.5, no bleeding, no hemolysis, prbc as needed 07/31 awake and alert, no overnight events, stable for dc back to snf Objective Objective Last 24 Hour Vital Signs Date Time Temp Pulse Resp B/P (MAP) Pulse Ox O2 Delivery O2 Flow Rate FiO2 08/01/19 13:15 97.0 81 18 110/64 (79) 97 08/01/19 12:00 97.2 78 18 104/58 (73) 97 08/01/19 12:00 Room Air 08/01/19 12:00 104/56 08/01/19 11:44 80 08/01/19 08:55 82 99/60 08/01/19 08:00 Room Air 08/01/19 08:00 97.0 82 18 99/60 (73) 97 08/01/19 07:43 82 08/01/19 06:00 106/70 08/01/19 04:00 Room Air 08/01/19 04:00 97.5 87 17 114/79 (91) 100 08/01/19 04:00 84 08/01/19 00:00 Room Air 08/01/19 00:00 96.8 88 17 107/63 (78) 98 08/01/19 00:00 81 08/01/19 00:00 107/63 07/31/19 20:46 85 101/66 07/31/19 20:00 80 07/31/19 20:00 97.3 87 18 101/66 (78) 100 07/31/19 20:00 Room Air 07/31/19 17:47 100/60 07/31/19 16:00 Room Air 07/31/19 16:00 98.1 80 18 100/60 (73) 100 07/31/19 15:33 81 07/31/19 12:00 85 07/31/19 12:00 Room Air Room Air 07/31/19 11:51 103/61 07/31/19 11:50 98.0 88 18 103/61 (75) 100 07/31/19 09:01 98 114/69 07/31/19 09:01 98 114/69 (84) 07/31/19 08:59 106/68 07/31/19 08:00 Room Air Room Air 07/31/19 08:00 98.1 78 18 106/68 (81) 100 07/31/19 07:48 91 07/31/19 06:00 108/50 07/31/19 04:00 97.9 91 18 108/50 (69) 98 07/31/19 04:00 Room Air Room Air 07/31/19 03:38 87 07/31/19 00:00 Room Air Room Air 07/31/19 00:00 90 07/31/19 00:00 102/62 07/31/19 00:00 97.5 91 20 102/62 (75) 99 07/30/19 21:00 94 102/63 07/30/19 20:00 94 07/30/19 20:00 96.3 94 20 102/63 (76) 100 07/30/19 20:00 Room Air Room Air 07/30/19 17:31 109/63 Intake and Output 07/31/19 08/01/19 19:00 07:00 Intake Total 500 ml 320 ml Balance 500 ml 320 ml Intake Oral 500 ml 320 ml # Voids 2 1 # Bowel Movements 2 Labs Test 07/30/19 05:30 07/30/19 05:34 07/30/19 11:00 07/31/19 08:15 Digoxin Level < 0.3 NG/ML (0.5-2.0) Sodium Level 140 MMOL/L (136-145) 140 MMOL/L (136-145) Potassium Level 4.0 MMOL/L (3.5-5.1) 4.0 MMOL/L (3.5-5.1) Chloride Level 104 MMOL/L (98-107) 104 MMOL/L (98-107) Carbon Dioxide Level 19 MMOL/L (21-32) 20 MMOL/L (21-32) Anion Gap 17 mmol/L (5-15) 16 mmol/L (5-15) Blood Urea Nitrogen 97 mg/dL (7-18) 86 mg/dL (7-18) Creatinine 4.6 MG/DL (0.55-1.30) 4.4 MG/DL (0.55-1.30) Estimat Glomerular Filtration Rate 15.4 mL/min (>60) 16.1 mL/min (>60) Glucose Level 151 MG/DL (74-106) 178 MG/DL (74-106) Uric Acid 11.5 MG/DL (2.6-7.2) 9.9 MG/DL (2.6-7.2) Calcium Level 8.6 MG/DL (8.5-10.1) 8.3 MG/DL (8.5-10.1) Phosphorus Level 4.1 MG/DL (2.5-4.9) 3.5 MG/DL (2.5-4.9) Magnesium Level 2.5 MG/DL (1.8-2.4) 2.1 MG/DL (1.8-2.4) Total Bilirubin 0.6 MG/DL (0.2-1.0) 1.4 MG/DL (0.2-1.0) Gamma Glutamyl Transpeptidase 80 U/L (5-85) Aspartate Amino Transf (AST/SGOT) 461 U/L (15-37) 262 U/L (15-37) Alanine Aminotransferase (ALT/SGPT) 744 U/L (12-78) 580 U/L (12-78) Alkaline Phosphatase 206 U/L (46-116) 188 U/L (46-116) Troponin I 0.703 ng/mL (0.000-0.056) Total Protein 6.5 G/DL (6.4-8.2) 6.4 G/DL (6.4-8.2) Albumin 2.4 G/DL (3.4-5.0) 2.4 G/DL (3.4-5.0) Globulin 4.1 g/dL 4.0 g/dL Albumin/Globulin Ratio 0.6 (1.0-2.7) 0.6 (1.0-2.7) Hepatitis A IgM Antibody Negative (Negative) Hepatitis B Surface Antigen Negative (Negative) Hepatitis B Core IgM Antibody Negative (Negative) Hepatitis C Antibody <0.1 s/co ratio White Blood Count 9.4 K/UL (4.8-10.8) 8.5 K/UL (4.8-10.8) Red Blood Count 2.66 M/UL (4.70-6.10) 2.94 M/UL (4.70-6.10) Hemoglobin 7.4 G/DL (14.2-18.0) 8.5 G/DL (14.2-18.0) Hematocrit 22.4 % (42.0-52.0) 25.1 % (42.0-52.0) Mean Corpuscular Volume 84 FL (80-99) 85 FL (80-99) Mean Corpuscular Hemoglobin 27.7 PG (27.0-31.0) 28.8 PG (27.0-31.0) Mean Corpuscular Hemoglobin Concent 33.0 G/DL (32.0-36.0) 33.7 G/DL (32.0-36.0) Red Cell Distribution Width 13.0 % (11.6-14.8) 13.8 % (11.6-14.8) Platelet Count 226 K/UL (150-450) 229 K/UL (150-450) Mean Platelet Volume 5.0 FL (6.5-10.1) 5.4 FL (6.5-10.1) Neutrophils (%) (Auto) % (45.0-75.0) 75.2 % (45.0-75.0) Lymphocytes (%) (Auto) % (20.0-45.0) 14.7 % (20.0-45.0) Monocytes (%) (Auto) % (1.0-10.0) 7.7 % (1.0-10.0) Eosinophils (%) (Auto) % (0.0-3.0) 2.0 % (0.0-3.0) Basophils (%) (Auto) % (0.0-2.0) 0.4 % (0.0-2.0) Differential Total Cells Counted 100 Neutrophils % (Manual) 80 % (45-75) Lymphocytes % (Manual) 13 % (20-45) Monocytes % (Manual) 7 % (1-10) Eosinophils % (Manual) 0 % (0-3) Basophils % (Manual) 0 % (0-2) Band Neutrophils 0 % (0-8) Platelet Estimate Adequate Platelet Morphology Normal Hypochromasia 3+ Poikilocytosis 3+ Anisocytosis 1+ [place] Cells 2+ D-Dimer 10.42 mg/L FEU (0.00-0.49) Direct Bilirubin 0.6 MG/DL (0.0-0.3) Lactate Dehydrogenase 265 U/L (81-234) C-Reactive Protein, Quantitative 13.3 mg/dL (0.00-0.90) Pro-B-Type Natriuretic Peptide > 77870 pg/mL (0-125) Test 07/31/19 10:29 08/01/19 08:50 Stool Occult Blood Negative (NEGATIVE) White Blood Count 10.0 K/UL (4.8-10.8) Red Blood Count 3.01 M/UL (4.70-6.10) Hemoglobin 8.6 G/DL (14.2-18.0) Hematocrit 25.6 % (42.0-52.0) Mean Corpuscular Volume 85 FL (80-99) Mean Corpuscular Hemoglobin 28.5 PG (27.0-31.0) Mean Corpuscular Hemoglobin Concent 33.5 G/DL (32.0-36.0) Red Cell Distribution Width 13.9 % (11.6-14.8) Platelet Count 227 K/UL (150-450) Mean Platelet Volume 5.1 FL (6.5-10.1) Neutrophils (%) (Auto) 76.6 % (45.0-75.0) Lymphocytes (%) (Auto) 12.7 % (20.0-45.0) Monocytes (%) (Auto) 7.7 % (1.0-10.0) Eosinophils (%) (Auto) 2.5 % (0.0-3.0) Basophils (%) (Auto) 0.5 % (0.0-2.0) Sodium Level 139 MMOL/L (136-145) Potassium Level 4.2 MMOL/L (3.5-5.1) Chloride Level 103 MMOL/L (98-107) Carbon Dioxide Level 23 MMOL/L (21-32) Anion Gap 13 mmol/L (5-15) Blood Urea Nitrogen 84 mg/dL (7-18) Creatinine 4.6 MG/DL (0.55-1.30) Estimat Glomerular Filtration Rate 15.4 mL/min (>60) Glucose Level 144 MG/DL (74-106) Calcium Level 8.9 MG/DL (8.5-10.1) Total Bilirubin 0.6 MG/DL (0.2-1.0) Aspartate Amino Transf (AST/SGOT) 201 U/L (15-37) Alanine Aminotransferase (ALT/SGPT) 467 U/L (12-78) Alkaline Phosphatase 173 U/L (46-116) Total Protein 6.2 G/DL (6.4-8.2) Albumin 2.3 G/DL (3.4-5.0) Globulin 3.9 g/dL Albumin/Globulin Ratio 0.6 (1.0-2.7) Height (Feet): 5 Height (Inches): 8.00 Weight (Pounds): 104 Objective Physical Exam General: Awake and alert HEENT: NC/AT. EOMI. Neck: Supple Cardiov: RRR. S1 and S2 normal. No murmur appreciated Resp: No cough, wheezing or crackles appreciated Abd: Abdomen is soft, nondistended. Skin: Intact. No abrasions, laceration or rash MSK: Normal tone and bulk. Moving all extremities. Neuro: Awake and alert. Mentating appropriately. Roverto Orourke MD Aug 01, 2019 17:25
[2019-08-01] MEDS ORDERED: Doxycycline Monohydrate 100mg ORAL SCH (21:00)
--- NOTE | 2019-08-01 23:56 | Cardiology Progress Note ---
Assessment/Plan Assessment/Plan 1. High trop level, possible etiologies NSTEMI, barrera. in view of WMA on echo, vs myonecrosis vs trop leak in ESRD, continue medical therapy, cardiac catheterization has been rejected in the past. 2. Dilated cardiomyopathy with LVEF about 15% to 20%, possible ICM in view of wall motion abnormalities. Continue GDMT. 3. History of paroxysmal atrial flutter, in SR. 4. History of anemia. 5. Diabetes mellitus. Subjective Subjective Sinus rhythm at rate of 81. Objective Last 24 Hour Vital Signs Date Time Temp Pulse Resp B/P (MAP) Pulse Ox O2 Delivery O2 Flow Rate FiO2 08/01/19 13:15 97.0 81 18 110/64 (79) 97 08/01/19 12:00 97.2 78 18 104/58 (73) 97 08/01/19 12:00 Room Air 08/01/19 12:00 104/56 08/01/19 11:44 80 08/01/19 08:55 82 99/60 08/01/19 08:00 Room Air 08/01/19 08:00 97.0 82 18 99/60 (73) 97 08/01/19 07:43 82 08/01/19 06:00 106/70 08/01/19 04:00 Room Air 08/01/19 04:00 97.5 87 17 114/79 (91) 100 08/01/19 04:00 84 08/01/19 00:00 Room Air 08/01/19 00:00 96.8 88 17 107/63 (78) 98 08/01/19 00:00 81 08/01/19 00:00 107/63 Intake and Output 07/31/19 08/01/19 19:00 07:00 Intake Total 500 ml 320 ml Balance 500 ml 320 ml Intake Oral 500 ml 320 ml # Voids 2 1 # Bowel Movements 2 2D Echo: LVEF 15%, + WMA likely Ischemic CM, Mild MR, RVSP 32 mmHg, Grade I LVDD Laboratory Tests Test 08/01/19 08:50 White Blood Count 10.0 K/UL (4.8-10.8) Red Blood Count 3.01 M/UL (4.70-6.10) L Hemoglobin 8.6 G/DL (14.2-18.0) L Hematocrit 25.6 % (42.0-52.0) L Mean Corpuscular Volume 85 FL (80-99) Mean Corpuscular Hemoglobin 28.5 PG (27.0-31.0) Mean Corpuscular Hemoglobin Concent 33.5 G/DL (32.0-36.0) Red Cell Distribution Width 13.9 % (11.6-14.8) Platelet Count 227 K/UL (150-450) Mean Platelet Volume 5.1 FL (6.5-10.1) L Neutrophils (%) (Auto) 76.6 % (45.0-75.0) H Lymphocytes (%) (Auto) 12.7 % (20.0-45.0) L Monocytes (%) (Auto) 7.7 % (1.0-10.0) Eosinophils (%) (Auto) 2.5 % (0.0-3.0) Basophils (%) (Auto) 0.5 % (0.0-2.0) Sodium Level 139 MMOL/L (136-145) Potassium Level 4.2 MMOL/L (3.5-5.1) Chloride Level 103 MMOL/L (98-107) Carbon Dioxide Level 23 MMOL/L (21-32) Anion Gap 13 mmol/L (5-15) Blood Urea Nitrogen 84 mg/dL (7-18) H Creatinine 4.6 MG/DL (0.55-1.30) H Estimat Glomerular Filtration Rate 15.4 mL/min (>60) Glucose Level 144 MG/DL (74-106) H Calcium Level 8.9 MG/DL (8.5-10.1) Total Bilirubin 0.6 MG/DL (0.2-1.0) Aspartate Amino Transf (AST/SGOT) 201 U/L (15-37) H Alanine Aminotransferase (ALT/SGPT) 467 U/L (12-78) H Alkaline Phosphatase 173 U/L (46-116) H Total Protein 6.2 G/DL (6.4-8.2) L Albumin 2.3 G/DL (3.4-5.0) L Globulin 3.9 g/dL Albumin/Globulin Ratio 0.6 (1.0-2.7) L Microbiology Date/Time Source Procedure Growth Status 07/30/19 16:10 Nasopharynx Coronavirus COVID-19 PCR (ERIN) - Final Complete Objective HEENT: Atraumatic and normocephalic. Anicteric. Pupils are equal, round, and reactive to light and accommodation. Extraocular muscles are intact. NECK: JVP less than 5 cm. No carotid bruits. Carotid upstrokes 2+ bilaterally. CARDIOVASCULAR: Normal S1, S2. Regular rate and rhythm. No murmurs, gallops, or rubs. PMI is at fourth intercostal space in the midclavicular line. LUNGS: Diminished breath sounds in both bases. Increased dullness in the right base with scattered crackles in both bases. ABDOMEN: Soft, nontender, and nondistended. No hepatosplenomegaly. Positive bowel sounds. EXTREMITIES: No evidence of edema, clubbing, or cyanosis. Alex Mercedes MD Aug 01, 2019 23:56
--- NOTE | 2019-08-03 16:31 | Discharge Summary ---
Discharge Summary Discharge Summary _ DATE OF ADMISSION: 07/27/2019 DATE OF DISCHARGE: 08/01/2019 DISCHARGED BY: Dr. Phillip Gandhi CONSULTANTS: Dr. Alex Macdonald [facility] BRIEF HOSPITAL COURSE: Patient is a 73-year-old male from [facility], was brought in by EMS after increased altered mental status. Patient was noted to be more lethargic. He was reported to have cough for the past 3 days. There were no reports of fever. Patient was sent in for evaluation of altered mental status. He has medical history significant for anemia, dysphagia, atherosclerotic heart disease, AL, COPD, diabetes, and CVA. Upon evaluation in ED, blood work showed WBC elevated to 24. Hemoglobin 8 and hematocrit 24. BUN 110. Creatinine 4.8. Bilirubin elevated. Phosphorus 5.6. Magnesium 1.6. proBNP was greater than 35,000. Troponin was elevated to 2.6. Showed sinus with left bundle branch block. Chest x-ray showed bilateral small effusion and vascular congestion. He was then admitted for evaluation of pneumonia and elevated troponin. Patient has a known chronic renal failure who has refused dialysis previously. Kidney function was monitored. He was given empiric aztreonam and doxycycline. IV vancomycin was added to his regimen. He was placed on respiratory isolation. He was given slow IV hydration. Hemoglobin further dropped. He was given IV Venofer. He was given Epogen. He underwent psychiatric evaluation. He was diagnosed with major depressive disorder. He was given Namenda and PRN Ativan. He underwent cardiac evaluation. He had elevated troponin I level with troponin leak due to end-stage renal disease. However, non-ST elevated AL cannot be ruled out. Troponin I can also be elevated in presence of myonecrosis due to heart failure as he has EF of about 15% to 20%. The patient does not have any chest pain. No EKG changes suggestive of ischemia. Patient had refused cardiac catheterization many times in the past. He has history of dilated cardiomyopathy with LVEF of 15 to 20% in ischemic etiology cannot be ruled out as patient refused cardiac catheterization. Other possibilities could include uremic cardiomyopathy as well as tachycardia induced cardiomyopathy as patient has history of atrial flutter in the past. He was given beta-ly, nitrates and Plavix. Hemoglobin continued to drop. He was given 1 unit packed RBC blood transfusion. Initial COVID-19 testing was negative. He had elevated LFTs, likely shock liver from hypoperfusion. Second PCR COVID testing was negative. Sputum culture showed normal upper respiratory alfredo. Leukocytosis resolved. Hemoglobin level improved post transfusion. Patient was afebrile. Patient was eventually discharged home with hospice. FINAL DIAGNOSES: Pneumonia, negative COVID-19 Acute on chronic encephalopathy Acute kidney injury on CKD, refused hemodialysis Shock liver Lymphopenia High troponin level, possible non-STEMI in view of wall motion abnormality on echo, versus myonecrosis versus troponin leak in end-stage renal disease Dilated cardiomyopathy with LVEF of 15 to 20%, possible ischemic cardiomyopathy in view of wall motion abnormality Paroxysmal atrial fibrillation Anemia of iron deficiency requiring blood transfusion Diabetes mellitus Coagulopathy due to heparin drip History of thrombocytopenia Hypertension Hyperlipidemia Hypothyroidism BPH Old CVA Malnutrition Weakness Major depressive disorder, mild, recurrent with psychotic features DISPOSITION: Home with hospice. I have been assigned to complete a discharge summary on this account, I was not involved with the patient's management.--TERESE Qureshi Jacqueline Robles NP Aug 03, 2019 16:31
== END 2019-08-01 13:20 | DRG 193 ==
LOC: EDBD 10:40 → EMR 11:14 → EDBEDREQ 11:38 → 2W 11:50 → EDBEDREQSVC 12:14 → EDBEDREQ 12:14 → ICU 07-29 01:48 → 2W 07-30 10:48
PROC: 30233N1 Transfusion of Nonautologous Red Blood Cells into Peripheral Vein, Percutaneous Approach (ICD-10-PCS; principal; 2019-07-30)
DX: J18.9 Pneumonia, unspecified organism (principal); K72.00 Acute and subacute hepatic failure without coma; I21.4 Non-ST elevation (NSTEMI) myocardial infarction; D68.8 Other specified coagulation defects; G93.49 Other encephalopathy; N17.9 Acute kidney failure, unspecified; I13.2 Hypertensive heart and chronic kidney disease with heart failure and with stage 5 chronic kidney disease, or end stage renal disease; N18.5 Chronic kidney disease, stage 5; I42.0 Dilated cardiomyopathy; E46 Unspecified protein-calorie malnutrition; F33.0 Major depressive disorder, recurrent, mild; I50.9 Heart failure, unspecified; Z88.0 Allergy status to penicillin; Z91.018 Allergy to other foods; I44.7 Left bundle-branch block, unspecified; E11.9 Type 2 diabetes mellitus without complications; Z79.4 Long term (current) use of insulin; I25.2 Old myocardial infarction; I48.0 Paroxysmal atrial fibrillation; D50.9 Iron deficiency anemia, unspecified; N40.0 Benign prostatic hyperplasia without lower urinary tract symptoms; Z86.73 Personal history of transient ischemic attack (TIA), and cerebral infarction without residual deficits; E78.5 Hyperlipidemia, unspecified; E03.9 Hypothyroidism, unspecified; Z79.82 Long term (current) use of aspirin; T45.515A Adverse effect of anticoagulants, initial encounter; E87.5 Hyperkalemia; I25.10 Atherosclerotic heart disease of native coronary artery without angina pectoris; Z91.15 Patient's noncompliance with renal dialysis
CPT/HCPCS: 36415; 71045; 80053; 80061; 80162; 80202; 81003; 82140; 82164; 82248; 82270; 82550; 82553; 82607; 82728; 82746; 82977; 83036; 83540; 83550; 83605; 83615; 83735; 83880; 84100; 84443; 84484; 84550; 85007; 85025; 85379; 85610; 85730; 86140; 86705; 86709; 86803; 86850; 86900; 86901; 86920; 87040; 87070; 87081; 87205; 87340; 87635; 93005; 96361; 96365; 96367; 96375; 99285; J1815; J7030